=== PATIENT | female | born 1945 | race Caucasian/White ===

== ENCOUNTER 2019-11-09 14:26 | Outpatient (CLI) | payer MEDICARE, OTHER, SELFPAY ==
--- NOTE | 2019-11-09 15:00 | US_ITS ---
WS: [id number] ULTRASOUND THYROID TECHNIQUE: Ultrasound of the thyroid. CLINICAL INFORMATION: difficulty swallowing COMPARISON: None. FINDINGS: Thyroid: Right and left thyroid lobes are normal in size and echotexture. No thyroid nodules are pres ent. Right thyroid lobe: 3.6 cm x 1.4 cm x 1.6 cm Left thyroid lobe: 3.5 cm x 1.5 cm x 1.3 cm. Isthmus: 0.6 mm. Cervical lymphadenopathy: None. US/US thyroid [id number] IMPRESSION: Normal thyroid ultrasound examination.
== END 2019-11-09 14:27 | disposition home or self-care (01) ==
LOC: RAD 14:41
PROVIDERS: Family Provider Nurse Practitioner Family; PCP Registered Nurse; Visit Provider Registered Nurse
DX: R13.10 Dysphagia, unspecified (principal)
CPT/HCPCS: 76536

== ENCOUNTER → 2019-11-16 09:23 | Outpatient (BNVA) | payer MEDICARE, OTHER, SELFPAY | PROVIDERS: Family Provider Nurse Practitioner Family; PCP Registered Nurse; Referring Provider Registered Nurse; Visit Provider Otolaryngology | DX: R13.10 Dysphagia, unspecified (principal); K21.9 Gastro-esophageal reflux disease without esophagitis; H91.93 Unspecified hearing loss, bilateral; H71.92 Unspecified cholesteatoma, left ear; H72.92 Unspecified perforation of tympanic membrane, left ear; H69.82 Other specified disorders of Eustachian tube, left ear; J34.3 Hypertrophy of nasal turbinates; R22.1 Localized swelling, mass and lump, neck; F17.210 Nicotine dependence, cigarettes, uncomplicated | CPT/HCPCS: 99214 ==

== ENCOUNTER 2019-11-27 09:41 | Outpatient (CLI) | payer MEDICARE, OTHER, SELFPAY ==
--- NOTE | 2019-11-27 10:30 | CT_ITS ---
WS: [id number] CT TEMPORAL BONES WITHOUT CONTRAST HISTORY: ear complaints TECHNIQUE: Axial 1.25 mm imaging is performed through the temporal bones. High resolution 0.63 mm ref ormats were then submitted in axial, coronal and sagittal planes. DLP: 762.[address] scans at [facility] use at least one of these dose optimization techniques: automat ed exposure control; mA and/or kV adjustment per patient size (includes targeted exams where dose is matched to clinical indication); or iterative reconstruction. COMPARISON: 12/26/2017 RIGHT temporal bone: There is a very small amount of soft tissue in the external auditory canal consi stent with cerumen. There is no significant soft tissue in Prussak space, mesotympanum or epitympanum . Scutum is sharp. Tegmen tympani is intact and the mastoid air cells are clear with no destruction. Semicircular canals are negative. Malleus and incus are in good position. LEFT temporal bone: Abnormal appearance to the LEFT temporal bone. There is abnormal soft tissue exte nding in a thin linear dimension in the internal auditory canal. No identifiable incus are malleolus is identified. Tympanic membrane is not visible as a separate structure. Tegmen contain any does alex in intact. There is increased sclerosis of the adjacent mastoid air cells. Scutum is absent. A lot of the changes probably related to reflect postsurgical changes. There is widening of the internal and external auditory canal. CT/CT temporal bone wo con* [id number] IMPRESSION: 1. Abnormal LEFT temporal bone and inner ear. Probably postsurgical changes. W idening of the internal/external canals. No identifiable middle ears ossicles. Similar to the prior CT of 12/26/2017. 2. Thin linear area of increased soft tissue along the LEFT inner ear canal. C hanges are very similar to the prior temporal bone CT of 12/26/2017. 3. Normal RIGHT inner ear.
== END 2019-11-27 09:42 | disposition home or self-care (01) ==
LOC: CT 09:42
PROVIDERS: Family Provider Registered Nurse; PCP Registered Nurse; Visit Provider Otolaryngology
DX: H93.90 Unspecified disorder of ear, unspecified ear (principal)
CPT/HCPCS: 70480

== ENCOUNTER → 2019-12-05 13:15 | Outpatient (BNVA) | payer MEDICARE, OTHER, SELFPAY | PROVIDERS: Family Provider Registered Nurse; PCP Registered Nurse; Visit Provider Otolaryngology | DX: R05 Cough (principal); R13.10 Dysphagia, unspecified; K21.9 Gastro-esophageal reflux disease without esophagitis; H71.92 Unspecified cholesteatoma, left ear; H91.93 Unspecified hearing loss, bilateral; H72.92 Unspecified perforation of tympanic membrane, left ear; H69.82 Other specified disorders of Eustachian tube, left ear; J34.3 Hypertrophy of nasal turbinates; F17.210 Nicotine dependence, cigarettes, uncomplicated | CPT/HCPCS: 99214 ==

== ENCOUNTER 2020-04-22 10:31 | Outpatient (CLI) | payer MEDICARE, OTHER, SELFPAY ==
--- NOTE | 2020-04-22 10:45 | MR_ITS ---
WS: [id number] MRI LUMBAR SPINE NONCONTRAST TECHNIQUE: Sagittal T1, T2 and STIR imaging. Axial T1 and T2 imaging. CLINICAL INFORMATION: M48.062 Spinal stenosis, lumbar region with neurogenic cl... COMPARISON: MRI FINDINGS: Mild lumbar curve. No acute compression. Chronic compression fractures L3 and L4 similar to 2018. No new compression fractures. Mild disc bulging L3-L4 and L4-L5 slightly progressed. L1-L2: Normal. L2-L3: Mild annular bulging with narrowing of subarticular recess. Mild right foraminal narrowing. Sp inal canal is patent. Mild facet arthropathy. L3-L4: Mild disc bulging with moderate central canal stenosis. Mild facet arthropathy with ligament f lavum hypertrophy. Impingement subarticular recess bilaterally. Moderate bilateral foraminal narrowin g, right greater than left. Spinal canal stenosis progressed since 2018. L4-L5: Mild annular bulging with mild central canal stenosis and narrowing of the subarticular recess bilaterally. Moderate facet arthropathy. Moderate to severe right and moderate left foraminal narrow ing. L5-S1: Annular bulging with a tiny central protrusion. Impingement on the traversing left greater dex n right S1 nerve roots. Mild right and no significant left foraminal narrowing. Moderate facet arthro keyon. Visualized pelvic bony structures: Normal. Paravertebral soft tissues: Normal. Small bilateral renal cysts. MR/MR lumbar spine wo con* [id number] IMPRESSION: 1. Chronic compression of the L3 and L4 vertebral bodies unchanged since 2018. 2. Progressed central canal stenosis L3-4 with moderate central canal narrowin g and impingement traversing L4 nerve roots. 3. Mild central canal stenosis L4-5. 4. Moderate right L3-4 and moderate to severe right L4-5 foraminal narrowing. Impingement on the exiting right L4 nerve root. 5. Shallow central disc protrusion L5-S1 impinges the traversing left S1 nerve root. Recommend correlation left S1 nerve root symptoms. 6. Osteophytic ridging with mild right L5-S1 foraminal narrowing. 7. Moderate facet arthropathy L4-L5 and L5-S1.
--- NOTE | 2020-04-22 13:00 | XR_ITS ---
WS: [id number] Lumbar spine with flexion, extension, and neutral lateral, 04/22/2020 Clinical Data: Low back pain Comparison: Lateral lumbar spine, 05/08/2018. Findings: There is vertebroplasty cement in the L3 vertebral body. There is an old compression fracture of L4 v ertebral body with loss of 25% of the anterior and central vertebral body height. Diffuse osteoporosi s is present. There is disc space narrowing at L2-L3. No subluxation on flexion or extension is present. There is limitation of motion on flexion and exten claudia. There is calcification of the wall of the abdominal aorta but no aneurysm is seen. XR/XR lumbar spine f/e only [id number] Impression: 1. Compression fractures unchanged at L3 and L4. 2. Diffuse osteoporosis. 3. Degenerative disc narrowing at L2-L3. 4. Limitation of motion on flexion and extension.
== END 2020-04-22 10:32 | disposition home or self-care (01) ==
LOC: RADWPI 10:42
PROVIDERS: Family Provider Registered Nurse; PCP Registered Nurse; Visit Provider Licensed Practical Nurse
DX: M48.56XA Collapsed vertebra, not elsewhere classified, lumbar region, initial encounter for fracture (principal); M81.0 Age-related osteoporosis without current pathological fracture; M48.062 Spinal stenosis, lumbar region with neurogenic claudication; M48.061 Spinal stenosis, lumbar region without neurogenic claudication; M51.27 Other intervertebral disc displacement, lumbosacral region; M25.78 Osteophyte, vertebrae; M47.817 Spondylosis without myelopathy or radiculopathy, lumbosacral region
CPT/HCPCS: 72120; 72148

== ENCOUNTER → 2020-05-13 10:16 | Outpatient (BNVA) | payer MEDICARE, OTHER, SELFPAY | PROVIDERS: Family Provider Registered Nurse; PCP Registered Nurse; Referring Provider Specialist; Visit Provider Anesthesiology Pain Medicine | DX: M48.062 Spinal stenosis, lumbar region with neurogenic claudication (principal); F17.210 Nicotine dependence, cigarettes, uncomplicated | CPT/HCPCS: 99205 ==

== ENCOUNTER → 2020-05-19 13:26 | Outpatient (BNVA) | payer MEDICARE, OTHER, SELFPAY | PROVIDERS: Family Provider Registered Nurse; PCP Registered Nurse; Visit Provider Anesthesiology Pain Medicine | DX: M47.816 Spondylosis without myelopathy or radiculopathy, lumbar region (principal); M48.062 Spinal stenosis, lumbar region with neurogenic claudication; F17.210 Nicotine dependence, cigarettes, uncomplicated | CPT/HCPCS: 64493; 64494; 64495; J3490 ==

== ENCOUNTER 2020-05-20 10:19 | Outpatient (RCR) | payer MEDICARE, OTHER, SELFPAY | END 2020-06-09 23:59 | disposition home or self-care (01) | LOC: SPT 10:19 | PROVIDERS: PCP Registered Nurse; Referring Provider Specialist; Visit Provider Specialist | DX: S32.030S Wedge compression fracture of third lumbar vertebra, sequela (principal); X58.XXXS Exposure to other specified factors, sequela; M54.16 Radiculopathy, lumbar region | CPT/HCPCS: 97110; 97161 ==

== ENCOUNTER → 2020-06-03 10:46 | Outpatient (BNVA) | payer MEDICARE, OTHER, SELFPAY | PROVIDERS: Family Provider Registered Nurse; PCP Registered Nurse; Visit Provider Anesthesiology Pain Medicine | DX: M54.41 Lumbago with sciatica, right side (principal); M48.062 Spinal stenosis, lumbar region with neurogenic claudication; F17.210 Nicotine dependence, cigarettes, uncomplicated | CPT/HCPCS: 99213; 99215 ==

== ENCOUNTER 2020-06-10 06:00 | Outpatient (RCR) | payer MEDICARE, OTHER, SELFPAY | END 2020-07-09 23:59 | disposition home or self-care (01) | LOC: SPT 06:00 | PROVIDERS: PCP Registered Nurse; Referring Provider Specialist; Visit Provider Specialist | DX: S32.030S Wedge compression fracture of third lumbar vertebra, sequela (principal); M48.061 Spinal stenosis, lumbar region without neurogenic claudication; M54.16 Radiculopathy, lumbar region | CPT/HCPCS: 97110 ==

== ENCOUNTER 2020-06-19 16:10 | Outpatient (CLI) | payer MEDICARE, OTHER, SELFPAY ==
--- NOTE | 2020-06-19 16:43 | MR_ITS ---
WS: [id number] INDICATION: Conductive and sensorineural hearing loss TECHNIQUE: MR venography without gadolinium enhancement. FINDINGS: Normal sagittal sinus. Right dominant sigmoid and transverse sinuses. Hypoplastic left sigm oid and transverse sinuses likely normal variant. Straight sinus and internal cerebral veins are abraham nt. No evidence of acute dural sinus thrombosis. No evidence of jugular bulb dehiscence. MR/[place] [id number] IMPRESSION: 1. No evidence of jugular bulb dehiscence. 2. Right dominant sigmoid and transverse sinus. Hypoplastic left sigmoid and t ransverse sinuses. 3. Otherwise normal MR venogram.
--- NOTE | 2020-06-19 16:43 | MR_ITS ---
WS: [id number] MRA HEAD TECHNIQUE: Axial 3-D TOF images obtained with axial images and axial, sagittal, and coronal 2-D refor matted images. CLINICAL INFORMATION: MIXED CONDUCTIVE AND SENSORINEURAL HEARING LOSS COMPARISON: None. FINDINGS: Prior postoperative changes left partial mastoidectomy. Resection or erosion of the left ossicles. Distal vertebral arteries are patent. Basilar artery is patent. Normal vascularity to the [place] territo ry bilaterally. Both ICAs are patent at the skull base. Hypoplastic right A1. Normal vascularity to t he DAISY and into territories bilaterally. No evidence of high-grade proximal stenosis or aneurysm. MR/MR angio head wo con [id number] IMPRESSION: 1. Unremarkable intracranial MRA. 2. No evidence of high-grade proximal stenosis or aneurysm. 3. Normal internal carotid arteries at the skull base.
== END 2020-06-19 16:11 | disposition home or self-care (01) ==
LOC: RADSHAW 16:19
PROVIDERS: PCP Registered Nurse; Visit Provider Specialist
DX: H90.8 Mixed conductive and sensorineural hearing loss, unspecified (principal)
CPT/HCPCS: 70544

== ENCOUNTER → 2020-06-23 12:26 | Outpatient (BNVA) | payer MEDICARE, OTHER, SELFPAY | PROVIDERS: Family Provider Registered Nurse; PCP Registered Nurse; Visit Provider Anesthesiology Pain Medicine | DX: M47.816 Spondylosis without myelopathy or radiculopathy, lumbar region (principal); M48.062 Spinal stenosis, lumbar region with neurogenic claudication; M54.9 Dorsalgia, unspecified; F17.210 Nicotine dependence, cigarettes, uncomplicated | CPT/HCPCS: 64635; 64636; J1030 ==

== ENCOUNTER 2020-07-01 14:52 | Outpatient (CLI) | payer MEDICARE, OTHER, SELFPAY ==
--- NOTE | 2020-07-01 14:50 | MR_ITS ---
WS: [id number] MRI BRAIN WITH HIGH-RESOLUTION IMAGING THROUGH THE INTERNAL AUDITORY CANALS WITHOUT AND WITH CONTRAST HISTORY: MIXED CONDUCTIVE AND SENSORINEURAL HEARING LOSS, prior left ear surgery x4. COMPARISON: 06/19/2020 and 11/27/2019 TECHNIQUE: Multiplanar, multisequence imaging is performed through the brain. Additional 3 mm imaging performed in multiple planes through the internal auditory canal. Postcontrast imaging with 13 ml's of Prohance. No acute intracranial hemorrhage, midline shift, edema or mass effect. There is extensive confluent and patchy chronic white matter disease and also chronic ischemic change s in the arnel bilaterally. Ventricles and extra-axial spaces are normal. No inferior displacement of cerebellar tonsils. Clivus and pituitary gland are normal. Internal and external auditory canals: There is an abnormal configuration of the LEFT mastoid air janae ls and external auditory canal from prior surgery. No enhancement and no soft tissue mass identified. Cranial nerves VII and VIII complexes: The 7th and 8th cranial nerve complex is smaller caliber than the RIGHT. I suspect this is probably all postsurgical. Cerebellopontine angles: Normal. Paranasal sinuses: Normal. Mastoid air cells: Normal. Calvarium and scalp: Normal. Visualized [place] and dural venous sinuses demonstrate no abnormality. MR/MR iac's wo/w con* [id number] IMPRESSION: 1. No abnormal enhancement or mass at the cerebellopontine angles. 2. Atrophied LEFT 7th and 8th cranial nerve complexes compared to the RIGHT is probably postsurgical. Multiple prior surgeries involving the LEFT year. 3. Severe chronic white matter disease.
[2020-07-01 16:01] LABS: Blood Urea Nitrogen 11 mg/dL (8-23)
== END 2020-07-01 14:53 | disposition home or self-care (01) ==
LOC: RADWPI 14:57
PROVIDERS: Family Provider Registered Nurse; PCP Registered Nurse; Visit Provider Specialist
DX: H90.8 Mixed conductive and sensorineural hearing loss, unspecified (principal); R90.82 White matter disease, unspecified
CPT/HCPCS: 70553; 82565; 84520; A9579

== ENCOUNTER 2020-07-15 13:17 | Outpatient (CLI) | payer MEDICARE, OTHER, SELFPAY ==
--- NOTE | 2020-07-15 | USCV_ITS ---
Barbara Dona Age: 74 Gender: F : 1945 Exam Date: 07/15/2020 14:06 Ordering Phys: Perez Sparrow MD Technologist: Alen Velazquez Exam Location: [facility] [place] Indication: hearing loss Risk Factors: Previous Vascular Surgery: Right Brachial BP: / Left Brachial BP: / Right Left Velocity (cm/s) Spectral Plaque Velocity (cm/s) Spectral Plaque Syst/Diast Broadening Syst/Diast Broadening 93.20/ 17.10 Prox CCA 102.50/ 20.50 91.70/ 14.80 Mid CCA 85.40 / 18.80 58.30/ 15.50 Distal CCA 60.70 / 13.70 34.70/ 9.60 Prox ICA 62.90 / 17.90 58.90/ 16.40 Mid ICA 63.20 / 19.00 65.90/ 14.20 Distal ICA 52.50 / 16.00 66.30 ECA 100.00 0.64 ICA/CCA 0.74 Antegrade Vertebral Antegrade 77.70/ 17.10 cm/s 79.20/ 20.20 cm/s Bi Subclavian Bi 108.5 112.8 0 0 CONCLUSIONS Right ICA stenosis <50%. Moderate calcified atheromatous plaque right carotid bulb/ICA. Left ICA stenosis <50%. Moderate calcified atheromatous plaque left carotid bulb/ICA. Normal antegrade Doppler flow noted in the right vertebral artery. Normal antegrade Doppler flow noted in the left vertebral artery. Matt Serrano MD (Electronically Signed) Final Date: 15 July 2020 16:44 S
== END 2020-07-15 13:18 | disposition home or self-care (01) ==
LOC: US 13:19
PROVIDERS: PCP Registered Nurse; Visit Provider Specialist
DX: H91.90 Unspecified hearing loss, unspecified ear (principal); I65.23 Occlusion and stenosis of bilateral carotid arteries
CPT/HCPCS: 93880

== ENCOUNTER 2020-09-11 14:37 | Outpatient (CLI) | payer MEDICARE, OTHER, SELFPAY ==
--- NOTE | 2020-09-11 14:49 | MM_ITS ---
WS: [id number] BILATERAL DIGITAL SCREENING MAMMOGRAPHY WITH CAD CLINICAL INFORMATION: SCREENING HISTORY: Screening mammogram. No current complaints. COMPARISON: TECHNIQUE: Bilateral CC and MLO views. FINDINGS: The breasts are composed of heterogeneous fibroglandular density tissue, which can limit the detectio n of small underlying mass lesions. No suspicious mass, asymmetry, calcifications, or architectural d istortion. No evidence of malignancy. Stable punctate calcification right breast. MM/[place] [id number] IMPRESSION: BI-RADS: 2-Benign FOLLOW UP: 1 Year Follow-up Recommend return to annual screening mammography.
== END 2020-09-11 14:38 | disposition home or self-care (01) ==
LOC: RADSHAW 14:47
PROVIDERS: PCP Registered Nurse; Visit Provider Registered Nurse
DX: Z12.31 Encounter for screening mammogram for malignant neoplasm of breast (principal)
CPT/HCPCS: 77067

== ENCOUNTER 2021-04-09 11:58 | Outpatient (CLI) | payer MEDICARE, OTHER, SELFPAY ==
--- NOTE | 2021-04-09 12:45 | USCV_ITS ---
Dona Jimenez Age: 75 Gender: F : 1945 Exam Date: 04/09/2021 12:58 Ordering Phys: Tania Gonzalez MD ([email or web address]) Technologist: Coty Reyez [place]am [place] [facility] [place]ication: HISTORY: varicose veins with leg pain PROCEDURES: Bilateral duplex Venous Insufficiency study of the Deep and Superficial systems was carried out according to normal protocol with the patient in supine positon for deep system and dependent position for the superficial system. FINDINGS: No DVT or superficial thrombus seen in right or left No reflux noted in RLE Reflux noted in left SFJ. Left GSV and SSV appear to be without reflux. Vessel diameters and reflux time noted above. CONCLUSIONS 1. No evidence of DVT in the above-mentioned identifiable veins. 2. Significant venous reflux of greater than 500 ms was noted at the left saphenofemoral junction. 3. No significant venous reflux on the right side 4. The venous dimensions, depth from the surface are as mentioned above Dr Fanny Nahs MD [facility] (Electronically Signed) Final Date: 10 April 2021 08:38 S
--- NOTE | 2021-04-09 14:15 | USCV_ITS ---
Dona Jimenez Age: 75 Gender: F : 1945 Exam Date: 04/09/2021 12:25 Ordering Phys: Tania Gonzalez MD ([email or web address]) Technologist: Coty Reyez Exam Location: [facility] – [place] Indication: sob, BP: 132 / 78 HR: 84 Rhythm: Sinus Technical Quality: Good MEASUREMENTS (Male / Female) Normal Values 2D ECHO LV Diastolic Diameter PLAX 4.3 cm 4.2 - 5.9 / 3.9 - 5.3 cm LV Systolic Diameter PLAX 2.5 cm IVS Diastolic Thickness 1.4 cm 0.6 - 1.0 / 0.6 - 0.9 cm IVS Systolic Thickness 1.8 cm LVPW Diastolic Thickness 1.3 cm 0.6 - 1.0 / 0.6 - 0.9 cm LVPW Systolic Thickness 2.1 cm LVOT Diameter 2.0 cm LV Ejection Fraction 2D Teich 73.1 % LV Ejection Fraction MOD 2C 83.8 % LV Ejection Fraction 2C AL 84.1 % LA Diameter 3.1 cm LA Width 3.5 cm LA Height 4.1 cm RA Width 3.0 cm RA Height 4.5 cm Aorta at Sinotubular Diameter 3.1 cm M-MODE LV Diastolic Diameter MM 5.5 cm 4.2 - 5.9 / 3.9 - 5.3 cm LV Systolic Diameter MM 3.1 cm LV Ejection Fraction MM Teich 74.4 % IVS Diastolic Thickness MM 0.9 cm 0.6 - 1.0 / 0.6 - 0.9 cm IVS Systolic Thickness MM 1.3 cm LVPW Diastolic Thickness MM 0.9 cm 0.6 - 1.0 / 0.6 - 0.9 cm LVPW Systolic Thickness MM 1.7 cm Aortic Annulus Diameter 3.1 cm LA Ao Ratio MM 1.1 MV E Point Septal Separation 0.3 cm DOPPLER AV Peak Velocity 184.0 cm/s LVOT Peak Velocity 168.0 cm/s AV Area Cont Eq vti 2.6 cm squared AV Area Cont Eq pk 2.9 cm squared MV Peak Velocity 135.0 cm/s MV Area PHT 3.5 cm squared Mitral E to A Ratio 1.4 MV E' Velocity 67.5 cm/s Mitral E to MV E' Ratio 11.6 Mitral E to LV E' Lateral Ratio 11.9 Mitral E to LV E' Septal Ratio 11.3 TR Peak Velocity 185.4 cm/s TR Peak Gradient 13.7 mmHg TR Mean Velocity 113.2 cm/s TR Mean Gradient 5.6 mmHg TR Velocity Time Integral 28.8 cm Right Atrial Pressure 3.0 mmHg Pulmonary Artery Systolic Pressu 16.7 mmHg PV Peak Velocity 86.0 cm/s RV Acceleration Time 0.1 s RV Ejection Time 0.3 s RV AcT/ET 0.5 FINDINGS Left Ventricle Normal left ventricular cavity size. Normal left ventricular systolic function. No regional wall motion abnormalities. Left ventricular ejection fraction is estimated at 65 %. Grade II/IV diastolic dysfunction, moderately elevated filling pressures. Right Ventricle The right ventricle is normal in size and function. Right Atrium The right atrium is normal in size. Left Atrium The left atrium is normal in size. Mitral Valve Moderately thickened mitral valve. No mitral valve stenosis. Mild mitral annular calcification. Trace mitral valve regurgitation. Aortic Valve Moderate aortic valve calcification. No aortic valve stenosis. No aortic valve regurgitation. Tricuspid Valve Mild tricuspid valve regurgitation. Pulmonic Valve Structurally normal pulmonic valve without significant stenosis. There is no pulmonic regurgitation. Pericardium Normal pericardium without effusion. Aorta Normal ascending aorta dimension. CONCLUSIONS 1-Normal left ventricular cavity size. Normal left ventricular systolic function. No regional wall motion abnormalities. Left ventricular ejection fraction is estimated at 65 %. Grade II/IV diastolic dysfunction, moderately elevated filling pressures. 2-Moderately thickened mitral valve. No mitral valve stenosis. Mild mitral annular calcification. Trace mitral valve regurgitation. 3-Moderate aortic valve calcification. No aortic valve stenosis. No aortic valve regurgitation. 4-Mild tricuspid valve regurgitation. 5-There is no pericardial effusion. 6-Pulmonary artery systolic pressure is within normal limits. 7-Right atrial pressure is around 5 mm of mercury. 8-There are no prior echocardiogram studies to compare. Tania Gonzalez MD (Electronically Signed) Final Date: 09 April 2021 17:43 S
== END 2021-04-09 11:59 | disposition home or self-care (01) ==
PROVIDERS: PCP Registered Nurse; Visit Provider Internal Medicine Cardiovascular Disease
DX: R00.2 Palpitations (principal); R06.02 Shortness of breath; R53.83 Other fatigue; I83.892 Varicose veins of left lower extremity with other complications; I08.3 Combined rheumatic disorders of mitral, aortic and tricuspid valves
CPT/HCPCS: 93306; 93970

== ENCOUNTER → 2021-06-11 09:53 | Outpatient (BNVA) | payer MEDICARE, OTHER, SELFPAY | PROVIDERS: PCP Registered Nurse; Visit Provider Registered Nurse | DX: R53.83 Other fatigue (principal); I10 Essential (primary) hypertension; E78.5 Hyperlipidemia, unspecified; F17.200 Nicotine dependence, unspecified, uncomplicated | CPT/HCPCS: 80053; 80061; 82607; 84443; 85025 ==

== ENCOUNTER 2021-07-21 09:28 | Outpatient (CLI) | payer MEDICARE, OTHER, SELFPAY ==
--- NOTE | 2021-07-21 09:30 | USCV_ITS ---
Dona Jimenez Age: 75 Gender: F : 1945 Exam Date: 07/21/2021 09:47 Ordering Phys: Tania Gonzalez MD ([email or web address]) Technologist: Exam Location: [facility] – [place], [place] Indication: leg pain left Risk Factors: Previous Vascular Surgery: RIGHT LEFT BP: 125.0 / 70.00 BP: 125.0/ 70.00 0 0 Waveform Velocity (cm/s) Velocity (cm/s) Waveform Triphasic 128.2 Iliac Prox 112.6 Triphasic Triphasic 115.2 Iliac Mid 102.2 Triphasic Triphasic 119.1 Iliac Distal 113.5 Triphasic Triphasic 110.1 BRANCH ASSOCIATE TELLER 47.3 Triphasic Triphasic 79.4 SFA Prox 146.3 Triphasic Triphasic 92.8 SFA Mid 72.5 Triphasic Triphasic 88.3 SFA Dist 82.9 Triphasic Biphasic 57.0 POP 31.9 Biphasic Biphasic 49.2 CORPORATE TRUST OFFICER 44.2 Biphasic Biphasic 37.5 DPA 50.9 Biphasic 1.0 LILLIAN 1.0 FINDINGS RT CORPORATE TRUST OFFICER- 125, RT DPA- 125 LT CORPORATE TRUST OFFICER- 125, LT DPA -125 Mild to moderate scattered heterogeneous plaques in the iliac and femoral arteries bilaterally Normal resting ABIs bilaterally CONCLUSIONS 1. Normal resting ABIs bilaterally, suggesting no significant arterial obstruction. 2. Mild to moderate heterogeneous scattered plaques in the iliac and femoral arteries bilaterally Dr Fanny Nash MD [facility] (Electronically Signed) Final Date: 21 July 2021 23:43 S
== END 2021-07-21 09:29 | disposition home or self-care (01) ==
LOC: RAD 09:30
PROVIDERS: PCP Registered Nurse; Visit Provider Internal Medicine Cardiovascular Disease
DX: M79.605 Pain in left leg (principal); M79.604 Pain in right leg; I70.8 Atherosclerosis of other arteries
CPT/HCPCS: 93925

== ENCOUNTER → 2021-10-23 10:41 | Outpatient (BNVA) | payer MEDICARE, OTHER, SELFPAY | PROVIDERS: PCP Registered Nurse; Visit Provider Registered Nurse | DX: R39.9 Unspecified symptoms and signs involving the genitourinary system (principal); R31.9 Hematuria, unspecified; I10 Essential (primary) hypertension | CPT/HCPCS: 81000; 87086 ==

== ENCOUNTER → 2021-12-30 14:07 | Outpatient (BNVA) | payer MEDICARE, OTHER, SELFPAY | PROVIDERS: PCP Registered Nurse; Visit Provider Internal Medicine | DX: I48.91 Unspecified atrial fibrillation (principal); I10 Essential (primary) hypertension; F17.210 Nicotine dependence, cigarettes, uncomplicated | CPT/HCPCS: 99214 ==

== ENCOUNTER 2022-01-06 20:16 | Inpatient (IN) | payer MEDICARE, OTHER, SELFPAY ==
[2022-01-06 20:29] VITALS: BP 132/104; PULSE 149; RESP 22; TEMP 37.1; O2SAT 94; BMI 20.9
[2022-01-06 20:32] VITALS: BP 150/101; PULSE 143; RESP 16; O2SAT 94
--- NOTE | 2022-01-06 20:32 | XRR_ITS ---
PROCEDURE INFORMATION: Exam: XR Chest Exam date and time: 01/06/2022 8:39 PM Age: 76 years old Clinical indication: Condition or disease; Other: Afib TECHNIQUE: Imaging protocol: XR of the chest. Views: 1 view. COMPARISON: No relevant prior studies available. FINDINGS: Lungs: Visualized portions of the lungs are clear. Pleural spaces: Unremarkable. No pleural effusion. No pneumothorax. Heart/Mediastinum: Heart is within normal limits of size. Vasculature: There are atherosclerotic calcifications of the thoracic aorta. Bones/joints: Unremarkable. XR/XR chest 1V portable [id number] IMPRESSION: No acute infiltrate.
--- NOTE | 2022-01-06 20:32 | W.ED.ARRPALP ---
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 Jimenez is a 76-year-old lady with history of COPD, hypertension, hyperlipidemia, known atrial fibrillation for the past 8 months or so on oral anticoagulation who presents to the emergency department due to abnormal heart rate. She reports symptoms have been worse for approximately 4 days now. She endorses heaviness in her chest, episodes of lightheadedness, palpitations, shortness of breath, and generalized malaise. Additionally she has noticed bilateral lower extremity edema. She is currently wearing a Holter monitor and has had medication adjustments including increasing daily metoprolol when seen by cardiology on 12/30. Despite this symptoms have persisted. She has tried vagal maneuvers and also as needed metoprolol 25 mg which she took last at about 1710 today. Overall intensity symptoms is moderate. Course has been worsening. No other specific changes in health, exacerbating, or alleviating factors identified. Onset (ago): day(s) Duration: intermittent Severity: moderate Arrhythmia history: atrial fibrillation Associated symptoms: Reports cough and short of breath Treatments prior to arrival: vagal maneuvers and beta-josiah Review of Systems General: Reports: 10 or more systems reviewed and unremarkable except in HPI and below PFSH ED PFSH: Medical History Atrial fibrillation Cataract BOTH EYES CHF (congestive heart failure), NYHA class II Cholesteatoma Chronic eustachian tube dysfunction Cigarette nicotine dependence Depression Deviated septum Diverticulosis Dysphasia Enrolled in chronic care management Essential hypertension Fatigue GERD (gastroesophageal reflux disease) Hearing loss History of nonmelanoma skin cancer Lumbar compression fracture Lumbar pain Lumbar stenosis with neurogenic claudication Nasal turbinate hypertrophy Opioid contract exists Oral thrush Osteoporosis Perforated left tympanic membrane on examination Spinal stenosis of lumbar region with radiculopathy Tobacco use disorder Surgical History H/O bilateral salpingo-oophorectomy H/O kyphoplasty H/O rotator cuff surgery LEFT AND RIGHT Hx of mastoidectomy Family History Mother CAD (coronary artery disease) Father CAD (coronary artery disease) Brother Cancer Sister Cancer Denies family history of Family history of exposure to Agent [place] Social History Smoking and tobacco status: current every day smoker cigarettes Packs smoked per day: 0.5 Alcohol intake: never Lives independently: Yes Household members: none Marital status: / Current occupational status: retired History of recent travel: No Physical Exam Const: COMMON NORMALS: alert GENERAL APPEARANCE: cooperative and well developed HENMT: COMMON NORMALS: normocephalic and atraumatic HEAD & SCALP: normocephalic and atraumatic Eye: COMMON NORMALS: conjunctivae normal CONJUNCTIVA: Yes conjunctivae normal SCLERA: sclerae normal Neck/C-Spine: COMMON NORMALS: supple GENERAL: Yes trachea midline Resp: COMMON NORMALS: clear to auscultation bilaterally EFFORT & INSPECTION: Yes able to speak in complete sentences and Yes tachypneic AUSCULTATION: clear to auscultation bilaterally Cardio: RATE: tachycardic RHYTHM: abnormal rhythm irregularly irregular GI: COMMON NORMALS: Soft to palpation PALPATION: Yes Soft to palpation and No Tenderness to palpation present (GI) Extremity: GENERAL: Yes normal exam except as noted and Yes edema Neuro: COMMON NORMALS: moves all extremities SENSORIUM/ORIENTATION: Yes alert and No Orientation impaired Psych: COMMON NORMALS: mental status grossly normal and Normal thought process present THOUGHT PROCESS: Normal thought process present Course ED course: - Patient was seen and evaluated by me at bedside - Patient placed on cardiac monitors, IV access obtained - Initial evaluation notable for exam as above, A. fib with RVR. - Labs and xrays personally interpreted by me. EKGs obtained at 2025 and 2316 personally interpreted by me. A. fib with RVR. No STEMI. - Metoprolol ordered - Labs notable for no leukocytosis, normal hemoglobin. Metabolic and with mild hypokalemia and magnesium 1.7. Replacement ordered for arrhythmia prevention. - Imaging notable for no lobar consolidation or pneumothorax. -Attempted 2 more bolus doses of metoprolol with only mild improvement in rate. Discussed case with cardiology on-call who recommended attempting bolus of Cardizem and admission if failure to improve. This was ordered and had transient improvement in heart rate though it did become tachycardic again at which point drip was ordered. - Upon serial reexamination after treatment the patient was similar with some improvement in heart rate - Based on patient history, evaluation, and testing as interpreted the most likely cause of the patient's condition is A. fib with RVR - The results of ED evaluation were discussed with the patient including plan for admission due to requirement for level of care not available if discharged to prevent significant worsening/deterioration. - Admitting service was contacted and Dr Quezada with the hospitalist service agreed to admit the patient - Patient was admitted without further deterioration or significant events. Note: Click bubbles or prepopulated muller in note writing are used for assistance with data collection and billing and are inherently more limited than narrative and other text portions of this note. Please use narrative for additional clinical history and defer to narrative/free test for any case of contradictory information. If information appears in only free text or click bubble it should be considered present or absent as reported. Please contact note flex o writer operator for clarifications of clinical information or contradictory information. MDM is a brief summary, contradictory or erroneous seeming information should be clarified and full note should be reviewed. Vital Signs: Vital signs: Vital Signs Temperature 97.8 F 01/08/22 15:55 Pulse Rate 58 L 01/09/22 14:01 Respiratory Rate 18 01/09/22 14:01 Blood Pressure 166/97 01/09/22 14:01 Pulse Oximetry 95 01/09/22 14:01 MDM - Arrhythmia/Palpitations Medical Decision Making 76-year-old lady with history of A. fib presenting with A. fib with RVR that has failed typical home control measures. Mild hypokalemia and low magnesium for arrhythmia patient on laboratory studies. Attempted multiple bolus doses of metoprolol and subsequently Cardizem without sustained improvement, placed on Cardizem drip and admitted for definitive management. Medical Records I reviewed the patient's medical records. Lab Data I reviewed the patient's lab results. : 01/09/22 03:09 01/09/22 03:09 Radiology Impressions Chest X-Ray 01/06/22 20:32 IMPRESSION: No acute infiltrate. Laboratory Results WBC 8.3 10^3/uL (4.0-10.0) 01/06/22 20:50 RBC 4.75 10^6/uL (4.1-5.3) 01/06/22 20:50 Hgb 14.4 g/dL (11.5-15.3) 01/06/22 20:50 Hct 43.4 % (37.0-47.0) 01/06/22 20:50 MCV 91.4 fl (81-99) 01/06/22 20:50 MCH 30.3 pg (28.0-34.0) 01/06/22 20:50 MCHC 33.2 g/dL (30.0-36.0) 01/06/22 20:50 RDW 14.9 % (12.1-15.1) 01/06/22 20:50 Plt Count 342 10^3/cmm (130-400) 01/06/22 20:50 MPV 9.9 fL (7.4-10.4) 01/06/22 20:50 Neut % (Auto) 66.5 % 01/06/22 20:50 Lymph % (Auto) 25.6 % 01/06/22 20:50 [place] % (Auto) 6.3 % 01/06/22 20:50 Eos % (Auto) 0.8 % 01/06/22 20:50 Baso % (Auto) 0.6 % 01/06/22 20:50 Neut # (Auto) 5.52 10^3/uL (1.8-7.7) 01/06/22 20:50 Lymph # (Auto) 2.1 10^3/uL (0.8-4.8) 01/06/22 20:50 [place] # (Auto) 0.5 10^3/uL (0.2-0.9) 01/06/22 20:50 Eos # (Auto) 0.1 10^3/uL (0.0-0.8) 01/06/22 20:50 Baso # (Auto) 0.1 10^3/uL (0.0-0.1) 01/06/22 20:50 Nucleated RBC % (auto) 0 % 01/06/22 20:50 Nucleated RBCs # 0.0 /100WBC 01/06/22 20:50 Sodium 138 mmol/L (136-145) 01/06/22 21:13 Potassium 4.2 mmol/L (3.5-5.1) 01/07/22 03:27 Chloride 100 mmol/L (98-107) 01/06/22 21:13 Carbon Dioxide 25 mmol/L (22-29) 01/06/22 21:13 Anion Gap 16.4 (5-19) 01/06/22 21:13 BUN 10 mg/dL (8-23) 01/06/22 21:13 Creatinine 0.5 mg/dL (0.5-0.9) 01/06/22 21:13 GFR Calculation Not Reportable 01/06/22 21:13 Glucose 110 mg/dL (65-115) 01/06/22 21:13 Calculated Osmolality 286 mOsm/kg (285-295) 01/06/22 21:13 Calcium 9.7 mg/dL (8.5-10.5) 01/06/22 21:13 Magnesium 2.1 mg/dL (1.7-2.3) 01/07/22 03:27 Total Bilirubin 0.2 mg/dL (0.15-1.2) 01/06/22 21:13 AST 27 U/L (0-32) 01/06/22 21:13 ALT 39 U/L (0-33) H 01/06/22 21:13 Alkaline Phosphatase 35 IU/L (35-105) 01/06/22 21:13 Troponin T Baseline 10 ng/L (0-10) 01/06/22 21:13 Troponin T 120 Minute 9.50 ng/L (0-10) 01/06/22 23:18 Delta Troponin T -0.50 ABS# (0-10) L 01/06/22 23:18 Troponin T Hi Sens 6Hr 9.06 ng/L (0-10) 01/07/22 03:27 Troponin T Hi Sens 6Hr Delta -0.94 ng/L (0-12) L 01/07/22 03:27 NT-Pro-B Natriuret Pep 1263 pg/mL (0-450) H 01/06/22 21:13 Total Protein 6.4 g/dL (6.6-8.7) L 01/06/22 21:13 Albumin 4.2 g/dL (3.5-5.2) 01/06/22 21:13 Globulin 2.2 g/dL (1.3-4.6) 01/06/22 21:13 TSH 1.31 uIU/mL (0.27-4.20) 01/06/22 21:13 Critical Care Time Critical Care Time: Critical Care Time: Yes Total Critical Care Time: 35 Attestation: Due to a high probability of clinically significant, possibly life threatening deterioration, the patient required my highest level of attention and preparedness to intervene emergently and I personally spent this critical care time directly and personally managing the patient. This critical care time included obtaining a history; examining the patient; pulse oximetry; ordering and review of laboratory and imaging studies; arranging urgent treatment with development of a management plan; evaluation of patient's response to treatment; frequent reassessment; and, discussions with other providers as applicable. It was exclusive of separately billable procedures. Primary system involved is cardiac Discharge Plan Discharge Patient Disposition: Placed in Observation Admit Provider: Angel Quezada Clinical Impression: Atrial fibrillation with rapid ventricular response, CHF exacerbation Coding Level of Care Code ED Manager Student Services for Ismael Schulte
--- NOTE | 2022-01-06 20:33 | ECG_ITS ---
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 Measurements Intervals [place] Rate: 144 P: [place]: QRS: 50 QRSD: 89 T: 260 QT: 269 QTc: 417 Interpretive Statements ATRIAL FIBRILLATION WITH RAPID VENTRICULAR RESPONSE SEPTAL MYOCARDIAL INFARCTION , PROBABLY OLD [40+ ms Q WAVE IN V1/V2] MODERATE T-WAVE ABNORMALITY, CONSIDER INFERIOR ISCHEMIA [-0.1+ mV T-WAVE IN II/aVF] No previous ECG available for comparison Electronically Signed On 01-08-2022 10:46:41 CDT by Fanny Nash M.D. [id number]
[2022-01-06 20:57] LABS: Basophils # 0.1 10^3/uL (0.0-0.1); Basophils % 0.6 %; Eosinophils # 0.1 10^3/uL (0.0-0.8); Eosinophils % 0.8 %; Hematocrit 43.4 % (37.0-47.0); Hemoglobin 14.4 g/dL (11.5-15.3); Lymphocytes # 2.1 10^3/uL (0.8-4.8); Lymphocytes % 25.6 %; Mean Corpuscular HGB Conc 33.2 g/dL (30.0-36.0); Mean Corpuscular Hemoglobin 30.3 pg (28.0-34.0); Mean Corpuscular Volume 91.4 fl (81-99); Mean Platelet Volume 9.9 fL (7.4-10.4); Monocytes # 0.5 10^3/uL (0.2-0.9); Monocytes % 6.3 %; Neutrophils # 5.52 10^3/uL (1.8-7.7); Neutrophils % 66.5 %; Nucleated Red Blood Cells % 0 %; Platelet Count 342 10^3/cmm (130-400); Red Blood Count 4.75 10^6/uL (4.1-5.3); Red Cell Distribution Width 14.9 % (12.1-15.1); White Blood Count 8.3 10^3/uL (4.0-10.0)
[2022-01-06] MEDS: metoprolol tartrate 1 mg/1 mL SDV 5 mL 5 MG IVP ×3 (21:10→22:40)
[2022-01-06 21:43] VITALS: BP 142/87; PULSE 123; RESP 20; O2SAT 94
[2022-01-06 21:50] LABS: Troponin(5th) Baseline 10 ng/L (0-10)
[2022-01-06 21:58] LABS: Albumin Level 4.2 g/dL (3.5-5.2); Alkaline Phosphatase 35 IU/L (35-105); Anion Gap 16.4 (5-19); Aspartate Amino Transferase 27 U/L (0-32); Blood Urea Nitrogen 10 mg/dL (8-23); Calcium 9.7 mg/dL (8.5-10.5); Carbon Dioxide 25 mmol/L (22-29); Chloride 100 mmol/L (98-107); Globulin 2.2 g/dL (1.3-4.6); Glucose 110 mg/dL (65-115); Magnesium 1.7 mg/dL (1.7-2.3); Osmolality Calculated 286 mOsm/kg (285-295); Sodium 138 mmol/L (136-145); Thyroid Stimulating Hormone 1.31 uIU/mL (0.27-4.20); Total Bilirubin 0.2 mg/dL (0.15-1.2)
[2022-01-06 22:06] LABS: NT Pro B Type Natriuretic Pept 1263 pg/mL (0-450); Total Protein 6.4 g/dL (6.6-8.7)
[2022-01-06 22:07] LABS: Alanine Aminotransferase 39 U/L (0-33); Potassium 3.4 mmol/L (3.5-5.1)
--- NOTE | 2022-01-06 22:33 | ECG_ITS ---
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 Measurements Intervals [place] Rate: 126 P: [place]: QRS: 60 QRSD: 88 T: 60 QT: 311 QTc: 452 Interpretive Statements ATRIAL FIBRILLATION WITH RAPID VENTRICULAR RESPONSE SEPTAL MYOCARDIAL INFARCTION , OF INDETERMINATE AGE [40+ ms Q WAVE IN V1/V2] No previous ECG available for comparison Electronically Signed On 01-08-2022 13:45:51 CDT by Fanny Nash M.D. [id number]
[2022-01-06] MEDS: potassium chloride ER 20 mEq Tablet 60 MEQ PO (23:49)
[2022-01-06 23:56] LABS: Magnesium 1.8 mg/dL (1.7-2.3)
[2022-01-06] MEDS: magnesium sulfate premix 2 GM/50 ML PIGGYBACK IV (23:58)
[2022-01-07] VITALS (31 sets, daily range): BP systolic 115–141; BP diastolic 72–106; PULSE 92–142; RESP 15–30; TEMP 36.6–37.1; O2SAT 89–96
--- NOTE | 2022-01-07 01:46 | P.HP_ITS ---
Providers/Chief Complaint Admitting Physician: Angel Quezada Primary Care Provider: LEILA Arnold Chief Complaint: Experience Planning Strategist showing afib-dr sent over History of Present Illness Pleasant 76-year-old lady with history of A. fib, COPD, multiple other comorbidities, states has had A. fib for 8-9 months, follows with Dr. Gerber in office normally, for the first time states he is having such trouble with atrial fibrillation which brought her into the hospital. Came in A. fib with RVR, heart rates up to 149. With some heaviness in her chest. She does report also recently having cough, wheezing in her chest which coincided with trees blooming in the last several days. Also has been having some lower extremity edema. For the last week she has been wearing a teletypesetter monitor. States that she has another week left. Her metoprolol is reported increased during last visit 12/30 after 50 mg twice daily. She reportedly attempted vagal maneuvers and extra dose of metoprolol at home last night. In ER she did not respond to 3 doses of 5 mg metoprolol IV push. Subsequently also Cardizem IV push, and had to be started on a Cardizem drip. She normally uses nighttime oxygen. Review of Systems Const: Denies: fever(s), chills, body aches or malaise Eyes: Denies: change in vision, eye discomfort or eye redness ENMT: Denies: throat pain, oral sores or ear or mastoid pain Card: Reports: edema; Denies: chest pain, pre-syncope or dyspnea on exertion Resp: Reports: dyspnea, non-productive cough and wheezing; Denies: change in phlegm color or hemoptysis GI: Denies: abdominal pain, nausea, vomiting, diarrhea, constipation, hemat ochezia or melena : Denies: flank pain, urinary frequency or hematuria Musc: Denies: back pain, joint swelling or joint redness Skin/Breast: Denies: rash or new lesions Neuro: Denies: headache(s), numbness in extremities, weakness in extremities, dizziness, confusion or seizure-like activity Endo: Denies: polyuria or polydipsia Andres/Lymph: Denies: easy bleeding or tender lymph nodes All/Imm: Denies: urticaria or tongue swelling Medications/Allergies Home Medications Medication Instructions Recorded Confirmed Last Taken Type acetaminophen 500 mg tablet 500 mg PO .2 day PRN tab 05/13/20 12/30/21 Unknown History (Tylenol Extra Strength) pantoprazole 40 mg tablet,delayed See Rx Instructions .ROUTE 09/16/20 12/30/21 Unknown Rx release .COMPLEX #90 tab rosuvastatin 10 mg tablet See Rx Instructions .ROUTE 03/02/21 12/30/21 Unknown Rx .COMPLEX #90 tab rivaroxaban 20 mg tablet (Xarelto) 20 mg PO DAILY #90 tab 03/13/21 12/30/21 Unknown Rx verapamil 120 mg 24 hr 120 mg PO DAILY #90 cap 03/23/21 12/30/21 Unknown Rx capsule,extended release gabapentin 100 mg capsule 100 mg PO DAILY PRN cap 06/08/21 12/30/21 Unknown History fggehbty-lnbymnl-pdis-lutein tablet tab PO 09/23/21 12/30/21 Unknown History valsartan 320 mg tablet 160 mg PO BID #90 tab 10/23/21 12/30/21 Unknown Rx amlodipine 5 mg tablet 5 mg PO .HS #30 tab 10/30/21 12/30/21 Unknown Rx cholecalciferol (vitamin D3) 125 25,000 unit PO .weekly cap 12/30/21 12/30/21 Unknown History mcg (5,000 unit) capsule ferrous gluconate 240 mg (27 mg 240 mg PO DAILY 12/30/21 12/30/21 Unknown History iron) tablet metoprolol tartrate 50 mg tablet 50 mg PO BID #90 tab 01/06/22 Unknown Rx Allergies Allergy/AdvReac Type Severity Reaction Status Date / Time codeine Allergy Severe ALGY-Difficulty Verified 12/30/21 14:42 Breathing metronidazole [From Flagyl] Allergy Intermediate ALGY-Rash Verified 12/30/21 14:42 clonidine AdvReac Mild ADR-Confusi Verified 12/30/21 14:42 on lactose AdvReac Mild ADR-Gastrointestinal Verified 12/30/21 14:42 Upset lisinopril AdvReac Mild ADR-Cough Verified 12/30/21 14:42 PFSH Acute PFSH: Medical History Atrial fibrillation Cataract BOTH EYES Cholesteatoma Chronic eustachian tube dysfunction Cigarette nicotine dependence Depression Deviated septum Diverticulosis Dysphasia Enrolled in chronic care management Essential hypertension Fatigue GERD (gastroesophageal reflux disease) Hearing loss History of nonmelanoma skin cancer Lumbar compression fracture Lumbar pain Lumbar stenosis with neurogenic claudication Nasal turbinate hypertrophy Opioid contract exists Oral thrush Osteoporosis Perforated left tympanic membrane on examination Spinal stenosis of lumbar region with radiculopathy Tobacco use disorder Surgical History H/O bilateral salpingo-oophorectomy H/O kyphoplasty H/O rotator cuff surgery LEFT AND RIGHT Hx of mastoidectomy Family History Mother CAD (coronary artery disease) Father CAD (coronary artery disease) Brother Cancer Sister Cancer Denies family history of Family history of exposure to Agent [place] Social History Smoking and tobacco status: current every day smoker cigarettes Packs smoked per day: 0.5 Alcohol intake: never Lives independently: Yes Household members: none Marital status: / Current occupational status: retired History of recent travel: No Vitals/I&O/Wt Last Vital Signs Temp 98.7 F 01/06/22 20:29 Pulse 123 H 01/06/22 21:43 Resp 20 H 01/06/22 21:43 BP 142/87 01/06/22 21:43 Pulse Ox 94 01/06/22 21:43 01/06/22 01/06/22 01/07/22 14:59 22:59 06:59 Intake Total 52.917 / 52.917 Balance 52.917 / 52.917 Weight last 48 hrs Weight 58.967 kg Physical Exam Const: COMMON NORMALS: alert GENERAL APPEARANCE: cooperative ORIENTATION/CONSCIOUSNESS: Yes awake HENMT: COMMON NORMALS: normocephalic, EAC's normal, Normal external nose p resent and moist oral mucous membranes HEAD & SCALP: normocephalic NOSE: Normal external nose present EXTERNAL AUDITORY CANAL: EAC's normal Neck/C-Spine: COMMON NORMALS: no meningeal signs Chest: CHEST: Yes Symmetrical chest wall rise Resp: AUSCULTATION: wheezes and diminished lung sounds Cardio: COMMON NORMALS: No murmurs present (Cardio) RATE: tachycardic R HYTHM: abnormal rhythm irregularly irregular GI: COMMON NORMALS: Normal to inspection, nondistended, normoactive bowel sounds present, Soft to palpation and non-tender PALPATION: Yes Soft to palpation Extremity: GENERAL: Yes edema (Trace) Neuro: COMMON NORMALS: moves all extremities SENSORIUM/ORIENTATION: Yes alert MENINGEAL SIGNS: Yes no meningeal signs Psych: COMMON NORMALS: mental status grossly normal Skin: COMMON NORMALS: no wounds RASHES: no rashes Data : 01/06/22 20:50 01/06/22 21:13 A&P Assessment and plan (1) Atrial fibrillation with rapid ventricular response: Wean down Cardizem drip. Increase metoprolol to 75 mg twice daily. Continue verapamil. Received potassium magnesium replacement. Will recheck levels. Status: Acute (2) COPD exacerbation: She is not sure about formal diagnosis of COPD. Certainly there is hyperinflation noted on chest x-ray. She is a chronic smoker, has been cutting down, and states would not be surprised if she did have COPD. She may benefit from formal assessment by pulmonary function test. She has wheezing, cough, dyspnea, at this time will start on steroids, breathing treatments. Check procalcitonin. Status: Acute (3) CHF exacerbation: Mild exacerbation of diastolic CHF. Last TTE in April 2021, with noted normal ejection fraction, grade 2 diastolic dysfunction, no R WMA. Trace MVR. Mild TVR. Minor leg edema. Lasix 20 mg IV daily for now. Please monitor volume status, renal function, reassess need for continued diuresis. Status: Acute Plan Hypokalemia: Received replacement, recheck level Hypomagnesemia: Received replacement, recheck level HTN GERD At home uses nighttime oxygen 2 L Smoking addiction: Encourage cessation Other chronic medical problems Attestations Medical Necessity Statement*: Place in observation for additional optimization of control of A. fib with RVR, treatment of COPD exacerbation. Coding Level of Care Code Acute Russian History Professor for Ismael Fwd Exam Comprehensive Diagnoses Atrial fibrillation with rapid ventricular response I48.91 CHF exacerbation I50.9 COPD exacerbation J44.1
[2022-01-07] MEDS: FUROsemide 10 mg/mL SDV 2mL 20 MG IVP (02:32)
--- NOTE | 2022-01-07 02:33 | ECG_ITS ---
[facility] Test Date: 2022-01-07 Pat Name: Dona Jimenez Department: Room: 101 Gender: Female Tar Heel: : 1945 Requested By: Zachary Blanca Order Number: [id number] Dyana MD: Fanny Nash M.D. Measurements Intervals [place] Rate: 131 P: [place]: QRS: 36 QRSD: 83 T: 260 QT: 279 QTc: 412 Interpretive Statements ATRIAL FIBRILLATION WITH RAPID VENTRICULAR RESPONSE SEPTAL MYOCARDIAL INFARCTION , PROBABLY OLD [40+ ms Q WAVE IN V1/V2] Compared to ECG 01/06/2022 23:17:11 No significant changes Electronically Signed On 01-08-2022 13:48:56 CDT by Fanny Nash M.D. [id number]
[2022-01-07 04:34] LABS: Troponin 5 6HR 9.06 ng/L (0-10)
[2022-01-07 04:38] LABS: Magnesium 2.1 mg/dL (1.7-2.3); Potassium 4.2 mmol/L (3.5-5.1)
[2022-01-07 04:41] LABS: Troponin 5 6HR Delta -0.94 ng/L (0-12)
--- NOTE | 2022-01-07 08:21 | P.CONIM_ITS ---
Providers/Reason For Consult Consulting Physician/Specialty*: Dr. Edwards, cardiology Reason for Consult*: Atrial fibrillation with rapid ventricular response Attending Physician: Tania Downey MD Primary Care Provider: LEILA Arnold History of Present Illness History of Present Illness Dona Jimenez is a 76 year old female with past medical history of atrial fibrillation since February 2021, dyslipidemia, hypertension and gastroesophageal reflux disease. She has no prior history of stroke/TIA. No prior history of known CAD. She used to follow-up with Dr. Gonzalez. Recently she has been more atrial fibrillation with rapid ventricle response. Her dose of metoprolol was increased from clinic. She continued to be symptomatic with shortness of breath, tiredness, fatigue and some leg swelling and hence decided to come to the ER for further evaluation. She was found to be in atrial fibrillation with rapid ventricle response with heart rate in 140s. She received multiple dosage of metoprolol 5 mg IV and subsequently was started on Cardizem drip. At the time of evaluation patient complains of tiredness. She is on Cardizem drip 15 mg/h and heart rate is in the 1 teens. Review of Systems Const: Denies: fever(s), chills, body aches or malaise Eyes: Denies: change in vision, eye discomfort or eye redness ENMT: Denies: throat pain or ear or mastoid pain Card: Reports: edema; Denies: chest pain, pre-syncope or dyspnea on exertion Resp: Reports: dyspnea and non-productive cough; Denies: change in phlegm color or hemoptysis GI: Denies: abdominal pain, nausea, vomiting, diarrhea, constipation, hematochezia or melena : Denies: flank pain, urinary frequency or hematuria Musc: Reports: extremity swelling; Denies: back pain or joint swelling Skin/Breast: Denies: rash or new lesions Neuro: Reports: other (Tiredness); Denies: headache(s), numbness in extremities, weakness in extremities, dizziness, confusion or seizure-like activity Endo: Denies: polyuria or polydipsia Andres/Lymph: Denies: easy bleeding or tender lymph nodes All/Imm: Denies: urticaria or tongue swelling Medications/Allergies Home Medications Medication Instructions Recorded Confirmed Last Taken Type acetaminophen 500 mg tablet 500 mg PO .2 day PRN tab 05/13/20 01/07/22 12/24/21 History (Tylenol Extra Strength) 500 pantoprazole 40 mg tablet,delayed See Rx Instructions .ROUTE 09/16/20 01/07/22 01/06/22 09:00 Rx release .COMPLEX #90 tab rosuvastatin 10 mg tablet See Rx Instructions .ROUTE 03/02/21 01/07/22 01/05/22 Rx .COMPLEX #90 tab rivaroxaban 20 mg tablet (Xarelto) 20 mg PO DAILY #90 tab 03/13/21 01/07/22 01/05/22 Rx verapamil 120 mg 24 hr 120 mg PO DAILY #90 cap 03/23/21 01/07/22 Unknown Rx capsule,extended release gabapentin 100 mg capsule 100 mg PO DAILY PRN cap 06/08/21 01/07/22 01/06/22 09:00 History vfeiddfk-hooitgo-rckf-lutein tablet 1 tab PO BEDTIME 09/23/21 01/07/22 Unknown History valsartan 320 mg tablet 160 mg PO BID #90 tab 10/23/21 01/07/22 01/06/22 09:00 Rx amlodipine 5 mg tablet 5 mg PO .HS #30 tab 10/30/21 01/07/22 01/06/22 09:00 Rx cholecalciferol (vitamin D3) 125 25,000 unit PO .weekly cap 12/30/21 01/07/22 01/03/22 History mcg (5,000 unit) capsule ferrous gluconate 240 mg (27 mg 240 mg PO DAILY 12/30/21 01/07/22 01/05/22 History iron) tablet metoprolol tartrate 50 mg tablet 50 mg PO BID #90 tab 01/06/22 01/07/22 01/06/22 09:00 Rx Allergies Allergy/AdvReac Type Severity Reaction Status Date / Time codeine Allergy Severe ALGY-Difficulty Verified 12/30/21 14:42 Breathing metronidazole [From Flagyl] Allergy Intermediate ALGY-Rash Verified 12/30/21 14:42 clonidine AdvReac Mild ADR-Confusi Verified 12/30/21 14:42 on lactose AdvReac Mild ADR-Gastrointestinal Verified 12/30/21 14:42 Upset lisinopril AdvReac Mild ADR-Cough Verified 12/30/21 14:42 Current Medications Generic Name Dose Route Start Last Admin Trade Name Josh PRN Reason Stop Dose Admin Furosemide 20 mg 01/07/22 02:00 01/07/22 02:32 Furosemide 10 Mg/Ml Sdv 2ml IVP 20 mg DAILY FRANCIS Administration Diltiazem HCl 125 mg/ Sodium 125 mls @ 0 mls/hr 01/07/22 00:00 01/07/22 05:25 Chloride IV 15 mg/hr .Q0M FRANCIS 15 mls/hr Titration Protocol Per Protocol Methylprednisolone Sodium Succinate 60 mg 01/07/22 02:00 01/07/22 02:32 Methylprednisolone Sod Succ 125 Mg/2 Ml Inj IVP 60 mg Q6H FRANCIS Administration PFSH Acute PFSH: Medical History Atrial fibrillation Cataract BOTH EYES CHF (congestive heart failure), NYHA class II Cholesteatoma Chronic eustachian tube dysfunction Cigarette nicotine dependence Depression Deviated septum Diverticulosis Dysphasia Enrolled in chronic care management Essential hypertension Fatigue GERD (gastroesophageal reflux disease) Hearing loss History of nonmelanoma skin cancer Lumbar compression fracture Lumbar pain Lumbar stenosis with neurogenic claudication Nasal turbinate hypertrophy Opioid contract exists Oral thrush Osteoporosis Perforated left tympanic membrane on examination Spinal stenosis of lumbar region with radiculopathy Tobacco use disorder Surgical History H/O bilateral salpingo-oophorectomy H/O kyphoplasty H/O rotator cuff surgery LEFT AND RIGHT Hx of mastoidectomy Family History Mother CAD (coronary artery disease) Father CAD (coronary artery disease) Brother Cancer Sister Cancer Denies family history of Family history of exposure to Agent [place] Social History Smoking and tobacco status: current every day smoker cigarettes Packs smoked per day: 0.5 Alcohol intake: never Lives independently: Yes Household members: none Marital status: / Current occupational status: retired History of recent travel: No Vitals/I&O/Wt Last Vital Signs Temp 98.5 F 01/07/22 07:10 Pulse 129 H 01/07/22 07:10 Resp 25 H 01/07/22 07:10 BP 124/102 01/07/22 07:10 Pulse Ox 90 01/07/22 07:10 01/06/22 01/07/22 01/07/22 22:59 06:59 14:59 Intake Total 247.167 / 247.167 Output Total 800 / 800 500 / 500 Balance -552.833 / -552.833 -500 / -500 Weight last 48 hrs Weight 136 lb Weight 130 lb Physical Exam Narrative: GENERAL: Averagely built and averagely nourished in no acute distress HEENT: Pupils equal round reactive to light. No pallor or icterus. NECK: No JVD, No carotid bruit. CARDIOVASCULAR SYSTEM: S1-S2 irregular. tachycardia+ No murmur or gallops. RESPIRATORY SYSTEM: Chest clear to auscultation. No wheezes rhonchi or rubs heard. No use of accessory muscles. ABDOMEN: Soft, nontender and nondistended. Normal bowel sounds present. EXTREMITIES: No cyanosis or clubbing. Trace edema. No signs of chronic venous insufficiency. 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 No focal neurological deficits. SKIN: Normal turgor and temperature. No breakdown, rash or nail changes noted. PSYCH: Normal insight and judgment. Data : 01/06/22 20:50 01/07/22 03:27 Other data: 07/21/21 Procedure(s): CV arterial duplex [facility] [id number] ?FINDINGS ?RT COOLING ROOM ATTENDANT- 125, RT DPA- 125 ?LT COOLING ROOM ATTENDANT- 125, LT DPA -125 ?Mild to moderate scattered heterogeneous plaques in the iliac ?and femoral arteries bilaterally ?Normal resting ABIs bilaterally ?CONCLUSIONS ?1.? Normal resting ABIs bilaterally, suggesting no significant ?arterial obstruction. ?2.? Mild to moderate heterogeneous scattered plaques in the ?iliac and femoral arteries bilaterally ? Date of Service: 04/09/21 Procedure(s): CV echo complete* [id number] ?CONCLUSIONS ?1-Normal left ventricular cavity size. Normal left ventricular ?systolic function. No regional wall motion abnormalities. Left ?ventricular ejection fraction is estimated at 65 %. Grade II/IV ?diastolic dysfunction, moderately elevated filling pressures. ?2-Moderately thickened mitral valve. No mitral valve stenosis. ?Mild mitral annular calcification. Trace mitral valve regurgitation. ?3-Moderate aortic valve calcification. No aortic valve stenosis. ?No aortic valve regurgitation. ?4-Mild tricuspid valve regurgitation. ?5-There is no pericardial effusion. ?6-Pulmonary artery systolic pressure is within normal limits. ?7-Right atrial pressure is around 5 mm of mercury. ?8-There are no prior echocardiogram studies to compare. ?Tania Gonzalez MD ? (Electronically Signed) Date of Service: 04/09/21 Procedure(s): CV venous dup insufficie LE BI ?CONCLUSIONS ?1. No evidence of DVT in the above-mentioned identifiable veins. ?2. Significant venous reflux of greater than 500 ms was noted at the left saphenofemoral junction. ?3. No significant venous reflux on the right side ?4. The venous dimensions, depth? from? the surface are as mentioned above ?Dr Fanny Nash MD [facility] ? (Electronically Signed) Date of Service: 07/15/20 Procedure(s): CV carotid duplex BI* [id number] ?CONCLUSIONS ?Right ICA stenosis <50%. Moderate calcified atheromatous plaque right carotid bulb/ICA. ?Left ICA stenosis <50%. Moderate calcified atheromatous plaque left carotid bulb/ICA. ?Normal antegrade Doppler flow noted in the right vertebral artery. ?Normal antegrade Doppler flow noted in the left vertebral artery. ?Matt Serrano MD ? (Electronically Signed) A&P Assessment and plan (1) Atrial fibrillation with rapid ventricular response: Patient was seen and metoprolol dose was increased. She was also placed on event monitor for 2 weeks. Symptomatic atrial fib with RVR -Restart Xarelto -Start on sotalol 80 mg twice a day with close telemetry monitoring. -EKG 1 hour after each sotalol dose. -Plan for MARIANO cardioversion tomorrow. -Stop verapamil and start on Cardizem 180 mg daily. Wean off Cardizem drip based on her heart rate. -She will need 72-hour inpatient stay Status: Acute (2) Essential hypertension: Closely monitor blood pressure and make changes based on that Status: Acute (3) Tobacco use disorder: Status: Chronic (4) COPD (chronic obstructive pulmonary disease) with chronic bronchitis: Status: Chronic (5) GERD (gastroesophageal reflux disease): Status: Acute Qualifiers: Esophagitis presence: esophagitis presence not specified Qualified Code(s): K21.9 - Gastro-esophageal reflux disease without esophagitis Plan Hyperlipidemia Thank you for allowing me to participate in patient's care. Please feel free to call with questions or concerns. Coding Level of Care Code Acute Bookkeeping Teacher for Chg Fwd History Comprehensive Exam Comprehensive Medical Decision Making Moderate Complexity Diagnoses Atrial fibrillation with rapid ventricular response I48.91 Essential hypertension I10 GERD (gastroesophageal reflux disease) K21.9 Esophagitis presence: esophagitis presence not specified Tobacco use disorder F17.200 COPD (chronic obstructive pulmonary disease) with chronic bronchitis J44.9
--- NOTE | 2022-01-07 08:28 | ECG_ITS ---
[facility] Test Date: 2022-01-07 Pat Name: Dona Jimenez Department: Room: [facility] Gender: Female Glue Wheel Operator: : 1945 Requested By: Lexi Edwards Order Number: [id number] Dyana MD: Lexi Edwards M.D. Measurements Intervals [place] Rate: 121 P: [place]: QRS: 57 QRSD: 82 T: 68 QT: 337 QTc: 478 Interpretive Statements ATRIAL FIBRILLATION WITH RAPID VENTRICULAR RESPONSE ABNORMAL RHYTHM ECG Compared to ECG 01/07/2022 03:35:52 Myocardial infarct finding no longer present Electronically Signed On 01-08-2022 13:50:30 CDT by Lexi Edwards M.D. [id number]
[2022-01-07] MEDS: dilTIAZem ER (24HR) 180 mg Capsule PO (09:05)
[2022-01-07] MEDS: rivaroxaban 10 mg Tablet 20 MG PO (09:06)
[2022-01-07] MEDS: sotalol 80 mg Tablet PO ×2 (09:18→18:54)
--- NOTE | 2022-01-07 10:07 | P.PN_ITS ---
Subjective Subjective: This morning patient was endorsing feeling fine, she does not complain of shortness of breath or chest pain, A. fib RVR, Dr. Carrillo was evaluating her today as well Blood pressure is fluctuating Cardiology recommendations reviewed Vitals/I&O/Wt Last Vital Signs Temp 98.5 F 01/07/22 07:10 Pulse 142 H 01/07/22 08:48 Resp 18 01/07/22 08:48 BP 124/102 01/07/22 07:10 Pulse Ox 95 01/07/22 08:48 01/06/22 01/07/22 01/07/22 22:59 06:59 14:59 Intake Total 247.167 / 247.167 236 / 236 Output Total 800 / 800 750 / 750 Balance -552.833 / -552.833 -514 / -514 Weight last 48 hrs Weight 61.689 kg Weight 58.967 kg Physical Exam Narrative: Pleasant cooperative female A. fib RVR Bradycardia with S1-S2 Looks euvolemic Abdomen soft Saturating well on 2 L of oxygen No active stridor or wheezing Nonlabored breathing Nonfocal neuro exam EOMI, PERRLA Data : 01/06/22 20:50 01/07/22 03:27 A&P Assessment and plan (1) COPD (chronic obstructive pulmonary disease): Status: Acute (2) Atrial fibrillation with rapid ventricular response: Status: Acute (3) CHF exacerbation: Status: Acute (4) Fatigue: Status: Acute Qualifiers: Fatigue type: unspecified Qualified Code(s): R53.83 - Other fatigue (5) Lower extremity edema: Status: Acute (6) Osteoporosis: Status: Acute Qualifiers: Osteoporosis type: age-related Presence of current pathological fracture: with current pathological fracture Encounter type: subsequent enc ounter Fracture healing: with routine healing Qualified Code(s): M80.00XD - Age-related osteoporosis with current pathological fracture, unspecified site, subsequent encounter for fracture with routine healing (7) Lumbar compression fracture: Status: Acute Qualifiers: Encounter type: sequela Lumbar vertebra fracture level: L3 Qualified Code(s): S32.030S - Wedge compression fracture of third lumbar vertebra, sequela Plan A. fib RVR Toprol dose increased, sotalol added, Xarelto to be resumed, plan for MARIANO cardioversion by tomorrow We will keep her n.p.o. 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 after midnight Currently cardiac diet DVT prophylaxis [facility]cess[facility] Statement*: Cardioversion tomorrow Time Spent in Patient Care: 20min Coding Level of Care Code Acute It Infrastructure Consultant for [facility] Fwd Diagnoses COPD (chronic obstructive pulmonary disease) J44.9 Atrial fibrillation with rapid ventricular response I48.91 CHF exacerbation I50.9 Fatigue R53.83 Fatigue type: unspecified Lower extremity edema R60.0 Osteoporosis M80.00XD Osteoporosis type: age-related Presence of current pathological fracture: with current pathological fracture Encounter type: subsequent encounter Fracture healing: with routine healing Lumbar compression fracture S32.030S Encounter type: sequela Lumbar vertebra fracture level: L3
--- NOTE | 2022-01-07 10:28 | PC.CHAP ---
Pastoral Care Encounter/Spiritual Assessment Type of Contact [] Declined sex worker or escort visit [] Patient/Family/Request visit [] Outpatient visit [] Follow-up visit [] Physician referral [] Code/Alert [x] Routine visit [] Staff referral [] Actively dying [] Patient sleeping [] Family support [] [] Out of room [] Palliative care [] [x] Receiving care in room [] Pre-surgical visit [] Trauma [x] Long length of stay [] ICU visit [] Other: Relational/Emotional Strength [x] Patient feels connected with others/family/visitors/staff [] Distress [] Loneliness/isolation [] Abandonment Spirituality of Patient [x] Person of Talya [] Attends Faith of their Talya [x] Believes in Prayer [] Reads Bible or Christian materials [] There are Spiritual issues to be addressed Athletic Field Custodian Interventions [x] Prayer [x] Active listening [x] Non-anxious presence [x] Spiritual/emotional support [] Crisis/trauma care [x] Spiritual counseling [] Bereavement support [] Provided bereavement packet [] Provided Bible/devotional materials [] Provided toy/stuffed animal, coloring book to patient or family member [] Provided Communion [] Anointing/[place] [] Salvation [x] Completed spiritual assessment [] Other: Impact on Illness or Injury [] Angry [] Fearful [x] Anxious [] Often cries [] Exhaustion [x] Unable to work [] Unable to attend hindu [] Unable to walk/stand [] Unable to read [] Unable to drive [] Unable to eat/drink [] Unable to sleep [] Unable to be with family [] Patient intubated [] Other: Summary cardiac doesn't know about her health has a goodattitude will be able to go home Time spent with patient 10 mins
[2022-01-07] MEDS: dilTIAZem 30 mg Tablet PO ×2 (13:19→17:54)
[2022-01-07] MEDS: levalbuterol 0.63 mg/3 mL Neb INHALATION ×2 (14:20→20:56)
[2022-01-07] MEDS: ipratropium 0.5 mg/2.5 mL Neb INHALATION ×2 (14:20→20:56)
--- NOTE | 2022-01-07 17:54 | PC.NURSE ---
per Dr. Edwards, administer PO cardizem at 1800.
[2022-01-07] MEDS: acetaminophen 325 mg Tablet 650 MG PO (18:57)
--- NOTE | 2022-01-07 20:59 | ECG_ITS ---
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 Measurements Intervals [place] Rate: 104 P: ID: QRS: 33 QRSD: 86 T: -60 QT: 300 QTc: 395 Interpretive Statements ATRIAL FIBRILLATION WITH RAPID VENTRICULAR RESPONSE NONSPECIFIC T-WAVE ABNORMALITY Compared to ECG 01/07/2022 10:05:07 T-wave abnormality now present Electronically Signed On 01-08-2022 11:16:44 CDT by Lexi Edwards M.D. [id number]
[2022-01-08] VITALS (39 sets, daily range): BP systolic 96–151; BP diastolic 53–91; PULSE 41–123; RESP 5–22; TEMP 36.2–37.1; O2SAT 90–99
[2022-01-08] MEDS: dilTIAZem 30 mg Tablet PO ×2 (00:09→06:09)
[2022-01-08] MEDS: levalbuterol 0.63 mg/3 mL Neb INHALATION ×4 (03:12→21:06)
[2022-01-08] MEDS: ipratropium 0.5 mg/2.5 mL Neb INHALATION ×4 (03:12→21:06)
[2022-01-08 05:16] LABS: Basophils % 0.1 %; Hematocrit 35.9 % (37.0-47.0); Hemoglobin 11.9 g/dL (11.5-15.3); Mean Corpuscular HGB Conc 33.1 g/dL (30.0-36.0); Mean Corpuscular Hemoglobin 30.3 pg (28.0-34.0); Mean Corpuscular Volume 91.3 fl (81-99); Mean Platelet Volume 10.2 fL (7.4-10.4); Monocytes # 0.4 10^3/uL (0.2-0.9); Monocytes % 4.1 %; Neutrophils # 9.14 10^3/uL (1.8-7.7); Neutrophils % 86.2 %; Nucleated Red Blood Cells % 0 %; Platelet Count 287 10^3/cmm (130-400); Red Blood Count 3.93 10^6/uL (4.1-5.3); Red Cell Distribution Width 14.8 % (12.1-15.1); White Blood Count 10.6 10^3/uL (4.0-10.0)
[2022-01-08 05:39] LABS: Alanine Aminotransferase 33 U/L (0-33); Albumin Level 3.7 g/dL (3.5-5.2); Alkaline Phosphatase 28 IU/L (35-105); Anion Gap 13.6 (5-19); Aspartate Amino Transferase 21 U/L (0-32); Blood Urea Nitrogen 11 mg/dL (8-23); Calcium 9.2 mg/dL (8.5-10.5); Carbon Dioxide 25 mmol/L (22-29); Chloride 101 mmol/L (98-107); Globulin 2.1 g/dL (1.3-4.6); Glucose 134 mg/dL (65-115); Osmolality Calculated 283 mOsm/kg (285-295); Potassium 3.6 mmol/L (3.5-5.1); Sodium 136 mmol/L (136-145); Total Bilirubin 0.3 mg/dL (0.15-1.2); Total Protein 5.8 g/dL (6.6-8.7)
[2022-01-08] MEDS: sotalol 80 mg Tablet PO (06:09)
[2022-01-08] MEDS: sodium chloride 0.9% 1,000 ML 30 ML IV (07:19)
--- NOTE | 2022-01-08 07:30 | ECG_ITS ---
[facility] Test Date: 2022-01-08 Pat Name: Dona Jimenez Department: Room: 101 Gender: Female Assembly Associate: : 1945 Requested By: Lexi Edwards Order Number: [id number] Dyana MD: Fanny Nash M.D. Measurements Intervals [place] Rate: 111 P: [place]: QRS: 30 QRSD: 97 T: 0 QT: 302 QTc: 410 Interpretive Statements ATRIAL FIBRILLATION WITH RAPID VENTRICULAR RESPONSE NONSPECIFIC T-WAVE ABNORMALITY ABNORMAL RHYTHM ECG Compared to ECG 01/07/2022 21:43:15 No significant changes Electronically Signed On 01-08-2022 13:57:39 CDT by Fanny Nash M.D. [id number]
--- NOTE | 2022-01-08 07:35 | P.ANESASSM_ITS ---
Pre-Anesthetic Assessment Height/Weight: Height 1.68 m Weight 63.321 kg Temp Pulse Resp BP Pulse Ox 97.1 F L 97 16 114/85 92 01/08/22 07:16 01/08/22 07:16 01/08/22 07:16 01/08/22 07:16 01/08/22 07:16 Preop Diagnosis: afib with RVR Operation Date: 01/08/22 08:00 Proposed Procedures p MARIANO(Not Applicable) - Lexi Edwards MD s Cardioversion(Not Applicable) - Lexi Edwards MD Familial anesthetic complications: none Was Beta Juaquin taken within 24 hours: Yes Was Clonidine taken within 24 hours: N/A Last intake: Intake Last Liquid Date 01/07/22 Last Liquid Time 21:00 Last Solid Date 01/07/22 Last Solid Time 17:00 Last Intake: 21:00 Social Tobacco 1 pack(s) per day 50+ pack years Exam alert, oriented x 3, clear to auscultation bilaterally (wheezes, cough, course bilateral) and regular rate & rhythm (irreg) Airway Submandibular: within normal limits Cervical ROM: within normal limits Mallampati: Class II Dentition: false (upper) Pulmonary Chronic Obstructive Pulmonary Disease, Cough and Shortness of Breath CV/HEM Atrial Fibrillation, Stable Angina (tightness with HR 140's on admission), Congestive Heart Failure and Hypertension Hepatic None reported GI Gastroesophageal Reflux Disease Metabolic None reported Musc/skel Lower Back Pain and Osteoarthritis/DJD Neuropsych Depression Anesthetic Plan ASA status: 3 Anesthesia: MAC Medications/Allergies Home Medications Medication Instructions Recorded Confirmed Last Taken Type acetaminophen 500 mg tablet 500 mg PO .2 day PRN tab 05/13/20 01/07/22 12/24/21 History (Tylenol Extra Strength) 500 pantoprazole 40 mg tablet,delayed See Rx Instructions .ROUTE 09/16/20 01/07/22 01/06/22 09:00 Rx release .COMPLEX #90 tab rosuvastatin 10 mg tablet See Rx Instructions .ROUTE 03/02/21 01/07/22 01/05/22 Rx .COMPLEX #90 tab rivaroxaban 20 mg tablet (Xarelto) 20 mg PO DAILY #90 tab 03/13/21 01/07/22 01/05/22 Rx verapamil 120 mg 24 hr 120 mg PO DAILY #90 cap 03/23/21 01/07/22 Unknown Rx capsule,extended release gabapentin 100 mg capsule 100 mg PO DAILY PRN cap 06/08/21 01/07/22 01/06/22 09:00 History lwwzzgnx-ohqchrn-vier-lutein tablet 1 tab PO BEDTIME 09/23/21 01/07/22 Unknown History valsartan 320 mg tablet 160 mg PO BID #90 tab 10/23/21 01/07/22 01/06/22 09:00 Rx amlodipine 5 mg tablet 5 mg PO .HS #30 tab 10/30/21 01/07/22 01/06/22 09:00 Rx cholecalciferol (vitamin D3) 125 25,000 unit PO .weekly cap 12/30/21 01/07/22 01/03/22 History mcg (5,000 unit) capsule ferrous gluconate 240 mg (27 mg 240 mg PO DAILY 12/30/21 01/07/22 01/05/22 History iron) tablet metoprolol tartrate 50 mg tablet 50 mg PO BID #90 tab 01/06/22 01/07/22 01/06/22 09:00 Rx Allergies Allergy/AdvReac Type Severity Reaction Status Date / Time codeine Allergy Severe ALGY-Difficulty Verified 12/30/21 14:42 Breathing metronidazole [From Flagyl] Allergy Intermediate ALGY-Rash Verified 12/30/21 14:42 clonidine AdvReac Mild ADR-Confusi Verified 12/30/21 14:42 on lactose AdvReac Mild ADR-Gastrointestinal Verified 12/30/21 14:42 Upset lisinopril AdvReac Mild ADR-Cough Verified 12/30/21 14:42 Current Medications Generic Name Dose Route Start Last Admin Trade Name Julianq PRN Reason Stop Dose Admin Acetaminophen 650 mg 01/07/22 02:02 01/07/22 18:57 Acetaminophen 325 Mg Tablet PO 650 mg Q6H PRN Administration Mild/Mod Pain Or Temp >/= 101 Diltiazem HCl 180 mg 01/07/22 09:00 01/07/22 09:05 Diltiazem Er (24hr) 180 Mg Capsule PO 180 mg DAILY FRANCIS Administration Diltiazem HCl 30 mg 01/07/22 13:15 01/08/22 06:09 Diltiazem 30 Mg Tablet PO 30 mg Q6H FRANCIS Administration Furosemide 20 mg 01/07/22 02:00 01/07/22 02:32 Furosemide 10 Mg/Ml Sdv 2ml IVP 20 mg DAILY FRANCIS Administration Diltiazem HCl 125 mg/ Sodium 125 mls @ 0 mls/hr 01/07/22 00:00 01/08/22 05:23 Chloride IV 0 mg/hr .Q0M FRANCIS 0 mls/hr Titration Protocol Per Protocol Sodium Chloride 1,000 mls @ 30 mls/hr 01/08/22 07:15 01/08/22 07:19 Sodium Chloride 0.9% IV 01/09/22 07:14 30 mls/hr .Q24H FRANCIS Administration Ipratropium [place] 0.5 mg 01/07/22 09:00 01/08/22 03:12 Ipratropium 0.5 Mg/2.5 Ml Neb INHALATION 0.5 mg Q6H.RESPIRATORY FRANCIS Administration Levalbuterol HCl 0.63 mg 01/07/22 09:00 01/08/22 03:12 Levalbuterol 0.63 Mg/3 Ml Neb INHALATION 0.63 mg Q6H.RESPIRATORY FRANCIS Administration Rivaroxaban 20 mg 01/07/22 09:00 01/07/22 09:06 Rivaroxaban 10 Mg Tablet PO 20 mg DAILY FRANCIS Administration Sotalol HCl 80 mg 01/07/22 09:00 01/08/22 06:09 Sotalol 80 Mg Tablet PO 80 mg 0700,1900 FRANCIS Administration PFSH Anesthesia Medical History Atrial fibrillation Cataract BOTH EYES CHF (congestive heart failure), NYHA class II Cholesteatoma Chronic eustachian tube dysfunction Cigarette nicotine dependence Depression Deviated septum Diverticulosis Dysphasia Enrolled in chronic care management Essential hypertension Fatigue GERD (gastroesophageal reflux disease) Hearing loss History of nonmelanoma skin cancer Lumbar compression fracture Lumbar pain Lumbar stenosis with neurogenic claudication Nasal turbinate hypertrophy Opioid contract exists Oral thrush Osteoporosis Perforated left tympanic membrane on examination Spinal stenosis of lumbar region with radiculopathy Tobacco use disorder Surgical History H/O bilateral salpingo-oophorectomy H/O kyphoplasty H/O rotator cuff surgery LEFT AND RIGHT Hx of mastoidectomy Family History Mother CAD (coronary artery disease) Father CAD (coronary artery disease) Brother Cancer Sister Cancer Denies family history of Family history of exposure to Agent [place] Social History Smoking and tobacco status: current every day smoker cigarettes Packs smoked per day: 0.5 Alcohol intake: never Lives independently: Yes Household members: none Marital status: / Current occupational status: retired History of recent travel: No Data Anesthesia : 01/08/22 04:18 01/08/22 04:18 Short CBC 01/06/22 01/08/22 Range/Units 20:50 04:18 WBC 8.3 10.6 H (4.0-10.0) 10^3/uL Hgb 14.4 11.9 (11.5-15.3) g/dL Hct 43.4 35.9 L (37.0-47.0) % MCV 91.4 91.3 (81-99) fl Plt Count 342 287 (130-400) 10^3/cmm Neut % (Auto) 66.5 86.2 % Neut # (Auto) 5.52 9.14 H (1.8-7.7) 10^3/uL BMP 01/06/22 01/06/22 01/07/22 20:50 21:13 03:27 Sodium Cancelled 138 Potassium Cancelled 3.4 L 4.2 Chloride Cancelled 100 Carbon Dioxide Cancelled 25 BUN Cancelled 10 Creatinine Cancelled 0.5 Glucose Cancelled 110 Calcium Cancelled 9.7 01/08/22 04:18 Sodium 136 Potassium 3.6 Chloride 101 Carbon Dioxide 25 BUN 11 Creatinine 0.5 Glucose 134 H Calcium 9.2 Cardiac Enzymes 01/06/22 01/06/22 01/06/22 Range/Units 20:50 20:50 21:13 Troponin T Baseline Cancelled Troponin T 120 Minute (0-10) ng/L Delta Troponin T (0-10) ABS# Troponin T Hi Sens 6Hr (0-10) ng/L Troponin T Hi Sens 6Hr Delta (0-12) ng/L NT-Pro-B Natriuret Pep Cancelled 1263 H 01/06/22 01/06/22 01/07/22 Range/Units 21:13 23:18 03:27 Troponin T Baseline 10 Troponin T 120 Minute 9.50 (0-10) ng/L Delta Troponin T -0.50 L (0-10) ABS# Troponin T Hi Sens 6Hr 9.06 (0-10) ng/L Troponin T Hi Sens 6Hr Delta -0.94 L (0-12) ng/L NT-Pro-B Natriuret Pep Liver Function 01/06/22 01/06/22 01/08/22 Range/Units 20:50 21:13 04:18 Total Bilirubin Cancelled 0.2 0.3 AST Cancelled 27 21 ALT Cancelled 39 H 33 Alkaline Phosphatase Cancelled 35 28 L Albumin Cancelled 4.2 3.7 Cardiac Studies: Echocardiogram Ultrasound 04/09/21
--- NOTE | 2022-01-08 07:55 | P.PN_ITS ---
Subjective Subjective: Patient was seen before and after her MARIANO Medications: Reviewed: Yes Vitals/I&O/Wt Last Vital Signs Temp 97.1 F L 01/08/22 07:16 Pulse 97 01/08/22 07:16 Resp 16 01/08/22 07:16 BP 114/85 01/08/22 07:16 Pulse Ox 92 01/08/22 07:16 01/07/22 01/08/22 01/08/22 22:59 06:59 14:59 Intake Total 902.625 / 1360.125 51.917 / 1412.042 Output Total 550 / 1300 950 / 2250 Balance 352.625 / 60.125 -898.083 / -837.958 Weight last 48 hrs Weight 139 lb 9.6 oz Weight 136 lb Weight 130 lb Physical Exam Narrative: GENERAL: Averagely built and averagely nourished in no acute distress HEENT: Pupils equal round reactive to light. No pallor or icterus. NECK: No JVD, No carotid bruit. CARDIOVASCULAR SYSTEM: S1-S2 irregular. tachycardia+ No murmur or gallops. RESPIRATORY SYSTEM: Chest clear to auscultation. No wheezes rhonchi or rubs heard. No use of accessory muscles. ABDOMEN: Soft, nontender and nondistended. Normal bowel sounds present. EXTREMITIES: No cyanosis or clubbing. Trace edema. No signs of chronic venous insufficiency. 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 No focal neurological deficits. SKIN: Normal turgor and temperature. No breakdown, rash or nail changes noted. PSYCH: Normal insight and judgment. Data : 01/08/22 04:18 01/08/22 04:18 A&P Assessment and plan (1) Atrial fibrillation with rapid ventricular response: Patient was seen and metoprolol dose was increased. She was also placed on event monitor for 2 weeks. Symptomatic atrial fib with RVR -continue Xarelto and sotalol 80 mg twice a day with close telemetry monitoring. -EKG 1 hour after each sotalol dose. -s/p MARIANO and cardioversion -D/c cardizem. -Possibly discharge tomorrow afternoon. Status: Acute (2) Essential hypertension: Closely monitor blood pressure and make changes based on that Status: Acute (3) Tobacco use disorder: Status: Chronic (4) COPD (chronic obstructive pulmonary disease) with chronic bronchitis: Status: Chronic (5) GERD (gastroesophageal reflux disease): Status: Acute Qualifiers: Esophagitis presence: esophagitis presence not specified Qualified Code(s): K21.9 - Gastro-esophageal reflux disease without esophagitis Plan Hyperlipidemia Thank you for allowing me to participate in patient's care. Please feel free to call with questions or concerns. Attestations Medical Necessity Statement*: needs hospital stay after MARIANO cardioversion. She needs sotalol monitoring. Procedures Time out/Consent Time Out Performed: Yes Consent for Procedure: Consent obtained from patient, Risks & Benefits reviewed and Agrees to proceed with procedure Procedure Narrative MARIANO Procedure note Indication: Symptomatic atrial fibrillation with rapid ventricular response Sedation: Propofol by anesthesia The patient was brought down to the GI Lab. Procedure was explained to the pat ient in detail and informed consent was obtained. Timeout was called. After achieving adequate sedation, the probe was inserted on first attempt. No blood on the probe post procedure. Prelim report: Moderately decreased left ventricle size and systolic function. No left atrial or left atrial appendage mass or thrombus visualized. No ASD or PFO identified. Full report to follow. Cardioversion procedure note. Indication: Symptomatic atrial fibrillation Anticoagulation: Xarelto Sedation: Propofol by anesthesia After ensuring no blood clots in left atrium/left atrial appendage Pads were placed anteroposteriorly. She received 150 J of synchronized biphasic shock ?1 with conversion to strides sinus bradycardia with heart rate in low 40s. patient tolerated the procedure well. Recovery: In unit Coding Level of Care Code Acute Tree Thinner for [facility] Fwd Diagnoses Atrial fibrillation with rapid ventricular response I48.91 Essential hypertension I10 Tobacco use disorder F17.200 COPD (chronic obstructive pulmonary disease) with chronic bronchitis J44.9 GERD (gastroesophageal reflux disease) K21.9 Esophagitis presence: esophagitis presence not specified
--- NOTE | 2022-01-08 08:00 | USCV_ITS ---
Dona Jimenez Age: 76 Gender: F : 1945 Exam Date: 01/08/2022 08:08 Ordering Phys: Lexi Edwards MD ([email or web address]) Technologist: JUDAH Exam Location: [facility] Indication: Symptomatic atrial fibrillation, precardioversion BP: 114 / 85 HR: 114 Rhythm: Sinus Technical Quality: Adequate MEASUREMENTS (Male / Female) Normal Values 2D ECHO LVOT Diameter 2.0 cm DOPPLER LVOT Peak Velocity 80.0 cm/s Medications Patient given IV sedation by anesthesia service, for details please refer to the anesthesia report. Complications Patient tolerated procedure well. Proc. Components The patient was brought to the MARIANO examination room in a fasting state after obtaining an informed consent. FINDINGS Left Ventricle Normal left ventricular cavity size. Increased left ventricle wall thickness. Moderately decreased left ventricular systolic function. Left ventricular ejection fraction is estimated at 35 %. Moderate global hypokinesis. Right Ventricle Normal right ventricular size and systolic function. Right Atrium Normal right atrial size. Left Atrium Moderately increased left atrial size. LA Appendage Normal left atrial appendage. Spontaneous echo contrast seen in the left atrial appendage. Decreased flow velocities in the left atrial appendage. IA Septum Normal interatrial septum. No patent foramen ovale. No evidence for an atrial septal defect. Mitral Valve Mild mitral annular calcification. Mildly thickened mitral valve. No mitral valve stenosis. Mild mitral valve regurgitation. Aortic Valve Structurally normal trileaflet aortic valve. No aortic valve stenosis. No aortic valve regurgitation. Tricuspid Valve Structurally normal tricuspid valve. No tricuspid valve stenosis. Trace tricuspid valve regurgitation. Pulmonic Valve Structurally normal pulmonic valve. No pulmonary valve stenosis. Trace pulmonary valve regurgitation. Pericardium No pericardial effusion. Aorta Normal size aortic root and proximal ascending aorta. Plaque noted in aortic root and ascending aorta. No aortic dilation aneurysm or dissection. Grade 4 atheroma noted in proximal descending aorta and aortic arch. CONCLUSIONS 1. Normal left ventricular cavity size. Increased left ventricle wall thickness. Moderately decreased left ventricular systolic function. Left ventricular ejection fraction is estimated at 35 %. Moderate global hypokinesis. 2. Normal right ventricular size and systolic function. 3. Mild mitral valve regurgitation. 4. Spontaneous echo contrast seen in the left atrial appendage. No left atrial appendage thrombus. 5. Grade 4 atheroma noted in proximal descending aorta and aortic arch. Lexi Edwards MD (Electronically Signed) Final Date: 08 January 2022 15:13 S
--- NOTE | 2022-01-08 09:10 | ECG_ITS ---
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 Measurements Intervals [place] Rate: 45 P: 52 LA: 128 QRS: 22 QRSD: 76 T: 27 QT: 488 QTc: 423 Interpretive Statements SINUS BRADYCARDIA WITH OCCASIONAL SUPRAVENTRICULAR PREMATURE COMPLEXES Poor R wave progression compared to ECG 01/08/2022 07:24:18 Atrial fibrillation no longer present T-wave abnormality no longer present Electronically Signed On 01-08-2022 13:39:51 CDT by Fanny Nash M.D. [email or web address].[employer]/store/[id number]
[2022-01-08] MEDS: FUROsemide 10 mg/mL SDV 2mL 20 MG IVP (09:39)
[2022-01-08] MEDS: rivaroxaban 10 mg Tablet 20 MG PO (09:39)
--- NOTE | 2022-01-08 09:40 | PM.PN ---
Subjective Subjective: Patient is status post cardioversion, successful cardioversion to sinus rhythm, current heart rate in low 40s, bradycardic Blood pressure 100/53mmhg During my evaluation her heart rate was improving it was fluctuating between 40-60, She is awake and alert Pleasant and cooperative Nonfocal neuro exam No active chest pain or shortness of breath She was able to tell me that her doctor Dr. Edwards updated her son and recommended continuing sotalol Vitals/I&O/Wt Last Vital Signs Temp 97.2 F L 01/08/22 08:50 Pulse 43 L 01/08/22 08:57 Resp 16 01/08/22 08:57 BP 100/53 01/08/22 08:57 Pulse Ox 99 01/08/22 08:57 01/07/22 01/08/22 01/08/22 22:59 06:59 14:59 Intake Total 902.625 / 1360.125 51.917 / 1412.042 800 / 800 Output Total 550 / 1300 950 / 2250 Balance 352.625 / 60.125 -898.083 / -837.958 800 / 800 Weight last 48 hrs Weight 63.321 kg Weight 61.689 kg Weight 58.967 kg Physical Exam Narrative: S1, S2 sinus rhythm Bradycardia Nonfocal neuro exam On room air No active COPD exacerbation Pleasant and cooperative Abdomen soft Awake and alert Nonfocal neuro exam Data : 01/08/22 04:18 01/08/22 04:18 A&P Assessment and plan (1) COPD (chronic obstructive pulmonary disease): Status: Acute (2) Atrial fibrillation with rapid ventricular response: Status: Acute (3) CHF exacerbation: Status: Acute (4) Fatigue: Status: Acute Qualifiers: Fatigue type: unspecified Qualified Code(s): R53.83 - Other fatigue (5) Encounter for cardioversion procedure: Status: Acute Plan A. fib RVR status post cardioversion currently patient is in sinus rhythm heart rate in low 40s Blood pressure is soft We will follow up with cardiology for further recommendations Continue Xarelto We will touch base with cardiology if sotalol dose needs to be decreased Diastolic CHF mild exacerbation related to tachyarrhythmia: Hold Lasix because of low blood pressure COPD without acute exacerbation, she will need outpatient PFTs Cardiac diet Full code DVT prophylaxis sufficed with AC Attestations Medical Necessity Statement*: Possible discharge tomorrow Time Spent in Patient Care: 30mins Coding Level of Care Code Acute Marketing Strategy Lead for g Fwd Diagnoses COPD (chronic obstructive pulmonary disease) J44.9 Atrial fibrillation with rapid ventricular response I48.91 CHF exacerbation I50.9 Fatigue R53.83 Fatigue type: unspecified Encounter for cardioversion procedure Z01.89
--- NOTE | 2022-01-08 09:51 | ANE.PACU2 ---
Inpatient post-anesthesia follow up: Airway intact: Yes Vital signs: Temperature 97.2 F Pulse Rate 43 Respiratory Rate 16 Blood Pressure 100/53 Pulse Oximetry 99 Oxygen Delivery Me thod Room Air Oxygen Flow Rate 6 Fraction of Inspir ed Oxygen 28 Hydration adequate: Yes Nausea and vomiting: No Pain level: 1 Mental status: Baseline
[2022-01-08] MEDS: phenol oral Spray 177 mL 3 SPRAY MUCOUS MEM (15:59)
[2022-01-08] MEDS: sotalol 80 mg Tablet 40 MG PO (18:54)
--- NOTE | 2022-01-08 20:00 | ECG_ITS ---
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 Measurements Intervals [place] Rate: 61 P: 65 CO: 153 QRS: 49 QRSD: 81 T: 52 QT: 444 QTc: 447 Interpretive Statements SINUS RHYTHM WITH OCCASIONAL SUPRAVENTRICULAR PREMATURE COMPLEXES Compared to ECG 01/08/2022 09:10:08 Sinus bradycardia no longer present Electronically Signed On 01-09-2022 11:36:36 CDT by Dez Rivero M.D. [id number]
--- NOTE | 2022-01-08 21:17 | PC.NURSE ---
Received report from NOMI Demarco. Patient is s/p cardioversion. Patient reports feeling well at this time. HR 60s-70s in NSR. Discussed changes to sotalol dosing. Patient verbalized complete understanding. Patient denies pain or needs. No distress observed. Will continue to monitor.
[2022-01-09] VITALS (10 sets, daily range): BP systolic 141–166; BP diastolic 77–97; PULSE 54–78; RESP 14–18; O2SAT 90–97
[2022-01-09] MEDS: ipratropium 0.5 mg/2.5 mL Neb INHALATION ×2 (03:18→08:59)
[2022-01-09] MEDS: levalbuterol 0.63 mg/3 mL Neb INHALATION ×2 (03:18→08:59)
[2022-01-09 04:24] LABS: Basophils % 0.2 %; Eosinophils % 0.4 %; Hematocrit 34.9 % (37.0-47.0); Hemoglobin 11.2 g/dL (11.5-15.3); Lymphocytes # 2.2 10^3/uL (0.8-4.8); Lymphocytes % 20.1 %; Mean Corpuscular HGB Conc 32.1 g/dL (30.0-36.0); Mean Corpuscular Hemoglobin 29.6 pg (28.0-34.0); Mean Corpuscular Volume 92.3 fl (81-99); Mean Platelet Volume 10.2 fL (7.4-10.4); Monocytes # 0.6 10^3/uL (0.2-0.9); Monocytes % 5.8 %; Neutrophils # 8.02 10^3/uL (1.8-7.7); Neutrophils % 73.2 %; Nucleated Red Blood Cells % 0 %; Platelet Count 243 10^3/cmm (130-400); Red Blood Count 3.78 10^6/uL (4.1-5.3); Red Cell Distribution Width 15.3 % (12.1-15.1)
[2022-01-09 04:56] LABS: Alanine Aminotransferase 41 U/L (0-33); Albumin Level 3.4 g/dL (3.5-5.2); Alkaline Phosphatase 25 IU/L (35-105); Anion Gap 12.4 (5-19); Aspartate Amino Transferase 28 U/L (0-32); Blood Urea Nitrogen 15 mg/dL (8-23); Calcium 8.8 mg/dL (8.5-10.5); Carbon Dioxide 26 mmol/L (22-29); Chloride 102 mmol/L (98-107); Globulin 2.1 g/dL (1.3-4.6); Glucose 88 mg/dL (65-115); Osmolality Calculated 284 mOsm/kg (285-295); Potassium 3.4 mmol/L (3.5-5.1); Sodium 137 mmol/L (136-145); Total Bilirubin 0.3 mg/dL (0.15-1.2); Total Protein 5.5 g/dL (6.6-8.7)
[2022-01-09] MEDS: sotalol 80 mg Tablet PO (05:52)
[2022-01-09] MEDS: rivaroxaban 10 mg Tablet 20 MG PO (08:35)
--- NOTE | 2022-01-09 09:00 | ECG_ITS ---
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 Measurements Intervals [place] Rate: 58 P: 65 AL: 153 QRS: 43 QRSD: 82 T: 59 QT: 462 QTc: 458 Interpretive Statements SINUS BRADYCARDIA Compared to ECG 01/08/2022 22:21:36 Sinus rhythm no longer present Electronically Signed On 01-09-2022 11:38:02 CDT by Dez Rivero M.D. [email or web address] [email or web address] davis community [email or web address] medical specialty hospital - [email or web address]/store/[id number]
[2022-01-09 10:04] LABS: Magnesium 1.9 mg/dL (1.7-2.3); NT Pro B Type Natriuretic Pept 1298 pg/mL (0-450)
[2022-01-09] MEDS: potassium chloride ER 20 mEq Tablet 40 MEQ PO (10:42)
[2022-01-09] MEDS: potassium chloride ER 20 mEq Tablet PO (10:43)
--- NOTE | 2022-01-09 12:28 | PM.PN ---
Subjective Subjective: Patient is in sinus rhythm, heart rate has been better as compared to yesterday at the time of evaluation it was frustrated between 60-67 blood pressure is 166/97mmhg Patient is not complaining of any chest pain shortness of breath confusion No active shortness of breath She was on room air at the time of my evaluation No active chest pain Potassium repleted No QTC prolongation Vitals/I&O/Wt Last Vital Signs Temp 97.8 F 01/08/22 15:55 Pulse 67 01/09/22 09:09 Resp 16 01/09/22 09:09 BP 166/97 01/09/22 10:41 Pulse Ox 95 01/09/22 09:09 01/08/22 01/09/22 01/09/22 22:59 06:59 14:59 Intake Total 240 / 1400 Output Total 600 / 1600 300 / 1900 Balance -360 / -200 -300 / -500 Weight last 48 hrs Weight 63.276 kg Weight 63.321 kg Physical Exam Narrative: Patient is very pleasant cooperative Nonfocal neuro exam S1, S2 sinus rhythm Abdomen is soft Nonfocal neuro exam Currently on room air She was not on oxygen at the time of evaluation Clinically she does not look fluid overloaded Data : 01/09/22 03:09 01/09/22 03:09 A&P Assessment and plan (1) Encounter for cardioversion procedure: Status: Acute (2) COPD (chronic obstructive pulmonary disease): Status: Acute (3) Atrial fibrillation with rapid ventricular response: Status: Acute (4) CHF exacerbation: Status: Acute (5) Fatigue: Status: Acute Qualifiers: Fatigue type: unspecified Qualified Code(s): R53.83 - Other fatigue (6) Lower extremity edema: Status: Acute (7) History of nonmelanoma skin cancer: Status: Acute (8) Osteoporosis: Status: Acute Qualifiers: Osteoporosis type: age-related Presence of current pathological fracture: with current pathological fracture Encounter type: subsequent encounter Fracture healing: with routine healing Qualified Code(s): M80.00XD - Age-related osteoporosis with current pathological fracture, unspecified site, subsequent encounter for fracture with routine healing (9) Lumbar compression fracture: Status: Acute Qualifiers: Encounter type: sequela Lumbar vertebra fracture level: L3 Qualified Code(s): S32.030S - Wedge compression fracture of third lumbar vertebra, sequela Plan A. fib RVR: Status post cardioversion, converted to sinus rhythm, she was initially bradycardic, heart rate has improved, no significant AV block, currently on sotalol, no QTC prolongation We will touch base with cardiology for further recommendations No active chest pain Anticoagulation to be resumed Hypokalemia: Repleted Hemoglobin stable Check magnesium level EKG showing sinus bradycardia, QTC 4 47-4 50s Diastolic CHF clinically no severe signs of fluid overload, Dr. 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 [employer] Fwd Diagnoses Encounter for cardioversion procedure Z01.89 COPD (chronic obstructive pulmonary disease) J44.9 Atrial fibrillation with rapid ventricular response I48.91 CHF exacerbation I50.9 Fatigue R53.83 Fatigue type: unspecified Lower extremity edema R60.0 History of nonmelanoma skin cancer Z85.828 Osteoporosis M80.00XD Osteoporosis type: age-related Presence of current pathological fracture: with current pathological fracture Encounter type: subsequent encounter Fracture healing: with routine healing Lumbar compression fracture S32.030S Encounter type: sequela Lumbar vertebra fracture level: L3
--- NOTE | 2022-01-09 13:02 | PM.DCS ---
Discharge Providers Date of Admission: 01/07/22 14:42 Date of Discharge: January 09, 2022 Attending Provider at Admission: Angel Quezada Attending Provider at Discharge: Tania Downey MD Primary Care Provider: LEILA Arnold Diagnoses at Discharge Discharge Diagnosis (1) Encounter for cardioversion procedure: Status: Acute (2) COPD (chronic obstructive pulmonary disease): Status: Acute (3) Atrial fibrillation with rapid ventricular response: Status: Acute (4) CHF exacerbation: Status: Acute (5) Fatigue: Status: Acute Qualifiers: Fatigue type: unspecified Qualified Code(s): R53.83 - Other fatigue (6) Lower extremity edema: Status: Acute (7) History of nonmelanoma skin cancer: Status: Acute (8) Osteoporosis: Status: Acute Qualifiers: Osteoporosis type: age-related Presence of current pathological fracture: with current pathological fracture Encounter type: subsequent encounter Fracture healing: with routine healing Qualified Code(s): M80.00XD - Age-related osteoporosis with current pathological fracture, unspecified site, subsequent encounter for fracture with routine healing (9) Lumbar compression fracture: Status: Acute Qualifiers: Encounter type: sequela Lumbar vertebra fracture level: L3 Qualified Code(s): S32.030S - Wedge compression fracture of third lumbar vertebra, sequela Reason for Visit 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 Quezada pleasant 76-year-old lady with history of A. fib, COPD, multiple other comorbidities, states has had A. fib for 8-9 months, follows with Dr. Gerber in office normally, for the first time states he is having such trouble with atrial fibrillation which brought her into the hospital.? Came in A. fib with RVR, heart rates up to 149.? With some heaviness in her chest.? She does report also recently having cough, wheezing in her chest which coincided with trees blooming in the last several days.? Also has been having some lower extremity edema. For the last week she has been wearing a color television console monitor.? States that she has another week left. Her metoprolol is reported increased during last visit 12/30 after 50 mg twice daily.? She reportedly attempted vagal maneuvers and extra dose of metoprolol at home last night.? In ER she did not respond to 3 doses of 5 mg metoprolol IV push.? Subsequently also Cardizem IV push, and had to be started on a Cardizem drip. Cardiology consultation Dr. Edwards evaluated her and decided to do cardioversion Hospital course Patient was admitted for management and evaluation of A. 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 MARIANO did not show left atrial thrombus, status post successful cardioversion 01/08, She was successfully converted to sinus rhythm, initially remained bradycardic in low 40s without any signs of confusion, shortness of breath or hypotension, EKG was showing sinus bradycardia, no QTC prolongation, normal TSH, heart rate improved gradually overnight, next day when I saw her her heart rate was fluctuating between 60 to 70s, sotalol was continued 80 mg in the morning and 40mg at night Cardiology recommended continuation of Lasix, potassium supplementation, valsartan, & sotalol 1 week follow-up with Paula Hill For her undiagnosed COPD she will need pulmonary function test, I have added pulmonary medicine follow-up, she is saturating well on room air, no active wheezing Physical Exam Narrative: Patient is very pleasant cooperative Nonfocal neuro exam S1, S2 sinus rhythm Abdomen is soft Nonfocal neuro exam Currently on room air She was not on oxygen at the time of evaluation Clinically she does not look fluid overloaded Discharge Data Studies Completed and Pending Completed Studies During Hospitalization Category Date Time Status XR chest 1V portable [id number] Urgent Exams 01/06/22 20:32 Completed CV. echo transesophageal [id number] Routine Ultrasound 01/08/22 08:00 Completed Pending at discharge Category Date Time Status Complete Blood Count w/Auto AM LABS Lab 01/10/22 04:00 Ordered Comprehensive Metabolic Panel AM LABS Lab 01/10/22 04:00 Ordered Magnesium AM LABS Lab 01/10/22 04:00 Ordered Radiology Impressions Chest X-Ray 01/06/22 20:32 IMPRESSION: No acute infiltrate. Laboratory Results WBC 11.0 10^3/uL (4.0-10.0) H 01/09/22 03:09 RBC 3.78 10^6/uL (4.1-5.3) L 01/09/22 03:09 Hgb 11.2 g/dL (11.5-15.3) L 01/09/22 03:09 Hct 34.9 % (37.0-47.0) L 01/09/22 03:09 MCV 92.3 fl (81-99) 01/09/22 03:09 MCH 29.6 pg (28.0-34.0) 01/09/22 03:09 MCHC 32.1 g/dL (30.0-36.0) 01/09/22 03:09 RDW 15.3 % (12.1-15.1) H 01/09/22 03:09 Plt Count 243 10^3/cmm (130-400) 01/09/22 03:09 MPV 10.2 fL (7.4-10.4) 01/09/22 03:09 Neut % (Auto) 73.2 % 01/09/22 03:09 Lymph % (Auto) 20.1 % 01/09/22 03:09 [place] % (Auto) 5.8 % 01/09/22 03:09 Eos % (Auto) 0.4 % 01/09/22 03:09 Baso % (Auto) 0.2 % 01/09/22 03:09 Neut # (Auto) 8.02 10^3/uL (1.8-7.7) H 01/09/22 03:09 Lymph # (Auto) 2.2 10^3/uL (0.8-4.8) 01/09/22 03:09 [place] # (Auto) 0.6 10^3/uL (0.2-0.9) 01/09/22 03:09 Eos # (Auto) 0.0 10^3/uL (0.0-0.8) 01/09/22 03:09 Baso # (Auto) 0.0 10^3/uL (0.0-0.1) 01/09/22 03:09 Nucleated RBC % (auto) 0 % 01/09/22 03:09 Nucleated RBCs # 0.0 /100WBC 01/09/22 03:09 Sodium 137 mmol/L (136-145) 01/09/22 03:09 Potassium 3.4 mmol/L (3.5-5.1) L 01/09/22 03:09 Chloride 102 mmol/L (98-107) 01/09/22 03:09 Carbon Dioxide 26 mmol/L (22-29) 01/09/22 03:09 Anion Gap 12.4 (5-19) 01/09/22 03:09 BUN 15 mg/dL (8-23) 01/09/22 03:09 Creatinine 0.6 mg/dL (0.5-0.9) 01/09/22 03:09 GFR Calculation Not Reportable 01/09/22 03:09 Glucose 88 mg/dL (65-115) 01/09/22 03:09 Calculated Osmolality 284 mOsm/kg (285-295) L 01/09/22 03:09 Calcium 8.8 mg/dL (8.5-10.5) 01/09/22 03:09 Magnesium 1.9 mg/dL (1.7-2.3) 01/09/22 03:09 Total Bilirubin 0.3 mg/dL (0.15-1.2) 01/09/22 03:09 AST 28 U/L (0-32) 01/09/22 03:09 ALT 41 U/L (0-33) H 01/09/22 03:09 Alkaline Phosphatase 25 IU/L (35-105) L 01/09/22 03:09 Troponin T Baseline 10 ng/L (0-10) 01/06/22 21:13 Troponin T 120 Minute 9.50 ng/L (0-10) 01/06/22 23:18 Delta Troponin T -0.50 ABS# (0-10) L 01/06/22 23:18 Troponin T Hi Sens 6Hr 9.06 ng/L (0-10) 01/07/22 03:27 Troponin T Hi Sens 6Hr Delta -0.94 ng/L (0-12) L 01/07/22 03:27 NT-Pro-B Natriuret Pep 1298 pg/mL (0-450) H 01/09/22 03:09 Total Protein 5.5 g/dL (6.6-8.7) L 01/09/22 03:09 Albumin 3.4 g/dL (3.5-5.2) L 01/09/22 03:09 Globulin 2.1 g/dL (1.3-4.6) 01/09/22 03:09 TSH 1.31 uIU/mL (0.27-4.20) 01/06/22 21:13 Vitals Last Vital Signs Temp 97.8 F 01/08/22 15:55 Pulse 67 01/09/22 09:09 Resp 16 01/09/22 09:09 BP 166/97 01/09/22 10:41 Pulse Ox 95 01/09/22 09:09 Discharge Plan Discharge Patient Disposition: Home Condition: Stable Prescriptions: New sotalol 80 mg Tablet 40 mg PO 1900 Qty: 60 3RF furosemide [Lasix] 20 mg tablet 20 mg PO DAILY Qty: 30 3RF sotalol 80 mg Tablet 80 mg PO 0700 Qty: 60 4RF potassium chloride 10 mEq capsule, extended release 10 meq PO DAILY Qty: 30 3RF Continued srrvqtcu-hijrouw-fkio-lutein Tablet 1 tab PO BEDTIME 0RF acetaminophen [Tylenol Extra Strength] 500 mg tablet 500 mg PO .2 day PRN (Reason: Pain) 0RF cholecalciferol (vitamin D3) 125 mcg (5,000 unit) capsule 25,000 unit PO .weekly 0RF gabapentin 100 mg capsule 100 mg PO DAILY PRN (Reason: Neuropathic pain) 0RF ferrous gluconate 240 mg (27 mg iron) tablet 240 mg PO DAILY 0RF pantoprazole 40 mg tablet,delayed release (DR/EC) See Rx Instructions .ROUTE .COMPLEX Qty: 90 3RF Dose Instruction: TAKE 1 TABLET DAILY Rx Instructions: TAKE 1 TABLET DAILY rosuvastatin 10 mg tablet See Rx Instructions .ROUTE .COMPLEX Qty: 90 3RF Dose Instruction: TAKE 1 TABLET DAILY Rx Instructions: TAKE 1 TABLET DAILY Xarelto 20 mg tablet 20 mg PO DAILY Qty: 90 3RF Rx Instructions: must administer with evening meal valsartan 320 mg tablet 160 mg PO BID Qty: 90 3RF amlodipine 5 mg tablet 5 mg PO .HS Qty: 30 6RF Discontinued verapamil 120 mg capsule,ext rel. pellets 24 hr 120 mg PO DAILY Qty: 90 3RF metoprolol tartrate 50 mg tablet 50 mg PO BID Qty: 90 3RF Discharge Orders: Discharge Order (Routine); Ordered 01/09/22 Ordered By: Tania Downey Referrals: Roxi Valdez FNP [Primary Care Provider] - Paula Hill FNP [Nurse Practitioner] - 4-7 days Karly Chicas MD [Physician] - 6 Weeks (undiagnosed copd) Patient Instructions: Opioid Safety Discharge Attestations Time Spent in Discharge Care*: less than 30 min Quality Metrics Clinical Quality Measures [ No reported AMI, CVA or VTE this stay] Coding Level of Care Code Acute Chg FW DC note Diagnoses Encounter for cardioversion procedure Z01.89 COPD (chronic obstructive pulmonary disease) J44.9 Atrial fibrillation with rapid ventricular response I48.91 CHF exacerbation I50.9 Fatigue R53.83 Fatigue type: unspecified Lower extremity edema R60.0 History of nonmelanoma skin cancer Z85.828 Osteoporosis M80.00XD Osteoporosis type: age-related Presence of current pathological fracture: with current pathological fracture Encounter type: subsequent encounter Fracture healing: with routine healing Lumbar compression fracture S32.030S Encounter type: sequela Lumbar vertebra fracture level: L3
--- NOTE | 2022-01-09 15:23 | PC.NURSE ---
Discharge Note Patient discharged to home via wheelchair accompanied by family. Discharge instructions reviewed with patient and/or patient account representative. Mobile pharmacy medications and/or prescriptions provided. Belongings/home medications returned.
== END 2022-01-09 15:23 | disposition home or self-care (01) | DRG 308 ==
LOC: ER 01-07 00:36 → ICU 01-07 00:37 → CSU 01-07 01:48
PROVIDERS: Internal Medicine Cardiovascular Disease; Admitting Provider Internal Medicine; Emergency Provider Emergency Medicine; PCP Registered Nurse; Visit Provider Internal Medicine
PROC: B24BZZ4 Ultrasonography of Heart with Aorta, Transesophageal (ICD-10-PCS; CPT 93312; principal; 2022-01-08 08:00)
PROC: 5A2204Z Restoration of Cardiac Rhythm, Single (ICD-10-PCS; 2022-01-08 08:00)
DX: I48.91 Unspecified atrial fibrillation (principal); I50.31 Acute diastolic (congestive) heart failure; J44.9 Chronic obstructive pulmonary disease, unspecified; I11.0 Hypertensive heart disease with heart failure; E78.5 Hyperlipidemia, unspecified; F17.210 Nicotine dependence, cigarettes, uncomplicated; K21.9 Gastro-esophageal reflux disease without esophagitis; M80.88XS Other osteoporosis with current pathological fracture, vertebra(e), sequela; I42.9 Cardiomyopathy, unspecified; Z79.01 Long term (current) use of anticoagulants
CPT/HCPCS: 36415; 71045; 80053; 83735; 83880; 84132; 84443; 84484; 85025; 92960; 93005; 93312; 93320; 93325; 94640; 94664; 96365; 96366; 96367; 96375; 96376; 99285; G0378; J1940; J2704; J2930; J3475; J3490; J7030; J7614; J7644

== ENCOUNTER → 2022-01-18 09:54 | Outpatient (BNVA) | payer OTHER, SELFPAY | PROVIDERS: PCP Registered Nurse; Visit Provider Nurse Practitioner Family | DX: I10 Essential (primary) hypertension (principal); R00.1 Bradycardia, unspecified; F17.210 Nicotine dependence, cigarettes, uncomplicated | CPT/HCPCS: 93005; 99214 ==

== ENCOUNTER 2022-01-21 17:56 | Inpatient (IN) | payer OTHER, MEDICARE, SELFPAY ==
[2022-01-21] VITALS (15 sets, daily range): BP systolic 128–174; BP diastolic 83–121; PULSE 77–148; RESP 14–25; TEMP 36.5; O2SAT 94–98; BMI 21.3
--- NOTE | 2022-01-21 18:14 | ED_ITS ---
HPI - Arrhythmia/Palpitations General: Chief Complaint: Arrhythmia/Palpitations Stated Complaint: A Fib Time Seen by Provider: 01/21/22 18:13 History of Present Illness: Ms. Jimenez is a 76-year-old lady with history of atrial fibrillation on Xarelto and recent hospitalization for atrial fibrillation with rapid ventricular response requiring cardioversion who presents to the emergency department due to concern over A. fib. She reports onset of symptoms sudden at rest at about 3:15 PM without specific known provoking factor. She since that time has had very variable heart rate and blood pressure. She notices mild heaviness in her chest and breathlessness. Mildly worse with exertion however does not go with rest. Overall course has persisted. Intensity symptoms is mild to moderate. Reports compliance with medication regimen however on 01/18 she saw cardiology and switched from sotalol 80 mg in the morning and 40 mg in the evening to 40 mg twice daily. No other specific changes in health, exacerbating, or alleviating factors identified. Onset (ago): hour(s) Time: 15:15 Duration: constant Severity: moderate Context: occurred during rest Arrhythmia history: atrial fibrillation Associated symptoms: Reports short of breath and other Review of Systems General: Reports: 10 or more systems reviewed and unremarkable except in HPI and below PFSH ED PFSH: Medical History Atrial fibrillation Atrial fibrillation with rapid ventricular response Cataract BOTH EYES CHF (congestive heart failure), NYHA class II CHF exacerbation Cholesteatoma Chronic eustachian tube dysfunction Cigarette nicotine dependence COPD (chronic obstructive pulmonary disease) COPD (chronic obstructive pulmonary disease) with chronic bronchitis COPD exacerbation Depression Deviated septum Diverticulosis Dysphasia Enrolled in chronic care management Essential hypertension Fatigue GERD (gastroesophageal reflux disease) Hearing loss History of nonmelanoma skin cancer Lower extremity edema Lumbar compression fracture Lumbar pain Lumbar stenosis with neurogenic claudication Nasal turbinate hypertrophy Opioid contract exists Oral thrush Osteoporosis Perforated left tympanic membrane on examination Spinal stenosis of lumbar region with radiculopathy Tobacco use disorder Surgical History H/O bilateral salpingo-oophorectomy H/O kyphoplasty H/O rotator cuff surgery LEFT AND RIGHT Hx of mastoidectomy Family History Mother CAD (coronary artery disease) Father CAD (coronary artery disease) Brother Cancer Sister Cancer Denies family history of Family history of exposure to Agent [place] Social History Smoking and tobacco status: current every day smoker cigarettes Packs smoked per day: 0.5 Alcohol intake: never Lives independently: Yes Household members: none Marital status: / Current occupational status: retired History of recent travel: No Physical Exam Const: COMMON NORMALS: alert GENERAL APPEARANCE: cooperative and well developed HENMT: COMMON NORMALS: normocephalic and atraumatic HEAD & SCALP: no rmocephalic and atraumatic Eye: COMMON NORMALS: conjunctivae normal CONJUNCTIVA: Yes conjunctivae normal SCLERA: sclerae normal Neck/C-Spine: COMMON NORMALS: supple GENERAL: Yes trachea midline Resp: COMMON NORMALS: clear to auscultation bilaterally EFFORT & INSPECTION: Yes able to speak in complete sentences AUSCULTATION: clear to auscultation bilaterally Cardio: RATE: tachycardic RHYTHM: abnormal rhythm irregularly irregular GI: COMMON NORMALS: Soft to palpation PALPATION: Yes Soft to palpation and No Tenderness to palpation present (GI) PERCUSSION: normal to percussion Extremity: GENERAL: Yes normal exam except as noted and No edema Neuro: COMMON NORMALS: moves all extremities SENSORIUM/ORIENTATION: Yes alert and No Orientation impaired Psych: COMMON NORMALS: mental status grossly normal and Normal thought process present THOUGHT PROCESS: Normal thought process present Procedures Procedural Sedation ASA Class: II Preparation: engine monitor applied, pulse oximeter, supplemental O2 applied, suction/airway equipment at bedside and IV secured IV Propofol dose (mg): 50 Patient Tolerated Procedure: well and no complications Course ED course: - Patient was seen and evaluated by me at bedside - Patient placed on cardiac monitors, IV access obtained - Initial evaluation notable for exam as above, A. fib with RVR. - Labs and xrays personally interpreted by me. EKGs reviewed and show atrial fibrillation with rapid ventricular response, no STEMI. - Labs notable for no leukocytosis, normal hemoglobin. Metabolic panel without acute electrolyte derangement likely prompting symptoms, given improvement in arrhythmia control with potassium of 4 or greater potassium replenishment was ordered. Transaminitis again noted of unclear etiology. BNP roughly baseline. Delta troponin is negative. Urinalysis without evidence of urinary tract infection - Imaging notable for no lobar consolidation or pneumothorax, no significant pulmonary edema - Discussed with cardiology recommended sotalol 80 mg p.o. with observation for effect. After approximately 1 hour no improved rate control or evidence of conversion. - Rediscussed with cardiology, and consented patient for cardioversion. Propofol for procedural sedation. We attempted cardioversion times 3 at 120, 150, 200 joules without success. - Patient neuro intact post cardioversion and recovered well from procedure sedation - Cardizem drip ordered. - Upon serial reexamination after treatment the patient was similar - Based on patient history, evaluation, and testing as interpreted the most li jimmy cause of the patient's condition is atrial fibrillation with rapid ventricular response that was refractory to medication load and cardioversion attempts in the emergency department. - The results of ED evaluation were discussed with the patient including plan for admission due to requirement for level of care not available if discharged to prevent significant worsening/deterioration. - Admitting service was contacted and Dr Mahajan with the hospitalist service agreed to admit the patient - Patient was admitted without further deterioration or significant events. Note: Click bubbles or prepopulated muller in note writing are used for assistance with data collection and billing and are inherently more limited than narrative and other text portions of this note. Please use narrative for additional clinical history and defer to narrative/free test for any case of contradictory information. If information appears in only free text or click bubble it should be considered present or absent as reported. Please contact note mortgage loan underwriter for clarifications of clinical information or contradictory information. MDM is a brief summary, contradictory or erroneous seeming information should be clarified and full note should be reviewed. Vital Signs: Vital signs: Vital Signs Temperature 97.9 F 01/22/22 01:07 Pulse Rate 96 01/22/22 04:45 Respiratory Rate 34 H 01/22/22 04:45 Blood Pressure 91/61 01/22/22 04:45 Pulse Oximetry 98 01/22/22 04:45 MDM - Arrhythmia/Palpitations Medical Decision Making 76-year-old lady with history of atrial fibrillation including hospitalization recently for atrial fibrillation with rapid ventricular response requiring cardioversion presenting in A. fib with RVR. Patient recently decreased sotalol to 40 mg twice daily and had onset at precise time. Patient has been noncompliant with Xarelto. Discussed with cardiology and attempted p.o. sotalol without conversion or improved rate control. Attempted electrical cardioversion x3 without success. Admitted for further management of treatment refractory atrial fibrillation with rapid ventricular response. Medical Records I reviewed the patient's medical records. Lab Data I reviewed the patient's lab results. : 01/21/22 18:13 01/21/22 18:13 Radiology Impressions Chest X-Ray 01/21/22 18:27 IMPRESSION: Sequela of COPD. No acute findings. Laboratory Results WBC 9.7 10^3/uL (4.0-10.0) 01/21/22 18:13 RBC 4.42 10^6/uL (4.1-5.3) 01/21/22 18:13 Hgb 13.2 g/dL (11.5-15.3) 01/21/22 18:13 Hct 40.2 % (37.0-47.0) 01/21/22 18:13 MCV 91.0 fl (81-99) 01/21/22 18:13 MCH 29.9 pg (28.0-34.0) 01/21/22 18:13 MCHC 32.8 g/dL (30.0-36.0) 01/21/22 18:13 RDW 14.6 % (12.1-15.1) 01/21/22 18:13 Plt Count 303 10^3/cmm (130-400) 01/21/22 18:13 MPV 10.4 fL (7.4-10.4) 01/21/22 18:13 Neut % (Auto) 72.6 % 01/21/22 18:13 Lymph % (Auto) 18.7 % 01/21/22 18:13 [place] % (Auto) 6.4 % 01/21/22 18:13 Eos % (Auto) 1.2 % 01/21/22 18:13 Baso % (Auto) 1.0 % 01/21/22 18:13 Neut # (Auto) 7.04 10^3/uL (1.8-7.7) 01/21/22 18:13 Lymph # (Auto) 1.8 10^3/uL (0.8-4.8) 01/21/22 18:13 [place] # (Auto) 0.6 10^3/uL (0.2-0.9) 01/21/22 18:13 Eos # (Auto) 0.1 10^3/uL (0.0-0.8) 01/21/22 18:13 Baso # (Auto) 0.1 10^3/uL (0.0-0.1) 01/21/22 18:13 Nucleated RBC % (auto) 0 % 01/21/22 18:13 Nucleated RBCs # 0.0 /100WBC 01/21/22 18:13 Sodium 138 mmol/L (136-145) 01/21/22 18:13 Potassium 3.6 mmol/L (3.5-5.1) 01/21/22 18:13 Chloride 99 mmol/L (98-107) 01/21/22 18:13 Carbon Dioxide 28 mmol/L (22-29) 01/21/22 18:13 Anion Gap 14.6 (5-19) 01/21/22 18:13 BUN 12 mg/dL (8-23) 01/21/22 18:13 Creatinine 0.4 mg/dL (0.5-0.9) L 01/21/22 18:13 GFR Calculation Not Reportable 01/21/22 18:13 Glucose 88 mg/dL (65-115) 01/21/22 18:13 Calculated Osmolality 285 mOsm/kg (285-295) 01/21/22 18:13 Calcium 9.5 mg/dL (8.5-10.5) 01/21/22 18:13 Magnesium 2.0 mg/dL (1.7-2.3) 01/21/22 18:13 Total Bilirubin 0.2 mg/dL (0.15-1.2) 01/21/22 18:13 AST 22 U/L (0-32) 01/21/22 18:13 ALT 36 U/L (0-33) H 01/21/22 18:13 Alkaline Phosphatase 31 IU/L (35-105) L 01/21/22 18:13 Troponin T Baseline 8 ng/L (0-10) 01/21/22 18:13 Troponin T 120 Minute 8.59 ng/L (0-10) 01/21/22 20:15 Delta Troponin T 0.59 ABS# (0-10) 01/21/22 20:15 NT-Pro-B Natriuret Pep 1591 pg/mL (0-450) H 01/21/22 18:13 Total Protein 7.0 g/dL (6.6-8.7) 01/21/22 18:13 Albumin 4.4 g/dL (3.5-5.2) 01/21/22 18:13 Globulin 2.6 g/dL (1.3-4.6) 01/21/22 18: TSH 2.76 uIU/mL (0.27-4.20) 01/21/22 18:13 Urine Color Yellow (Yellow) 01/21/22 18:20 Urine Appearance Clear (CLEAR) 01/21/22 18:20 Urine pH 8 (5-7) H 01/21/22 18:20 Ur Specific Clubb 1.005 (1.005-1.030) 01/21/22 18:20 Urine Protein Neg (Negative) 01/21/22 18:20 Urine Glucose (UA) Norm (Normal) 01/21/22 18:20 Urine Ketones Negative (Negative) 01/21/22 18:20 Urine Blood Trace (Negative) H 01/21/22 18:20 Urine Nitrate Negative (Negative) 01/21/22 18:20 Urine Bilirubin Neg (Negative) 01/21/22 18:20 Prot Sulfosalicylic Acd Negative (Negative) 01/21/22 18:20 Urine Urobilinogen Norm mg/dL (Negative) 01/21/22 18:20 Ur Leukocyte Esterase Negative (Negative) 01/21/22 18:20 Urine RBC 0-4 /hpf (0-2) H 01/21/22 18:20 Urine WBC 0-4 /hpf (0-5) H 01/21/22 18:20 Ur Squamous Epith Cells 0-4 /hpf (0-5) H 01/21/22 18:20 Ur Transition Epith Cell None /hpf 01/21/22 18:20 Ur Renal Epithelial Cell N /hpf 01/21/22 18:20 Amorphous Sediment Not Reportable 01/21/22 18:20 Urine Bacteria Tntc /hpf (NONE) 01/21/22 18:20 Urine Mucus N /hpf 01/21/22 18:20 Critical Care Time Critical Care Time: Critical Care Time: Yes Total Critical Care Time: 45 Attestation: Due to a high probability of clinically significant, possibly life threatening deterioration, the patient required my highest level of attention and preparedness to intervene emergently and I personally spent this critical care time directly and personally managing the patient. This critical care time included obtaining a history; examining the patient; pulse oximetry; ordering and review of laboratory and imaging studies; arranging urgent treatment with development of a management plan; evaluation of patient's response to treatment; frequent reassessment; and, discussions with other providers as applicable. It was exclusive of separately billable procedures. Primary system involved is cardiac Discharge Plan Discharge Patient Disposition: Admitted As Inpatient Admit Provider: Nathalia Mahajan Clinical Impression: Atrial fibrillation with rapid ventricular response Condition: Stable Coding Level of Care Code ED Athletic Instructor for Chg Fwd Exam Comprehensive
--- NOTE | 2022-01-21 18:27 | XRR_ITS ---
PROCEDURE INFORMATION: Exam: XR Chest Exam date and time: 01/21/2022 7:06 PM Age: 76 years old Clinical indication: Chest wall pain; Additional info: Afib TECHNIQUE: Imaging protocol: XR of the chest. Views: 1 view. COMPARISON: CR (CHEST, ) 01/06/2022 8:39 PM FINDINGS: Lungs: Hyperinflated lungs. Mild coarsening of the lung parenchyma, most conspicuous at the lung bases. No consolidation. Pleural spaces: No pleural effusion. No pneumothorax. Heart/Mediastinum: No cardiomegaly. Bones/joints: Visualized osseous structures are intact. XR/XR chest 1V portable [id number] IMPRESSION: Sequela of COPD. No acute findings.
--- NOTE | 2022-01-21 18:28 | ECG_ITS ---
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 Measurements Intervals [place] Rate: 131 P: ME: QRS: 76 QRSD: 81 T: 76 QT: 256 QTc: 378 Interpretive Statements ATRIAL FLUTTER/TACHYCARDIA WITH RAPID VENTRICULAR RESPONSE NONSPECIFIC ST & T-WAVE ABNORMALITY ABNORMAL RHYTHM ECG Compared to ECG 01/09/2022 08:49:43 T-wave abnormality now present Sinus bradycardia no longer present Electronically Signed On 01-22-2022 18:15:13 CDT by Fanny Nash M.D. [id number]
[2022-01-21 18:39] LABS: Basophils # 0.1 10^3/uL (0.0-0.1); Eosinophils # 0.1 10^3/uL (0.0-0.8); Eosinophils % 1.2 %; Hematocrit 40.2 % (37.0-47.0); Hemoglobin 13.2 g/dL (11.5-15.3); Lymphocytes # 1.8 10^3/uL (0.8-4.8); Lymphocytes % 18.7 %; Mean Corpuscular HGB Conc 32.8 g/dL (30.0-36.0); Mean Corpuscular Hemoglobin 29.9 pg (28.0-34.0); Mean Platelet Volume 10.4 fL (7.4-10.4); Monocytes # 0.6 10^3/uL (0.2-0.9); Monocytes % 6.4 %; Neutrophils # 7.04 10^3/uL (1.8-7.7); Neutrophils % 72.6 %; Nucleated Red Blood Cells % 0 %; Platelet Count 303 10^3/cmm (130-400); Red Blood Count 4.42 10^6/uL (4.1-5.3); Red Cell Distribution Width 14.6 % (12.1-15.1); White Blood Count 9.7 10^3/uL (4.0-10.0)
[2022-01-21 19:07] LABS: Glucose Urine UA Norm (Normal); Ketones Urine Negative (Negative); Protein Urine Neg (Negative); Specific Gravity, Urine 1.005 (1.005-1.030); Urine Appearance Clear (CLEAR); Urine Color Yellow (Yellow); pH Urine 8 (5-7)
[2022-01-21 19:08] LABS: Add Urine Microscopic? YES; Bilirubin Urine Neg (Negative); Blood Urine Trace (Negative); Leukocyte Esterase Urine Negative (Negative); Nitrate Urine Negative (Negative); Sulfosalicylic Acid Urine Negative (Negative); Urobilinogen Urine Norm (Negative)
[2022-01-21 19:14] LABS: Bacteria Urine TNTC /hpf; Mucus Urine N /hpf; RBC Urine 0-4 /hpf (0-2); Renal Epithelial Cells Urine N /hpf; Squamous Epithelial Cell Urine 0-4 /hpf (0-5); WBC Urine 0-4 /hpf (0-5)
[2022-01-21 19:17] LABS: Add Urine Culture? Yes
[2022-01-21 19:21] LABS: Troponin(5th) Baseline 8 ng/L (0-10)
[2022-01-21 19:27] LABS: Alanine Aminotransferase 36 U/L (0-33); Albumin Level 4.4 g/dL (3.5-5.2); Alkaline Phosphatase 31 IU/L (35-105); Anion Gap 14.6 (5-19); Aspartate Amino Transferase 22 U/L (0-32); Blood Urea Nitrogen 12 mg/dL (8-23); Calcium 9.5 mg/dL (8.5-10.5); Carbon Dioxide 28 mmol/L (22-29); Chloride 99 mmol/L (98-107); Globulin 2.6 g/dL (1.3-4.6); Glucose 88 mg/dL (65-115); NT Pro B Type Natriuretic Pept 1591 pg/mL (0-450); Osmolality Calculated 285 mOsm/kg (285-295); Potassium 3.6 mmol/L (3.5-5.1); Sodium 138 mmol/L (136-145); Thyroid Stimulating Hormone 2.76 uIU/mL (0.27-4.20); Total Bilirubin 0.2 mg/dL (0.15-1.2)
[2022-01-21] MEDS: sotalol 80 mg Tablet PO (19:46)
[2022-01-21] MEDS: potassium chloride ER 20 mEq Tablet 40 MEQ PO (19:46)
--- NOTE | 2022-01-21 20:28 | ECG_ITS ---
[facility] Test Date: 2022-01-21 Pat Name: Dona Jimenez Department: Room: Gender: Female Second Facing Baster: : 1945 Requested By: Zachary Blanca Order Number: [id number] Dyana MD: Fanny Nash M.D. Measurements Intervals [place] Rate: 137 P: [place]: QRS: 156 QRSD: 85 T: 88 QT: 319 QTc: 483 Interpretive Statements ATRIAL FIBRILLATION WITH RAPID VENTRICULAR RESPONSE POSSIBLE RIGHT VENTRICULAR HYPERTROPHY [SOME/ALL OF: PROMINENT R IN V1, LATE TRANSITION, RAD, QUYEN, SSS] LATERAL MYOCARDIAL INFARCTION , OF INDETERMINATE AGE [40+ ms Q WAVE AND/OR ST/T ABNORMALITY IN I/aVL/V5/V6] Compared to ECG 01/21/2022 18:04:33 Myocardial infarct finding now present Atrial flutter no longer present T-wave abnormality no longer present Electronically Signed On 01-22-2022 18:21:46 CDT by Fanny Nash M.D. [id number]
[2022-01-21 20:44] LABS: Troponin 5 2HR 8.59 ng/L (0-10)
[2022-01-21 20:48] LABS: Troponin 5 2HR Delta 0.59 ABS# (0-10)
[2022-01-21] MEDS: propofol 10 mg/mL SDV 20 mL IVP (21:52)
[2022-01-21] MEDS: sodium chloride 0.9% 1,000 ML 30 ML IV (21:59)
[2022-01-21] MEDS: ondansetron 2 mg/ML SDV 2 mL 4 MG IVP (22:02)
--- NOTE | 2022-01-21 22:02 | PC.NURSE ---
Patient was given a 120J shock by Dr. Blanca @ 8353. Patient still in A Fib with RVR. Patient was given a 150J shock by Dr. Blanca @ 1605. Still in A. Fib with RVR. Patient was given a 200J shock by Dr. Blanca @ 904. Still in A. Fib with RVR.
--- NOTE | 2022-01-21 23:37 | ECG_ITS ---
[facility] Test Date: 2022-01-21 Pat Name: Dona Jimenez Department: Room: 106 Gender: Female Machine Clipper: : 1945 Requested By: Nathalia Mahajan Order Number: [id number] Dyana MD: Fanny Nash M.D. Measurements Intervals [place] Rate: 126 P: NE: QRS: 78 QRSD: 81 T: 60 QT: 296 QTc: 429 Interpretive Statements ATRIAL FIBRILLATION WITH RAPID VENTRICULAR RESPONSE WITH ABERRANT CONDUCTION OR VENTRICULAR PREMATURE COMPLEXES NONSPECIFIC ST & T-WAVE ABNORMALITY ABNORMAL RHYTHM ECG Compared to ECG 01/21/2022 20:25:22 Aberrant conduction of supraventricular beat(s) now present Ventricular premature complex(es) now present T-wave abnormality now present Myocardial infarct finding no longer present Electronically Signed On 01-22-2022 18:15:45 CDT by Fanny Nash M.D. [id number]
--- NOTE | 2022-01-21 23:38 | PM.HP ---
Providers/Chief Complaint Admitting Physician: Nathalia Mahajan DO Primary Care Provider: LEILA Carrera Chief Complaint: A Fib History of Present Illness The patient is a 76-year-old female with known history of atrial fibrillation as well as CHF ejection fraction 35% with grade 2 diastolic dysfunction who presents with chief complaint of atrial fibrillation . She states that she developed symptoms approximately 3:15 PM on January 21, 2022. At that time she developed palpitations, sense of rapid heart beat, sensory and irregular heartbeat. She states that she used her pulse oximeter at home and she found that her heart rate was 113. She states that she is compliant with her medication intake. She denies chest pain, dyspnea, lightheadedness, dizziness. She presents for further evaluation Review of Systems General: Reports: 10 or more systems reviewed and unremarkable except in HPI and below Medications/Allergies Home Medications Medication Instructions Recorded Confirmed Last Taken Type valsartan 320 mg tablet 160 mg PO BID #90 tab 10/23/21 01/21/22 01/21/22 Rx potassium chloride 10 mEq 10 meq PO DAILY #7 cap 01/09/22 01/21/22 01/21/22 Rx capsule,extended release furosemide 20 mg tablet (Lasix) 20 mg PO DAILY #90 tab 01/20/22 01/21/22 01/21/22 Rx sotalol 80 mg tablet 40 mg PO BID #60 tab 01/20/22 01/21/22 01/21/22 Rx ergocalciferol (vitamin D2) 1,250 1,250 mcg PO Q7D 01/21/22 01/21/22 01/21/22 History mcg (50,000 unit) capsule magnesium 200 mg tablet 200 mg PO BEDTIME 01/21/22 01/21/22 01/20/22 History rivaroxaban 20 mg tablet (Xarelto) 20 mg PO BEDTIME 01/21/22 01/21/22 01/20/22 History rosuvastatin 10 mg tablet 10 mg PO DAILY 01/21/22 01/21/22 01/20/22 History Allergies Allergy/AdvReac Type Severity Reaction Status Date / Time codeine Allergy Severe ALGY-Difficulty Verified 01/18/22 10:14 Breathing metronidazole [From Flagyl] Allergy Intermediate ALGY-Rash Verified 01/18/22 10:14 clonidine AdvReac Mild ADR-Confusi Verified 01/18/22 10:14 on lactose AdvReac Mild ADR-Gastrointestinal Verified 01/18/22 10:14 Upset lisinopril AdvReac Mild ADR-Cough Verified 01/18/22 10:14 PFSH Acute PFSH: Medical History Atrial fibrillation Atrial fibrillation with rapid ventricular response Cataract BOTH EYES CHF (congestive heart failure), NYHA class II CHF exacerbation Cholesteatoma Chronic eustachian tube dysfunction Cigarette nicotine dependence COPD (chronic obstructive pulmonary disease) COPD (chronic obstructive pulmonary disease) with chronic bronchitis COPD exacerbation Depression Deviated septum Diverticulosis Dysphasia Enrolled in chronic care management Essential hypertension Fatigue GERD (gastroesophageal reflux disease) Hearing loss History of nonmelanoma skin cancer Lower extremity edema Lumbar compression fracture Lumbar pain Lumbar stenosis with neurogenic claudication Nasal turbinate hypertrophy Opioid contract exists Oral thrush Osteoporosis Perforated left tympanic membrane on examination Spinal stenosis of lumbar region with radiculopathy Tobacco use disorder Surgical History H/O bilateral salpingo-oophorectomy H/O kyphoplasty H/O rotator cuff surgery LEFT AND RIGHT Hx of mastoidectomy Family History Mother CAD (coronary artery disease) Father CAD (coronary artery disease) Brother Cancer Sister Cancer Denies family history of Family history of exposure to Agent [place] Social History Smoking and tobacco status: current every day smoker cigarettes Packs smoked per day: 0.5 Alcohol intake: never Lives independently: Yes Household members: none Marital status: / Current occupational status: retired History of recent travel: No Vitals/I&O/Wt Last Vital Signs Temp 97.7 F 01/21/22 18:06 Pulse 117 H 01/21/22 22:00 Resp 18 01/21/22 22:00 BP 130/110 01/21/22 22:00 Pulse Ox 97 01/21/22 21:45 Weight last 48 hrs Weight 59.874 kg Data : 01/21/22 18:13 01/21/22 18:13 A&P Assessment and plan (1) Atrial fibrillation with rapid ventricular response: Status: Acute Plan Acute on chronic atrial fibrillation. This is a previously established diagnosis. TSH and magnesium level within normal notes. Free T4 pending. Echocardiogram pending. Will monitor patient on telemetry and check serial cardiac enzymes. Xarelto 20 mg p.o. daily plus IV Cardizem drip per protocol plus Cardizem CD 2040 mg p.o. daily as we attempt to wean the patient off of IV Cardizem Arthritis Spinal stenosis Chronic pain with opiate dependence Diverticulosis Depression COPD, patient O2 dependent at 2 L/min via nasal cannula only nocturnally CHF, ejection fraction 35% with grade 2 diastolic dysfunction. Strict I's/O. Daily weight. Echocardiogram pending GERD Hyperlipidemia Hypertension. IV Cardizem drip per protocol plus Cardizem CD 240 mg p.o. daily Smoker. The patient becomes regard smoking cessation Osteoporosis Neuropathy History of cervical and uterine cancer, status post total abdominal hysterectomy and bilateral salpingo-oophorectomy. The patient did not require chemotherapy or radiation therapy. She indicates that she is in remission and does not require to be monitored for this medical condition by . DVT prophylaxis. Xarelto 20 mg p.o. daily Attestations Medical Necessity Statement*: The patient's anticipated length of stay is greater than 2 midnights to control her atrial fibrillation with possible intervention by the supervisor water softener service service being required Coding Level of Care Code Acute Bushing Press Operator for Ismael Schulte Diagnoses Atrial fibrillation with rapid ventricular response I48.91
[2022-01-22] VITALS (49 sets, daily range): BP systolic 89–161; BP diastolic 58–117; PULSE 73–128; RESP 13–34; TEMP 36.5–37.2; O2SAT 86–98; BMI 21.2
--- NOTE | 2022-01-22 01:07 | USCV_ITS ---
Barbara Dona Age: 76 Gender: F : 1945 Exam Date: 01/22/2022 10:52 Ordering Phys: Nathalia Mahajan DO Technologist: Janette Andrews Exam Location: [facility] – [place] Indication: Atrial fibrillation BP: 121 / 85 HR: 83 Rhythm: Atrial fibrillation Technical Quality: Adequate MEASUREMENTS (Male / Female) Normal Values 2D ECHO LV Diastolic Diameter PLAX 4.0 cm 4.2 - 5.9 / 3.9 - 5.3 cm LV Systolic Diameter PLAX 2.7 cm LV Chamber Size 2.1 cm IVS Diastolic Thickness 1.2 cm 0.6 - 1.0 / 0.6 - 0.9 cm IVS Systolic Thickness 1.6 cm LVPW Diastolic Thickness 1.5 cm 0.6 - 1.0 / 0.6 - 0.9 cm LVPW Systolic Thickness 1.7 cm RV Chamber Size 3.2 cm LVOT Diameter 2.1 cm LV Ejection Fraction 2D Teich 54.1 % LV Ejection Fraction MOD 2C 44.6 % LV Ejection Fraction 2C AL 45.8 % LA Diameter 3.2 cm LA Width 4.1 cm LA Height 3.6 cm RA Width 3.4 cm Aorta at Sinotubular Diameter 2.4 cm M-MODE Aortic Annulus Diameter 2.6 cm LA Ao Ratio MM 1.5 MV E Point Septal Separation 0.6 cm DOPPLER AV Peak Velocity 120.0 cm/s LVOT Peak Velocity 76.3 cm/s AV Area Cont Eq vti 2.3 cm squared AV Area Cont Eq pk 2.2 cm squared MV Area PHT 6.3 cm squared MV E' Velocity 57.5 cm/s Mitral E to MV E' Ratio 7.1 Mitral E to LV E' Lateral Ratio 7.0 Mitral E to LV E' Septal Ratio 7.3 TR Peak Velocity 211.7 cm/s TR Peak Gradient 17.9 mmHg TR Mean Velocity 160.3 cm/s TR Mean Gradient 11.1 mmHg TR Velocity Time Integral 49.6 cm TV Peak E Velocity 73.0 cm/s Right Atrial Pressure 3.0 mmHg Pulmonary Artery Systolic Pressu 20.9 mmHg PV Peak Velocity 59.0 cm/s RV Acceleration Time 0.1 s RV Ejection Time 0.3 s RV AcT/ET 0.3 FINDINGS Left Ventricle Normal left ventricular cavity size. Moderately increased left ventricular wall thickness. Moderate concentric left ventricle hypertrophy. Normal left ventricle systolic function. Left ventricular ejection fraction is estimated at 55-60%. No regional wall motion abnormalities. Rhythm precludes evaluation of diastolic function. Right Ventricle Normal right ventricular size and systolic function. Right ventricular systolic pressure 21 mmHg. Right Atrium Normal right atrial size. Left Atrium Mildly increased left atrial size. Mitral Valve Mild mitral annular calcification. Thickened mitral valve. No mitral valve stenosis. Trace mitral valve regurgitation. Aortic Valve Structurally normal trileaflet aortic valve. No aortic valve stenosis. No aortic valve regurgitation. Tricuspid Valve Structurally normal tricuspid valve. Trace tricuspid valve regurgitation. Pulmonic Valve Structurally normal pulmonic valve. Trace pulmonary valve regurgitation. Pericardium No pericardial effusion. Aorta Normal size aortic root and proximal ascending aorta. Normal- sized inferior vena cava. CONCLUSIONS 1. Normal left ventricular cavity size and systolic function. Moderate concentric left ventricle hypertrophy. Left ventricular ejection fraction is estimated at 55-60%. No regional wall motion abnormalities. 2. Normal right ventricular size and systolic function. 3. Normal pulmonary artery pressure. 4. When compared to transesophageal echocardiogram dated 01/08/2022, left ventricular systolic function seems to have improved Lexi Edwards MD (Electronically Signed) Final Date: 22 January 2022 17:10 S
--- NOTE | 2022-01-22 02:31 | PC.NURSE ---
Spoke with Dr Mahajan at this time regarding order for diltiazem ER 240mg scheduled for 0107 and again at 0900 this AM; states to give dose scheduled on admission and hold 0900 dose on 01/25/2022. continue diltiazem drip at this time, titrating off as pt heart rate allows per protocol.
[2022-01-22] MEDS: dilTIAZem ER (24HR) 240 mg Capsule PO (02:51)
[2022-01-22 03:50] LABS: Free T4 Free Thyroxine 1.29 ng/dL (0.82-1.77)
[2022-01-22] MEDS: rivaroxaban 10 mg Tablet 20 MG PO (08:36)
[2022-01-22] MEDS: atorvastatin 40 mg Tablet PO (08:36)
[2022-01-22] MEDS: potassium chloride ER 10 mEq Tablet PO (08:37)
[2022-01-22] MEDS: potassium chloride ER 20 mEq Tablet PO (08:37)
[2022-01-22] MEDS: sotalol 80 mg Tablet PO ×2 (08:37→20:22)
--- NOTE | 2022-01-22 10:45 | PC.CHAP ---
Pastoral Care Encounter/Spiritual Assessment Type of Contact [] Declined hand bunch maker visit [] Patient/Family/Request visit [] Outpatient visit [] Follow-up visit [] Physician referral [] Code/Alert [x] Routine visit [] Staff referral [] Actively dying [] Patient sleeping [] Family support [] [] Out of room [] Palliative care [] [] Receiving care in room [] Pre-surgical visit [] Trauma [] Long length of stay [] ICU visit [] Other: Relational/Emotional Strength [] Patient feels connected with others/family/visitors/staff [] Distress [] Loneliness/isolation [] Abandonment Spirituality of Patient [] Person of Talya [] Attends Holiness of their Talya [] Believes in Prayer [] Reads Bible or Anabaptism materials [] There are Spiritual issues to be addressed Labor Contractor Interventions [x] Prayer [x] Active listening [x] Non-anxious presence [x] Spiritual/emotional support [] Crisis/trauma care [] Spiritual counseling [] Bereavement support [] Provided bereavement packet [] Provided Bible/devotional materials [] Provided toy/stuffed animal, coloring book to patient or family member [] Provided Communion [] Anointing/[place] [] Salvation [x] Completed spiritual assessment [] Other: Impact on Illness or Injury [] Angry [] Fearful [] Anxious [] Often cries [] Exhaustion [] Unable to work [] Unable to attend confucianism [] Unable to walk/stand [] Unable to read [] Unable to drive [] Unable to eat/drink [] Unable to sleep [] Unable to be with family [] Patient intubated [] Other: Summary resting well Time spent with patient 5 min
--- NOTE | 2022-01-22 13:19 | PM.PN ---
Subjective Subjective: Her heart rate is doing better, however, she remains in atrial fibrillation. No chest pain or pressure, but feels that her heart rhythm is irregular. She has not had any symptoms of recent infection or other health problems, however, has made some changes recently including quitting smoking, and cutting out coffee entirely from her diet in the last several weeks. She currently continues on Cardizem drip. Since she has been on sotalol, this was resumed this morning. Discussed, however, risk of potentially dangerous interaction between the two medications, although she tells me she has tolerated Cardizem well in the past. She is also visited by her 2 sons who are distraught that she reverted into atrial fibrillation. Discussed with them her heart rate is currently better, discussed that rate and rhythm control have been generally equivalent in long-term outcomes, however, it appears from what she tells me that she had had symptoms from the atrial fibrillation which is why rhythm control strategy was undertaken. Discussed that return to atrial fibrillation may not be unexpected, but certainly may be frustrating. It is difficult to say whether her cutting out coffee, stopping smoking, increased activity and in combination with decreased in dose of sotalol may have led to again reverting to A. fib with RVR. I certainly was happy to hear she quit smoking. She does not appear to have suggestion of cardiac ischemia, thyroid function is normal, no suggestion of infection, no large electrolyte derangements. Discussed with her we are giving her some additional potassium supplementation, and she has been resumed on her home supplements. It does appear that her heart rates were going down into the 40s on the 80 mg in a.m. and 40 mg p.m. dose of sotalol. Patient and sons are asking about a pacemaker. Discussed arrangements for evaluation by cardiology and her current treatments. Vitals/I&O/Wt Last Vital Signs Temp 98.9 F 01/22/22 12:00 Pulse 102 H 01/22/22 12:00 Resp 17 01/22/22 12:00 BP 132/58 01/22/22 12:00 Pulse Ox 87 L 01/22/22 12:00 01/21/22 01/22/22 01/22/22 22:59 06:59 14:59 Intake Total 360 / 360 600 / 600 Output Total 400 / 400 Balance 360 / 360 200 / 200 Weight last 48 hrs Weight 59.647 kg Weight 59.647 kg Weight 59.874 kg Physical Exam Const: COMMON NORMALS: alert GENERAL APPEARANCE: cooperative ORIENTATION/CONSCIOUSNESS: Yes awake HENMT: COMMON NORMALS: normocephalic, EAC's normal, Normal external nose present and moist oral mucous membranes HEAD & SCALP: normocephalic NOSE: Normal external nose present EXTERNAL AUDITORY CANAL: EAC's normal Neck/C-Spine: COMMON NORMALS: no meningeal signs Chest: CHEST: Yes Symmetrical chest wall rise Resp: COMMON NORMALS: clear to auscultation bilaterally AUSCULTATION: clear to auscultation bilaterally Cardio: COMMON NORMALS: No murmurs present (Cardio) RHYTHM: abnormal rhythm irregularly irregular GI: COMMON NORMALS: Normal to inspection, nondistended, normoactive bowel sounds present, Soft to palpation and non-tender PALPATION: Yes Soft to palpation Extremity: COMMON NORMALS: no pedal edema Neuro: COMMON NORMALS: moves all extremities SENSORIUM/ORIENTATION: Yes alert MENINGEAL SIGNS: Yes no meningeal signs Psych: COMMON NORMALS: mental status grossly normal Skin: COMMON NORMALS: no wounds RASHES: no rashes Data : 01/21/22 18:13 01/21/22 18:13 A&P Assessment and plan (1) Atrial fibrillation with rapid ventricular response: Rate is better controlled, mostly in the 90s, but continues on low rate Cardizem infusion, 2.5 mg/h. Resumed on sotalol 80 mg twice daily. Echocardiogram was obtained, pending. Appreciate cardiology evaluation and recommendations. Continue potassium and magnesium supplements. Follow-up morning electrolyte levels. Continue Xarelto. Status: Acute Plan Recently stopped smoking. Declines nicotine supplementation states she is doing well. She uses a cigarette sized dowel to help her kick the habit. She is also recently entirely cut out coffee from her diet. Acute on chronic atrial fibrillation. Arthritis Spinal stenosis Chronic pain with opiate dependence Diverticulosis Depression COPD, patient O2 dependent at 2 L/min via nasal cannula only nocturnally CHF, ejection fraction 35% with grade 2 diastolic dysfunction. Strict I's/O. Daily weight. Echocardiogram pending GERD Hyperlipidemia Hypertension. She has been seeing a valsartan for her blood pressure control. For now on hold given she is on Cardizem. Osteoporosis Neuropathy History of cervical and uterine cancer, status post total abdominal hysterectomy and bilateral salpingo-oophorectomy. The patient did not require chemotherapy or radiation therapy. She indicates that she is in remission and does not require to be monitored for this medical condition by DVT prophylaxis. Xarelto 20 mg p.o. daily Attestations Medical Necessity Statement*: Continue admission for assessment and management of difficult to control A. fib with RVR. Coding Level of Care Code Acute Reinforcer for [facility] Fwd Diagnoses Atrial fibrillation with rapid ventricular response I48.91
--- NOTE | 2022-01-22 15:50 | PM.CONSULT ---
Providers/Reason For Consult Consulting Physician/Specialty*: Dr. Edwards, cardiology Reason for Consult*: Atrial fibrillation with rapid response Attending Physician: Angel Quezada Primary Care Provider: LEILA Carrera History of Present Illness History of Present Illness Dona Jimenez is a 76 year old female Dona with past medical history of atrial fibrillation since February 2021,dyslipidemia, hypertension and gastroesophageal reflux disease.? She has no prior history of stroke/TIA or CAD. She was admitted on 07 January 2022 with A. fib with RVR and was started on sotalol. She underwent transesophageal echocardiogram and was cardioverted. She was discharged home on sotalol 80 mg in the morning and 40 mg in the evening. 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 She quit smoking on 06 January 2022. She has also cut back on caffeine. She was evaluated at our office on 01/18/22 and given bradycardia with heart rate in low 50s with isolated PVC dose of sotalol was decreased further to 40 mg twice a day. She did well until afternoon around 3:15 PM she noticed heart racing and palpitations. She checked her heart rate with a pulse ox that showed heart rate in 113. She was doing well until this happened that day. Sotalol 80 mg was given in ER followed by attempts at cardioversion that were not successful. She was admitted and Cardizem drip was started. EKG shows atrial flutter with variable conduction with heart rate at [address]-T wave abnormality. Chest x-ray with no acute findings. Patient feels better but still continues to feel irregular heartbeat. No chest pressure/pain. Review of Systems General: Reports: 10 or more systems reviewed and unremarkable except in HPI and below Const: Denies: fever(s) or chills ENMT: Denies: throat pain, nasal congestion or epistaxis Card: Reports: chest pain, palpitations and irregular heart rhythm; Denies: edema, swelling of feet/ankles, lightheadedness or dyspnea on exertion Resp: Denies: dyspnea or wheezing GI: Denies: hematemesis, hematochezia or melena : Denies: urinary frequency, urinary urgency or hematuria Musc: Denies: extremity swelling Neuro: Denies: headache(s) or weakness in extremities Psych: Denies: anxiety, depression, change in appetite or irritability Andres/Lymph: Denies: petechiae or purpura Medications/Allergies Home Medications Medication Instructions Recorded Confirmed Last Taken Type valsartan 320 mg tablet 160 mg PO BID #90 tab 10/23/21 01/21/22 01/21/22 Rx potassium chloride 10 mEq 10 meq PO DAILY #7 cap 01/09/22 01/21/22 01/21/22 Rx capsule,extended release furosemide 20 mg tablet (Lasix) 20 mg PO DAILY #90 tab 01/20/22 01/21/22 01/21/22 Rx sotalol 80 mg tablet 40 mg PO BID #60 tab 01/20/22 01/21/22 01/21/22 Rx ergocalciferol (vitamin D2) 1,250 1,250 mcg PO Q7D 01/21/22 01/21/22 01/21/22 History mcg (50,000 unit) capsule magnesium 200 mg tablet 200 mg PO BEDTIME 01/21/22 01/21/22 01/20/22 History rivaroxaban 20 mg tablet (Xarelto) 20 mg PO BEDTIME 01/21/22 01/21/22 01/20/22 History rosuvastatin 10 mg tablet 10 mg PO DAILY 01/21/22 01/21/22 01/20/22 History Allergies Allergy/AdvReac Type Severity Reaction Status Date / Time codeine Allergy Severe ALGY-Difficulty Verified 01/18/22 10:14 Breathing metronidazole [From Flagyl] Allergy Intermediate ALGY-Rash Verified 01/18/22 10:14 clonidine AdvReac Mild ADR-Confusi Verified 01/18/22 10:14 on lactose AdvReac Mild ADR-Gastrointestinal Verified 01/18/22 10:14 Upset lisinopril AdvReac Mild ADR-Cough Verified 01/18/22 10:14 Current Medications Generic Name Dose Route Start Last Admin Trade Name Freq PRN Reason Stop Dose Admin Atorvastatin Calcium 40 mg 01/22/22 09:00 01/22/22 08:36 Atorvastatin 40 Mg Tablet PO 40 mg DAILY FRANCIS Administration Potassium Chloride 10 meq 01/22/22 09:00 01/22/22 08:37 Potassium Chloride Er 10 Meq Tablet PO 10 meq DAILY FRANCIS Administration Rivaroxaban 20 mg 01/22/22 09:00 01/22/22 08:36 Rivaroxaban 10 Mg Tablet PO 20 mg DAILY FRANCIS Administration Sotalol HCl 80 mg 01/22/22 09:00 01/22/22 08:37 Sotalol 80 Mg Tablet PO 80 mg BID@0900,2100 FRANCIS Administration PFSH Acute PFSH: Medical History (Updated 01/22/22 @ 16:09 by Lexi Edwards MD) Atrial fibrillation Atrial fibrillation with rapid ventricular response Cataract BOTH EYES CHF (congestive heart failure), NYHA class III CHF exacerbation Cholesteatoma Chronic eustachian tube dysfunction Cigarette nicotine dependence COPD (chronic obstructive pulmonary disease) COPD (chronic obstructive pulmonary disease) with chronic bronchitis Depression Deviated septum Diverticulosis Dysphasia Enrolled in chronic care management Essential hypertension Fatigue GERD (gastroesophageal reflux disease) Hearing loss History of nonmelanoma skin cancer Lower extremity edema Lumbar compression fracture Lumbar pain Lumbar stenosis with neurogenic claudication Nasal turbinate hypertrophy Opioid contract exists Oral thrush Osteoporosis Perforated left tympanic membrane on examination Spinal stenosis of lumbar region with radiculopathy Tobacco use disorder Surgical History H/O bilateral salpingo-oophorectomy H/O kyphoplasty H/O rotator cuff surgery LEFT AND RIGHT Hx of mastoidectomy Family History Mother CAD (coronary artery disease) Father CAD (coronary artery disease) Brother Cancer Sister Cancer Denies family history of Family history of exposure to [employer] [place] Social History Smoking and tobacco status: current every day smoker cigarettes Packs smoked per day: 0.5 Alcohol intake: never Lives independently: Yes Household members: none Marital status: / Current occupational status: retired History of recent travel: No Vitals/I&O/Wt Last Vital Signs Temp 98.9 F 01/22/22 12:00 Pulse 89 01/22/22 14:00 Resp 19 H 01/22/22 14:00 BP 121/77 01/22/22 14:00 Pulse Ox 95 01/22/22 14:00 01/22/22 01/22/22 01/22/22 06:59 14:59 22:59 Intake Total 360 / 360 600 / 600 Output Total 400 / 400 400 / 800 Balance 360 / 360 200 / 200 -400 / -200 Weight last 48 hrs Weight 131 lb 8 oz Weight 131 lb 8 oz Weight 132 lb Physical Exam Narrative: GENERAL: Averagely built and averagely nourished in no acute distress HEENT:? Pupils equal round reactive to light.? No pallor or icterus. NECK: No JVD,? No carotid bruit. CARDIOVASCULAR SYSTEM: S1-S2 irregular.? tachycardia+ No murmur or gallops. RESPIRATORY SYSTEM: Chest clear to auscultation.? No wheezes rhonchi or rubs heard.? No use of accessory muscles. ABDOMEN: Soft, nontender and nondistended.? Normal bowel sounds present. EXTREMITIES: No cyanosis. Trace edema.? No signs of chronic venous insufficiency. DIRECTOR OF QUALITY CONTROL: Patient is alert oriented ?3.? No focal neurological deficits.? SKIN: Normal turgor and temperature.? No breakdown, rash or nail changes noted. PSYCH: Normal insight and judgment.? Data : 01/23/22 03:49 01/23/22 03:49 Other data: MARIANO (01/08/22) CONCLUSIONS ?1. Normal left ventricular cavity size.? Increased left ?ventricle wall thickness.? Moderately decreased left ventricular ?systolic function. Left ventricular ejection fraction is ?estimated at 35 %.? Moderate global hypokinesis. ?2. Normal right ventricular size and systolic function. ?3. Mild mitral valve regurgitation. ?4. Spontaneous echo contrast seen in the left atrial appendage.? ?No left atrial appendage thrombus. ?5. Grade 4 atheroma noted in proximal descending aorta and ?aortic arch. 07/21/21 Procedure(s): CV arterial duplex [facility] [id number] ?FINDINGS ?RT PULMONOLOGY TECHNICIAN- 125, RT DPA- 125 ?LT PULMONOLOGY TECHNICIAN- 125, LT DPA -125 ?Mild to moderate scattered heterogeneous plaques in the iliac ?and femoral arteries bilaterally ?Normal resting ABIs bilaterally ?CONCLUSIONS ?1.? Normal resting ABIs bilaterally, suggesting no significant ?arterial obstruction. ?2.? Mild to moderate heterogeneous scattered plaques in the ?iliac and femoral arteries bilaterally ? Date of Service: 04/09/21 Procedure(s): CV echo complete* [id number] ?CONCLUSIONS ?1-Normal left ventricular cavity size. Normal left ventricular ?systolic function. No regional wall motion abnormalities. Left ?ventricular ejection fraction is estimated at 65 %. Grade II/IV ?diastolic dysfunction, moderately elevated filling pressures. ?2-Moderately thickened mitral valve. No mitral valve stenosis. ?Mild mitral annular calcification. Trace mitral valve regurgitation. ?3-Moderate aortic valve calcification. No aortic valve stenosis. ?No aortic valve regurgitation. ?4-Mild tricuspid valve regurgitation. ?5-There is no pericardial effusion. ?6-Pulmonary artery systolic pressure is within normal limits. ?7-Right atrial pressure is around 5 mm of mercury. ?8-There are no prior echocardiogram studies to compare. ?Tania Gonzalez MD ? (Electronically Signed) Date of Service: 04/09/21 Procedure(s): CV venous dup insufficie LE BI ?CONCLUSIONS ?1. No evidence of DVT in the above-mentioned identifiable veins. ?2. Significant venous reflux of greater than 500 ms was noted at the left saphenofemoral junction. ?3. No significant venous reflux on the right side ?4. The venous dimensions, depth? from? the surface are as mentioned above ?Dr Fanny Nash MD [facility] ? (Electronically Signed) Date of Service: 07/15/20 Procedure(s): CV carotid duplex BI* [id number] ?CONCLUSIONS ?Right ICA stenosis <50%. Moderate calcified atheromatous plaque right carotid bulb/ICA. ?Left ICA stenosis <50%. Moderate calcified atheromatous plaque left carotid bulb/ICA. ?Normal antegrade Doppler flow noted in the right vertebral artery. ?Normal antegrade Doppler flow noted in the left vertebral artery. ?Matt Serrano MD ? (Electronically Signed) A&P Assessment and plan (1) Atrial fibrillation with rapid ventricular response: -continue Xarelto and sotalol 80 mg twice a day with close telemetry monitoring -s/p MARIANO and cardioversion on 01/08/22 and failed cardioversion times 3 at 120, 150, 200 joules. -D/c cardizem gtt -start on cardizem 30 mg PO TID PRN -will consider uptitrating sotalol -Concern for tachy/yunior syndrome. -I had a long discussion with the patient, her 2 sons and her [id number]. Rate control versus rhythm control discussed with the patient. I will see how she does over the weekend Status: Acute (2) CHF (congestive heart failure), NYHA class III: HFrEF (LVEF=35%) -No recent stress testing. -Tachycardia induced cardiomyopathy is a possibility however in absence of ischemic work-up, I think she will benefit from cardiac catheterization/stress test -On valsartan 160 mg twice a day and Lasix 20 mg at home Status: Acute (3) Essential hypertension: Status: Acute (4) COPD (chronic obstructive pulmonary disease): Status: Acute (5) GERD (gastroesophageal reflux disease): Status: Acute Qualifiers: Esophagitis presence: esophagitis presence not specified Qualified Code(s): K21.9 - Gastro-esophageal reflux disease without esophagitis Plan Hyperlipidemia Tobacco abuse quit smoking 2 weeks back. Coding Level of Care Code Acute Technical Solution Architect for Chg Fwd Diagnoses Atrial fibrillation with rapid ventricular response I48.91 Essential hypertension I10 COPD (chronic obstructive pulmonary disease) J44.9 GERD (gastroesophageal reflux disease) K21.9 Esophagitis presence: esophagitis presence not specified CHF (congestive heart failure), NYHA class III I50.9
[2022-01-22] MEDS: magnesium oxide 400 mg tablet 200 MG PO (20:22)
[2022-01-23] VITALS (9 sets, daily range): BP systolic 115–137; BP diastolic 73–94; PULSE 90–127; RESP 14–23; TEMP 36.4–36.7; O2SAT 93–98
[2022-01-23 04:45] LABS: Basophils # 0.1 10^3/uL (0.0-0.1); Basophils % 0.7 %; Eosinophils # 0.1 10^3/uL (0.0-0.8); Hematocrit 36.2 % (37.0-47.0); Hemoglobin 11.7 g/dL (11.5-15.3); Lymphocytes # 2.2 10^3/uL (0.8-4.8); Lymphocytes % 31.5 %; Mean Corpuscular HGB Conc 32.3 g/dL (30.0-36.0); Mean Corpuscular Hemoglobin 29.7 pg (28.0-34.0); Mean Corpuscular Volume 91.9 fl (81-99); Mean Platelet Volume 10.5 fL (7.4-10.4); Monocytes # 0.5 10^3/uL (0.2-0.9); Neutrophils # 4.21 10^3/uL (1.8-7.7); Neutrophils % 59.7 %; Nucleated Red Blood Cells % 0 %; Platelet Count 231 10^3/cmm (130-400); Red Blood Count 3.94 10^6/uL (4.1-5.3); White Blood Count 7.1 10^3/uL (4.0-10.0)
[2022-01-23 05:03] LABS: Alanine Aminotransferase 18 U/L (0-33); Albumin Level 3.2 g/dL (3.5-5.2); Alkaline Phosphatase 24 IU/L (35-105); Anion Gap 11.1 (5-19); Aspartate Amino Transferase 15 U/L (0-32); Blood Urea Nitrogen 8 mg/dL (8-23); Calcium 8.1 mg/dL (8.5-10.5); Carbon Dioxide 26 mmol/L (22-29); Chloride 102 mmol/L (98-107); Globulin 1.7 g/dL (1.3-4.6); Glucose 97 mg/dL (65-115); Osmolality Calculated 278 mOsm/kg (285-295); Potassium 4.1 mmol/L (3.5-5.1); Sodium 135 mmol/L (136-145); Total Bilirubin 0.3 mg/dL (0.15-1.2); Total Protein 4.9 g/dL (6.6-8.7)
--- NOTE | 2022-01-23 07:57 | PM.PN ---
Subjective Subjective: Patient remains in A. fib with rapid ventricle response. While in bed patient denies having any chest pain or shortness of breath. Medications: Reviewed: Yes Vitals/I&O/Wt Last Vital Signs Temp 97.7 F 01/23/22 07:29 Pulse 118 H 01/23/22 07:29 Resp 16 01/23/22 07:29 BP 132/82 01/23/22 07:29 Pulse Ox 98 01/23/22 07:29 01/22/22 01/23/22 01/23/22 22:59 06:59 14:59 Intake Total 480 / 1080 360 / 1440 Output Total 700 / 1100 Balance -220 / -20 360 / 340 Weight last 48 hrs Weight 131 lb 14.4 oz Weight 131 lb 8 oz Weight 131 lb 8 oz Weight 132 lb Physical Exam Narrative: GENERAL: Averagely built and averagely nourished in no acute distress HEENT:? Pupils equal round reactive to light.? No pallor or icterus. NECK: No JVD,? No carotid bruit. CARDIOVASCULAR SYSTEM: S1-S2 irregular.? tachycardia+ No murmur or gallops. RESPIRATORY SYSTEM: Chest clear to auscultation.? No wheezes rhonchi or rubs heard.? No use of accessory muscles. ABDOMEN: Soft, nontender and nondistended.? Normal bowel sounds present. EXTREMITIES: No cyanosis. Trace edema.? No signs of chronic venous insufficiency. FOURDRINIER MACHINE TENDER: Patient is alert oriented ?3.? No focal neurological deficits.? SKIN: Normal turgor and temperature.? No breakdown, rash or nail changes noted. PSYCH: Normal insight and judgment.? Data : 01/23/22 03:49 01/23/22 03:49 Other data: Transthoracic echocardiogram (01/22/22) CONCLUSIONS ?1. Normal left ventricular cavity size and systolic function. ?Moderate concentric left ventricle hypertrophy.? Left ?ventricular ejection fraction is estimated at 55-60%. No ?regional wall motion abnormalities. ?2. Normal right ventricular size and systolic function. ?3. Normal pulmonary artery pressure. ?4. When compared to transesophageal echocardiogram dated ?01/08/2022, left ventricular systolic function seems to have ?improved A&P Assessment and plan (1) Atrial fibrillation with rapid ventricular response: A fib/flutter with RVR -continue sotalol 80 mg twice a day with close telemetry monitoring -s/p MARIANO and cardioversion on 01/08/22 and failed cardioversion times 3 at 120, 150, 200 joules. -D/c cardizem gtt -start on cardizem 30 mg PO TID PRN -will increase sotalol to 120 mg in morning and 80 mg in evening (CrCl=72), -EKG 1 hour after each sotalol dose. -start on lovenox. 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 -I had a long discussion with the patient, her 2 sons and her [id number]. Rhythm control strategy discussed with the patient as she felt great when in sinus. Failed attempt at rate control as an outpatient. -I will see how she does over the weekend. -She will possibly need permanent pacemaker placement with/after cardioversion. -She became bradycardic even with sotalol dose of 80 mg a.m. and 40 mg p.m. -I will consider A. fib/flutter ablation as outpatient. Status: Acute (2) CHF (congestive heart failure), NYHA class III: HFrEF (LVEF=35%, last MARIANO) -No recent stress testing. 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 -However, in absence of ischemic work-up, I think she will benefit from stress test Tuesday/Tuesday -On valsartan 160 mg twice a day and Lasix 20 mg at home. Meds on hold while in hospital Status: Acute (3) Essential hypertension: Blood pressure fairly well controlled Status: Acute (4) COPD (chronic obstructive pulmonary disease): Status: Acute (5) GERD (gastroesophageal reflux disease): Status: Acute Qualifiers: Esophagitis presence: esophagitis presence not specified Qualified Code(s): K21.9 - Gastro-esophageal reflux disease without esophagitis Plan Hyperlipidemia Tobacco abuse quit smoking 2 weeks back. Attestations Medical Necessity Statement*: Needs hospital stay for management of symptomatic A fib/flutter Coding Level of Care Code Acute Ancillary Services Manager for g Fwd Diagnoses Atrial fibrillation with rapid ventricular response I48.91 CHF (congestive heart failure), NYHA class III I50.9 Essential hypertension I10 COPD (chronic obstructive pulmonary disease) J44.9 GERD (gastroesophageal reflux disease) K21.9 Esophagitis presence: esophagitis presence not specified
--- NOTE | 2022-01-23 08:41 | PC.NURSE ---
patient requested for decaf coffee, okay by nurse. Decaf coffee given.
[2022-01-23] MEDS: sotalol 80 mg Tablet PO ×2 (09:16→21:49)
[2022-01-23] MEDS: dilTIAZem 30 mg Tablet PO ×2 (09:16→16:07)
[2022-01-23] MEDS: atorvastatin 40 mg Tablet PO (09:16)
[2022-01-23] MEDS: potassium chloride ER 10 mEq Tablet PO (09:16)
[2022-01-23] MEDS: enoxaparin 60 mg/0.6 mL Syringe SUBCUT ×2 (09:17→21:49)
[2022-01-23] MEDS: sotalol 80 mg Tablet 40 MG PO (11:06)
--- NOTE | 2022-01-23 12:15 | ECG_ITS ---
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 Measurements Intervals [place] Rate: 122 P: MD: QRS: 11 QRSD: 75 T: 0 QT: 292 QTc: 417 Interpretive Statements ATRIAL FIBRILLATION WITH RAPID VENTRICULAR RESPONSE LOW QRS VOLTAGE IN PRECORDIAL LEADS [QRS DEFLECTION < 1.0 mV IN CHEST LEADS] NONSPECIFIC T-WAVE ABNORMALITY ABNORMAL RHYTHM ECG Compared to ECG 01/21/2022 21:58:40 Low QRS voltage now present Aberrant conduction of supraventricular beat(s) no longer present Ventricular premature complex(es) no longer present T-wave abnormality still present Electronically Signed On 01-23-2022 15:03:06 CDT by Lexi Edwards M.D. [id number]
--- NOTE | 2022-01-23 20:36 | PM.PN ---
Subjective Subjective: She states she is doing well. Denies asunaprevir/breath at rest. Heart rate has been fluctuating, heart rate increased when she got up to go to the restroom. Vitals/I&O/Wt Last Vital Signs Temp 97.6 F 01/23/22 15:15 Pulse 98 01/23/22 15:15 Resp 14 01/23/22 15:15 BP 124/86 01/23/22 15:15 Pulse Ox 93 01/23/22 15:15 01/23/22 01/23/22 01/23/22 06:59 14:59 22:59 Intake Total 360 / 1440 120 / 120 Balance 360 / 340 120 / 120 Weight last 48 hrs Weight 59.829 kg Weight 59.647 kg Weight 59.647 kg Physical Exam Narrative: Family at bedside. Const: COMMON NORMALS: alert GENERAL APPEARANCE: cooperative ORIENTATION/CONSCIOUSNESS: Yes awake HENMT: COMMON NORMALS: normocephalic, EAC's normal, Normal external nose present and moist oral mucous membranes HEAD & SCALP: normocephalic NOSE: Normal external nose present EXTERNAL AUDITORY CANAL: EAC's normal Neck/C-Spine: COMMON NORMALS: no meningeal signs Chest: CHEST: Yes Symmetrical chest wall rise Resp: COMMON NORMALS: clear to auscultation bilaterally AUSCULTATION: clear to auscultation bilaterally Cardio: COMMON NORMALS: No murmurs present (Cardio) RHYTHM: abnormal rhythm irregularly irregular GI: COMMON NORMALS: Normal to inspection, nondistended, normoactive bowel sounds present, Soft to palpation and non-tender PALPATION: Yes Soft to palpation Extremity: COMMON NORMALS: no pedal edema Neuro: COMMON NORMALS: moves all extremities SENSORIUM/ORIENTATION: Yes alert MENINGEAL SIGNS: Yes no meningeal signs Psych: COMMON NORMALS: mental status grossly normal Skin: COMMON NORMALS: no wounds RASHES: no rashes Data : 01/23/22 03:49 01/23/22 03:49 Micro: Microbiology 01/21/22 18:20 Urine Culture - Preliminary Urine,Clean Catch A&P Assessment and plan (1) Atrial fibrillation with rapid ventricular response: Appreciate cardiology evaluation and recommendations. Sotalol dose increased to 120 in the morning, 80 in the evening. Further steps are considered depending on her condition over the weekend. Potassium and magnesium levels were replaced. Currently in good range. Recheck. Continue anticoagulation, is transitioned to Lovenox. Echocardiogram with now normal ejection fraction, no R WMA. Moderate concentric LVH. Additional consideration for work-up for ischemia considered with stress testing. Status: Acute Plan Recently stopped smoking. Declined nicotine supplementation states she is doing well. She uses a cigarette sized dowel to help her kick the habit. She is also recently entirely cut out coffee from her diet. Acute on chronic atrial fibrillation. Arthritis Spinal stenosis Chronic pain with opiate dependence Diverticulosis Depression COPD, patient O2 dependent at 2 L/min via nasal cannula only nocturnally CHF, ejection fraction 35% with grade 2 diastolic dysfunction. Started on Entresto. Strict I's/O. Daily weight. Echocardiogram with now normal ejection fraction, no R WMA. Moderate concentric LVH. GERD Hyperlipidemia Hypertension. She has been seeing a valsartan for her blood pressure control. For now on hold given she is on Cardizem. Osteoporosis Neuropathy History of cervical and uterine cancer, status post total abdominal hysterectomy and bilateral salpingo-oophorectomy. The patient did not require chemotherapy or radiation therapy. She indicates that she is in remission and does not require to be monitored for this medical condition by Dr. Miranda Medical Necessity Statement*: Continue admission for assessment management of difficult to control A. fib with RVR Coding Level of Care Code Acute Fire Protection Specialist for Ismael Schulte Diagnoses Atrial fibrillation with rapid ventricular response I48.91
[2022-01-23] MEDS: magnesium oxide 400 mg tablet 200 MG PO (21:49)
[2022-01-24] VITALS (28 sets, daily range): BP systolic 119–147; BP diastolic 80–113; PULSE 86–146; RESP 13–27; TEMP 36.2–36.7; O2SAT 94–96; BMI 21.8
[2022-01-24] MEDS: dilTIAZem 30 mg Tablet PO ×4 (00:19→22:38)
[2022-01-24 04:00] LABS: Basophils # 0.1 10^3/uL (0.0-0.1); Basophils % 0.9 %; Eosinophils # 0.1 10^3/uL (0.0-0.8); Eosinophils % 1.7 %; Hematocrit 37.6 % (37.0-47.0); Hemoglobin 11.9 g/dL (11.5-15.3); Lymphocytes % 37.4 %; Mean Corpuscular HGB Conc 31.6 g/dL (30.0-36.0); Mean Corpuscular Hemoglobin 29.8 pg (28.0-34.0); Mean Corpuscular Volume 94.2 fl (81-99); Mean Platelet Volume 10.4 fL (7.4-10.4); Monocytes # 0.4 10^3/uL (0.2-0.9); Monocytes % 8.1 %; Neutrophils # 2.74 10^3/uL (1.8-7.7); Neutrophils % 51.7 %; Nucleated Red Blood Cells % 0 %; Platelet Count 219 10^3/cmm (130-400); Red Blood Count 3.99 10^6/uL (4.1-5.3); Red Cell Distribution Width 15.3 % (12.1-15.1); White Blood Count 5.3 10^3/uL (4.0-10.0)
[2022-01-24 04:23] LABS: Alanine Aminotransferase 18 U/L (0-33); Albumin Level 3.3 g/dL (3.5-5.2); Alkaline Phosphatase 23 IU/L (35-105); Aspartate Amino Transferase 16 U/L (0-32); Blood Urea Nitrogen 10 mg/dL (8-23); Carbon Dioxide 27 mmol/L (22-29); Chloride 104 mmol/L (98-107); Globulin 1.7 g/dL (1.3-4.6); Glucose 93 mg/dL (65-115); Osmolality Calculated 285 mOsm/kg (285-295); Sodium 138 mmol/L (136-145); Total Bilirubin 0.2 mg/dL (0.15-1.2)
[2022-01-24] MEDS: sotalol 80 mg Tablet 120 MG PO (08:35)
[2022-01-24] MEDS: potassium chloride ER 10 mEq Tablet PO (08:36)
[2022-01-24] MEDS: atorvastatin 40 mg Tablet PO (08:36)
[2022-01-24] MEDS: enoxaparin 60 mg/0.6 mL Syringe SUBCUT ×2 (08:37→21:27)
--- NOTE | 2022-01-24 12:03 | PC.NURSE ---
patient asked for orange juice, okay by nurse and orange juice was given. Patient also asked for decaf coffee, okay by nurse, given to patient.
--- NOTE | 2022-01-24 13:00 | ECG_ITS ---
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 Measurements Intervals [place] Rate: 116 P: [place]: QRS: 25 QRSD: 71 T: 0 QT: 297 QTc: 413 Interpretive Statements ATRIAL FIBRILLATION WITH RAPID VENTRICULAR RESPONSE NONSPECIFIC T-WAVE ABNORMALITY ABNORMAL RHYTHM ECG Compared to ECG 01/23/2022 12:22:57 No significant changes Electronically Signed On 01-24-2022 16:13:28 CDT by Lexi Edwards M.D. [email or web address]/[id number]
--- NOTE | 2022-01-24 15:08 | P.PN_ITS ---
Subjective Subjective: Patient remains in A. fib with rapid ventricle response. While in bed patient denies having any chest pain or shortness of breath. She complains of tiredness and fatigue Medications: Reviewed: Yes Medication Review Details: Current Medications Acetaminophen (Acetaminophen 325 Mg Tablet) 650 mg PO Q6H PRN PRN Reason: MILD PAIN Atorvastatin Calcium (Atorvastatin 40 Mg Tablet) 40 mg PO DAILY [facility] Last Admin: 01/24/22 08:36 Dose: 40 mg Documented by: Diltiazem HCl (Diltiazem 30 Mg Tablet) 30 mg PO QID [facility] Enoxaparin Sodium (Enoxaparin 60 Mg/0.6 Ml Syringe) 60 mg SUBCUT Q12H [facility] Last Admin: 01/24/22 08:37 Dose: 60 mg Documented by: Magnesium Oxide (Magnesium Oxide 400 Mg Tablet) 200 mg PO BEDTIME [facility] Last Admin: 01/23/22 21:49 Dose: 200 mg Documented by: Ondansetron HCl (Ondansetron 2 Mg/Ml Sdv 2 Ml) 4 mg IVP Q6H PRN PRN Reason: NAUSEA AND VOMITING Potassium Chloride (Potassium Chloride Er 10 Meq Tablet) 10 meq PO DAILY [facility] Last Admin: 01/24/22 08:36 Dose: 10 meq Documented by: Sotalol HCl (Sotalol 80 Mg Tablet) 80 mg PO 2100 [facility] Last Admin: 01/23/22 21:49 Dose: 80 mg Documented by: Sotalol HCl (Sotalol 80 Mg Tablet) 120 mg PO 0900 [facility] Last Admin: 01/24/22 08:35 Dose: 120 mg Documented by: Vitals/I&O/Wt Last Vital Signs Temp 97.8 F 01/24/22 11:40 Pulse 115 H 01/24/22 11:40 Resp 23 H 01/24/22 11:40 BP 141/100 01/24/22 11:40 Pulse Ox 94 01/24/22 11:40 01/24/22 01/24/22 01/24/22 06:59 14:59 22:59 Intake Total 240 / 720 720 / 720 Balance 240 / 719 720 / 720 Weight last 48 hrs Weight 135 lb 1.6 oz Weight 131 lb 14.4 oz Physical Exam Narrative: GENERAL: Averagely built and averagely nourished in no acute distress HEENT:? Pupils equal round reactive to light.? No pallor or icterus. NECK: No JVD,? No carotid bruit. CARDIOVASCULAR SYSTEM: S1-S2 irregular.? tachycardia+ No murmur or gallops. RESPIRATORY SYSTEM: Chest clear to auscultation.? No wheezes rhonchi or rubs heard.? No use of accessory muscles. ABDOMEN: Soft, nontender and nondistended.? Normal bowel sounds present. EXTREMITIES: No cyanosis. Trace edema.? No signs of chronic venous insufficiency. MUSIC SPECIALIST: Patient is alert oriented ?3.? No focal neurological deficits.? SKIN: Normal turgor and temperature.? No breakdown, rash or nail changes noted. PSYCH: Normal insight and judgment.? Data : 01/24/22 03:30 01/24/22 03:30 Micro: Microbiology 01/21/22 18:20 Urine Culture - Final Urine,Clean Catch A&P Assessment and plan (1) Atrial fibrillation with rapid ventricular response: A fib/flutter with RVR: Difficult to rate control -continue sotalol 120 mg am and 80 mg pm with close telemetry monitoring -s/p MARIANO and cardioversion on 01/08/22 and failed cardioversion times 3 at 120, 150, 200 joules. -D/c cardizem gtt -start on cardizem 30 mg PO QID (hold for HR <100 bpm) -will increase sotalol to 120 mg in morning and 80 mg in evening (CrCl=72), -EKG 1 hour after each sotalol dose. -started on lovenox. 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 -I had a long discussion with the patient, her 2 sons and her [id number]. Rhythm control strategy discussed with the patient as she felt great when in sinus. Failed attempt at rate control as an outpatient. -She will probably need permanent pacemaker placement with/after cardioversion. -She became bradycardic with heart rate mid 40s to low 50s even with sotalol dose of 80 mg a.m. and 40 mg p.m. -I will consider A. fib/flutter ablation as outpatient. Status: Acute (2) CHF (congestive heart failure), NYHA class III: HFrEF (LVEF=35%, last MARIANO) -No recent stress testing. 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 -However, in absence of ischemic work-up, I think she will benefit from stress test Tuesday -On valsartan 160 mg twice a day and Lasix 20 mg at home. Meds on hold while in hospital Status: Acute (3) Essential hypertension: Blood pressure fairly well controlled Status: Acute (4) COPD (chronic obstructive pulmonary disease): Status: Acute (5) GERD (gastroesophageal reflux disease): Status: Acute Qualifiers: Esophagitis presence: esophagitis presence not specified Qualified Code(s): K21.9 - Gastro-esophageal reflux disease without esophagitis Plan Hyperlipidemia Tobacco abuse quit smoking 2 weeks back. Attestations Medical Necessity Statement*: Needs hospital stay for management of symptomatic atrial flutter Coding Level of Care Code Acute Field Service Manager for Chg Fwd Diagnoses Atrial fibrillation with rapid ventricular response I48.91 CHF (congestive heart failure), NYHA class III I50.9 Essential hypertension I10 COPD (chronic obstructive pulmonary disease) J44.9 GERD (gastroesophageal reflux disease) K21.9 Esophagitis presence: esophagitis presence not specified
--- NOTE | 2022-01-24 15:12 | ECG_ITS ---
[facility] Test Date: 2022-01-25 Pat Name: Dona Jimenez Department: Room: 106 Gender: Female Program Manufacturing Leader: Nicole Cook : 1945 Requested By: Lexi Edwards Order Number: [id number] Dyana MD: Lexi Edwards M.D. Interpretive Statements NAME OF STUDY: LEXISCAN SESTAMIBI STRESS TEST INDICATION: Atrial fibrillation, congestive heart failure PROCEDURE: At the baseline, the blood pressure was 149/99 mmHg, oxygen saturation 95% with a heart rate of 124 bpm. The electrocardiogram showed atrial fibrillation with rapid regular response at 102 bpm. Poor anterior R wave progression. Nonspecific ST-T changes. The Lexiscan was infused over a period of 20 seconds. A total of 0.4 milligrams of Lexiscan was infused. The stress phase was continued for a total of 5 minutes. Heart rate at the end of the stress phase was 132 bpm with a blood pressure of 133/96 mmHg. The EKG at the peak infusion revealed atrial fibrillation with rapid ventricle response with nonspecific ST-T wave changes. Sestamibi was injected 20 seconds after the Lexiscan infusion. Blood pressure at the end of the recovery phase was 149/100 mmHg with a heart rate of 129 beats per minute. CONCLUSION: 1. Equivocal EKG changes with the LexiScan infusion due to baseline changes. 2. No LexiScan induced chest pain or cardiac arrhythmia. 3. Normal blood pressure and heart rate response. 4. Sestamibi/sestamibi perfusion scan pending; see separate report. Electronically Signed On 01-25-2022 14:57:57 CDT by Lexi Edwards M.D. [id number]
--- NOTE | 2022-01-24 15:15 | P.PN_ITS ---
Subjective Subjective: Denies any complaints while at rest. Denies cough or shortness of breath. Denies chest pain or pressure. Blood pressure, heart rates increasing when she gets up to move around. She has had extensive discussions with regards to options of further steps with cardiology including possible cardioversion tomorrow, with possibility of also requiring pacemaker. Vitals/I&O/Wt Last Vital Signs Temp 97.8 F 01/24/22 11:40 Pulse 115 H 01/24/22 11:40 Resp 23 H 01/24/22 11:40 BP 141/100 01/24/22 11:40 Pulse Ox 94 01/24/22 11:40 01/24/22 01/24/22 01/24/22 06:59 14:59 22:59 Intake Total 240 / 720 720 / 720 Balance 240 / 719 720 / 720 Weight last 48 hrs Weight 61.28 kg Weight 59.829 kg Physical Exam Const: COMMON NORMALS: alert GENERAL APPEARANCE: cooperative ORIENTATION/CONSCIOUSNESS: Yes awake HENMT: COMMON NORMALS: normocephalic, EAC's normal, Normal external nose pr esent and moist oral mucous membranes HEAD & SCALP: normocephalic NOSE: Normal external nose present EXTERNAL AUDITORY CANAL: EAC's normal Neck/C-Spine: COMMON NORMALS: no meningeal signs Chest: CHEST: Yes Symmetrical chest wall rise Resp: COMMON NORMALS: clear to auscultation bilaterally AUSCULTATION: clear to auscultation bilaterally and diminished lung sounds on the right in the lower lung muller (Compared to left) Cardio: COMMON NORMALS: No murmurs present (Cardio) RHYTHM: abnormal rhythm irregularly irregular GI: COMMON NORMALS: Normal to inspection, nondistended, normoactive bowel s ounds present, Soft to palpation and non-tender PALPATION: Yes Soft to pa lpation Extremity: COMMON NORMALS: no pedal edema Neuro: COMMON NORMALS: moves all extremities SENSORIUM/ORIENTATION: Yes alert MENINGEAL SIGNS: Yes no meningeal signs Psych: COMMON NORMALS: mental status grossly normal Skin: COMMON NORMALS: no wounds RASHES: no rashes Data : 01/24/22 03:30 01/24/22 03:30 Micro: Microbiology 01/21/22 18:20 Urine Culture - Final Urine,Clean Catch A&P Assessment and plan (1) Atrial fibrillation with rapid ventricular response: Appreciate cardiology evaluation and recommendations. Started on standing Cardizem. Sotalol dose increased yesterday to 120 in the morning, 80 in the evening with standing EKG 1 hour after each dose. Further steps are considered with likelihood she would need pacemaker with/after cardioversion. With further consideration of ablation as outpatient. Potassium and magnesium levels were replaced and maintaining. Continue anticoagulation, is transitioned to Lovenox. Echocardiogram with now normal ejection fraction, no R WMA. Moderate concentric LVH. Additional work-up for ischemia with stress testing tomorrow. Status: Acute Plan RLL diminished lung sounds: Compared to the left. Declines x-ray stating she has no trouble breathing, having no cough or other respiratory symptoms, oxygen saturations have been good on room air. Recently stopped smoking. Declined nicotine supplementation states she is doing well. She uses a cigarette sized dowel to help her kick the habit. She is also recently entirely cut out coffee from her diet. Acute on chronic atrial fibrillation. Arthritis Spinal stenosis Chronic pain with opiate dependence Diverticulosis Depression COPD, patient O2 dependent at 2 L/min via nasal cannula only nocturnally CHF, ejection fraction 35% with grade 2 diastolic dysfunction. Started on Entresto. Strict I's/O. Daily weight. Echocardiogram with now normal ejection fraction, no R WMA. Moderate concentric LVH. GERD Hyperlipidemia Hypertension. She has been seeing a valsartan for her blood pressure control. For now on hold given she is on Cardizem. Osteoporosis Neuropathy History of cervical and uterine cancer, status post total abdominal hysterectomy and bilateral salpingo-oophorectomy. The patient did not require chemotherapy or radiation therapy. She indicates that she is in remission and does not require to be monitored for this medical condition by Dr. Miranda Medical Necessity Statement*: Continue admission for management of difficult to control symptomatic A. fib with RVR, further assessment for cardiac ischemia, cardioversion and possible pacemaker. Coding Level of Care Code Acute Clerical Dentist Assistant for Ismael Schulte Diagnoses Atrial fibrillation with rapid ventricular response I48.91
--- NOTE | 2022-01-24 15:35 | PC.NURSE ---
rechecked blood pressure per patient request
--- NOTE | 2022-01-24 17:48 | PC.NURSE ---
blood pressure checked on left arm.
[2022-01-24] MEDS: sotalol 80 mg Tablet PO (21:23)
[2022-01-24] MEDS: magnesium oxide 400 mg tablet 200 MG PO (21:23)
--- NOTE | 2022-01-24 22:30 | ECG_ITS ---
[facility] Test Date: 2022-01-24 Pat Name: Dona Jimenez Department: Room: 106 Gender: Female Career Development Facilitator: : 1945 Requested By: Lexi Edwards Order Number: [id number] Dyana MD: Lexi Edwards M.D. Measurements Intervals [place] Rate: 113 P: [place]: QRS: 7 QRSD: 81 T: 25 QT: 335 QTc: 461 Interpretive Statements ATRIAL FIBRILLATION WITH RAPID VENTRICULAR RESPONSE WITH ABERRANT CONDUCTION OR VENTRICULAR PREMATURE COMPLEXES NONSPECIFIC T-WAVE ABNORMALITY ABNORMAL RHYTHM ECG Compared to ECG 01/24/2022 13:07:14 Ventricular premature complex(es) now present Aberrant conduction of supraventricular beat(s) now present T-wave abnormality still present Electronically Signed On 01-26-2022 7:48:14 CDT by Lexi Edwards M.D. [id number]
[2022-01-25] VITALS (42 sets, daily range): BP systolic 118–151; BP diastolic 72–112; PULSE 48–137; RESP 16–23; TEMP 36.1–36.8; O2SAT 94–98
[2022-01-25 03:31] LABS: Basophils # 0.1 10^3/uL (0.0-0.1); Basophils % 0.9 %; Eosinophils # 0.1 10^3/uL (0.0-0.8); Eosinophils % 1.8 %; Hematocrit 35.4 % (37.0-47.0); Hemoglobin 11.8 g/dL (11.5-15.3); Lymphocytes % 37.2 %; Mean Corpuscular HGB Conc 33.3 g/dL (30.0-36.0); Mean Corpuscular Hemoglobin 30.3 pg (28.0-34.0); Mean Corpuscular Volume 90.8 fl (81-99); Mean Platelet Volume 10.2 fL (7.4-10.4); Monocytes # 0.5 10^3/uL (0.2-0.9); Monocytes % 8.3 %; Neutrophils # 2.82 10^3/uL (1.8-7.7); Neutrophils % 51.8 %; Nucleated Red Blood Cells % 0 %; Platelet Count 236 10^3/cmm (130-400); White Blood Count 5.5 10^3/uL (4.0-10.0)
[2022-01-25 03:52] LABS: Alanine Aminotransferase 21 U/L (0-33); Albumin Level 3.1 g/dL (3.5-5.2); Alkaline Phosphatase 23 IU/L (35-105); Anion Gap 12.1 (5-19); Aspartate Amino Transferase 19 U/L (0-32); Blood Urea Nitrogen 10 mg/dL (8-23); Calcium 8.8 mg/dL (8.5-10.5); Carbon Dioxide 26 mmol/L (22-29); Chloride 106 mmol/L (98-107); Globulin 2.4 g/dL (1.3-4.6); Glucose 102 mg/dL (65-115); Magnesium 2.1 mg/dL (1.7-2.3); Osmolality Calculated 289 mOsm/kg (285-295); Potassium 4.1 mmol/L (3.5-5.1); Sodium 140 mmol/L (136-145); Total Bilirubin 0.3 mg/dL (0.15-1.2); Total Protein 5.5 g/dL (6.6-8.7)
[2022-01-25] MEDS: regadenoson 0.4 Mg/5 ml Syringe IVP (07:24)
--- NOTE | 2022-01-25 07:59 | PC.SOCIAL ---
Pg 2 IMM Explained to pt Pg 2 IMM. No questions voiced. Provided pt a copy. Initialed, dated, & timed a copy & placed in chart.
[2022-01-25] MEDS: sotalol 80 mg Tablet 120 MG PO (08:55)
[2022-01-25] MEDS: atorvastatin 40 mg Tablet PO (08:55)
[2022-01-25] MEDS: enoxaparin 60 mg/0.6 mL Syringe SUBCUT ×2 (08:56→20:03)
[2022-01-25] MEDS: potassium chloride ER 10 mEq Tablet PO (08:56)
[2022-01-25] MEDS: dilTIAZem 30 mg Tablet PO (08:56)
--- NOTE | 2022-01-25 09:06 | PC.NURSE ---
patient had a couple bowel movements while at stress test.
--- NOTE | 2022-01-25 09:35 | P.PN_ITS ---
Subjective Subjective: Patient remains in A. fib with rapid ventricle response. While in bed patient denies having any chest pain or shortness of breath. She complains of tiredness and fatigue on ambulation. She underwent stress test today Medications: Reviewed: Yes Medication Review Details: Current Medications Acetaminophen (Acetaminophen 325 Mg Tablet) 650 mg PO Q6H PRN PRN Reason: MILD PAIN Atorvastatin Calcium (Atorvastatin 40 Mg Tablet) 40 mg PO DAILY [facility] Last Admin: 01/24/22 08:36 Dose: 40 mg Documented by: Diltiazem HCl (Diltiazem 30 Mg Tablet) 30 mg PO QID [facility] Enoxaparin Sodium (Enoxaparin 60 Mg/0.6 Ml Syringe) 60 mg SUBCUT Q12H [facility] Last Admin: 01/24/22 08:37 Dose: 60 mg Documented by: Magnesium Oxide (Magnesium Oxide 400 Mg Tablet) 200 mg PO BEDTIME [facility] Last Admin: 01/23/22 21:49 Dose: 200 mg Documented by: Ondansetron HCl (Ondansetron 2 Mg/Ml Sdv 2 Ml) 4 mg IVP Q6H PRN PRN Reason: NAUSEA AND VOMITING Potassium Chloride (Potassium Chloride Er 10 Meq Tablet) 10 meq PO DAILY [facility] Last Admin: 01/24/22 08:36 Dose: 10 meq Documented by: Sotalol HCl (Sotalol 80 Mg Tablet) 80 mg PO 2100 [facility] Last Admin: 01/23/22 21:49 Dose: 80 mg Documented by: Sotalol HCl (Sotalol 80 Mg Tablet) 120 mg PO 0900 [facility] Last Admin: 01/24/22 08:35 Dose: 120 mg Documented by: Vitals/I&O/Wt Last Vital Signs Temp 97.9 F 01/25/22 08:43 Pulse 130 H 01/25/22 08:43 Resp 20 H 01/25/22 08:43 BP 142/90 01/25/22 08:44 Pulse Ox 97 01/25/22 08:43 01/24/22 01/25/22 01/25/22 22:59 06:59 14:59 Intake Total 0 / 720 0 / 720 Balance 0 / 720 0 / 720 Weight last 48 hrs Weight 135 lb 9.6 oz Weight 135 lb 1.6 oz Physical Exam Narrative: GENERAL: Averagely built and averagely nourished in no acute distress HEENT:? Pupils equal round reactive to light.? No pallor or icterus. NECK: No JVD,? No carotid bruit. CARDIOVASCULAR SYSTEM: S1-S2 irregular.? tachycardia+ No murmur or gallops. RESPIRATORY SYSTEM: Chest clear to auscultation.? No wheezes rhonchi or rubs heard.? No use of accessory muscles. ABDOMEN: Soft, nontender and nondistended.? Normal bowel sounds present. EXTREMITIES: No cyanosis. Trace edema.? No signs of chronic venous insufficiency. AERIAL ADVERTISER: Patient is alert oriented ?3.? No focal neurological deficits.? SKIN: Normal turgor and temperature.? No breakdown, rash or nail changes noted. PSYCH: Normal insight and judgment.? Data : 01/25/22 03:05 01/25/22 03:05 Micro: Microbiology 01/21/22 18:20 Urine Culture - Final Urine,Clean Catch A&P Assessment and plan (1) Atrial fibrillation with rapid ventricular response: A fib/flutter with RVR: Difficult to rate control -continue sotalol 120 mg am and 80 mg pm with close telemetry monitoring -s/p MARIANO and cardioversion on 01/08/22 and failed cardioversion times 3 at 120, 150, 200 joules. -s/p successful cardioversion with sabianist of SR/SB -hold on cardizem 30 mg PO QID (hold for HR <100 bpm) -continue sotalol to 120 mg in morning and 80 mg in evening (CrCl=72), -EKG 1 hour after each sotalol dose. -continue on lovenox. 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 -I had a long discussion with the patient, her 2 sons and her [id number]. Rhythm control strategy discussed with the patient as she felt great when in sinus. Failed attempt at rate control as an outpatient. -She will probably need permanent pacemaker placement with/after cardioversion. Case discussed with Dr. Nash -She became bradycardic with heart rate mid 40s to low 50s even with sotalol dose of 80 mg a.m. and 40 mg p.m. -I will consider A. fib/flutter ablation as outpatient. Status: Acute (2) CHF (congestive heart failure), NYHA class III: HFrEF (LVEF=35%, last MARIANO) -No recent stress testing. 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 -she had stress test today -On valsartan 160 mg twice a day and Lasix 20 mg at home. Meds on hold while in hospital Status: Acute (3) Essential hypertension: Blood pressure fairly well controlled Status: Acute (4) COPD (chronic obstructive pulmonary disease): Status: Acute (5) GERD (gastroesophageal reflux disease): Status: Acute Qualifiers: Esophagitis presence: esophagitis presence not specified Qualified Code(s): K21.9 - Gastro-esophageal reflux disease without esophagitis Plan Hyperlipidemia Tobacco abuse quit smoking 2 weeks back. Attestations Medical Necessity Statement*: needs hospital stay for symptomatic A. fib/flutter, sotalol therapy monitoring Procedures Procedure Narrative Cardioversion procedure note. Indication: Symptomatic [atrial fibrillation] Anticoagulation: [ Therapeutic Lovenox] Sedation: [Propofol by anesthesia] Procedure was explained to the patient in detail. Risks and benefits of the procedures were discussed. Informed consent was obtained. After time out was called patient received sedation. Pads were placed [anteroposteriorly]. [He/She received [150] J of synchronized biphasic shock ?1 with sabianist of normal sinus rhythm. Patient tolerated the procedure well. Recovery: [in unit] Disposition: Patient to be Transferred back to the unit. I spoke to patient's son and he was updated after the cardioversion. Coding Level of Care Code Acute Client Strategist for Ismael Schulte Diagnoses Atrial fibrillation with rapid ventricular response I48.91 CHF (congestive heart failure), NYHA class III I50.9 Essential hypertension I10 COPD (chronic obstructive pulmonary disease) J44.9 GERD (gastroesophageal reflux disease) K21.9 Esophagitis presence: esophagitis presence not specified Time Spent (min) 45
--- NOTE | 2022-01-25 10:00 | ECG_ITS ---
[facility] Test Date: 2022-01-25 Pat Name: Dona Jimenez Department: Room: 106 Gender: Female Broadcast Director Operations: : 1945 Requested By: Lexi Edwards Order Number: [id number] Dyana MD: Lexi Edwards M.D. Measurements Intervals [place] Rate: 113 P: [place]: QRS: 3 QRSD: 72 T: -27 QT: 345 QTc: 475 Interpretive Statements ATRIAL FIBRILLATION WITH RAPID VENTRICULAR RESPONSE NONSPECIFIC T-WAVE ABNORMALITY Compared to ECG 01/24/2022 22:29:05 Ventricular premature complex(es) no longer present Aberrant conduction of supraventricular beat(s) no longer present T-wave abnormality still present Electronically Signed On 01-26-2022 7:34:18 CDT by Lexi Edwards M.D. [id number]
--- NOTE | 2022-01-25 10:18 | PC.NURSE ---
provided wash clothes, baby soap, and towels.
--- NOTE | 2022-01-25 10:19 | PC.NURSE ---
patient is doing a self bed bath.
--- NOTE | 2022-01-25 12:07 | P.PN_ITS ---
Subjective Subjective: Patient was seen this morning, he just had a cardiac stress test, no acute events overnight, she still complains of elevated heart rate, no lightheadedness, no dizziness Vitals/I&O/Wt Last Vital Signs Temp 98.0 F 01/25/22 11:59 Pulse 124 H 01/25/22 11:59 Resp 18 01/25/22 11:59 BP 130/90 01/25/22 11:59 Pulse Ox 94 01/25/22 11:59 01/24/22 01/25/22 01/25/22 22:59 06:59 14:59 Intake Total 0 / 720 0 / 720 Balance 0 / 720 0 / 720 Weight last 48 hrs Weight 61.507 kg Weight 61.28 kg Physical Exam Const: COMMON NORMALS: no acute distress and patient oriented x3 Resp: COMMON NORMALS: normal respiratory effort, No retractions, No use of accessory muscles and clear to auscultation bilaterally AUSCULTATION: clear to auscultation bilaterally Cardio: COMMON NORMALS: S1 normal heart sound present and S2 normal heart sound present RATE: tachycardic RHYTHM: abnormal rhythm irregularly irregular HEART SOUNDS: S1 normal heart sound present and S2 normal heart sound present GI: COMMON NORMALS: Normal to inspection, nondistended, normoactive bowel sounds present, Soft to palpation and non-tender PALPATION: Yes Soft to palpation Extremity: COMMON NORMALS: no pedal edema Neuro: COMMON NORMALS: patient oriented x3 Psych: COMMON NORMALS: mental status grossly normal Data : 01/25/22 03:05 01/25/22 03:05 Micro: Microbiology 01/21/22 18:20 Urine Culture - Final Urine,Clean Catch A&P Assessment and plan (1) Atrial fibrillation with rapid ventricular response: Appreciate cardiology evaluation and recommendations. Started on standing Cardizem. Sotalol dose increased yesterday to 120 in the morning, 80 in the evening with standing EKG 1 hour after each dose. Further steps are considered with likelihood she would need pacemaker with/after cardioversion. With further consideration of ablation as outpatient. Potassium and magnesium levels were replaced and maintaining. Continue anticoagulation, is transitioned to Lovenox. Echocardiogram with now normal ejection fraction, no R WMA. Moderate concentric LVH. Additional work-up for ischemia with stress testing today Status: Acute Plan RLL diminished lung sounds: Resolved, no shortness of breath complaints, afebrile, no significant leukocytosis Recently stopped smoking. Declined nicotine supplementation states she is doing well. She uses a cigarette sized dowel to help her kick the habit. She is also recently entirely cut out coffee from her diet. Acute on chronic atrial fibrillation., Will undergo pacemaker placement, on therapeutic Lovenox Arthritis Spinal stenosis Chronic pain with opiate dependence Diverticulosis Depression COPD, patient O2 dependent at 2 L/min via nasal cannula only nocturnally CHF, ejection fraction 35% with grade 2 diastolic dysfunction. Started on Entresto. Strict I's/O. Daily weight. Echocardiogram with now normal ejection fraction, no R WMA. Moderate concentric LVH. GERD Hyperlipidemia Hypertension. She has been seeing a valsartan for her blood pressure control. For now on hold given she is on Cardizem. Osteoporosis Neuropathy History of cervical and uterine cancer, status post total abdominal hysterectomy and bilateral salpingo-oophorectomy. The patient did not require chemotherapy or radiation therapy. She indicates that she is in remission and does not require to be monitored for this medical condition by her primary care Attestations Medical Necessity Statement*: Patient requires hospitalization for A. fib with RVR, undergoing cardiac stress testing, will Coding Level of Care Code Acute Behavioral Modification Assistant for Ismael Schulte Diagnoses Atrial fibrillation with rapid ventricular response I48.91
--- NOTE | 2022-01-25 13:07 | P.ANESASSM_ITS ---
Pre-Anesthetic Assessment Height/Weight: Height 1.68 m Weight 61.507 kg Temp Pulse Resp BP Pulse Ox 98.0 F 124 H 18 130/90 94 01/25/22 11:59 01/25/22 11:59 01/25/22 11:59 01/25/22 11:59 01/25/22 11:59 Preop Diagnosis: afib with RVR Operation Date: 01/25/22 13:00 Proposed Procedures p Cardioversion(Not Applicable) - Lexi Edwards MD Familial anesthetic complications: None Was Beta Juaquin taken within 24 hours: Yes Was Clonidine taken within 24 hours: N/A Last intake: NPO for food 01/24/22 NPO water 1100 Social No alcohol and No tobacco (Stopped smoking in December 2021) 60 pack year hx Exam alert, oriented x 3, clear to auscultation bilaterally and regular rate & rhythm Airway Submandibular: within normal limits Cervical ROM: within normal limits Mallampati: Class II Dentition: partials Pulmonary Chronic Obstructive Pulmonary Disease Right nasal passage obstruction after skin cancer surgery wears 2LPM NC at night CV/HEM Atrial Fibrillation and Congestive Heart Failure GI Gastroesophageal Reflux Disease Musc/skel Lower Back Pain and Osteoarthritis/DJD Hx of compression fx Lumbar stenosis Neuropsych Depression Anesthetic Plan ASA status: 3 (76 year old female in Afib w/ RVR w/ 60 pack year hx on nocturnal oxygen ) Anesthesia: Anesthesia Evaluation and General Other: We discussed risk and benefits of general anesthesia including PONV, sore throat (sometimes severe), corneal abrasion, positioning and peripheral nerve injuries, life threatening allergic reaction, post operative ICU admission requiring prolonged intubation, stroke, heart attack, , and rare incidences of recall. Patient consents to proceed with general anesthesia. Risk of > 500 ml blood loss (7ml/kg in children): No Medications/Allergies Home Medications Medication Instructions Recorded Confirmed Last Taken Type valsartan 320 mg tablet 160 mg PO BID #90 tab 10/23/21 01/21/22 01/21/22 Rx potassium chloride 10 mEq 10 meq PO DAILY #7 cap 01/09/22 01/21/22 01/21/22 Rx capsule,extended release furosemide 20 mg tablet (Lasix) 20 mg PO DAILY #90 tab 01/20/22 01/21/22 01/21/22 Rx sotalol 80 mg tablet 40 mg PO BID #60 tab 01/20/22 01/21/22 01/21/22 Rx ergocalciferol (vitamin D2) 1,250 1,250 mcg PO Q7D 01/21/22 01/21/22 01/21/22 History mcg (50,000 unit) capsule magnesium 200 mg tablet 200 mg PO BEDTIME 01/21/22 01/21/22 01/20/22 History rivaroxaban 20 mg tablet (Xarelto) 20 mg PO BEDTIME 01/21/22 01/21/22 01/20/22 History rosuvastatin 10 mg tablet 10 mg PO DAILY 01/21/22 01/21/22 01/20/22 History Allergies Allergy/AdvReac Type Severity Reaction Status Date / Time codeine Allergy Severe ALGY-Difficulty Verified 01/18/22 10:14 Breathing metronidazole [From Flagyl] Allergy Intermediate ALGY-Rash Verified 01/18/22 10:14 clonidine AdvReac Mild ADR-Confusi Verified 01/18/22 10:14 on lactose AdvReac Mild ADR-Gastrointestinal Verified 01/18/22 10:14 Upset lisinopril AdvReac Mild ADR-Cough Verified 01/18/22 10:14 Current Medications Generic Name Dose Route Start Last Admin Trade Name Freq PRN Reason Stop Dose Admin Atorvastatin Calcium 40 mg 01/22/22 09:00 01/25/22 08:55 Atorvastatin 40 Mg Tablet PO 40 mg DAILY FRANCIS Administration Diltiazem HCl 30 mg 01/24/22 17:00 01/25/22 08:56 Diltiazem 30 Mg Tablet PO 30 mg QID FRANCIS Administration Enoxaparin Sodium 60 mg 01/23/22 09:00 01/25/22 08:56 Enoxaparin 60 Mg/0.6 Ml Syringe SUBCUT 60 mg Q12H FRANCIS Administration Magnesium Oxide 200 mg 01/22/22 21:00 01/24/22 21:23 Magnesium Oxide 400 Mg Tablet PO 200 mg BEDTIME FRANCIS Administration Potassium Chloride 10 meq 01/22/22 09:00 01/25/22 08:56 Potassium Chloride Er 10 Meq Tablet PO 10 meq DAILY FRANCIS Administration Sotalol HCl 80 mg 01/23/22 21:00 01/24/22 21:23 Sotalol 80 Mg Tablet PO 80 mg 2100 FRANCIS Administration Sotalol HCl 120 mg 01/24/22 09:00 01/25/22 08:55 Sotalol 80 Mg Tablet PO 120 mg 0900 [facility] Administration Additional Medication Information Current Medications Acetaminophen (Acetaminophen 325 Mg Tablet) 650 mg PO Q6H PRN PRN Reason: MILD PAIN Atorvastatin Calcium (Atorvastatin 40 Mg Tablet) 40 mg PO DAILY [facility] Last Admin: 01/24/22 08:36 Dose: 40 mg Documented by: Diltiazem HCl (Diltiazem 30 Mg Tablet) 30 mg PO QID [facility] Enoxaparin Sodium (Enoxaparin 60 Mg/0.6 Ml Syringe) 60 mg SUBCUT Q12H [facility] Last Admin: 01/24/22 08:37 Dose: 60 mg Documented by: Magnesium Oxide (Magnesium Oxide 400 Mg Tablet) 200 mg PO BEDTIME [facility] Last Admin: 01/23/22 21:49 Dose: 200 mg Documented by: Ondansetron HCl (Ondansetron 2 Mg/Ml Sdv 2 Ml) 4 mg IVP Q6H PRN PRN Reason: NAUSEA AND VOMITING Potassium Chloride (Potassium Chloride Er 10 Meq Tablet) 10 meq PO DAILY [facility] Last Admin: 01/24/22 08:36 Dose: 10 meq Documented by: Sotalol HCl (Sotalol 80 Mg Tablet) 80 mg PO 2100 [facility] Last Admin: 01/23/22 21:49 Dose: 80 mg Documented by: Sotalol HCl (Sotalol 80 Mg Tablet) 120 mg PO 0900 [facility] Last Admin: 01/24/22 08:35 Dose: 120 mg Documented by: [facility] Anesthesia Medical History Atrial fibrillation Atrial fibrillation with rapid ventricular response Cataract BOTH EYES CHF (congestive heart failure), NYHA class III CHF exacerbation Cholesteatoma Chronic eustachian tube dysfunction Cigarette nicotine dependence COPD (chronic obstructive pulmonary disease) COPD (chronic obstructive pulmonary disease) with chronic bronchitis Depression Deviated septum Diverticulosis Dysphasia Enrolled in chronic care management Essential hypertension Fatigue GERD (gastroesophageal reflux disease) Hearing loss History of nonmelanoma skin cancer Lower extremity edema Lumbar compression fracture Lumbar pain Lumbar stenosis with neurogenic claudication Nasal turbinate hypertrophy Opioid contract exists Oral thrush Osteoporosis Perforated left tympanic membrane on examination Spinal stenosis of lumbar region with radiculopathy Tobacco use disorder Surgical History H/O bilateral salpingo-oophorectomy H/O kyphoplasty H/O rotator cuff surgery LEFT AND RIGHT Hx of mastoidectomy Family History Mother CAD (coronary artery disease) Father CAD (coronary artery disease) Brother Cancer Sister Cancer Denies family history of Family history of exposure to [place] Social History Smoking and tobacco status: current every day smoker cigarettes Packs smoked per day: 0.5 Alcohol intake: never Lives independently: Yes Household members: none Marital status: / Current occupational status: retired History of recent travel: No Data Anesthesia : 01/25/22 03:05 01/25/22 03:05 Short CBC 01/24/22 01/25/22 Range/Units 03:30 03:05 WBC 5.3 5.5 (4.0-10.0) 10^3/uL Hgb 11.9 11.8 (11.5-15.3) g/dL Hct 37.6 35.4 L (37.0-47.0) % MCV 94.2 90.8 (81-99) fl Plt Count 219 236 (130-400) 10^3/cmm Neut % (Auto) 51.7 51.8 % Neut # (Auto) 2.74 2.82 (1.8-7.7) 10^3/uL BMP 01/24/22 01/25/22 03:30 03:05 Sodium 138 140 Potassium 4.0 4.1 Chloride 104 106 Carbon Dioxide 27 26 BUN 10 10 Creatinine 0.6 0.5 Glucose 93 102 Calcium 8.0 L 8.8 Liver Function 01/24/22 01/25/22 Range/Units 03:30 03:05 Total Bilirubin 0.2 0.3 (0.15-1.2) mg/dL AST 16 19 (0-32) U/L ALT 18 21 (0-33) U/L Alkaline Phosphatase 23 L 23 L (35-105) IU/L Albumin 3.3 L 3.1 L (3.5-5.2) g/dL Cardiac Studies: Echocardiogram 01/22/22 Echocardiogram Ultrasound 04/09/21 Transesophageal Echocardiogram 01/08/22 Sestamibi Stress Test (Cardiology) 01/24/22 Cardiac Event Monitor 12/30/21
--- NOTE | 2022-01-25 13:34 | PC.NURSE ---
Took patient down to the GI lab at 1330 via wheelchair per request of the nurse.
[2022-01-25] MEDS: sodium chloride 0.9% 1,000 ML 30 ML IV (13:54)
--- NOTE | 2022-01-25 14:14 | ECG_ITS ---
[facility] Test Date: 2022-01-25 Pat Name: Dona Jimenez Department: Room: 106 Gender: Female Digital Editor: : 1945 Requested By: Lexi Edwards Order Number: [id number] Dyana MD: Lexi Edwards M.D. Measurements Intervals Deaver Rate: 53 P: 51 HI: 152 QRS: 13 QRSD: 74 T: 33 QT: 438 QTc: 414 Interpretive Statements SINUS BRADYCARDIA Compared to ECG 01/25/2022 12:13:49 Atrial fibrillation no longer present T-wave abnormality no longer present Electronically Signed On 01-26-2022 7:33:07 CDT by Lexi Edwards M.D. [id number]
--- NOTE | 2022-01-25 15:12 | NMCV_ITS ---
NM ashley perf SPECT r/s* [id number] Dona Jimenez Age: 76 Gender: F : 1945 Exam Date: 01/25/2022 15:12 Ordering Phys: Lexi Edwards MD ([email or web address]) Technologist: JENIFFER Alves Exam Location: [facility] Indications: Atrial fibrillation, CHF STRESS TEST Please see separate stress test report in [facility] for full findings IMAGE PROTOCOL Rest/Stress 1 Lexiscan Day Radiopharmaceutical Dose (mCi) Administration Site Administered by Rest: Tc-99m 10.8 IV JENIFFER Lee Sestamibi Stress:Tc-99m 32.6 IV JENIFFER Lee Sestamibi Rest: 25-Jan-2022 60 Discovery 630 Stress: 25-Jan-2022 30 Discovery 630 0.4mg Lexiscan. Images obtained in supine and prone position. SPECT RESULTS Technical Quality: Excellent Raw Data Analysis: Normal Image Corrections: No attenuation or motion correction applied Summed Stress Score: 0 Summed Rest Score: 0 Summed Difference Score: 0 PERFUSION FINDINGS SPECT images demonstrate homogeneous tracer distribution throughout the myocardium. FUNCTIONAL RESULTS (calculated via Gated SPECT) Stress Image LV EF (%): 52 Stress EDV (mL):56 TID: 0.92 Stress ESV (mL):27 FUNCTIONAL FINDINGS: The left ventricle is normal in size. Transient Ischemia Dilatation of 0.92. The left ventricular ejection fraction is mildly reduced with a value of 52%. There is normal left ventricular wall thickening. Normal end-diastolic and end-systolic volumes. IMPRESSIONS 1. Myocardial perfusion imaging is normal. 2. Overall left ventricular systolic function is mildly reduced without regional wall motion abnormalities, LVEF=52%. 3. EKG portion of the study will be reported separately. 4. Scan indicates low risk for cardiac events. Lexi Edwards MD (Electronically Signed) Final Date: 25 January 2022 14:52 S
--- NOTE | 2022-01-25 15:21 | ANE.PACU2 ---
Inpatient post-anesthesia follow up: Airway intact: Yes Vital signs: Temperature 98.2 F Pulse Rate 55 Respiratory Rate 18 Blood Pressure 119/76 Pulse Oximetry 98 Oxygen Delivery Me thod Room Air Oxygen Flow Rate 5 Fraction of Inspir ed Oxygen Hydration adequate: Yes Nausea and vomiting: No Pain level: 1 Mental status: Baseline
[2022-01-25] MEDS: magnesium oxide 400 mg tablet 200 MG PO (20:03)
[2022-01-25] MEDS: sotalol 80 mg Tablet PO (20:03)
--- NOTE | 2022-01-25 23:33 | ECG_ITS ---
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 Measurements Intervals [place]ell Rate: 56 P: 78 CT: 154 QRS: 70 QRSD: 79 T: 74 QT: 473 QTc: 460 Interpretive Statements SINUS BRADYCARDIA WITH OCCASIONAL VENTRICULAR PREMATURE COMPLEXES Compared to ECG 01/25/2022 14:29:41 Ventricular premature complex(es) now present Electronically Signed On 01-26-2022 19:00:28 CDT by Fanny Nash M.D. [id number]
[2022-01-26] VITALS (22 sets, daily range): BP systolic 141–175; BP diastolic 76–95; PULSE 44–56; RESP 14–19; TEMP 36.3–36.6; O2SAT 95–99
[2022-01-26 04:14] LABS: Alanine Aminotransferase 21 U/L (0-33); Albumin Level 3.2 g/dL (3.5-5.2); Alkaline Phosphatase 22 IU/L (35-105); Anion Gap 11.8 (5-19); Aspartate Amino Transferase 17 U/L (0-32); Blood Urea Nitrogen 9 mg/dL (8-23); Calcium 8.8 mg/dL (8.5-10.5); Carbon Dioxide 25 mmol/L (22-29); Chloride 104 mmol/L (98-107); Globulin 1.7 g/dL (1.3-4.6); Glucose 84 mg/dL (65-115); Osmolality Calculated 282 mOsm/kg (285-295); Phosphorus 4.6 mg/dL (2.5-4.5); Potassium 3.8 mmol/L (3.5-5.1); Sodium 137 mmol/L (136-145); Total Bilirubin 0.3 mg/dL (0.15-1.2); Total Protein 4.9 g/dL (6.6-8.7)
[2022-01-26 04:19] LABS: Basophils % 0.9 %; Eosinophils # 0.1 10^3/uL (0.0-0.8); Eosinophils % 2.3 %; Hematocrit 33.4 % (37.0-47.0); Hemoglobin 10.9 g/dL (11.5-15.3); Lymphocytes # 1.7 10^3/uL (0.8-4.8); Lymphocytes % 38.6 %; Mean Corpuscular HGB Conc 32.6 g/dL (30.0-36.0); Mean Corpuscular Hemoglobin 29.9 pg (28.0-34.0); Mean Corpuscular Volume 91.5 fl (81-99); Mean Platelet Volume 10.5 fL (7.4-10.4); Monocytes # 0.3 10^3/uL (0.2-0.9); Monocytes % 7.9 %; Neutrophils # 2.18 10^3/uL (1.8-7.7); Neutrophils % 50.3 %; Nucleated Red Blood Cells % 0 %; Platelet Count 210 10^3/cmm (130-400); Red Blood Count 3.65 10^6/uL (4.1-5.3); Red Cell Distribution Width 15.3 % (12.1-15.1); White Blood Count 4.3 10^3/uL (4.0-10.0)
[2022-01-26] MEDS: sotalol 80 mg Tablet 120 MG PO (09:55)
[2022-01-26] MEDS: enoxaparin 60 mg/0.6 mL Syringe SUBCUT (09:55)
[2022-01-26] MEDS: potassium chloride ER 10 mEq Tablet PO (09:56)
[2022-01-26] MEDS: atorvastatin 40 mg Tablet PO (09:56)
--- NOTE | 2022-01-26 11:30 | ECG_ITS ---
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 Measurements Intervals [place] Rate: 48 P: 54 NH: 142 QRS: 15 QRSD: 85 T: 43 QT: 459 QTc: 414 Interpretive Statements SINUS BRADYCARDIA WITH OCCASIONAL SUPRAVENTRICULAR PREMATURE COMPLEXES Compared to ECG 01/26/2022 00:04:00 Ventricular premature complex(es) no longer present Electronically Signed On 01-26-2022 19:01:11 CDT by Fanny Nash M.D. [id number]
--- NOTE | 2022-01-26 12:18 | P.PN_ITS ---
Subjective Subjective: Patient was seen this morning, she complains of low heart rate, not feeling unwell when her heart rate drops into the low 40s, she feels off, no nausea, no vomiting, no chest pain, had a cardioversion yesterday, is in normal sinus rhythm Vitals/I&O/Wt Last Vital Signs Temp 97.3 F L 01/26/22 03:30 Pulse 52 L 01/26/22 10:01 Resp 14 01/26/22 09:58 BP 167/86 01/26/22 10:01 Pulse Ox 95 01/26/22 07:27 01/25/22 01/26/22 01/26/22 22:59 06:59 14:59 Intake Total 240 / 540 1080 / 1080 Output Total 400 / 400 Balance 240 / 540 -400 / 140 1080 / 1080 Weight last 48 hrs Weight 60.781 kg Weight 61.507 kg Physical Exam Const: COMMON NORMALS: no acute distress and patient oriented x3 Resp: COMMON NORMALS: normal respiratory effort, No retractions, No use of accessory muscles and clear to auscultation bilaterally AUSCULTATION: clear to auscultation bilaterally Cardio: COMMON NORMALS: regular rhythm, S1 normal heart sound present and S2 normal heart sound present RATE: bradycardic RHYTHM: regular rhythm HEART SOUNDS: S1 normal heart sound present and S2 normal heart sound present GI: COMMON NORMALS: Normal to inspection, nondistended, normoactive bowel sounds present and Soft to palpation PALPATION: Yes Soft to palpation Extremity: COMMON NORMALS: no pedal edema Neuro: COMMON NORMALS: patient oriented x3 Data : 01/26/22 03:26 01/26/22 03:26 A&P Assessment and plan (1) Atrial fibrillation with rapid ventricular response: Currently sinus bradycardia, normal sinus rhythm Appreciate cardiology evaluation and recommendations Sotalol 120 morning, 80 in the evening Further steps are considered with likelihood she would need pacemaker with/after cardioversion. With further consideration of ablation as outpatient. Potassium and magnesium levels were replaced and maintaining. Continue anticoagulation, is transitioned to Lovenox. Cardiac stress test shows ?1. Myocardial perfusion imaging is normal. ?2. Overall left ventricular systolic function is mildly reduced without ?regional wall motion abnormalities, LVEF=52%. ?3.? EKG portion of the study will be reported separately. ?4. Scan indicates low risk for cardiac events. Echocardiogram with now normal ejection fraction, no R WMA. Moderate concentric LVH. Status: Acute Plan RLL diminished lung sounds: Resolved, no shortness of breath complaints, afebrile, no significant leukocytosis Recently stopped smoking. Declined nicotine supplementation states she is doing well. She uses a cigarette sized dowel to help her kick the habit. She is also recently entirely cut out coffee from her diet. Acute on chronic atrial fibrillation. Now sinus bradycardia, on sotalol, on therapeutic Lovenox Arthritis Spinal stenosis Chronic pain with opiate dependence Diverticulosis Depression COPD, patient O2 dependent at 2 L/min via nasal cannula only nocturnally CHF, ejection fraction 35% with grade 2 diastolic dysfunction. Started on Entresto. Strict I's/O. Daily weight. Echocardiogram with now normal ejection fraction, no R WMA. Moderate concentric LVH. GERD Hyperlipidemia Hypertension. Osteoporosis Neuropathy History of cervical and uterine cancer, status post total abdominal hysterectomy and bilateral salpingo-oophorectomy. The patient did not require chemotherapy or radiation therapy. 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
--- NOTE | 2022-01-26 12:58 | P.PN_ITS ---
Subjective Subjective: Patient remains in SR/SB. HR dropping in high 30's last night While in bed patient denies having any chest pain or shortness of breath. She complains of tiredness and fatigue on ambulation. She underwent stress test and CV yesterday. c/o tiredness. Medications: Reviewed: Yes Medication Review Details: Current Medications Acetaminophen (Acetaminophen 325 Mg Tablet) 650 mg PO Q6H PRN PRN Reason: MILD PAIN Atorvastatin Calcium (Atorvastatin 40 Mg Tablet) 40 mg PO DAILY [facility] Last Admin: 01/24/22 08:36 Dose: 40 mg Documented by: Diltiazem HCl (Diltiazem 30 Mg Tablet) 30 mg PO QID [facility] Enoxaparin Sodium (Enoxaparin 60 Mg/0.6 Ml Syringe) 60 mg SUBCUT Q12H [facility] Last Admin: 01/24/22 08:37 Dose: 60 mg Documented by: Magnesium Oxide (Magnesium Oxide 400 Mg Tablet) 200 mg PO BEDTIME [facility] Last Admin: 01/23/22 21:49 Dose: 200 mg Documented by: Ondansetron HCl (Ondansetron 2 Mg/Ml Sdv 2 Ml) 4 mg IVP Q6H PRN PRN Reason: NAUSEA AND VOMITING Potassium Chloride (Potassium Chloride Er 10 Meq Tablet) 10 meq PO DAILY [facility] Last Admin: 01/24/22 08:36 Dose: 10 meq Documented by: Sotalol HCl (Sotalol 80 Mg Tablet) 80 mg PO 2100 [facility] Last Admin: 01/23/22 21:49 Dose: 80 mg Documented by: Sotalol HCl (Sotalol 80 Mg Tablet) 120 mg PO 0900 [facility] Last Admin: 01/24/22 08:35 Dose: 120 mg Documented by: Vitals/I&O/Wt Last Vital Signs Temp 97.3 F L 01/26/22 03:30 Pulse 52 L 01/26/22 10:01 Resp 14 01/26/22 09:58 BP 167/86 01/26/22 10:01 Pulse Ox 95 01/26/22 07:27 01/25/22 01/26/22 01/26/22 22:59 06:59 14:59 Intake Total 240 / 540 1080 / 1080 Output Total 400 / 400 Balance 240 / 540 -400 / 140 1080 / 1080 Weight last 48 hrs Weight 134 lb Weight 135 lb 9.6 oz Physical Exam Narrative: GENERAL: Averagely built and averagely nourished in no acute distress HEENT:? Pupils equal round reactive to light.? No pallor or icterus. NECK: No JVD,? No carotid bruit. CARDIOVASCULAR SYSTEM: S1-S2 irregular.? No murmur or gallops. RESPIRATORY SYSTEM: Chest clear to auscultation.? No wheezes rhonchi or rubs heard.? No use of accessory muscles. ABDOMEN: Soft, nontender and nondistended.? Normal bowel sounds present. EXTREMITIES: No cyanosis. Trace edema.? No signs of chronic venous insufficiency. INTERPRETER AND TRANSLATOR: Patient is alert oriented ?3.? No focal neurological deficits.? SKIN: Normal turgor and temperature.? No breakdown, rash or nail changes noted. PSYCH: Normal insight and judgment.? Data : 01/26/22 03:26 01/26/22 03:26 A&P Assessment and plan (1) Atrial fibrillation with rapid ventricular response: A fib/flutter with RVR: Difficult to rate control -s/p MARIANO and cardioversion on 01/08/22 and failed cardioversion times 3 at 120, 150, 200 joules. -s/p successful cardioversion with uatsdin of SR/SB on 01/26/22 -continue sotalol to 120 mg in morning and 80 mg in evening (CrCl=72), -EKG 1 hour after each sotalol dose. -continue on lovenox. 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 -I had a long discussion with the patient, her 2 sons and her [id number]. Rhythm control strategy discussed with the patient as she felt great when in sinus. Failed attempt at rate control as an outpatient. -She will probably need permanent pacemaker placement. Case discussed with Dr. Nash -I will consider A. fib/flutter ablation as outpatient. Status: Acute (2) CHF (congestive heart failure), NYHA class III: HFrEF (LVEF=35%, last MARIANO) -No recent stress testing. -Tachycardia induced cardiomyopathy: recent echo showed improved LV function. -normal stress test Status: Acute (3) Essential hypertension: Blood pressure fairly well controlled Status: Acute (4) COPD (chronic obstructive pulmonary disease): Status: Acute (5) GERD (gastroesophageal reflux disease): Status: Acute Qualifiers: Esophagitis presence: esophagitis presence not specified Qualified Code(s): K21.9 - Gastro-esophageal reflux disease without esophagitis Plan Hyperlipidemia Tobacco abuse quit smoking 2 weeks back. Attestations Medical Necessity Statement*: needs hospital stay for bradycardia post cardioversion. Coding Level of Care Code Acute Speech Language Pathologist Assistant for Chg Fwd Diagnoses Atrial fibrillation with rapid ventricular response I48.91 CHF (congestive heart failure), NYHA class III I50.9 Essential hypertension I10 COPD (chronic obstructive pulmonary disease) J44.9 GERD (gastroesophageal reflux disease) K21.9 Esophagitis presence: esophagitis presence not specified
--- NOTE | 2022-01-26 18:12 | P.CONIM_ITS ---
Providers/Reason For Consult Consulting Physician/Specialty*: MICHELLE Nash MD/audiology Reason for Consult*: Permanent pacer implantation Requesting Physician: DR Edwards Attending Physician: Palomo Andrade MD Primary Care Provider: LEILA Carrera History of Present Illness History of Present Illness Dona Jimenez is a 76 year old female, is admitted to hospital with atrial fibrillation with rapid ventricular rate. She was cardioverted to sinus rhythm. She was placed on sotalol. She is currently in sinus bradycardia. Last night her heart rate went down to 30s. She seems to be symptomatic with the bradycardia. She was somewhat confused and disoriented for a while. According to the patient, when the heart rate goes down to the 50s, she gets tired and weak. She also feels sleepy. Similar things happened last time also after the cardioversion. For that reason the dose of the Betapace was decreased. She went back into atrial fibrillation at that point. Because of symptomatic bradycardia and atrial fibrillation a permanent pacer implantation was requested, for further management. Review of Systems Narrative: CONSTITUTIONAL: No fever or chills. EYES: No blurring of vision or other visual disturbances lately. ENT: No hoarseness of voice, auditory disturbances or sore throat. CARDIOVASCULAR: As mentioned above. RESPIRATORY: No significant cough. GASTROINTESTINAL: No hematemesis or melena. GENITOURINARY: No dysuria or hematuria. INTEGUMENTARY: No skin rashes or history of skin cancer. NEURO: No transient ischemic attacks or amaurosis. PSYCHIATRIC: No history of psychosis or major depression. HEMATOLOGIC: No bleeding disorders or significant anemia. ENDOCRINE: No history of polyuria or polydipsia. MUSCULOSKELETAL: No recent joint pain or swelling. ALLERGY/IMMUNOLOGY: As mentioned above. Medications/Allergies Home Medications Medication Instructions Recorded Confirmed Last Taken Type valsartan 320 mg tablet 160 mg PO BID #90 tab 10/23/21 01/21/22 01/21/22 Rx potassium chloride 10 mEq 10 meq PO DAILY #7 cap 01/09/22 01/21/22 01/21/22 Rx capsule,extended release furosemide 20 mg tablet (Lasix) 20 mg PO DAILY #90 tab 01/20/22 01/21/22 01/21/22 Rx sotalol 80 mg tablet 40 mg PO BID #60 tab 01/20/22 01/21/2201/21/22 Rx ergocalciferol (vitamin D2) 1,250 1,250 mcg PO Q7D 01/21/22 01/21/22 01/21/22 History mcg (50,000 unit) capsule magnesium 200 mg tablet 200 mg PO BEDTIME 01/21/22 01/21/22 01/20/22 History rivaroxaban 20 mg tablet (Xarelto) 20 mg PO BEDTIME 01/21/22 01/21/22 01/20/22 History rosuvastatin 10 mg tablet 10 mg PO DAILY 01/21/22 01/21/22 01/20/22 History Allergies Allergy/AdvReac Type Severity Reaction Status Date / Time codeine Allergy Severe ALGY-Difficulty Verified 01/18/22 10:14 Breathing metronidazole [From Flagyl] Allergy Intermediate ALGY-Rash Verified 01/18/22 10:14 clonidine AdvReac Mild ADR-Confusi Verified 01/18/22 10:14 on lactose AdvReac Mild ADR-Gastrointestinal Verified 01/18/22 10:14 Upset lisinopril AdvReac Mild ADR-Cough Verified 01/18/22 10:14 Current Medications Generic Name Dose Route Start Last Admin Trade Name Freq PRN Reason Stop Dose Admin Atorvastatin Calcium 40 mg 01/22/22 09:00 01/26/22 09:56 Atorvastatin 40 Mg Tablet PO 40 mg DAILY FRANCIS Administration Enoxaparin Sodium 60 mg 01/23/22 09:00 01/26/22 09:55 Enoxaparin 60 Mg/0.6 Ml Syringe SUBCUT 60 mg Q12H FRANCIS Administration Magnesium Oxide 200 mg 01/22/22 21:00 01/25/22 20:03 Magnesium Oxide 400 Mg Tablet PO 200 mg BEDTIME FRANCIS Administration Potassium Chloride 10 meq 01/22/22 09:00 01/26/22 09:56 Potassium Chloride Er 10 Meq Tablet PO 10 meq DAILY FRANCIS Administration Sotalol HCl 80 mg 01/23/22 21:00 01/25/22 20:03 Sotalol 80 Mg Tablet PO 80 mg 2100 FRANCIS Administration Sotalol HCl 120 mg 01/24/22 09:00 01/26/22 09:55 Sotalol 80 Mg Tablet PO 120 mg 0900 FRANCIS Administration PFSH Acute PFSH: Medical History Atrial fibrillation Atrial fibrillation with rapid ventricular response Cataract BOTH EYES CHF (congestive heart failure), NYHA class III CHF exacerbation Cholesteatoma Chronic eustachian tube dysfunction Cigarette nicotine dependence COPD (chronic obstructive pulmonary disease) COPD (chronic obstructive pulmonary disease) with chronic bronchitis Depression Deviated septum Diverticulosis Dysphasia Enrolled in chronic care management Essential hypertension Fatigue GERD (gastroesophageal reflux disease) Hearing loss History of nonmelanoma skin cancer Lower extremity edema Lumbar compression fracture Lumbar pain Lumbar stenosis with neurogenic claudication Nasal turbinate hypertrophy Opioid contract exists Oral thrush Osteoporosis Perforated left tympanic membrane on examination Spinal stenosis of lumbar region with radiculopathy Tobacco use disorder Surgical History H/O bilateral salpingo-oophorectomy H/O kyphoplasty H/O rotator cuff surgery LEFT AND RIGHT Hx of mastoidectomy Family History Mother CAD (coronary artery disease) Father CAD (coronary artery disease) Brother Cancer Sister Cancer Denies family history of Family history of exposure to Agent [place] Social History Smoking and tobacco status: current every day smoker cigarettes Packs smoked per day: 0.5 Alcohol intake: never Lives independently: Yes Household members: none Marital status: / Current occupational status: retired History of recent travel: No Vitals/I&O/Wt Last Vital Signs Temp 97.3 F L 01/26/22 03:30 Pulse 56 L 01/26/22 14:00 Resp 160 H 01/26/22 12:00 BP 160/90 01/26/22 12:00 Pulse Ox 95 01/26/22 07:27 01/26/22 01/26/22 01/26/22 06:59 14:59 22:59 Intake Total 1440 / 1440 Output Total 400 / 400 Balance -400 / 140 1440 / 1440 Weight last 48 hrs Weight 134 lb Weight 135 lb 9.6 oz Physical Exam Narrative: GENERAL: The patient is alert and oriented times three. Not in any acute distress. HEENT: No significant pallor, icterus or lymphadenopathy.Oral cavity: There are no mucous membrane lesions. NECK: Trachea appears to be central. No masses noted. No JVD or thyromegaly appreciated. RESPIRATORY: Chest is symmetrical. No intercostals muscle retraction or any accessory muscle activation. There is no chest wall tenderness. Breath sounds are heard bilaterally. No rales or rhonchi heard. No evidence of any consolidation. BREASTS: Deferred. HEART: The heart sounds are normal. No S3 or S4. Short systolic murmur in the left sternal border. No diastolic murmurs. No pericardial rub ABDOMEN: No vessel pulsations or distention. No tenderness. No organomegaly appreciated. Bowel sounds are normally heard. : Deferred. RECTAL: Deferred. LYMPHATIC: No lymphadenopathy noted in the neck. EXTREMITIES: No edema or cyanosis. No clubbing. MUSCULOSKELETAL: No acute joint deformities or swelling SKIN: There are no significant rashes or ecchymosis NEUROPSYCHIATRIC: The patient is alert and oriented x3. Appears to be in a good mood. No tremors or rigidity noted. Data : 01/26/22 03:26 01/26/22 03:26 Echo: My impression: ?Cardiogram done on 01/22/2022 Normal left ventricular cavity size and systolic function. ?Moderate concentric left ventricle hypertrophy.? Left ?ventricular ejection fraction is estimated at 55-60%. No ?regional wall motion abnormalities. ?2. Normal right ventricular size and systolic function. ?3. Normal pulmonary artery pressure. ?4. When compared to transesophageal echocardiogram dated ?01/08/2022, left ventricular systolic function seems to have ?improved EKG 1: My Interpretation: EKG from today showed a sinus bradycardia with a rate of 48 bpm. Normal LA and QRS duration. No acute ST-T changes. EKG computer-generated impression: Chest X-Ray 01/21/22 18:27 IMPRESSION: Sequela of COPD. No acute findings. A&P Assessment and plan (1) Symptomatic bradycardia: In view of the patient history of atrial fibrillation and symptomatic bradycardia for further management of her condition, a permanent pacemaker plantation to be appropriate. This was discussed with the patient in detail. The risk of bleeding, hematoma, vascular injury, pneumothorax, infection, renal failure and other concomitant complications were explained in detail. The patient understood this well and consented to proceed. We will go ahead and schedule this tests for tomorrow Status: Acute (2) Intermittent atrial fibrillation: Patient was on Xarelto. Currently it is on hold. She was on Lovenox after the cardioversion. The last dose of Lovenox was at 10 AM today. Status: Acute (3) Essential hypertension: Currently the blood pressure is a stage II. Status: Acute Plan And dual-chamber permanent pacemaker implantation would be appropriate for symptom relief and AV synchrony. Patient may be kept n.p.o. after midnight. Consult Attestations Medical Necessity Statement: Patient requires continued hospital stay for close monitoring and further management Coding Level of Care Code Acute Director Field Services for [facility] Fwd History Detailed Exam Detailed Medical Decision Making Moderate Complexity Diagnoses Symptomatic bradycardia R00.1 Intermittent atrial fibrillation I48.0 Essential hypertension I10
[2022-01-26] MEDS: acetaminophen 325 mg Tablet 650 MG PO (19:32)
[2022-01-26] MEDS: amlodipine 5 mg Tablet PO (20:33)
[2022-01-26] MEDS: sotalol 80 mg Tablet PO (20:33)
[2022-01-26] MEDS: magnesium oxide 400 mg tablet 200 MG PO (20:34)
[2022-01-27] VITALS (10 sets, daily range): BP systolic 107–167; BP diastolic 65–78; PULSE 43–71; RESP 15–18; TEMP 36.3–36.7; O2SAT 90–98
[2022-01-27 04:04] LABS: Basophils % 0.9 %; Eosinophils # 0.1 10^3/uL (0.0-0.8); Eosinophils % 2.6 %; Hematocrit 35.8 % (37.0-47.0); Hemoglobin 11.3 g/dL (11.5-15.3); Lymphocytes # 1.7 10^3/uL (0.8-4.8); Lymphocytes % 36.4 %; Mean Corpuscular HGB Conc 31.6 g/dL (30.0-36.0); Mean Corpuscular Hemoglobin 30.1 pg (28.0-34.0); Mean Corpuscular Volume 95.2 fl (81-99); Mean Platelet Volume 10.4 fL (7.4-10.4); Monocytes # 0.4 10^3/uL (0.2-0.9); Monocytes % 8.7 %; Neutrophils # 2.41 10^3/uL (1.8-7.7); Neutrophils % 51.2 %; Nucleated Red Blood Cells % 0 %; Platelet Count 211 10^3/cmm (130-400); Red Blood Count 3.76 10^6/uL (4.1-5.3); Red Cell Distribution Width 15.3 % (12.1-15.1); White Blood Count 4.7 10^3/uL (4.0-10.0)
[2022-01-27 04:28] LABS: Alanine Aminotransferase 28 U/L (0-33); Albumin Level 3.5 g/dL (3.5-5.2); Alkaline Phosphatase 23 IU/L (35-105); Aspartate Amino Transferase 20 U/L (0-32); Blood Urea Nitrogen 8 mg/dL (8-23); Carbon Dioxide 27 mmol/L (22-29); Chloride 104 mmol/L (98-107); Globulin 2.1 g/dL (1.3-4.6); Glucose 101 mg/dL (65-115); Osmolality Calculated 288 mOsm/kg (285-295); Phosphorus 4.4 mg/dL (2.5-4.5); Sodium 140 mmol/L (136-145); Total Bilirubin 0.3 mg/dL (0.15-1.2); Total Protein 5.6 g/dL (6.6-8.7)
[2022-01-27] MEDS: acetaminophen 325 mg Tablet 650 MG PO ×2 (07:48→20:21)
[2022-01-27] MEDS: sotalol 80 mg Tablet 120 MG PO (08:21)
[2022-01-27] MEDS: atorvastatin 40 mg Tablet PO (08:21)
[2022-01-27] MEDS: potassium chloride ER 10 mEq Tablet PO (08:22)
--- NOTE | 2022-01-27 08:24 | ECG_ITS ---
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 Measurements Intervals [place] Rate: 44 P: 54 VT: 140 QRS: 23 QRSD: 85 T: 48 QT: 480 QTc: 412 Interpretive Statements SINUS BRADYCARDIA WITH MARKED SINUS ARRHYTHMIA Compared to ECG 01/26/2022 11:41:01 No significant changes Electronically Signed On 01-27-2022 22:28:35 CDT by Ralph Alford M.D. [email or web address].[email or web address]store/[id number]
--- NOTE | 2022-01-27 08:50 | PC.SOCIAL ---
IMM Update pg 2 of IMM updated and reviewed w/ patient. Copy provided and Copy in chart updated.
[2022-01-27] MEDS: sodium chloride 0.9% 1,000 ML 75 ML IV ×2 (09:47→22:27)
--- NOTE | 2022-01-27 09:47 | W.PM.OPSUD ---
Surgery/Procedure H&P Update DATE OF PROCEDURE: January 27, 2022 DATE H&P PERFORMED: 01/26/22 H&P UPDATE INFORMATION: I have reviewed H&P completed within last 30 days, I have examined patient prior to procedure and No changes to prior documentation PREOP DIAGNOSIS: Symptomatic bradycardia/atrial fibrillation PRIMARY INDICATION FOR PROCEDURE: Symptomatic bradycardia PLANNED PROCEDURE: Operation Date: 01/25/22 13:00 Proposed Procedures p Cardioversion(Not Applicable) - Lexi Edwards MD Operation Date: 01/27/22 12:00 Proposed Procedures p Pacemaker Insertion(Right) - Fanny Nash MD Permanent dual-chamber pacemaker implantation PATIENT REASSESSED PRIOR TO SEDATION, WITH NO CHANGE NOTED: Yes PHYSICAL EXAM: alert, oriented x 3, clear to auscultation bilaterally and regular rate & rhythm AIRWAY EVAL/ANESTHESIA PLAN: normal airway, see other exam findings, ASA III, Local Anesthesia, Risks, benefits & alternatives of sedation and/or procedure discussed and Patient agrees to continue as planned
--- NOTE | 2022-01-27 10:12 | PC.NURSE ---
Nurse at bedside.
--- NOTE | 2022-01-27 13:59 | PC.NURSE ---
received report from Randa. Reviewed poc and assumed care of patient. 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
--- NOTE | 2022-01-27 14:06 | PM.PN ---
Subjective Medications: Medication Review Details: Patient was seen this morning, she is awaiting her pacemaker placement, no acute events overnight Vitals/I&O/Wt Last Vital Signs Temp 98.0 F 01/27/22 07:18 Pulse 56 L 01/27/22 10:38 Resp 16 01/27/22 07:18 BP 149/71 01/27/22 07:18 Pulse Ox 92 01/27/22 10:38 01/26/22 01/27/22 01/27/22 22:59 06:59 14:59 Intake Total 600 / 0 Balance 600 / 0 Weight last 48 hrs Weight 59.693 kg Weight 60.781 kg Physical Exam Const: COMMON NORMALS: no acute distress and patient oriented x3 Resp: COMMON NORMALS: normal respiratory effort, No retractions, No use of accessory muscles and clear to auscultation bilaterally AUSCULTATION: clear to auscultation bilaterally Cardio: COMMON NORMALS: regular rate, regular rhythm, S1 normal heart sound present and S2 normal heart sound present RATE: regular rate RHYTHM: regular rhythm HEART SOUNDS: S1 normal heart sound present and S2 normal heart sound present GI: COMMON NORMALS: Normal to inspection, nondistended, normoactive bowel sounds present, Soft to palpation and non-tender PALPATION: Yes Soft to palpation Extremity: COMMON NORMALS: no pedal edema Neuro: COMMON NORMALS: patient oriented x3 Psych: COMMON NORMALS: mental status grossly normal Data : 01/27/22 03:38 01/27/22 03:38 A&P Assessment and plan (1) Symptomatic bradycardia: Status: Acute (2) Intermittent atrial fibrillation: Status: Acute (3) Essential hypertension: Status: Acute Plan Atrial fibrillation with rapid ventricular response: Currently sinus bradycardia, normal sinus rhythm Appreciate cardiology evaluation and recommendations Sotalol 120 morning, 80 in the evening undergoing pacemaker placement for tachybradycardia syndrome Potassium and magnesium levels were replaced and maintaining. Continue anticoagulation, is transitioned to Lovenox on hold for procedureCardiac stress test shows ?1. Myocardial perfusion imaging is normal. ?2. Overall left ventricular systolic function is mildly reduced without ?regional wall motion abnormalities, LVEF=52%. ?3.? EKG portion of the study will be reported separately. ?4. Scan indicates low risk for cardiac events. Echocardiogram with now normal ejection fraction, no R WMA.? Moderate concentric LVH. RLL diminished lung sounds: Resolved, no shortness of breath complaints, afebrile, no significant leukocytosis Recently stopped smoking.? Declined nicotine supplementation states she is doing well.? She uses a cigarette sized dowel to help her kick the habit. She is also recently entirely cut out coffee from her diet. Acute on chronic atrial fibrillation.? Now sinus bradycardia, on sotalol, on therapeutic Lovenox on hold Arthritis Spinal stenosis Chronic pain with opiate dependence Diverticulosis Depression COPD, patient O2 dependent at 2 L/min via nasal cannula only nocturnally CHF, ejection fraction 35% with grade 2 diastolic dysfunction.? Started on Entresto.? Strict I's/O.? Daily weight.? Echocardiogram with now normal ejection fraction, no R WMA.? Moderate concentric LVH.? GERD Hyperlipidemia Hypertension.? Osteoporosis Neuropathy History of cervical and uterine cancer, status post total abdominal hysterectomy and bilateral salpingo-oophorectomy.? The patient did not require chemotherapy or radiation therapy.? She indicates that she is in remission and does not require to be monitored for this medical condition by her primary care Attestations Medical Necessity Statement*: Patient requires hospitalization for bradycardia, proceeding with pacemaker placement Coding Level of Care Code Acute Cable Swager for [facility] Fwzi Diagnoses Symptomatic bradycardia R00.1 Intermittent atrial fibrillation I48.0 Essential hypertension I10
--- NOTE | 2022-01-27 20:01 | PM.OP ---
Operative Report Date of procedure: January 27, 2022 Pre-op diagnosis: Preop Diagnosis Symptomatic bradycardia/atrial fibrillation Brief History: 76-year-old white female with history of intermittent atrial fibrillation was found to have symptomatic bradycardia with antiarrhythmic medications. The heart rate goes down to the 30s at times. In view of the symptomatic bradycardia, for further management of her condition, a permanent pacemaker implantation was requested. Procedure: LOCATION: Cardiac catheterization lab PREOPERATIVE DIAGNOSES: Defibrillation/symptomatic bradycardia. POSTOPERATIVE DIAGNOSES: Same. COMPLICATIONS: None. ESTIMATED BLOOD LOSS: Around less than 5 milliliters. BRIEF HISTORY: 76-year-old white female with history of intermittently fibrillation, found to have have symptomatic bradycardia with the antiarrhythmic drugs. For further management of her condition, a permanent pacer implantation was requested. A dual chamber permanent pacemaker implantation was recommended for AV synchrony and symptom relief The procedure was explained to the patient in detail with the risks and benefits. The risks of bleeding, hematoma, vascular injury, infection, pneumothorax, myocardial perforation and other concomitant complications were explained in detail, which the patient understood well and consented to proceed. PROCEDURE DESCRIPTION: The patient was brought to the Cardiac Catheterization Lab. The left and the right side of the neck and the subclavian area were cleaned and draped in a sterile fashion. 1% Xylocaine was used as the local anesthetic agent. Left subclavian venogram was performed by injecting 20 milliliters of Omnipaque through the left antecubital vein. A left subclavian venous access was obtained using a micropuncture needle system, under venographic guidance. . A two-inch long incision was made 2.0 centimeters below the midclavicular region. By sharp and blunt dissection, a pacemaker pocket was made. A second venous access was obtained using another micropuncture needle system. Over the first guidewire, a 7-Gambian venous sheath with dilator was advanced. The venous dilator and the guidewire were taken out. A screw-in ventricular lead was advanced through the venous sheath and was positioned towards the right ventricle. Under fluoroscopic guidance, the ventricular lead was positioned toward the right ventricular apex. Good pacing and sensing thresholds were obtained. The lead was secured to the endocardium by advancing the helix. The stability of the lead was tested by gentle twisting movements and also by asking the patient to take some deep breaths and cough. The venous sheath was peeled off, at this time. The lead was secured to the pectoralis fascia, by suturing with 1-0 Surgilon. Over the second guidewire, another 7-Gambian venous sheath with dilator was advanced. The dilator and the guidewire were taken out. Under fluoroscopic guidance, an atrial lead (Medtronic), was advanced and positioned toward the right atrium. The lead was positioned in the right atrial appendage. Good pacing and sensing thresholds were obtained. The lead was secured to the endocardium by advancing the helix. Stability of the lead was tested by gentle twisting movements and also by asking the patient to take some deep breaths and cough. The venous sheath was peeled off, at this time. The lead was secured to the pectoralis fascia by suturing with 0-Surgilon. The pacemaker pocket was copiously irrigated with vancomycin solution. Complete hemostasis was achieved. Sponge counts were confirmed. The leads were attached to a Medtronic generator. The leads were positioned behind the generator and the generator was attached to the pectoralis fascia by suturing with 0-Surgilon. The pocket was closed in layers. Skin was approximated using 4-0 Vicryl. IMPLANTED DEVICES: ATRIAL LEAD: Model number: 5076/45 Serial number: [id number] Make: Medtronic VENTRICULAR LEAD: Model number: 5076/52 Serial number: [id number] Make: Medtronic GENERATOR Brand: Barbara XT DR CHOUDHURY EvinDarby Model number: [id number] Serial number: [id number] Make: Medtronic IMPLANTATION DATA: With the pacing system analyzer, the R wave sensing was 4.8 millivolts with a lead impedance of 922 Ohms and a pacing threshold was 0.5 volts at 0.5 milliseconds. In the atrium, the sensing was 2.8 millivolts with a lead impedance of 410 ohms and a pacing threshold was 0.5 volts at 0.5 milliseconds. Through the device, the R-wave sensing was 6.0 millivolts with a lead impedance of 722 and a pacing threshold was 0.75 volts at 0.4 milliseconds. The atrial sensing was 2.8 millivolts with a lead impedance of 380 ohms and a pacing threshold of 0.75 volts at milliseconds. The pacemaker was set for AAIR/DDDR mode with upper rate of 130 and a lower rate of 60. A pressure dressing was applied over the pacemaker site. The patient was transferred to the Medical Floor in stable condition. A chest x-ray was ordered to confirm the lead position and also to rule out any pneumothorax.
[2022-01-27] MEDS: magnesium oxide 400 mg tablet 200 MG PO (20:21)
[2022-01-27] MEDS: sotalol 80 mg Tablet PO (20:23)
--- NOTE | 2022-01-27 21:20 | ECG_ITS ---
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 Measurements Intervals [place] Rate: 73 P: 187 [place]: 153 QRS: 8 QRSD: 82 T: 48 QT: 418 QTc: 461 Interpretive Statements ELECTRONIC ATRIAL PACEMAKER MODERATE T-WAVE ABNORMALITY, CONSIDER ANTERIOR ISCHEMIA [-0.1+ mV T-WAVE IN V3/V4] Compared to ECG 01/27/2022 08:42:56 T-wave abnormality now present Possible ischemia now present Sinus bradycardia no longer present Sinus arrhythmia no longer present Electronically Signed On 01-27-2022 22:19:07 CDT by Ralph Alford M.D. [id number]
[2022-01-28] VITALS (9 sets, daily range): BP systolic 148–186; BP diastolic 82–92; PULSE 56–72; RESP 13–19; TEMP 36.6–37.3; O2SAT 95–100
--- NOTE | 2022-01-28 01:24 | PC.NURSE ---
Dr. Downey ordered to transfer patient to [facility].
[2022-01-28] MEDS: acetaminophen 325 mg Tablet 650 MG PO (02:09)
[2022-01-28 05:33] LABS: Basophils % 0.5 %; Eosinophils # 0.1 10^3/uL (0.0-0.8); Eosinophils % 1.3 %; Hematocrit 35.8 % (37.0-47.0); Hemoglobin 11.7 g/dL (11.5-15.3); Lymphocytes # 1.5 10^3/uL (0.8-4.8); Lymphocytes % 25.1 %; Mean Corpuscular HGB Conc 32.7 g/dL (30.0-36.0); Mean Corpuscular Hemoglobin 30.2 pg (28.0-34.0); Mean Corpuscular Volume 92.5 fl (81-99); Mean Platelet Volume 10.2 fL (7.4-10.4); Monocytes # 0.5 10^3/uL (0.2-0.9); Monocytes % 8.7 %; Neutrophils # 3.86 10^3/uL (1.8-7.7); Neutrophils % 64.2 %; Nucleated Red Blood Cells % 0 %; Platelet Count 206 10^3/cmm (130-400); Red Blood Count 3.87 10^6/uL (4.1-5.3); Red Cell Distribution Width 15.5 % (12.1-15.1)
--- NOTE | 2022-01-28 05:46 | PC.NURSE ---
Report called to Kourtney on [facility]. pt to be transferred via wheelchair to [facility]. Care relinquished.
[2022-01-28 05:48] LABS: Alanine Aminotransferase 22 U/L (0-33); Albumin Level 3.5 g/dL (3.5-5.2); Alkaline Phosphatase 26 IU/L (35-105); Anion Gap 12.9 (5-19); Aspartate Amino Transferase 19 U/L (0-32); Blood Urea Nitrogen 8 mg/dL (8-23); Calcium 8.2 mg/dL (8.5-10.5); Carbon Dioxide 24 mmol/L (22-29); Chloride 104 mmol/L (98-107); Globulin 2.2 g/dL (1.3-4.6); Glucose 96 mg/dL (65-115); Osmolality Calculated 282 mOsm/kg (285-295); Phosphorus 4.1 mg/dL (2.5-4.5); Potassium 3.9 mmol/L (3.5-5.1); Sodium 137 mmol/L (136-145); Total Bilirubin 0.3 mg/dL (0.15-1.2); Total Protein 5.7 g/dL (6.6-8.7)
--- NOTE | 2022-01-28 06:00 | ECG_ITS ---
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 Measurements Intervals [place] Rate: 66 P: 261 CO: 147 QRS: 12 QRSD: 89 T: 43 QT: 419 QTc: 441 Interpretive Statements ELECTRONIC ATRIAL PACEMAKER NONSPECIFIC T-WAVE ABNORMALITY ABNORMAL RHYTHM ECG Compared to ECG 01/27/2022 22:02:31 Possible ischemia no longer present T-wave abnormality still present Electronically Signed On 01-29-2022 6:20:08 CDT by Lexi Edwards M.D. [id number]
--- NOTE | 2022-01-28 06:00 | XR_ITS ---
WS: [id number] Exam: XR chest 1V [id number] Date/Time of Exam: 01/28/2022 3:57 AM Reason For Exam: Post permanent pacemaker placement; visualize lead tip Comparison 01/21/2022. The lungs are fully expanded. Chronic interstitial changes. Pulmonary hyperinflation. Heart size top limits normal. Mediastinal silhouette appears normal. A left-sided cardiac pacer has been placed and the leads appear to be in appropriate location. Additional monitoring leads superimpose the chest. El ny structures are intact. XR/XR chest 1V [id number] IMPRESSION: 1. No acute cardiopulmonary finding. 2. Pulmonary hyperinflation and chronic interstitial changes. 3. Recent cardiac pacer placement as noted above.
[2022-01-28] MEDS: sotalol 80 mg Tablet 120 MG PO (07:58)
[2022-01-28] MEDS: potassium chloride ER 10 mEq Tablet PO (07:58)
[2022-01-28] MEDS: sotalol 80 mg Tablet PO (07:58)
[2022-01-28] MEDS: atorvastatin 40 mg Tablet PO (07:58)
--- NOTE | 2022-01-28 09:00 | ECG_ITS ---
[facility] Test Date: 2022-01-28 Pat Name: Dona Jimenez Department: Room: 253 Gender: Female Hi Teacher: : 1945 Requested By: Fanny Nash Order Number: [id number] Dyana MD: Lexi Edwards M.D. Measurements Intervals [place] Rate: P: SC: QRS: QRSD: T: QT: QTc: Interpretive Statements A paced rhythm Non specific T wave abnormality Compared to ECG 01/28/2022 05:34:39 Atrial-paced complex(es) or rhythm no longer present T-wave abnormality no longer present Electronically Signed On 01-29-2022 6:14:12 CDT by Lexi Edwards M.D. [email or web address].[id number]
[2022-01-28] MEDS: losartan 50 mg Tablet PO (09:20)
[2022-01-28] MEDS: rivaroxaban 10 mg Tablet 20 MG PO (09:21)
--- NOTE | 2022-01-28 10:14 | PM.PN ---
Subjective Subjective: s/p pacemaker implant yesterday. Medications: Reviewed: Yes Vitals/I&O/Wt Last Vital Signs Temp 99.2 F 01/28/22 06:20 Pulse 59 L 01/28/22 08:00 Resp 13 01/28/22 07:12 BP 186/92 01/28/22 07:12 Pulse Ox 98 01/28/22 08:00 01/27/22 01/28/22 01/28/22 22:59 06:59 14:59 Intake Total 1500 / 1500 50 / 1550 250 / 250 Balance 1500 / 1500 50 / 1550 250 / 250 Weight last 48 hrs Weight 130 lb 12.8 oz Weight 131 lb 9.6 oz Physical Exam Narrative: GENERAL: Averagely built and averagely nourished in no acute distress HEENT:? Pupils equal round reactive to light.? No pallor or icterus. NECK: No JVD,? No carotid bruit. CARDIOVASCULAR SYSTEM: S1-S2 regular.? No murmur or gallops. RESPIRATORY SYSTEM: Chest clear to auscultation.? No wheezes rhonchi or rubs heard.? No use of accessory muscles. ABDOMEN: Soft, nontender and nondistended.? Normal bowel sounds present. EXTREMITIES: No cyanosis or edema.? No signs of chronic venous insufficiency. SOFTWARE DEVELOPMENT TEST ENGINEER: Patient is alert oriented ?3.? No focal neurological deficits.? SKIN: Normal turgor and temperature.? No breakdown, rash or nail changes noted. PSYCH: Normal insight and judgment.? Data : 01/28/22 05:04 01/28/22 05:04 A&P Assessment and plan (1) Atrial fibrillation with rapid ventricular response: A fib/flutter with RVR: Difficult to rate control -s/p MARIANO and cardioversion on 01/08/22 and failed cardioversion times 3 at 120, 150, 200 joules. 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 -I had a long discussion with the patient, her 2 sons and her [id number]. Rhythm control strategy discussed with the patient as she felt great when in sinus. Failed attempt at rate control as an outpatient. -She is s/p permanent pacemaker placement by Dr. Nash; CXR and PPM interrogation reviewed. -I will consider A. fib/flutter ablation as outpatient. Status: Acute (2) CHF (congestive heart failure), NYHA class III: HFrEF (LVEF=35%, last MARIANO) -No recent stress testing. -Tachycardia induced cardiomyopathy: recent echo showed improved LV function. -normal stress test Status: Acute (3) Essential hypertension: Blood pressure fairly well controlled Status: Acute (4) COPD (chronic obstructive pulmonary disease): Status: Acute (5) GERD (gastroesophageal reflux disease): Status: Acute Qualifiers: Esophagitis presence: esophagitis presence not specified Qualified Code(s): K21.9 - Gastro-esophageal reflux disease without esophagitis Plan Hyperlipidemia Tobacco abuse quit smoking 2 weeks back. 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
--- NOTE | 2022-01-28 10:40 | PM.DCS ---
Discharge Providers Date of Admission: 01/22/22 01:07 Date of Discharge: January 28, 2022 Attending Provider at Admission: Nathalia Mahajan DO Attending Provider at Discharge: Palomo Andrade MD Primary Care Provider: LEILA Carrera Diagnoses at Discharge Discharge Diagnosis (1) Atrial fibrillation with rapid ventricular response: Status: Acute (2) CHF (congestive heart failure), NYHA class III: Status: Acute (3) Essential hypertension: Status: Acute (4) COPD (chronic obstructive pulmonary disease): Status: Acute (5) GERD (gastroesophageal reflux disease): Status: Acute Qualifiers: Esophagitis presence: esophagitis presence not specified Qualified Code(s): K21.9 - Gastro-esophageal reflux disease without esophagitis Reason for Visit Reason for Visit: A Fib Hospital Course Hospital Course This is a 76-year-old female with a past medical history of atrial fibrillation, CHF systolic and diastolic, who presents to [facility] due to concerns for worsening atrial fibrillation Patient presents [facility] for A. fib with RVR, requiring medication adjustment, sotalol increased to 120 mg morning, 80 mg in the evening, however remained in A. fib with RVR, underwent cardioversion, continue to have episodes of tachybradycardia syndrome, underwent pacemaker placement successfully. Discharged with close follow-up with cardiology, hold Xarelto until tomorrow, continue sotalol 120 mg a morning, 80 mg evening. Patient also underwent cardiac stress testing due to elevated troponins, which did not show any significant evidence of obstructive CAD Physical Exam Narrative: Currently in a arm immobilizer, pacemaker site pressure bandage applied on top Const: COMMON NORMALS: no acute distress and patient oriented x3 Resp: COMMON NORMALS: normal respiratory effort, No retractions, No use of accessory muscles and clear to auscultation bilaterally AUSCULTATION: clear to auscultation bilaterally Cardio: COMMON NORMALS: regular rate, regular rhythm, S1 normal heart sound present and S2 normal heart sound present RATE: regular rate RHYTHM: regular rhythm HEART SOUNDS: S1 normal heart sound present and S2 normal heart sound present GI: COMMON NORMALS: Normal to inspection, nondistended, normoactive bowel sounds present, Soft to palpation and non-tender PALPATION: Yes Soft to palpation Extremity: COMMON NORMALS: no pedal edema Neuro: COMMON NORMALS: patient oriented x3 Psych: COMMON NORMALS: mental status grossly normal Discharge Data Studies Completed and Pending Completed Studies During Hospitalization Category Date Time Status FRONTEND ENGINEER request for service Routine Exams 01/27/22 11:30 Completed Cardiac Stress Test MIBI [Sestamibi Stress Test Request Exams 01/24/22 15:12 Completed ] Routine XR chest 1V [id number] Routine Exams 01/28/22 06:00 Completed XR chest 1V portable [id number] Urgent Exams 01/21/22 18:27 Completed NM ashley perf SPECT r/s* [id number] Routine Nuc Med 01/25/22 15:12 Completed CV. echo complete* [id number] Routine Ultrasound 01/22/22 01:07 Completed Radiology Impressions Chest X-Ray 01/28/22 06:00 IMPRESSION: 1. No acute cardiopulmonary finding. 2. Pulmonary hyperinflation and chronic interstitial changes. 3. Recent cardiac pacer placement as noted above. Laboratory Results WBC 6.0 10^3/uL (4.0-10.0) 01/28/22 05:04 RBC 3.87 10^6/uL (4.1-5.3) L 01/28/22 05:04 Hgb 11.7 g/dL (11.5-15.3) 01/28/22 05:04 Hct 35.8 % (37.0-47.0) L 01/28/22 05:04 MCV 92.5 fl (81-99) 01/28/22 05:04 MCH 30.2 pg (28.0-34.0) 01/28/22 05:04 MCHC 32.7 g/dL (30.0-36.0) 01/28/22 05:04 RDW 15.5 % (12.1-15.1) H 01/28/22 05:04 Plt Count 206 10^3/cmm (130-400) 01/28/22 05:04 MPV 10.2 fL (7.4-10.4) 01/28/22 05:04 Neut % (Auto) 64.2 % 01/28/22 05:04 Lymph % (Auto) 25.1 % 01/28/22 05:04 [place] % (Auto) 8.7 % 01/28/22 05:04 Eos % (Auto) 1.3 % 01/28/22 05:04 Baso % (Auto) 0.5 % 01/28/22 05:04 Neut # (Auto) 3.86 10^3/uL (1.8-7.7) 01/28/22 05:04 Lymph # (Auto) 1.5 10^3/uL (0.8-4.8) 01/28/22 05:04 [place] # (Auto) 0.5 10^3/uL (0.2-0.9) 01/28/22 05:04 Eos # (Auto) 0.1 10^3/uL (0.0-0.8) 01/28/22 05:04 Baso # (Auto) 0.0 10^3/uL (0.0-0.1) 01/28/22 05:04 Nucleated RBC % (auto) 0 % 01/28/22 05:04 Nucleated RBCs # 0.0 /100WBC 01/28/22 05:04 Sodium 137 mmol/L (136-145) 01/28/22 05:04 Potassium 3.9 mmol/L (3.5-5.1) 01/28/22 05:04 Chloride 104 mmol/L (98-107) 01/28/22 05:04 Carbon Dioxide 24 mmol/L (22-29) 01/28/22 05:04 Anion Gap 12.9 (5-19) 01/28/22 05:04 BUN 8 mg/dL (8-23) 01/28/22 05:04 Creatinine 0.5 mg/dL (0.5-0.9) 01/28/22 05:04 GFR Calculation Not Reportable 01/28/22 05:04 Glucose 96 mg/dL (65-115) 01/28/22 05:04 Calculated Osmolality 282 mOsm/kg (285-295) L 01/28/22 05:04 Calcium 8.2 mg/dL (8.5-10.5) L 01/28/22 05:04 Phosphorus 4.1 mg/dL (2.5-4.5) 01/28/22 05:04 Magnesium 2.0 mg/dL (1.7-2.3) 01/28/22 05:04 Total Bilirubin 0.3 mg/dL (0.15-1.2) 01/28/22 05:04 AST 19 U/L (0-32) 01/28/22 05:04 ALT 22 U/L (0-33) 01/28/22 05:04 Alkaline Phosphatase 26 IU/L (35-105) L 01/28/22 05:04 Troponin T Baseline 8 ng/L (0-10) 01/21/22 18:13 Troponin T 120 Minute 8.59 ng/L (0-10) 01/21/22 20:15 Delta Troponin T 0.59 ABS# (0-10) 01/21/22 20:15 Troponin T Hi Sens 6Hr 11.60 ng/L (0-10) H 01/22/22 01:11 Troponin T Hi Sens 6Hr Delta 3.60 ng/L (0-12) 01/22/22 01:11 NT-Pro-B Natriuret Pep 1591 pg/mL (0-450) H 01/21/22 18:13 Total Protein 5.7 g/dL (6.6-8.7) L 01/28/22 05:04 Albumin 3.5 g/dL (3.5-5.2) 01/28/22 05:04 Globulin 2.2 g/dL (1.3-4.6) 01/28/22 05:04 TSH 2.76 uIU/mL (0.27-4.20) 01/21/22 18:13 Free T4 1.29 ng/dL (0.82-1.77) 01/22/22 01:11 Urine Color Yellow (Yellow) 01/21/22 18:20 Urine Appearance Clear (CLEAR) 01/21/22 18:20 Urine pH 8 (5-7) H 01/21/22 18:20 Ur Specific [place] 1.005 (1.005-1.030) 01/21/22 18:20 Urine Protein Neg (Negative) 01/21/22 18:20 Urine Glucose (UA) Norm (Normal) 01/21/22 18:20 Urine Ketones Negative (Negative) 01/21/22 18:20 Urine Blood Trace (Negative) H 01/21/22 18:20 Urine Nitrate Negative (Negative) 01/21/22 18:20 Urine Bilirubin Neg (Negative) 01/21/22 18:20 Prot Sulfosalicylic Acd Negative (Negative) 01/21/22 18:20 Urine Urobilinogen Norm mg/dL (Negative) 01/21/22 18:20 Ur Leukocyte Esterase Negative (Negative) 01/21/22 18:20 Urine RBC 0-4 /hpf (0-2) H 01/21/22 18:20 Urine WBC 0-4 /hpf (0-5) H 01/21/22 18:20 Ur Squamous Epith Cells 0-4 /hpf (0-5) H 01/21/22 18:20 Ur Transition Epith Cell None /hpf 01/21/22 18:20 Ur Renal Epithelial Cell N /hpf 01/21/22 18:20 Amorphous Sediment Not Reportable 01/21/22 18:20 Urine Bacteria Tntc /hpf (NONE) 01/21/22 18:20 Urine Mucus N /hpf 01/21/22 18:20 Blood Type A Positive 01/26/22 19:25 Rho(D) Type Positive 01/26/22 19:25 Antibody Screen Negative 01/26/22 19:25 Vitals Last Vital Signs Temp 99.2 F 01/28/22 06:20 Pulse 59 L 01/28/22 08:00 Resp 13 01/28/22 07:12 BP 186/92 01/28/22 07:12 Pulse Ox 98 01/28/22 08:00 Discharge Plan Discharge Patient Disposition: Home Condition: Stable Prescriptions: New sotalol 80 mg Tablet 120 mg PO 0900 Qty: 135 0RF sotalol 80 mg Tablet 80 mg PO 2100 Qty: 90 0RF acetaminophen 325 mg Tablet 650 mg PO Q6H PRN (Reason: Mild Pain) Qty: 30 0RF Continued ergocalciferol (vitamin D2) 1,250 mcg (50,000 unit) Capsule 1,250 mcg PO Q7D 0RF Rx Instructions: On rosuvastatin 10 mg tablet 10 mg PO DAILY 0RF Xarelto 20 mg tablet 20 mg PO BEDTIME 0RF Rx Instructions: must administer with evening meal valsartan 320 mg tablet 160 mg PO BID Qty: 90 3RF Rx Instructions: Take evening dose if BP > 140/90 mm Hg Held magnesium 200 mg tablet 200 mg PO BEDTIME 0RF Hold Instructions: Resume on 02/03/22. Discontinued furosemide [Lasix] 20 mg tablet 20 mg PO DAILY Qty: 90 3RF sotalol 80 mg tablet 40 mg PO BID Qty: 60 3RF potassium chloride 10 mEq capsule, extended release 10 meq PO DAILY Qty: 7 0RF Discharge Orders: Discharge Order (Routine); Ordered 01/28/22 Ordered By: Palomo Andrade [place] [facility] [place] [facility] [place]Outside] Paula Hill FNP [Nurse Practitioner] - 7-10 days Cecille Crump FNP [Primary Care Provider] - Lexi Edwards MD [Physician] - 1 month Patient Instructions: Pacemaker (DC), Opioid Safety, Post Pacemaker - Saad Activity Restrictions/Additional Instructions: Keflex 500 mg p.o. every 6 hours for 5 days Multivitamin 1 tablet p.o. daily for 2 weeks May restart the Xarelto tomorrow-01/29/2022 Appointment the [facility] to be seen by the nurse practitioner next week for a wound check and pacemaker check Appointment with me in the office in 1 month Discharge Attestations Time Spent in Discharge Care*: less than 30 min Quality Metrics Clinical Quality Measures [ No reported AMI, CVA or VTE this stay] Coding Level of Care Code Acute Chg FW DC note Diagnoses Atrial fibrillation with rapid ventricular response I48.91 CHF (congestive heart failure), NYHA class III I50.9 Essential hypertension I10 COPD (chronic obstructive pulmonary disease) J44.9 GERD (gastroesophageal reflux disease) K21.9 Esophagitis presence: esophagitis presence not specified
== END 2022-01-28 13:16 | disposition home health service (06) | DRG 243 ==
LOC: ER 22:11 → CSU 01-22 00:19 → MEDSURG 01-28 06:12
PROVIDERS: Internal Medicine; Internal Medicine Cardiovascular Disease; Admitting Provider Internal Medicine; Emergency Provider Emergency Medicine; PCP Nurse Practitioner; Visit Provider Family Medicine
PROC: 5A2204Z Restoration of Cardiac Rhythm, Single (ICD-10-PCS; principal; 2022-01-25 13:00)
PROC: 0JH606Z Insertion of Pacemaker, Dual Chamber into Chest Subcutaneous Tissue and Fascia, Open Approach (ICD-10-PCS; principal; 2022-01-27 12:00)
DX: I48.91 Unspecified atrial fibrillation (principal); I50.42 Chronic combined systolic (congestive) and diastolic (congestive) heart failure; F11.20 Opioid dependence, uncomplicated; I48.92 Unspecified atrial flutter; I49.5 Sick sinus syndrome; I11.0 Hypertensive heart disease with heart failure; J44.9 Chronic obstructive pulmonary disease, unspecified; K21.9 Gastro-esophageal reflux disease without esophagitis; M48.062 Spinal stenosis, lumbar region with neurogenic claudication; G89.29 Other chronic pain; M81.0 Age-related osteoporosis without current pathological fracture; E78.5 Hyperlipidemia, unspecified; G62.9 Polyneuropathy, unspecified; F17.211 Nicotine dependence, cigarettes, in remission; Z85.41 Personal history of malignant neoplasm of cervix uteri; Z85.42 Personal history of malignant neoplasm of other parts of uterus; Z90.710 Acquired absence of both cervix and uterus; Z99.81 Dependence on supplemental oxygen; Z91.14 Patient's other noncompliance with medication regimen; Z90.722 Acquired absence of ovaries, bilateral; Z90.79 Acquired absence of other genital organ(s); Z79.01 Long term (current) use of anticoagulants; Z82.49 Family history of ischemic heart disease and other diseases of the circulatory system
CPT/HCPCS: 33208; 36415; 71045; 78452; 80053; 81001; 83735; 83880; 84100; 84439; 84443; 84484; 85025; 86850; 86900; 87086; 92960; 93005; 93017; 93306; 96365; 96366; 96367; 96372; 96375; 97161; 97165; 99152; 99153; 99285; A9500; C1769; C1779; C1786; C1894; J0360; J0690; J1650; J2250; J2405; J2704; J2785; J3010; J3490; J7030; J7050; Q9967

== ENCOUNTER → 2022-02-01 09:56 | Outpatient (BNVA) | payer OTHER, SELFPAY | PROVIDERS: PCP Nurse Practitioner; Visit Provider Nurse Practitioner Family | DX: Z09 Encounter for follow-up examination after completed treatment for conditions other than malignant neoplasm (principal); Z95.0 Presence of cardiac pacemaker | CPT/HCPCS: 99213; 99214 ==

== ENCOUNTER → 2022-02-12 08:32 | Outpatient (BNVA) | payer OTHER, SELFPAY | PROVIDERS: PCP Nurse Practitioner; Visit Provider Internal Medicine Cardiovascular Disease | DX: Z45.010 Encounter for checking and testing of cardiac pacemaker pulse generator [battery] (principal) | CPT/HCPCS: 93280 ==

== ENCOUNTER 2022-02-18 16:38 | Emergency (ER) | payer OTHER, MEDICARE, SELFPAY ==
[2022-02-18 17:18] VITALS: BP 152/96; PULSE 89; RESP 20; TEMP 36.7; O2SAT 98; BMI 21.1
--- NOTE | 2022-02-18 18:23 | W.ED.GENADLT ---
HPI - General Adult General: Chief complaint: General Medical Stated complaint: needs pace maker checked out says its hot Time Seen by Provider: 02/18/22 18:23 History of Present Illness: 76-year-old female comes in today for evaluation of her pacemaker site. Patient felt that there was some swelling to the underside of the pacemaker. Patient also reported some tenderness. Patient had home health nurse evaluated today and she had contacted the veterinary laboratory diagnostician, Dr. Kumar, and she recommended that she be evaluated in the ER. Patient appears nontoxic. Patient appears in no pain. Associated symptoms: Deny chest pain, dyspnea, nausea or vomiting Review of Systems General: Reports: 10 or more systems reviewed and unremarkable except in HPI and below Card: Denies: chest pain Resp: Denies: dyspnea GI: Denies: nausea or vomiting Musc: Denies: neck pain Skin/Breast: Reports: skin tenderness; Denies: erythema PFSH ED PFSH: Medical History (Updated 02/18/22 @ 18:43 by LEILA Trevizo) Atrial fibrillation Atrial fibrillation with rapid ventricular response Cataract BOTH EYES CHF (congestive heart failure), NYHA class III CHF exacerbation Cholesteatoma Chronic eustachian tube dysfunction Cigarette nicotine dependence COPD (chronic obstructive pulmonary disease) COPD (chronic obstructive pulmonary disease) with chronic bronchitis Depression Deviated septum Diverticulosis Dysphasia Enrolled in chronic care management Essential hypertension Fatigue GERD (gastroesophageal reflux disease) Hearing loss History of nonmelanoma skin cancer Lower extremity edema Lumbar compression fracture Lumbar pain Lumbar stenosis with neurogenic claudication Nasal turbinate hypertrophy Opioid contract exists Oral thrush Osteoporosis Pacemaker Perforated left tympanic membrane on examination Spinal stenosis of lumbar region with radiculopathy Tobacco use disorder Surgical History H/O bilateral salpingo-oophorectomy H/O kyphoplasty H/O rotator cuff surgery LEFT AND RIGHT Hx of mastoidectomy Family History Mother CAD (coronary artery disease) Father CAD (coronary artery disease) Brother Cancer Sister Cancer Denies family history of Family history of exposure to Agent Ider Social History Smoking and tobacco status: current every day smoker cigarettes Packs smoked per day: 0.5 Alcohol intake: never Lives independently: Yes Household members: none Marital status: / Current occupational status: retired History of recent travel: No Physical Exam Const: COMMON NORMALS: alert HENMT: COMMON NORMALS: normocephalic HEAD & SCALP: normocephalic Neck/C-Spine: COMMON NORMALS: full ROM Chest: CHEST: Yes tenderness (6 o'clock position of the pacemaker is mildly swollen without redness) other (Pacemaker wound is dry and healing well) Resp: COMMON NORMALS: normal respiratory effort Cardio: COMMON NORMALS: regular rate RATE: regular rate Extremity: COMMON NORMALS: normal to inspection Neuro: SENSORIUM/ORIENTATION: Yes alert Skin: NARRATIVE SKIN EXAM: Well approximated pacemaker wound site, minimal to no swelling, clearing ecchymosis, no redness or warmth. Course Vital Signs: Vital signs: Vital Signs Temperature 98.1 F 02/18/22 17:18 Pulse Rate 89 02/18/22 17:18 Respiratory Rate 20 H 02/18/22 17:18 Blood Pressure 152/96 02/18/22 17:18 Pulse Oximetry 98 02/18/22 17:18 [facility] - General Adult Medical Decision Making Patient came in for evaluation of pacemaker wound site. Patient reported some warmth to the area. On exam there was some mild swelling on the underside of the pacemaker, no significant redness or ecchymosis is noted. Wound is well approximated and healing. Differential diagnosis includes pacemaker malfunction, wound infection, hematoma. Pacemaker was queried and operate normally. Wound appears well. Suspect patient may have had a small hematoma there that is clearing but no signs of infection was noted. Reviewed with patient with recommendations for follow-up or return to the ER. Patient reported understanding. Discharge Plan Discharge Patient Disposition: Home Clinical Impression: Pain associated with wound, Pacemaker Condition: Stable Prescriptions: No Action hydrochlorothiazide 25 mg tablet 25 mg PO DAILY Qty: 90 1RF ergocalciferol (vitamin D2) 1,250 mcg (50,000 unit) Capsule 1,250 mcg PO Q7D 0RF Rx Instructions: On magnesium 200 mg tablet 200 mg PO BEDTIME 0RF Hold Instructions: Resume on 02/03/22. rosuvastatin 10 mg tablet 10 mg PO DAILY 0RF Xarelto 20 mg tablet 20 mg PO BEDTIME 0RF Rx Instructions: must administer with evening meal sotalol 80 mg Tablet 120 mg PO 0900 Qty: 135 0RF sotalol 80 mg Tablet 80 mg PO 2100 Qty: 90 0RF acetaminophen 325 mg Tablet 650 mg PO Q6H PRN (Reason: Mild Pain) Qty: 30 0RF valsartan 320 mg tablet 160 mg PO BID Qty: 90 3RF Rx Instructions: Take evening dose if BP > 140/90 mm Hg tramadol 50 mg tablet 50 mg PO BID PRN (Reason: pain) Qty: 12 0RF Discharge Orders: Discharge ED (Routine); Ordered 02/18/22 Ordered By: Jason Moyer Referrals: Cecille Crump FNP [Primary Care Provider] - Discharge Diet: Usual diet Discharge Activity: Increase activity as tolerated Patient Instructions: Wound Care (General) Activity Restrictions/Additional Instructions: Activity as tolerated. Monitor site for signs of redness. Monitor for fever. Follow-up with primary care as needed. Return to ER for new concerns. Coding Level of Care Code ED Software Validation Technician for sImael Schulte
== END 2022-02-18 18:52 | disposition home or self-care (01) ==
PROVIDERS: Emergency Provider Nurse Practitioner Family; PCP Nurse Practitioner
DX: T82.847A Pain due to cardiac prosthetic devices, implants and grafts, initial encounter (principal); Y83.8 Other surgical procedures as the cause of abnormal reaction of the patient, or of later complication, without mention of misadventure at the time of the procedure; R22.2 Localized swelling, mass and lump, trunk; Z95.0 Presence of cardiac pacemaker
CPT/HCPCS: 99281

== ENCOUNTER → 2022-03-05 11:35 | Outpatient (BNVA) | payer OTHER, SELFPAY | PROVIDERS: PCP Nurse Practitioner; Visit Provider Internal Medicine Cardiovascular Disease | DX: I48.20 Chronic atrial fibrillation, unspecified (principal); Z95.0 Presence of cardiac pacemaker; I11.0 Hypertensive heart disease with heart failure; I50.9 Heart failure, unspecified; K21.9 Gastro-esophageal reflux disease without esophagitis; F17.210 Nicotine dependence, cigarettes, uncomplicated | CPT/HCPCS: 99214 ==

== ENCOUNTER → 2022-08-27 08:26 | Outpatient (BNVA) | payer OTHER, SELFPAY | PROVIDERS: PCP Nurse Practitioner; Visit Provider Internal Medicine Cardiovascular Disease | DX: Z45.010 Encounter for checking and testing of cardiac pacemaker pulse generator [battery] (principal) | CPT/HCPCS: 93280 ==

== ENCOUNTER → 2022-09-06 13:56 | Outpatient (BNVA) | payer OTHER, SELFPAY | PROVIDERS: PCP Nurse Practitioner; Visit Provider Internal Medicine Cardiovascular Disease | DX: I48.91 Unspecified atrial fibrillation (principal); Z95.0 Presence of cardiac pacemaker; I11.0 Hypertensive heart disease with heart failure; I50.20 Unspecified systolic (congestive) heart failure; Z87.891 Personal history of nicotine dependence | CPT/HCPCS: 99214 ==

== ENCOUNTER → 2022-09-07 10:40 | Outpatient (BNVA) | payer OTHER, SELFPAY | PROVIDERS: PCP Nurse Practitioner; Referring Provider Nurse Practitioner; Visit Provider Orthopaedic Surgery | DX: M67.911 Unspecified disorder of synovium and tendon, right shoulder (principal) | CPT/HCPCS: 20610; 99203; J3301; J3490 ==

== ENCOUNTER 2022-09-16 12:35 | Inpatient (IN) | payer OTHER, MEDICARE, SELFPAY ==
[2022-09-16] VITALS (42 sets, daily range): BP systolic 89–204; BP diastolic 49–147; PULSE 79–123; RESP 14–31; TEMP 36.4–37.3; O2SAT 89–99; BMI 22.8
--- NOTE | 2022-09-16 14:13 | XR_ITS ---
WS: [id number] EXAMINATION: XR chest 1V portable [id number] REASON FOR EXAM: weakness chest pain COMPARISON: 01/28/2022 ORDER DATE: 09/16/2022 2:13 PM TECHNIQUE: A single, portable frontal chest x-ray was obtained. FINDINGS: There are scattered perihilar granulomatous calcifications. There are chronically increased perihilar /basilar bronchovascular and interstitial thickening with hyperinflation. The cardiac and mediastin al outlines are unremarkable. There are no pleural effusions. There are no discrete noncalcified pulm onary nodules. Chronic degenerative spine changes are present. Left-sided pacemaker place XR/XR chest 1V portable [id number] IMPRESSION: DIFFUSE PULMONARY CHANGES OF COPD. NO ACUTE PULMONARY CHANGE.
[2022-09-16 14:26] LABS: Basophils % 0.4 %; Eosinophils % 0.6 %; Hematocrit 43.3 % (37.0-47.0); Hemoglobin 14.8 g/dL (11.5-15.3); Lymphocytes # 1.6 10^3/uL (0.8-4.8); Lymphocytes % 22.4 %; Mean Corpuscular HGB Conc 34.2 g/dL (30.0-36.0); Mean Corpuscular Hemoglobin 31.6 pg (28.0-34.0); Mean Corpuscular Volume 92.5 fl (81-99); Mean Platelet Volume 9.5 fL (7.4-10.4); Monocytes # 0.5 10^3/uL (0.2-0.9); Monocytes % 6.6 %; Neutrophils # 4.96 10^3/uL (1.8-7.7); Neutrophils % 69.7 %; Nucleated Red Blood Cells % 0 %; Platelet Count 319 10^3/cmm (130-400); Red Blood Count 4.68 10^6/uL (4.1-5.3); Red Cell Distribution Width 13.8 % (12.1-15.1); White Blood Count 7.1 10^3/uL (4.0-10.0)
[2022-09-16 14:36] LABS: Alanine Aminotransferase 32 U/L (0-33); Albumin Level 4.7 g/dL (3.5-5.2); Alkaline Phosphatase 31 U/L (35-105); Aspartate Amino Transferase 28 U/L (0-32); Blood Urea Nitrogen 14 mg/dL (8-23); Calcium 9.9 mg/dL (8.5-10.5); Carbon Dioxide 27 mmol/L (22-29); Chloride 84 mmol/L (98-107); Globulin 3.2 g/dL (1.3-4.6); Glucose 110 mg/dL (65-115); Osmolality Calculated 261 mOsm/kg (285-295); Sodium 125 mmol/L (136-145); Total Bilirubin 0.5 mg/dL (0.15-1.2); Total Protein 7.9 g/dL (6.6-8.7)
--- NOTE | 2022-09-16 17:12 | W.ED.WEAKNES ---
Documented by User: Anselmo Jon DO 09/25/22 16:57 HPI - Weakness General: Chief complaint: Weakness Stated complaint: weakness Time Seen by Provider: 09/16/22 17:12 Source: patient Mode of arrival: EMS History of Present Illness: 77-year-old female brought [place] the [facility] from [facility]. When she initially arrived her complaint was a low-grade fever and what she describes as dehydration. Her initial heart rate was 105. Over the last weekend about 4 to 5 days ago she had a temp of 100.3 at 1 point just generally has not felt well felt weak. No vomiting she did have some diarrhea early on but that is resolved no cough or shortness of breath. Denies chest pain or abdominal pain no dysuria urgency or frequency. Patient has a history of atrial fibrillation is on Xarelto and sotalol. She did take her medications today. MD Complaint: generalized weakness Onset (ago): day(s) Duration: constant Location: generalized Relieving factors: none Exacerbating factors: none Associated symptoms: Reports decreased appetite, myalgias and nausea; Denies chest pain, chills, confusion, melena, diaphoresis, dysuria, easy bruising, fever(s), headache(s), rash, short of breath, syncope or vomiting Review of Systems Const: Denies: fever(s), chills, fatigue, malaise or diaphoresis ENMT: Denies: throat pain, ear or mastoid pain, nasal discharge or nasal congestion Card: Denies: chest pain or syncope Resp: Denies: dyspnea, productive cough or non-productive cough GI: Reports: nausea; Denies: abdominal pain, vomiting or melena : Denies: dysuria, urinary frequency or urinary urgency Skin/Breast: Denies: rash or pruritus Neuro: Denies: headache(s) or confusion Andres/Lymph: Denies: easy bruising PFS ED PFSH: Medical History Atrial fibrillation Cataract BOTH EYES CHF (congestive heart failure), NYHA class III CHF exacerbation Cholesteatoma Chronic eustachian tube dysfunction Cigarette nicotine dependence COPD (chronic obstructive pulmonary disease) COPD (chronic obstructive pulmonary disease) with chronic bronchitis Depression Deviated septum Diverticulosis Dysphasia Enrolled in chronic care management Essential hypertension Fatigue GERD (gastroesophageal reflux disease) Hearing loss History of nonmelanoma skin cancer Lower extremity edema Lumbar compression fracture Lumbar pain Lumbar stenosis with neurogenic claudication Nasal turbinate hypertrophy Opioid contract exists Oral thrush Osteoporosis Pacemaker Perforated left tympanic membrane on examination Spinal stenosis of lumbar region with radiculopathy Tobacco use disorder Surgical History H/O bilateral salpingo-oophorectomy H/O kyphoplasty H/O rotator cuff surgery LEFT AND RIGHT Hx of mastoidectomy Family History Mother CAD (coronary artery disease) Father CAD (coronary artery disease) Brother Cancer Sister Cancer Denies family history of Family history of exposure to Agent [place] Social History Smoking and tobacco status: former smoker Alcohol intake: never Lives independently: Yes Household members: none Marital status: / Current occupational status: retired History of recent travel: No Physical Exam Const: GENERAL APPEARANCE: cooperative and comfortable ORIENTATION/CONSCIOUSNESS: Yes awake, Yes oriented to person, Yes oriented to place and Yes oriented to time HENMT: COMMON NORMALS: normocephalic, atraumatic, hearing grossly normal bilaterally, external ears normal, EAC's normal, TM's normal bilaterally, Normal nasal mucous membranes and turbinates present, moist oral mucous membranes and oropharynx normal HEAD & SCALP: normocephalic and atraumatic NOSE: Normal nasal mucous membranes and turbinates present EXTERNAL EAR: Yes external ears normal EXTERNAL AUDITORY CANAL: EAC's normal TYMPANIC MEMBRANE: TM's normal bilaterally Eye: COMMON NORMALS: Equal, round and reactive pupils present, EOMs intact bilaterally, conjunctivae normal and no scleral icterus CONJUNCTIVA: Yes conjunctivae normal PUPIL: Yes Equal, round and reactive pupils present Resp: COMMON NORMALS: normal respiratory effort, No retractions, No use of accessory muscles and clear to auscultation bilaterally AUSCULTATION: clear to auscultation bilaterally Cardio: RATE: tachycardic RHYTHM: abnormal rhythm irregularly irregular GI: COMMON NORMALS: Soft to palpation and No hepatosplenomegaly present AUSCULTATION: Yes normoactive bowel sounds PALPATION: Yes Soft to palpation, No Tenderness to palpation present (GI), No Guarding due to palpation present (GI) and Yes No hepatosplenomegaly present Extremity: COMMON NORMALS: normal to inspection, capillary refill normal, no clubbing, cyanosis or edema, no calf tenderness and no pedal edema Neuro: SENSORIUM/ORIENTATION: Yes oriented to person, Yes oriented to place and Yes oriented to time Skin: COMMON NORMALS: no rashes or lesions noted GENERAL SKIN EXAM: no rashes or lesions noted Course Vital Signs: Vital signs: Vital Signs Temperature 97.5 F L 09/23/22 07:22 Pulse Rate 60 09/23/22 13:19 Respiratory Rate 12 09/23/22 13:19 Blood Pressure 178/112 09/23/22 13:19 Pulse Oximetry 95 09/23/22 13:19 Oxygen Delivery Me thod 09/23/22 00:30 MDM - Weakness Medical Decision Making Care signed out to Dr. Sexton at change of shift. See final notes for diagnosis and disposition. Patient initially had a heart rate in triage of 105. Main symptoms of fever several days ago otherwise weakness. She was triaged to the waiting room when initially seen her heart rate was in the 70s and 80s when I came back to complete exam and EKG was done we found her to be in the 140s that lasted for about 5 minutes and she spontaneously decreased her rate back to 670s and 80s. We had ordered Cardizem but canceled it because she had reduced her rate on her own. She is given her sotalol early as well as meds for HTN. Patient's heart rate had improved but she is now trending up again over the last 30 minutes she has been running in the 120s did start her on a Cardizem drip spoke to the hospitalist will admit with her A. fib with RVR along with hyponatremia. Medical Records I reviewed the patient's medical records. Lab Data I reviewed the patient's lab results. 09/16/22 12:55 09/16/22 12:55 Radiology Impressions Chest X-Ray 09/16/22 14:13 IMPRESSION: DIFFUSE PULMONARY CHANGES OF COPD. NO ACUTE PULMONARY CHANGE. Abdomen X-Ray 09/22/22 16:04 IMPRESSION: 1. Moderate constipation without bowel dilation to indicate obstruction. 2. Scattered vascular calcifications. 3. Vertebroplasty changes. Laboratory Results WBC 7.1 10^3/uL (4.0-10.0) 09/16/22 12:55 RBC 4.68 10^6/uL (4.1-5.3) 09/16/22 12:55 Hgb 14.8 g/dL (11.5-15.3) 09/16/22 12:55 Hct 43.3 % (37.0-47.0) 09/16/22 12:55 MCV 92.5 fl (81-99) 09/16/22 12:55 MCH 31.6 pg (28.0-34.0) 09/16/22 12:55 MCHC 34.2 g/dL (30.0-36.0) 09/16/22 12:55 RDW 13.8 % (12.1-15.1) 09/16/22 12:55 Plt Count 319 10^3/cmm (130-400) 09/16/22 12:55 MPV 9.5 fL (7.4-10.4) 09/16/22 12:55 Neut % (Auto) 69.7 % 09/16/22 12:55 Lymph % (Auto) 22.4 % 09/16/22 12:55 [place] % (Auto) 6.6 % 09/16/22 12:55 Eos % (Auto) 0.6 % 09/16/22 12:55 Baso % (Auto) 0.4 % 09/16/22 12:55 Neut # (Auto) 4.96 10^3/uL (1.8-7.7) 09/16/22 12:55 Lymph # (Auto) 1.6 10^3/uL (0.8-4.8) 09/16/22 12:55 [place] # (Auto) 0.5 10^3/uL (0.2-0.9) 09/16/22 12:55 Eos # (Auto) 0.0 10^3/uL (0.0-0.8) 09/16/22 12:55 Baso # (Auto) 0.0 10^3/uL (0.0-0.1) 09/16/22 12:55 Nucleated RBC % (auto) 0 % 09/16/22 12:55 Nucleated RBCs # 0.0 /100WBC 09/16/22 12:55 Sodium 125 mmol/L (136-145) L 09/16/22 12:55 Potassium 4.0 mmol/L (3.5-5.1) 09/16/22 12:55 Chloride 84 mmol/L (98-107) L 09/16/22 12:55 Carbon Dioxide 27 mmol/L (22-29) 09/16/22 12:55 Anion Gap 18.0 (5-19) 09/16/22 12:55 BUN 14 mg/dL (8-23) 09/16/22 12:55 Creatinine 0.6 mg/dL (0.5-0.9) 09/16/22 12:55 GFR Calculation Not Reportable 09/16/22 12:55 Glucose 110 mg/dL (65-115) 09/16/22 12:55 Calculated Osmolality 261 mOsm/kg (285-295) L 09/16/22 12:55 Calcium 9.9 mg/dL (8.5-10.5) 09/16/22 12:55 Total Bilirubin 0.5 mg/dL (0.15-1.2) 09/16/22 12:55 AST 28 U/L (0-32) 09/16/22 12:55 ALT 32 U/L (0-33) 09/16/22 12:55 Alkaline Phosphatase 31 U/L (35-105) L 09/16/22 12:55 Total Protein 7.9 g/dL (6.6-8.7) 09/16/22 12:55 Albumin 4.7 g/dL (3.5-5.2) 09/16/22 12:55 Globulin 3.2 g/dL (1.3-4.6) 09/16/22 12:55 Urine Color Yellow (Yellow) 09/16/22 17:40 Urine Appearance Hazy (CLEAR) A 09/16/22 17:40 Urine pH 7 (5-7) 09/16/22 17:40 Ur Specific [place] 1.010 (1.005-1.030) 09/16/22 17:40 Urine Protein 1+ (Negative) H 09/16/22 17:40 Urine Glucose (UA) Norm (Normal) 09/16/22 17:40 Urine Ketones 1+ (Negative) H 09/16/22 17:40 Urine Blood 2+ (Negative) H 09/16/22 17:40 Urine Nitrate Negative (Negative) 09/16/22 17:40 Urine Bilirubin Neg (Negative) 09/16/22 17:40 Urine Urobilinogen Norm mg/dL (Negative) 09/16/22 17:40 Ur Leukocyte Esterase Trace (Negative) H 09/16/22 17:40 Urine RBC 0-4 /hpf (0-2) H 09/16/22 17:40 Urine WBC 0-4 /hpf (0-5) H 09/16/22 17:40 Ur Squamous Epith Cells 25-40 /hpf (0-5) H 09/16/22 17:40 Amorphous Sediment Not Reportable 09/16/22 17:40 Urine Bacteria 1+ /hpf (NONE) H 09/16/22 17:40 Nasal Influ A H1 2009 PCR Not detected (NOT DETECT) 09/16/22 17:50 Coronavirus 229E (PCR) Not detected (NOT DETECT) 09/16/22 17:50 Influenza A (H1) PCR Not detected (NOT DETECT) 09/16/22 17:50 Influenza A (H3) PCR Not detected (NOT DETECT) 09/16/22 17:50 Influenza Type A (PCR) Not detected (NOT DETECT) 09/16/22 17:50 Influenza Type B (PCR) Not detected (NOT DETECT) 09/16/22 17:50 SARS-CoV-2 (PCR) Detected (NOT DETECT) A 09/16/22 17:50 Discharge Plan Discharge Patient Disposition: Admitted As Inpatient Admit Provider: Tania Downey Clinical Impression: Atrial fibrillation with RVR, Hyponatremia Condition: Stable Discharge Diet: Cardiac Discharge Activity: Resume usual activity and Increase activity as tolerated Coding Level of Care Code ED Content Development Specialist for Chg Fwd Exam Comprehensive Documented by User: Taylor Sexton MD 09/16/22 19:33 HPI - Weakness General: Chief complaint: Weakness Stated complaint: weakness Time Seen by Provider: 09/16/22 17:12 PFSH ED PFSH: Medical History Atrial fibrillation Cataract BOTH EYES CHF (congestive heart failure), NYHA class III CHF exacerbation Cholesteatoma Chronic eustachian tube dysfunction Cigarette nicotine dependence COPD (chronic obstructive pulmonary disease) COPD (chronic obstructive pulmonary disease) with chronic bronchitis Depression Deviated septum Diverticulosis Dysphasia Enrolled in chronic care management Essential hypertension Fatigue GERD (gastroesophageal reflux disease) Hearing loss History of nonmelanoma skin cancer Lower extremity edema Lumbar compression fracture Lumbar pain Lumbar stenosis with neurogenic claudication Nasal turbinate hypertrophy Opioid contract exists Oral thrush Osteoporosis Pacemaker Perforated left tympanic membrane on examination Spinal stenosis of lumbar region with radiculopathy Tobacco use disorder Surgical History H/O bilateral salpingo-oophorectomy H/O kyphoplasty H/O rotator cuff surgery LEFT AND RIGHT Hx of mastoidectomy Family History Mother CAD (coronary artery disease) Father CAD (coronary artery disease) Brother Cancer Sister Cancer Denies family history of Family history of exposure to [place] Social History Smoking and tobacco status: former smoker Alcohol intake: never Lives independently: Yes Household members: none Marital status: / Current occupational status: retired History of recent travel: No Course Vital Signs: Vital signs: Vital Signs Temperature 97.5 F L 09/23/22 07:22 Pulse Rate 60 09/23/22 13:19 Respiratory Rate 12 09/23/22 13:19 Blood Pressure 178/112 09/23/22 13:19 Pulse Oximetry 95 09/23/22 13:19 Oxygen Delivery Me thod 09/23/22 00:30 MDM - Weakness Medical Decision Making Patient initially had a heart rate in triage of 105. Main symptoms of fever several days ago otherwise weakness. She was triaged to the waiting room when initially seen her heart rate was in the 70s and 80s when I came back to complete exam and EKG was done we found her to be in the 140s that lasted for about 5 minutes and she spontaneously decreased her rate back to 670s and 80s. We had ordered Cardizem but canceled it because she had reduced her rate on her own. She is given her sotalol early as well as meds for HTN. Patient's heart rate had improved but she is now trending up again over the last 30 minutes she has been running in the 120s did start her on a Cardizem drip spoke to the hospitalist will admit with her A. fib with RVR along with hyponatremia. Lab Data 09/16/22 12:55 09/16/22 12:55 Radiology Impressions Chest X-Ray 09/16/22 14:13 IMPRESSION: DIFFUSE PULMONARY CHANGES OF COPD. NO ACUTE PULMONARY CHANGE. Abdomen X-Ray 09/22/22 16:04 IMPRESSION: 1. Moderate constipation without bowel dilation to indicate obstruction. 2. Scattered vascular calcifications. 3. Vertebroplasty changes. Laboratory Results WBC 7.1 10^3/uL (4.0-10.0) 09/16/22 12:55 RBC 4.68 10^6/uL (4.1-5.3) 09/16/22 12:55 Hgb 14.8 g/dL (11.5-15.3) 09/16/22 12:55 Hct 43.3 % (37.0-47.0) 09/16/22 12:55 MCV 92.5 fl (81-99) 09/16/22 12:55 MCH 31.6 pg (28.0-34.0) 09/16/22 12:55 MCHC 34.2 g/dL (30.0-36.0) 09/16/22 12:55 RDW 13.8 % (12.1-15.1) 09/16/22 12:55 Plt Count 319 10^3/cmm (130-400) 09/16/22 12:55 MPV 9.5 fL (7.4-10.4) 09/16/22 12:55 Neut % (Auto) 69.7 % 09/16/22 12:55 Lymph % (Auto) 22.4 % 09/16/22 12:55 [place] % (Auto) 6.6 % 09/16/22 12:55 Eos % (Auto) 0.6 % 09/16/22 12:55 Baso % (Auto) 0.4 % 09/16/22 12:55 Neut # (Auto) 4.96 10^3/uL (1.8-7.7) 09/16/22 12:55 Lymph # (Auto) 1.6 10^3/uL (0.8-4.8) 09/16/22 12:55 [place] # (Auto) 0.5 10^3/uL (0.2-0.9) 09/16/22 12:55 Eos # (Auto) 0.0 10^3/uL (0.0-0.8) 09/16/22 12:55 Baso # (Auto) 0.0 10^3/uL (0.0-0.1) 09/16/22 12:55 Nucleated RBC % (auto) 0 % 09/16/22 12:55 Nucleated RBCs # 0.0 /100WBC 09/16/22 12:55 Sodium 125 mmol/L (136-145) L 09/16/22 12:55 Potassium 4.0 mmol/L (3.5-5.1) 09/16/22 12:55 Chloride 84 mmol/L (98-107) L 09/16/22 12:55 Carbon Dioxide 27 mmol/L (22-29) 09/16/22 12:55 Anion Gap 18.0 (5-19) 09/16/22 12:55 BUN 14 mg/dL (8-23) 09/16/22 12:55 Creatinine 0.6 mg/dL (0.5-0.9) 09/16/22 12:55 GFR Calculation Not Reportable 09/16/22 12:55 Glucose 110 mg/dL (65-115) 09/16/22 12:55 Calculated Osmolality 261 mOsm/kg (285-295) L 09/16/22 12:55 Calcium 9.9 mg/dL (8.5-10.5) 09/16/22 12:55 Total Bilirubin 0.5 mg/dL (0.15-1.2) 09/16/22 12:55 AST 28 U/L (0-32) 09/16/22 12:55 ALT 32 U/L (0-33) 09/16/22 12:55 Alkaline Phosphatase 31 U/L (35-105) L 09/16/22 12:55 Total Protein 7.9 g/dL (6.6-8.7) 09/16/22 12:55 Albumin 4.7 g/dL (3.5-5.2) 09/16/22 12:55 Globulin 3.2 g/dL (1.3-4.6) 09/16/22 12:55 Urine Color Yellow (Yellow) 09/16/22 17:40 Urine Appearance Hazy (CLEAR) A 09/16/22 17:40 Urine pH 7 (5-7) 12 17:40 Ur Specific [place] 1.010 (1.005-1.030) 09/16/22 17:40 Urine Protein 1+ (Negative) H 09/16/22 17:40 Urine Glucose (UA) Norm (Normal) 09/16/22 17:40 Urine Ketones 1+ (Negative) H 09/16/22 17:40 Urine Blood 2+ (Negative) H 09/16/22 17:40 Urine Nitrate Negative (Negative) 09/16/22 17:40 Urine Bilirubin Neg (Negative) 09/16/22 17:40 Urine Urobilinogen Norm mg/dL (Negative) 09/16/22 17:40 Ur Leukocyte Esterase Trace (Negative) H 09/16/22 17:40 Urine RBC 0-4 /hpf (0-2) H 09/16/22 17:40 Urine WBC 0-4 /hpf (0-5) H 09/16/22 17:40 Ur Squamous Epith Cells 25-40 /hpf (0-5) H 09/16/22 17:40 Amorphous Sediment Not Reportable 09/16/22 17:40 Urine Bacteria 1+ /hpf (NONE) H 09/16/22 17:40 Nasal Influ A H1 2008 PCR Not detected (NOT DETECT) 09/16/22 17:50 Coronavirus 229E (PCR) Not detected (NOT DETECT) 09/16/22 17:50 Influenza A (H1) PCR Not detected (NOT DETECT) 09/16/22 17:50 Influenza A (H3) PCR Not detected (NOT DETECT) 09/16/22 17:50 Influenza Type A (PCR) Not detected (NOT DETECT) 09/16/22 17:50 Influenza Type B (PCR) Not detected (NOT DETECT) 09/16/22 17:50 SARS-CoV-2 (PCR) Detected (NOT DETECT) A 09/16/22 17:50 Critical Care Time Critical Care Time: Critical Care Time: Yes Total Critical Care Time: 40 Attestation: The high probability of a clinically significant, sudden or life threatening deterioration of the patient's cv system(s) required my full and direct attention, intervention and personal management. The critical care time is as shown. This time is in addition to time spent performing any reported procedures but includes the following: [x] Data and vital sign review and interpretation [x] Patient assessment, examination and intervention [x] Documentation [x] Medication orders and management Discharge Plan Discharge Patient Disposition: Admitted As Inpatient Admit Provider: Tania Downey Clinical Impression: Atrial fibrillation with RVR, Hyponatremia Condition: Stable Discharge Diet: Cardiac Discharge Activity: Resume usual activity and Increase activity as tolerated Coding Level of Care Code ED Content Development Specialist for Chg Fwd Exam Comprehensive
--- NOTE | 2022-09-16 17:31 | ECG_ITS ---
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 Measurements Intervals [place] Rate: 123 P: 0 LA: 0 QRS: 9 QRSD: 85 T: 68 QT: 293 QTc: 420 Interpretive Statements ATRIAL FIBRILLATION WITH RAPID VENTRICULAR RESPONSE WITH ABERRANT CONDUCTION OR VENTRICULAR PREMATURE COMPLEXES NONSPECIFIC ST & T-WAVE ABNORMALITY ABNORMAL RHYTHM ECG Compared to ECG 01/28/2022 08:26:34 Ventricular premature complex(es) now present Aberrant conduction of supraventricular beat(s) now present Ventricular-paced complex(es) or rhythm no longer present T-wave abnormality still present Electronically Signed On 09-17-2022 13:12:18 HIDE MILL WORKER by Lexi Edwards M.D. [id number]
[2022-09-16] MEDS: hyDRALAzine 20 mg/mL INJ 1 mL 10 MG IVP (17:52)
[2022-09-16] MEDS: dilTIAZem 5 mg/mL SDV 5 mL 20 MG IVP (17:52)
[2022-09-16] MEDS: sotalol 80 mg Tablet PO (17:55)
--- NOTE | 2022-09-16 17:57 | PC.NURSE ---
Assumed care 175, 09/16/22.
[2022-09-16 18:13] LABS: Glucose Urine UA Norm (Normal); Protein Urine 1+ (Negative); Urine Appearance Hazy (CLEAR); Urine Color Yellow (Yellow); pH Urine 7 (5-7)
[2022-09-16 18:14] LABS: Add Urine Culture? No; Add Urine Microscopic? YES; Bacteria Urine 1+ /hpf; Bilirubin Urine Neg (Negative); Blood Urine 2+ (Negative); Ketones Urine 1+ (Negative); Leukocyte Esterase Urine Trace (Negative); Nitrate Urine Negative (Negative); RBC Urine 0-4 /hpf (0-2); Squamous Epithelial Cell Urine 25-40 /hpf (0-5); Urobilinogen Urine Norm (Negative); WBC Urine 0-4 /hpf (0-5)
[2022-09-16] MEDS: sodium chloride 0.9% 500 ML 999 ML IV (18:54)
--- NOTE | 2022-09-16 19:33 | P.HP_ITS ---
Providers/Chief Complaint Primary Care Provider: LEILA Carrera Chief Complaint: weakness History of Present Illness Dona Jimenez is a 77 year old female with past medical history of atrial fibrillation, class III CHF, COPD, depression, hypertension, GERD, lumbar stenosis, osteoporosis, pacemaker, nicotine dependence presented to the hospital from the [place] [facility]. Patient stated that she had a fever and is dehydrated. She says last week on Fridays pretty much when her symptoms started. She had a temp recorded at 100.3 on Tuesday which resolved later on. She also had diarrhea which has also resolved at this time. She says she has been drinking a lot of fluids to keep herself hydrated. She also complains of some nasal congestion and mild headache. Denies any shortness of breath at this time. Also states that she has been labeled having a history of COPD however she does not carry that diagnosis. She has never been formally tested for it. She stopped smoking in December. Does not have a chronic cough. Does not use inhalers. 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 At this time she says her main issue is palpitations and otherwise is asymptomatic at this time. She denies being nauseous. Denies chest pain, abdominal pain, dysuria, cough, shortness of breath, urinary urgency. She takes Xarelto and sotalol for her atrial fibrillat ion. She took her medications today. She prefers that we do not change any of her medications without consulting cardiology. She would like to see Dr. Edwards during hospital stay if possible. ER course: On arrival heart rate 105, blood pressure 137/77, respiratory 17, temp 97.6, saturating 98%. Heart rate 70-80 initially while in triage however when EKG was done heart rate was higher in the 140s that lasted for about 5 minutes and then decreased back down to 70s and 80s. Initially Cardizem was ordered but canceled since her rate came down on its own. She was given her sotalol dose early (80 mg ) as well as hydralazine 10 IV push. Eventually patient was given diltiazem 20x1 and placed on a diltiazem drip. Flu swab, COVID swab ordered. Results are pending at this time. ER requested hospital admission. Medications/Allergies Home Medications Medication Instructions Recorded Confirmed Last Taken Type rivaroxaban 20 mg tablet (Xarelto) 20 mg PO BEDTIME 01/21/22 09/16/22 09/15/22 History 20 rosuvastatin 10 mg tablet 10 mg PO BEDTIME 01/21/22 09/16/22 09/15/22 History 10 hydrochlorothiazide 25 mg tablet 50 mg PO DAILY #180 tabs 08/05/22 09/07/22 Unknown Rx alprazolam 0.25 mg tablet 0.25 mg PO BID PRN Anxiety 09/06/22 09/16/22 Unknown History cholecalciferol (vitamin D3) 25 25 mcg PO DAILY 09/06/22 09/16/22 09/15/22 History mcg (1,000 unit) capsule 25 levothyroxine 25 mcg capsule 25 mcg PO DAILY 09/06/22 09/16/22 09/16/22 History 25 magnesium oxide 250 mg PO DAILY 09/06/22 09/16/22 09/15/22 History 250 pantoprazole 20 mg tablet,delayed 20 mg PO DAILY PRN 09/06/22 09/07/22 Unknown History release potassium gluconate 600 mg (99 mg) 600 mg PO DAILY 09/06/22 09/16/22 09/15/22 History tablet 99 mg sotalol 80 mg tablet 80 mg PO 2100 #90 tabs 09/06/22 09/16/22 09/16/22 Rx 80 sotalol 80 mg tablet 120 mg PO 0900 #135 tabs 09/06/22 09/16/22 09/16/22 Rx 120 valsartan 160 mg tablet 160 mg PO BID #180 tabs 09/06/22 09/07/22 Unknown Rx hydrochlorothiazide 25 mg tablet 50 mg PO DAILY 09/16/22 09/16/22 09/16/22 History 50 sotalol 80 mg tablet mg 09/16/22 Unknown History valsartan 160 mg tablet 160 mg PO BID 09/16/22 09/16/22 09/16/22 History 160 Allergies Allergy/AdvReac Type Severity Reaction Status Date / Time codeine Allergy Severe ALGY-Difficulty Verified 09/07/22 11:02 Breathing metronidazole [From Flagyl] Allergy Intermediate ALGY-Rash Verified 09/07/22 11:02 clonidine AdvReac Mild ADR-Confusi Verified 09/07/22 11:02 on lactose AdvReac Mild ADR-Gastrointestinal Verified 09/07/22 11:02 Upset lisinopril AdvReac Mild ADR-Cough Verified 09/07/22 11:02 PFSH Acute PFSH: Medical History Atrial fibrillation Cataract BOTH EYES CHF (congestive heart failure), NYHA class III CHF exacerbation Cholesteatoma Chronic eustachian tube dysfunction Cigarette nicotine dependence COPD (chronic obstructive pulmonary disease) COPD (chronic obstructive pulmonary disease) with chronic bronchitis Depression Deviated septum Diverticulosis Dysphasia Enrolled in chronic care management Essential hypertension Fatigue GERD (gastroesophageal reflux disease) Hearing loss History of nonmelanoma skin cancer Lower extremity edema Lumbar compression fracture Lumbar pain Lumbar stenosis with neurogenic claudication Nasal turbinate hypertrophy Opioid contract exists Oral thrush Osteoporosis Pacemaker Perforated left tympanic membrane on examination Spinal stenosis of lumbar region with radiculopathy Tobacco use disorder Surgical History H/O bilateral salpingo-oophorectomy H/O kyphoplasty H/O rotator cuff surgery LEFT AND RIGHT Hx of mastoidectomy Family History Mother CAD (coronary artery disease) Father CAD (coronary artery disease) Brother Cancer Sister Cancer Denies family history of Family history of exposure to [employer] [place] Social History Smoking and tobacco status: former smoker Alcohol intake: never Lives independently: Yes Household members: none Marital status: / Current occupational status: retired History of recent travel: No Vitals/I&O/Wt Last Vital Signs Temp 97.6 F 09/16/22 12:47 Pulse 107 H 09/16/22 18:40 Resp 17 09/16/22 18:40 BP 137/77 09/16/22 18:40 Pulse Ox 98 09/16/22 18:40 O2 Del Method 09/16/22 12:47 Weight last 48 hrs Weight 64.41 kg Physical Exam Narrative: General: Alert oriented x3, patient seen laying in bed appearing comfortable at this time. No acute distress. Appears well. Is not appearing lethargic or fatigued. HEENT: Normocephalic, atraumatic, EOMI, breathing normally on room air Cardio: Irregularly irregular, tachycardic, normal S1-S2, no gross murmurs Respiratory: Clear to auscultation bilaterally, no wheezes no rhonchi appreciated GI: Abdomen soft, nontender, nondistended, bowel sounds + Behavior: Appropriate and cooperative Extremities:no edema, no cyanosis Data 09/16/22 12:55 09/16/22 12:55 A&P Assessment and plan (1) Atrial fibrillation with RVR: (2) Hyponatremia: (3) Atrial fibrillation: (4) Pacemaker: (5) GERD (gastroesophageal reflux disease): Qualifiers: Esophagitis presence: esophagitis presence not specified Qualified Code(s): K21.9 - Gastro-esophageal reflux disease without esophagitis (6) COPD (chronic obstructive pulmonary disease): (7) Essential hypertension: (8) Smokers' cough: (9) Depression: Plan #Generalized weakness #Atrial fibrillation with RVR #Chronic anticoagulation with Xarelto #Chronic systolic congestive heart failure #COPD?? #Dyslipidemia #Hypertension #Hyponatremia - Last stress test January 2022. EF 52%. Normal MPI ? Last echo January 2022: EF 55 to 60% no wall motion abnormalities. Moderate concentric left ventricular hypertrophy ? Patient was admitted in December 2021 with A. fib RVR and started on sotalol. She had a MARIANO and was cardioverted. She was discharged home on sotalol 80 in the morning and 40 in the evening. 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 She quit smoking in December 2021 and cut back on caffeine as well. She was seen at the cardiology office with bradycardia and heart rate in low 50s and isolated PVC dose of sotalol was decreased further to 40 twice a day. Then patient went back into A. fib RVR with heart rate 113. She went to the ER and was given 80 mg of sotalol and cardioversion was attempted but was not successful. Her dose of sotalol was increased and due to symptomatic bradycardia dual-chamber pacemaker was implanted. -Patient is already received sotalol 80 mg in ER today. ? We will continue patient on Cardizem drip and titrate ? Chest x-ray reviewed. No acute pulmonary change. Chronic interstitial thickening and hyperinflation seen. ? Continue patient's home medications. Xanax 0.25 twice daily as needed, levothyroxine 25 daily, mag oxide to 50 daily, pantoprazole 20 daily as needed, Xarelto 20 daily, rosuvastatin 10 daily ? Sotalol 120 AM, 80 p.m. ? Hold valsartan 160 twice daily as patient is on Cardizem at this time. Hold hydrochlorothiazide for now. ? Since patient has taken all her medications today. All medications to start in a.m. ? Consider cardiology consult ? Await flu swab, COVID swab. Check procalcitonin ? Sodium 125 on admission, chloride 84. Patient most likely dehydrated. We will check urine sodium, serum and urine osmolalities. ? Start on normal saline 75 cc/h. Check sodium every 4 hours. Correction no more than 6-8 in 24 hours daily. -COVID returned to be positive. Patient symptom onset was last week on Tuesday. Her only symptom at this time is headache and some nasal congestion. Denies any shortness of breath. Says she does not have a formal diagnosis of COPD and does not know why this is on her chart. I will hold off on starting steroids or remdesivir at this time. She is saturating 95% on room air. Afebrile. Will check procalcitonin. Denies any sputum production at this time. ? Check BNP. Previous admission patient developed rate related heart failure. May consider low-dose Lasix pending clinical course. ? Continue low rate IV fluids for now. Full code DVT prophylaxis: Xarelto should suffice Attestations Medical Necessity Statement*: Patient across correct patient to cross greater than 2 midnight stay for management of A. fib RVR. Coding Level of Care Code Acute Custody Assistant for Chg Fwd Diagnoses Atrial fibrillation with RVR I48.91 Hyponatremia E87.1 Atrial fibrillation I48.91 Pacemaker Z95.0 GERD (gastroesophageal reflux disease) K21.9 Esophagitis presence: esophagitis presence not specified COPD (chronic obstructive pulmonary disease) J44.9 Essential hypertension I10 Smokers' cough J41.0 Depression F32.9
[2022-09-16] MEDS: dilTIAZem 100 MG in sodium chloride 0.9% (add-van) 100 ML 10 MG IV (19:37)
[2022-09-16 19:41] LABS: Adenovirus Not Detected (NOT DETECT); Chlamydia Pneumoniae Not Detected (NOT DETECT); Coronavirus 229E,HKU1,NL63,OC4 Not Detected (NOT DETECT); Human Metapneumovirus Not Detected (NOT DETECT); Human Rhinovirus/Enterovirus Not Detected (NOT DETECT); Influenza A Not Detected (NOT DETECT); Influenza A H1 Not Detected (NOT DETECT); Influenza A H1-2009 Not Detected (NOT DETECT); Influenza A H3 Not Detected (NOT DETECT); Influenza B Not Detected (NOT DETECT); Mycoplasma Pneumoniae Not Detected (NOT DETECT); Parainfluenza Virus Type 1 Not Detected (NOT DETECT); Parainfluenza Virus Type 2 Not Detected (NOT DETECT); Parainfluenza Virus Type 3 Not Detected (NOT DETECT); Parainfluenza Virus Type 4 Not Detected (NOT DETECT); Respiratory Syncytial Virus A Not Detected (NOT DETECT); Respiratory Syncytial Virus B Not Detected (NOT DETECT); SARS-COV-2 Detected (NOT DETECT)
[2022-09-16 19:53] LABS: Results from GENMARK
--- NOTE | 2022-09-16 20:06 | PC.NURSE ---
Attempted Pt report, no nurse available.
--- NOTE | 2022-09-16 20:15 | PC.NURSE ---
Report called @ 2016 to Ray MOSHER
[2022-09-16 20:52] LABS: Lactic Sepsis W/Reflex 1.4 mmol/L (0.5-2.2)
[2022-09-16 21:03] LABS: NT Pro B Type Natriuretic Pept 3647 pg/mL (0-450); Procalcitonin 0.07 ng/mL (0-0.5); Thyroid Stimulating Hormone 1.03 uIU/mL (0.27-4.20)
[2022-09-16] MEDS: sodium chloride 0.9% 1,000 ML 75 ML IV (21:09)
[2022-09-16 21:14] LABS: Magnesium 1.7 mg/dL (1.7-2.3)
[2022-09-16 21:29] LABS: Anion Gap 14.8 (5-19); Blood Urea Nitrogen 12 mg/dL (8-23); Calcium 8.8 mg/dL (8.5-10.5); Carbon Dioxide 25 mmol/L (22-29); Chloride 89 mmol/L (98-107); Glucose 98 mg/dL (65-115); Osmolality Calculated 260 mOsm/kg (285-295); Potassium 3.8 mmol/L (3.5-5.1); Sodium 125 mmol/L (136-145)
[2022-09-17] VITALS (36 sets, daily range): BP systolic 101–166; BP diastolic 53–125; PULSE 74–121; RESP 13–24; TEMP 36.5–37.1; O2SAT 92–98
[2022-09-17] MEDS: acetaminophen 325 mg Tablet 650 MG PO ×3 (00:03→23:12)
[2022-09-17 01:27] LABS: Anion Gap 14.2 (5-19); Blood Urea Nitrogen 13 mg/dL (8-23); Calcium 8.7 mg/dL (8.5-10.5); Carbon Dioxide 25 mmol/L (22-29); Chloride 89 mmol/L (98-107); Glucose 107 mg/dL (65-115); Osmolality Calculated 261 mOsm/kg (285-295); Potassium 3.2 mmol/L (3.5-5.1); Sodium 125 mmol/L (136-145)
[2022-09-17 01:43] LABS: Vitamin B12 509 pg/mL (232-1245)
[2022-09-17] MEDS: potassium chloride ER 20 mEq Tablet 40 MEQ PO ×2 (03:27→18:18)
[2022-09-17 05:17] LABS: Urine Random Sodium 62 mmol/L
[2022-09-17] MEDS: dilTIAZem 100 MG in sodium chloride 0.9% (add-van) 100 ML 10 MG IV ×2 (05:55→15:16)
[2022-09-17 05:56] LABS: Anion Gap 14.6 (5-19); Blood Urea Nitrogen 10 mg/dL (8-23); Calcium 8.9 mg/dL (8.5-10.5); Carbon Dioxide 26 mmol/L (22-29); Chloride 88 mmol/L (98-107); Glucose 100 mg/dL (65-115); Magnesium 1.7 mg/dL (1.7-2.3); Osmolality Calculated 259 mOsm/kg (285-295); Potassium 3.6 mmol/L (3.5-5.1); Sodium 125 mmol/L (136-145)
[2022-09-17] MEDS: sotalol 80 mg Tablet 120 MG PO ×2 (08:16→20:59)
[2022-09-17] MEDS: magnesium lactate 84 mg Tablet PO ×2 (08:16→18:18)
[2022-09-17] MEDS: cholecalciferol (vitamin D3) 1,000 unit Tablet 1000 UNIT PO (08:16)
[2022-09-17] MEDS: atorvastatin 40 mg Tablet PO (08:16)
[2022-09-17] MEDS: levothyroxine 25 mcg Tablet PO (08:16)
--- NOTE | 2022-09-17 08:19 | PC.PHAR ---
va faxing med list
[2022-09-17] MEDS: sodium chloride 0.9% 1,000 ML 75 ML IV (10:37)
--- NOTE | 2022-09-17 11:07 | PC.CHAP ---
Pastoral Care Encounter/Spiritual Assessment Type of Contact [] Declined keyseating machine set up operator visit [] Patient/Family/Request visit [] Outpatient visit [] Follow-up visit [] Physician referral [] Code/Alert [x] Routine visit [] Staff referral [] Actively dying [] Patient sleeping [] Family support [] [] Out of room [] Palliative care [] [] Receiving care in room [] Pre-surgical visit [] Trauma [] Long length of stay [] ICU visit [] Other: Relational/Emotional Strength [x] Patient feels connected with others/family/visitors/staff [] Distress [] Loneliness/isolation [] Abandonment Spirituality of Patient [x] Person of Talya [] Attends Faith of their [place]a [x] Believes in Prayer [x] Reads Bible or Taoism materials [] There are Spiritual issues to be addressed Child Support Agent Interventions [x] Prayer [] Active listening [] Non-anxious presence [] Spiritual/emotional support [] Crisis/trauma care [] Spiritual counseling [] Bereavement support [] Provided bereavement packet [] Provided Bible/devotional materials [] Provided toy/stuffed animal, coloring book to patient or family member [] Provided Communion [] Anointing/[place] [] Salvation [x] Completed spiritual assessment [] Other: Impact on Illness or Injury [] Angry [] Fearful [] Anxious [] Often cries [] Exhaustion [] Unable to work [] Unable to attend congregation [] Unable to walk/stand [] Unable to read [] Unable to drive [] Unable to eat/drink [] Unable to sleep [] Unable to be with family [] Patient intubated [] Other: Summary Time spent with patient 15 min
[2022-09-17] MEDS: ALPRAZolam 0.5 mg Tablet 0.25 MG PO ×2 (14:07→23:12)
[2022-09-17] MEDS: ondansetron 2 mg/ML SDV 2 mL 4 MG IVP (14:07)
[2022-09-17 17:40] LABS: Sodium 126 mmol/L (136-145)
--- NOTE | 2022-09-17 20:02 | PM.PN ---
Subjective Subjective: She states she is doing quite all right. States that she is not having trouble breathing. Her heart rate has been vary staying in the 90s at times getting up into 100 and teens on Cardizem drip 10 mg/h. She is having some nausea/feeling queasy. She denies any vomiting or diarrhea. Vitals/I&O/Wt Last Vital Signs Temp 98.5 F 09/17/22 19:52 Pulse 98 09/17/22 19:52 Resp 18 09/17/22 19:52 BP 155/102 09/17/22 19:52 Pulse Ox 96 09/17/22 19:52 O2 Del Method 09/17/22 19:52 09/17/22 09/17/22 09/17/22 06:59 14:59 22:59 Intake Total 436.458 / 7871.753 4817 / 1240 625.5 / 1865.5 Output Total 700 / 1050 400 / 400 400 / 800 Balance -263.542 / 161.458 840 / 840 225.5 / 1065.5 Weight last 48 hrs Weight 64.41 kg Physical Exam Const: COMMON NORMALS: patient oriented x3 and alert GENERAL APPEARANCE: cooperative ORIENTATION/CONSCIOUSNESS: Yes awake HENMT: COMMON NORMALS: oropharynx normal Neck/C-Spine: COMMON NORMALS: no JVD Resp: COMMON NORMALS: normal respiratory effort and clear to auscultation bilaterally AUSCULTATION: clear to auscultation bilaterally Cardio: COMMON NORMALS: no JVD, S1 normal heart sound present, S2 normal heart sound present and No murmurs present (Cardio) RATE: tachycardic RHYTHM: abnormal rhythm irregularly irregular HEART SOUNDS: S1 normal heart sound present and S2 normal heart sound present GI: COMMON NORMALS: Normal to inspection, nondistended, normoactive bowel sounds present, Soft to palpation and non-tender PALPATION: Yes Soft to palpation Extremity: COMMON NORMALS: no joint enlargement and no pedal edema Neuro: COMMON NORMALS: patient oriented x3 and moves all extremities SENSORIUM/ORIENTATION: Yes alert Skin: COMMON NORMALS: no rashes or lesions noted GENERAL SKIN EXAM: no rashes or lesions noted Data 09/16/22 12:55 09/17/22 17:08 A&P Assessment and plan (1) Atrial fibrillation with RVR: Heart rates overall better, but still not optimally controlled. In the 90s, but ranging in the 100 teens while on Cardizem 10 mg/h. Has been continued on sotalol. Discussed with her cell support operator, will increase sotalol to 120 mg twice daily. Continue Cardizem drip. Wean drip. If converts to sinus. Continue cardiac monitoring. We will additionally replace potassium and magnesium, give 40 mg p.o. potassium, 1 g IV magnesium. (2) Hyponatremia: Unchanged with IV fluids. Will discontinue. Urine sodium 62. Osmolality pending. With suspect SIADH with acute viral infection. Acute improvement as she is improving from COVID. We will add sodium chloride tablets. (3) COVID-19: Moderate symptoms with fatigue, nausea. Possible SIADH. Does not have severe illness currently, discussed with her at risk of acute illness secondary to underlying comorbidities. She requires remdesivir and she denies that she has COPD, states it was treated on his treated by her previous primary care provider. Similarly with CHF. Continue supportive care. Antiemetics as needed. Monitor oxygenation and for progression to severe illness. (4) Atrial fibrillation: (5) Pacemaker: (6) GERD (gastroesophageal reflux disease): Qualifiers: Esophagitis presence: esophagitis presence not specified Qualified Code(s): K21.9 - Gastro-esophageal reflux disease without esophagitis (7) COPD (chronic obstructive pulmonary disease): (8) Essential hypertension: (9) Smokers' cough: (10) Depression: Plan #Generalized weakness #Chronic anticoagulation with Xarelto #Chronic systolic congestive heart failure Full code DVT prophylaxis: Xarelto should suffice Attestations Medical Necessity Statement*: Continue admission for optimization of control of A. fib, management of hyponatremia, COVID-19 infection. Coding Level of Care Code Acute Inspector Final Assembly Electrical for [facility] Fwd Diagnoses Atrial fibrillation with RVR I48.91 Hyponatremia E87.1 COVID-19 U07.1 Atrial fibrillation I48.91 Pacemaker Z95.0 GERD (gastroesophageal reflux disease) K21.9 Esophagitis presence: esophagitis presence not specified COPD (chronic obstructive pulmonary disease) J44.9 Essential hypertension I10 Smokers' cough J41.0 Depression F32.9
[2022-09-17] MEDS: rivaroxaban 10 mg Tablet 20 MG PO (20:58)
--- NOTE | 2022-09-17 22:40 | ECG_ITS ---
[facility] Test Date: 2022-09-17 Pat Name: Dona Jimenez Department: Room: 104 Gender: Female Administrator Pesticide: : 1945 Requested By: Angel Quezada Order Number: [id number] Reading MD: Dez Rivero M.D. Measurements Intervals [place] Rate: 101 P: 0 AK: 0 QRS: 12 QRSD: 96 T: -70 QT: 364 QTc: 472 Interpretive Statements ATRIAL FIBRILLATION WITH RAPID VENTRICULAR RESPONSE With occasional paced ventricular beats NONSPECIFIC ST & T-WAVE ABNORMALITY Compared to ECG 09/16/2022 17:31:58 Aberrant conduction of supraventricular beat(s) no longer present Ventricular premature complex(es) no longer present T-wave abnormality still present Electronically Signed On 09-18-2022 16:45:11 ROTOFORMER BACKTENDER by Dez Rivero M.D. [email or web address]
[2022-09-18] VITALS (19 sets, daily range): BP systolic 97–153; BP diastolic 63–99; PULSE 72–120; RESP 12–19; TEMP 36.9–37.7; O2SAT 92–96
[2022-09-18] MEDS: dilTIAZem 100 MG in sodium chloride 0.9% (add-van) 100 ML IV (04:11)
[2022-09-18 06:02] LABS: Anion Gap 12.7 (5-19); Blood Urea Nitrogen 7 mg/dL (8-23); Carbon Dioxide 25 mmol/L (22-29); Chloride 90 mmol/L (98-107); Glucose 105 mg/dL (65-115); Magnesium 1.9 mg/dL (1.7-2.3); Osmolality Calculated 256 mOsm/kg (285-295); Phosphorus 2.8 mg/dL (2.5-4.5); Potassium 3.7 mmol/L (3.5-5.1); Sodium 124 mmol/L (136-145)
[2022-09-18] MEDS: sotalol 80 mg Tablet 120 MG PO ×2 (07:57→20:04)
[2022-09-18] MEDS: levothyroxine 25 mcg Tablet PO (07:58)
[2022-09-18] MEDS: atorvastatin 40 mg Tablet PO (07:58)
[2022-09-18] MEDS: cholecalciferol (vitamin D3) 1,000 unit Tablet 1000 UNIT PO (07:58)
[2022-09-18] MEDS: magnesium lactate 84 mg Tablet PO ×2 (07:58→17:22)
[2022-09-18] MEDS: potassium chloride ER 20 mEq Tablet 40 MEQ PO (09:55)
[2022-09-18 10:16] LABS: Sodium 129 mmol/L (136-145)
[2022-09-18] MEDS: sodium chloride 1 gm Tablet PO ×2 (10:43→17:22)
--- NOTE | 2022-09-18 13:13 | P.CONIM_ITS ---
Providers/Reason For Consult Consulting Physician/Specialty*: Cardiovascular medicine Reason for Consult*: Recurrent atrial fibrillation Requesting Physician: Hospitalist Attending Physician: Angel Quezada Primary Care Provider: LEILA Carrera History of Present Illness History of Present Illness Dona Jimenez is a 77 year old female who has a longstanding history of atrial fibrillation. She was first seen in February of last year for atrial fibrillation. She was on a beta-josiah at that time. Eliquis and verapamil were added to the regimen. At that time she was also on amlodipine for blood pressure which was stopped. After that she saw the nurse practitioner in the office several times where nothing was changed. Fast forward to December of this year when she saw Dr. Alford in the office. He recommended MARIANO followed by cardioversion. Before that could take place she was admitted to the hospital 8 days later on 06 January for atrial fibrillation and a rapid ventricular response. She was started on sotalol. On 08 January she had a transesophageal echo. This revealed an ejection fraction of 35%. 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 This was followed by direct-current cardioversion to sinus bradycardia. She went home on 09 January Less than 2 weeks later on the she came back to the emergency room with recurrent atrial fibrillation. She was readmitted to the hospital. She underwent sestamibi examination at that time which was negative for ischemia. She had another cardioversion to sinus rhythm. Because of the difficulty in maintaining sinus rhythm and using medications on January 27 she underwent dual- chamber pacemaker placement. She was then back in the emergency room in early February because she thought the pacemaker was malfunctioning and it felt hot . No problems were discovered. She had been doing fairly well and was seen in the office just the other day on the of last month. At that time she was on sotalol 120 mg in the morning and 80 mg in the evening. 2 days ago she came back to the emergency room feeling poor with fever, weakness and a very mild cough. She is positive for COVID. She is back in atrial f [facility]. The hospitalist apparently talked to Dr. Edwards yesterday and it was recommended she increase the sotalol to 120 mg twice a day. Patient is also on a Cardizem drip. I have now been asked to see her again today for management of the atrial fibrillation. An echo has been repeated and her ejection fraction is back to about 50%. She developed some mild heart failure when her ejection fraction was low. She has been a smoker, has COPD, depression, labile hypertension and chronic pain. She is quite talkative. One of her sons is in the room and took part in the discussion. Review of Systems Narrative: Her review of systems is negative Medications/Allergies Home Medications Medication Instructions Recorded Confirmed Last Taken Type rivaroxaban 20 mg tablet (Xarelto) 20 mg PO BEDTIME 01/21/22 09/16/22 09/15/22 History 20 rosuvastatin 10 mg tablet 10 mg PO BEDTIME 01/21/22 09/17/22 01/20/22 History alprazolam 0.25 mg tablet 0.25 mg PO BID PRN Anxiety 09/06/22 09/17/22 Unknown History cholecalciferol (vitamin D3) 25 25 mcg PO BEDTIME 09/06/22 09/17/22 Unknown History mcg (1,000 unit) capsule magnesium oxide 250 mg PO BEDTIME 09/06/22 09/17/22 Unknown History hydrochlorothiazide 25 mg tablet 50 mg PO QAM 09/16/22 09/17/22 Unknown History valsartan 160 mg tablet 160 mg PO BID 09/16/22 09/17/22 Unknown History acetaminophen 500 mg tablet 1,000 mg PO Q6H PRN Back Pain 09/17/22 09/17/22 Unknown History levothyroxine 25 mcg tablet 25 mcg PO DAILY@06 09/17/22 09/17/22 Unknown History pantoprazole 40 mg tablet,delayed 40 mg PO DAILY PRN unknown 09/17/22 09/17/22 Unknown History release (Protonix) potassium gluconate 595 mg (99 mg) 595 mg PO BEDTIME 09/17/22 09/17/22 Unknown History tablet sotalol 80 mg tablet See Rx Instructions .Route .COMPLEX 09/17/22 09/17/22 Unknown History Allergies Allergy/AdvReac Type Severity Reaction Status Date / Time codeine Allergy Severe ALGY-Difficulty Verified 09/17/22 10:17 Breathing metronidazole [From Flagyl] Allergy Intermediate ALGY-Rash Verified 09/17/22 10:17 clonidine AdvReac Mild ADR-Confusi Verified 09/17/22 10:17 on lactose AdvReac Mild ADR-Gastrointestinal Verified 09/17/22 10:17 Upset lisinopril AdvReac Mild ADR-Cough Verified 09/17/22 10:17 Current Medications Generic Name Dose Route Start Last Admin Trade Name Josh PRN Reason Stop Dose Admin Acetaminophen 650 mg 09/16/22 19:58 09/17/22 23:12 Acetaminophen 325 Mg Tablet PO 650 mg Q6H PRN Administration Mild/Mod Pain Or Temp >/= 101 Alprazolam 0.25 mg 09/16/22 21:06 09/17/22 23:12 Alprazolam 0.5 Mg Tablet PO 0.25 mg BID PRN Administration ANXIETY Atorvastatin Calcium 40 mg 09/17/22 09:00 09/18/22 07:58 Atorvastatin 40 Mg Tablet PO 40 mg DAILY FRANCIS Administration Diltiazem HCl 100 mg/ Sodium 100 mls @ 10 mls/hr 09/16/22 19:30 09/18/22 08:45 Chloride IV 10 mg/hr .Q10H FRANCIS 10 mls/hr Infusion 10 MG/HR Levothyroxine Sodium 25 mcg 09/17/22 09:00 09/18/22 07:58 Levothyroxine 25 Mcg Tablet PO 25 mcg DAILY FRANCIS Administration Magnesium Lactate 84 mg 09/17/22 09:00 09/18/22 07:58 Magnesium Lactate 84 Mg Tablet PO 84 mg BID FRANCIS Administration Non-Formulary Medication 250 mg 09/17/22 09:00 09/18/22 07:58 Magnesium Oxide PO Not Given DAILY FRANCIS Ondansetron HCl 4 mg 09/16/22 19:58 09/17/22 14:07 Ondansetron 2 Mg/Ml Sdv 2 Ml IVP 4 mg Q8H PRN Administration vomiting, or N/V if npo Rivaroxaban 20 mg 09/17/22 21:00 09/17/22 20:58 Rivaroxaban 10 Mg Tablet PO 20 mg BEDTIME FRANCIS Administration Sodium Chloride 1 gm 09/18/22 09:59 09/18/22 10:43 Sodium Chloride 1 Gm Tablet PO 1 gm BID FRANCIS Administration Sotalol HCl 120 mg 09/17/22 09:00 09/18/22 07:57 Sotalol 80 Mg Tablet PO 120 mg 0900 FRANCIS Administration Sotalol HCl 120 mg 09/17/22 21:00 09/17/22 20:59 Sotalol 80 Mg Tablet PO 120 mg 2100 FRANCIS Administration Vitamin D 1,000 unit 09/17/22 09:00 09/18/22 07:58 Cholecalciferol (Vitamin D3) 1,000 Unit Tablet PO 1,000 unit DAILY FRANCIS Administration PFSH Acute PFSH: Medical History Atrial fibrillation Cataract BOTH EYES CHF (congestive heart failure), NYHA class III CHF exacerbation Cholesteatoma Chronic eustachian tube dysfunction Cigarette nicotine dependence COPD (chronic obstructive pulmonary disease) COPD (chronic obstructive pulmonary disease) with chronic bronchitis Depression Deviated septum Diverticulosis Dysphasia Enrolled in chronic care management Essential hypertension Fatigue GERD (gastroesophageal reflux disease) Hearing loss History of nonmelanoma skin cancer Lower extremity edema Lumbar compression fracture Lumbar pain Lumbar stenosis with neurogenic claudication Nasal turbinate hypertrophy Opioid contract exists Oral thrush Osteoporosis Pacemaker Perforated left tympanic membrane on examination Spinal stenosis of lumbar region with radiculopathy Tobacco use disorder Surgical History H/O bilateral salpingo-oophorectomy H/O kyphoplasty H/O rotator cuff surgery LEFT AND RIGHT Hx of mastoidectomy Family History Mother CAD (coronary artery disease) Father CAD (coronary artery disease) Brother Cancer Sister Cancer Denies family history of Family history of exposure to [place] Social History Smoking and tobacco status: former smoker Alcohol intake: never Lives independently: Yes Household members: none Marital status: / Current occupational status: retired History of recent travel: No Vitals/I&O/Wt Last Vital Signs Temp 98.5 F 09/18/22 03:59 Pulse 108 H 09/18/22 05:16 Resp 19 H 09/18/22 03:59 BP 131/97 09/18/22 05:00 Pulse Ox 95 09/18/22 03:59 O2 Del Method 09/18/22 03:59 09/17/22 09/18/22 09/18/22 22:59 06:59 14:59 Intake Total 1254.25 / 2494.25 492.667 / 2986.917 82.25 / 82.25 Output Total 1050 / 1450 1700 / 3150 Balance 204.25 / 1044.25 -1207.333 / -163.083 82.25 / 82.25 Physical Exam Narrative: GENERAL: In general she is awake alert and in no distress HEENT: Exam within normal limits. NECK: Supple without jugular vein distention. The carotid upstroke is normal without bruits. BACK: Exam normal. LUNGS: Clear. HEART: Irregular rate and rhythm and tachycardic ABDOMEN: Benign without organomegaly or tenderness. EXTREMITIES: No edema. NEUROLOGIC: Exam normal. SKIN: Unremarkable. Data 09/16/22 12:55 09/18/22 09:40 A&P Assessment and plan (1) COVID-19: (2) Atrial fibrillation with RVR: (3) Hyponatremia: (4) Pacemaker: (5) CHF (congestive heart failure), NYHA class III: (6) COPD (chronic obstructive pulmonary disease): (7) Essential hypertension: (8) Cigarette nicotine dependence: Qualifiers: Substance use status: uncomplicated Qualified Code(s): F17.210 - Nicotine dependence, cigarettes, uncomplicated Plan She is back in atrial fibrillation once again despite fairly high doses of s otalol. This was likely brought on by the COVID. Given that there are a few options for treatment going forward. 1 would be to leave the sotalol dose at 120 mg twice a day and use the Cardizem for rate control now. 1 could consider a cardioversion early next week once the COVID has resolved completely. I doubt seriously that that we will keep her in sinus rhythm for the long run. The other option would be to stop the sotalol and pattern changer to amiodarone. Course there are the associated long-term side effects of amiodarone which needs to be considered. Third option would be to send her for an ablation. In the meantime of course she needs the anticoagulant. I will speak to Dr. Edwards on Tuesday morning and see if she can talk to the patient and figure out what to do in the short-term. In the meantime I would simply continue the sotalol and Cardizem at the current dose. Consult Attestations Medical Necessity Statement: Hospitalization for atrial fibrillation and COVID. Coding Level of Care Code New Pt Acute Pit Furnace Operator for Chg Fwd Patient Type New History Comprehensive Exam Comprehensive Medical Decision Making Moderate Complexity Diagnoses COVID-19 U07.1 Atrial fibrillation with RVR I48.91 Hyponatremia E87.1 Pacemaker Z95.0 CHF (congestive heart failure), NYHA class III I50.9 COPD (chronic obstructive pulmonary disease) J44.9 Essential hypertension I10 Cigarette nicotine dependence F17.210 Substance use status: uncomplicated
[2022-09-18] MEDS: dilTIAZem 100 MG in sodium chloride 0.9% (add-van) 100 ML 10 MG IV (13:49)
[2022-09-18] MEDS: rivaroxaban 10 mg Tablet 20 MG PO (20:03)
[2022-09-18] MEDS: ALPRAZolam 0.5 mg Tablet 0.25 MG PO (20:04)
--- NOTE | 2022-09-18 21:01 | PM.PN ---
Subjective Subjective: Still feels tired, but slightly better. Vitals/I&O/Wt Last Vital Signs Temp 99.8 F H 09/18/22 20:52 Pulse 119 H 09/18/22 20:00 Resp 17 09/18/22 20:00 BP 136/96 09/18/22 20:00 Pulse Ox 94 09/18/22 20:00 O2 Del Method 09/18/22 20:00 09/18/22 09/18/22 09/18/22 06:59 14:59 22:59 Intake Total 492.667 / 2986.917 842.917 / 842.917 360 / 1202.917 Output Total 1700 / 3150 300 / 300 Balance -1207.333 / -163.083 842.917 / 842.917 60 / 902.917 Physical Exam Const: COMMON NORMALS: patient oriented x3 and alert GENERAL APPEARANCE: cooperative ORIENTATION/CONSCIOUSNESS: Yes awake HENMT: COMMON NORMALS: oropharynx normal Neck/C-Spine: COMMON NORMALS: no JVD Resp: COMMON NORMALS: normal respiratory effort and clear to auscultation bilaterally AUSCULTATION: clear to auscultation bilaterally Cardio: COMMON NORMALS: no JVD, S1 normal heart sound present, S2 normal heart sound present and No murmurs present (Cardio) RATE: tachycardic RHYTHM: abnormal rhythm irregularly irregular HEART SOUNDS: S1 normal heart sound present and S2 normal heart sound present GI: COMMON NORMALS: Normal to inspection, nondistended, normoactive bowel sounds present, Soft to palpation and non-tender PALPATION: Yes Soft to palpation Extremity: COMMON NORMALS: no joint enlargement and no pedal edema Neuro: COMMON NORMALS: patient oriented x3 and moves all extremities SENSORIUM/ORIENTATION: Yes alert Skin: COMMON NORMALS: no rashes or lesions noted GENERAL SKIN EXAM: no rashes or lesions noted Data 09/16/22 12:55 09/18/22 09:40 A&P Assessment and plan (1) Atrial fibrillation with RVR: Cardiology assessment and recommendations appreciated. Currently continue Xarelto, Cardizem, pending additional discussion with her manufacturing engineer paint of a more definitive therapy on return on Tuesday. Additional replacement of potassium and magnesium. Continue cardiac monitoring. (2) Hyponatremia: Started on sodium chloride tablets. Now improving, sodium up to 129. Hold serum chloride tablet for now. Reassess sodium. Did not improve with IV hydration which was discontinued. Urine sodium 62. Osmolality pending. 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 Acute improvement as she is improving from COVID. We will add sodium chloride tablets. (3) COVID-19: Moderate symptoms with fatigue, nausea. Possible SIADH. No progression to severe COVID so far. Saturating well on room air. Low-grade temp 99.8 tonight. Continue supportive care. Antiemetics as needed. Monitor oxygenation and for progression to severe illness. (4) Atrial fibrillation: (5) Pacemaker: (6) GERD (gastroesophageal reflux disease): Qualifiers: Esophagitis presence: esophagitis presence not specified Qualified Code(s): K21.9 - Gastro-esophageal reflux disease without esophagitis (7) COPD (chronic obstructive pulmonary disease): (8) Essential hypertension: (9) Smokers' cough: (10) Depression: Plan #Generalized weakness #Chronic anticoagulation with Xarelto #Chronic systolic congestive heart failure Full code DVT prophylaxis: Xarelto should suffice Attestations Medical Necessity Statement*: Continue admission for optimization of control of A. fib with RVR, hyponatremia, COVID-19 Coding Level of Care Code Acute Harness Tier for g Fwd Diagnoses Atrial fibrillation with RVR I48.91 Hyponatremia E87.1 COVID-19 U07.1 Atrial fibrillation I48.91 Pacemaker Z95.0 GERD (gastroesophageal reflux disease) K21.9 Esophagitis presence: esophagitis presence not specified COPD (chronic obstructive pulmonary disease) J44.9 Essential hypertension I10 Smokers' cough J41.0 Depression F32.9
[2022-09-19] VITALS (11 sets, daily range): BP systolic 99–138; BP diastolic 52–99; PULSE 84–122; RESP 14–17; TEMP 36.2–36.8; O2SAT 92–95
[2022-09-19] MEDS: acetaminophen 325 mg Tablet 650 MG PO (03:24)
[2022-09-19 04:21] LABS: Blood Urea Nitrogen 10 mg/dL (8-23); Calcium 8.7 mg/dL (8.5-10.5); Carbon Dioxide 25 mmol/L (22-29); Chloride 90 mmol/L (98-107); Glucose 108 mg/dL (65-115); Osmolality Calculated 252 mOsm/kg (285-295); Sodium 121 mmol/L (136-145)
[2022-09-19 04:28] LABS: Anion Gap 10.2 (5-19); Potassium 4.2 mmol/L (3.5-5.1)
[2022-09-19] MEDS: magnesium lactate 84 mg Tablet PO ×2 (08:12→18:45)
[2022-09-19] MEDS: atorvastatin 40 mg Tablet PO (08:12)
[2022-09-19] MEDS: sotalol 80 mg Tablet 120 MG PO ×2 (08:12→21:26)
[2022-09-19] MEDS: levothyroxine 25 mcg Tablet PO (08:12)
[2022-09-19] MEDS: cholecalciferol (vitamin D3) 1,000 unit Tablet 1000 UNIT PO (08:12)
[2022-09-19] MEDS: sodium chloride 1 gm Tablet PO (09:50)
[2022-09-19 10:13] LABS: Add Urine Microscopic? YES; Bacteria Urine TRACE /hpf; Bilirubin Urine Neg (Negative); Blood Urine 2+ (Negative); Glucose Urine UA Norm (Normal); Ketones Urine Negative (Negative); Leukocyte Esterase Urine 1+ (Negative); Nitrate Urine Negative (Negative); Protein Urine Neg (Negative); RBC Urine 0-4 /hpf (0-2); Squamous Epithelial Cell Urine 25-40 /hpf (0-5); Urine Appearance Cloudy (CLEAR); Urine Color Yellow (Yellow); Urobilinogen Urine Norm (Negative); pH Urine 7 (5-7)
--- NOTE | 2022-09-19 10:56 | P.PN_ITS ---
Subjective Subjective: Dona is still in atrial fibrillation. Her heart rate is in the low 100s. She is on sotalol 120 mg twice a day and still on intravenous Cardizem. The Cardizem has infiltrated in her right arm and is causing some discomfort. She does not feel very good today. She thinks it might be some re sidual symptoms from the COVID. She is not short of breath. Vitals/I&O/Wt Last Vital Signs Temp 97.1 F L 09/19/22 04:43 Pulse 101 H 09/19/22 02:37 Resp 14 09/18/22 23:42 BP 112/82 09/18/22 23:42 Pulse Ox 94 09/18/22 20:00 O2 Del Method 09/18/22 23:42 09/18/22 09/19/22 09/19/22 22:59 06:59 14:59 Intake Total 460 / 1302.917 250 / 1552.917 Output Total 300 / 300 800 / 1100 250 / 250 Balance 160 / 1002.917 -550 / 452.917 -250 / -250 Physical Exam Narrative: GENERAL: In general she is comfortable at rest HEENT: Exam within normal limits. NECK: Supple without jugular vein distention. The carotid upstroke is normal without bruits. BACK: Exam normal. LUNGS: Clear. HEART: Irregular rate and rhythm ABDOMEN: Benign without organomegaly or tenderness. EXTREMITIES: No edema. NEUROLOGIC: Exam normal. SKIN: Unremarkable. Data 09/16/22 12:55 09/19/22 02:39 A&P Assessment and plan (1) Atrial fibrillation with RVR: (2) COVID-19: (3) Pacemaker: (4) CHF (congestive heart failure), NYHA class III: (5) COPD (chronic obstructive pulmonary disease): (6) Essential hypertension: (7) Cigarette nicotine dependence: Qualifiers: Substance use status: uncomplicated Qualified Code(s): F17.210 - Nicotine dependence, cigarettes, uncomplicated Plan I am going to have to discontinue the intravenous Cardizem because of the infiltration of the IV. I will switch her over to verapamil by mouth. Tomorrow we will need to make a decision as to repeat cardioversion on the sotalol versus changing over to amiodarone versus sending her for an ablation. The patient has read some things about amiodarone and is a little fearful of the side effects. She is not in favor of going to amiodarone. Attestations Medical Necessity Statement*: Hospitalization for treatment of atrial fibr illation. Coding Level of Care Code Established Pt Acute Referral Specialist for Ismael Schulte Patient Type Established History Detailed Exam Detailed Medical Decision Making Moderate Complexity Diagnoses Atrial fibrillation with RVR I48.91 COVID-19 U07.1 Pacemaker Z95.0 CHF (congestive heart failure), NYHA class III I50.9 COPD (chronic obstructive pulmonary disease) J44.9 Essential hypertension I10 Cigarette nicotine dependence F17.210 Substance use status: uncomplicated
--- NOTE | 2022-09-19 10:56 | PC.SOCIAL ---
IMM update IMM updated with patient. Verbalized an understanding. Copy Pg 2 provided. Initialled, dated, timed, and placed in chart.
[2022-09-19 15:59] LABS: Sodium 122 mmol/L (136-145)
[2022-09-19] MEDS: ondansetron 2 mg/ML SDV 2 mL 4 MG IVP (18:43)
[2022-09-19] MEDS: metoclopramide 5 mg/mL SDV 2 mL IVP (20:49)
[2022-09-19] MEDS: rivaroxaban 10 mg Tablet 20 MG PO (21:26)
[2022-09-19 21:28] LABS: Blood Urea Nitrogen 16 mg/dL (8-23); Calcium 9.1 mg/dL (8.5-10.5); Carbon Dioxide 22 mmol/L (22-29); Chloride 93 mmol/L (98-107); Glucose 112 mg/dL (65-115); Osmolality Calculated 262 mOsm/kg (285-295); Sodium 125 mmol/L (136-145)
[2022-09-19 21:33] LABS: Anion Gap 14.5 (5-19); Potassium 4.5 mmol/L (3.5-5.1)
--- NOTE | 2022-09-19 21:41 | PM.PN ---
Subjective Subjective: She is feeling somewhat more rundown today. She is just working with a adjunct professor. Anticipates to speak with Dr. Edwards tomorrow regarding additional plans for control of atrial fibrillation. Discussing with her regarding decreasing sodium this morning. She drinks quite a bit of water as she otherwise becomes tired, may be at risk of collapse. 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 Will resume sodium chloride tablets as well. Vitals/I&O/Wt Last Vital Signs Temp 98 F 09/19/22 19:34 Pulse 122 H 09/19/22 21:28 Resp 17 09/19/22 19:34 BP 120/95 09/19/22 21:28 Pulse Ox 93 09/19/22 19:34 O2 Del Method 09/19/22 08:00 09/19/22 09/19/22 09/19/22 06:59 14:59 22:59 Intake Total 250 / 1552.917 500 / 500 360 / 860 Output Total 800 / 1100 700 / 700 Balance -550 / 452.917 -200 / -200 360 / 160 Physical Exam Const: COMMON NORMALS: patient oriented x3 and alert GENERAL APPEARANCE: cooperative ORIENTATION/CONSCIOUSNESS: Yes awake HENMT: COMMON NORMALS: oropharynx normal Neck/C-Spine: COMMON NORMALS: no JVD Resp: COMMON NORMALS: normal respiratory effort and clear to auscultation bilaterally AUSCULTATION: clear to auscultation bilaterally Cardio: COMMON NORMALS: no JVD, S1 normal heart sound present, S2 normal heart sound present and No murmurs present (Cardio) RATE: tachycardic RHYTHM: abnormal rhythm irregularly irregular HEART SOUNDS: S1 normal heart sound present and S2 normal heart sound present GI: COMMON NORMALS: Normal to inspection, nondistended, normoactive bowel sounds present, Soft to palpation and non-tender PALPATION: Yes Soft to palpation Extremity: COMMON NORMALS: no joint enlargement and no pedal edema Neuro: COMMON NORMALS: patient oriented x3 and moves all extremities SENSORIUM/ORIENTATION: Yes alert Skin: COMMON NORMALS: no rashes or lesions noted GENERAL SKIN EXAM: no rashes or lesions noted Data 09/16/22 12:55 09/19/22 21:00 A&P Assessment and plan (1) Hyponatremia: Discussed with her to decrease water intake. She states she does not do well without drinking water and normally drinks quite a bit. This makes management of the hyponatremia challenging with SIADH. Severe reduction intake likely may make her feel unwell. Discussed with her to cut down on water intake given worsening sodium. Restarted sodium chloride tablet. Sodium appears to be gradually improving. Did not improve with IV hydration which was discontinued. Urine sodium 62. Osmolality pending. 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 Acute improvement as she is improving from COVID. We will add sodium chloride tablets. (2) Atrial fibrillation with RVR: Appreciate cardiology reassessment. Cardizem discontinued. Switched over to verapamil by mouth. Pending further decision regarding further therapy with consideration of cardioversion or ablation. She states will not take amiodarone due to concern for multiple associated adverse effects. Cardiology assessment and recommendations appreciated. Currently continue Xarelto, Cardizem, pending additional discussion with her adjunct professor of a more definitive therapy on return on Tuesday. States Eliquis made her right leg swell up which discontinued this when she stopped the medication. Continue cardiac monitoring. (3) COVID-19: Moderate symptoms with fatigue, nausea. Maintaining oxygenation. No progression to severe COVID so far. Saturating well on room air. Low-grade temp 99.8 tonight. Continue supportive care. Antiemetics as needed. Monitor oxygenation and for progression to severe illness. (4) Atrial fibrillation: (5) Pacemaker: (6) GERD (gastroesophageal reflux disease): Qualifiers: Esophagitis presence: esophagitis presence not specified Qualified Code(s): K21.9 - Gastro-esophageal reflux disease without esophagitis (7) COPD (chronic obstructive pulmonary disease): (8) Essential hypertension: (9) Smokers' cough: (10) Depression: Plan #Generalized weakness #Chronic anticoagulation with Xarelto #Chronic systolic congestive heart failure Full code DVT prophylaxis: Xarelto should suffice Attestations Medical Necessity Statement*: Continue admission for assessment management of hyponatremia with COVID-19, optimization of therapy for A. fib with RVR. Coding Level of Care Code Acute Fingerprinter for [facility] Fwd Diagnoses Hyponatremia E87.1 Atrial fibrillation with RVR I48.91 COVID-19 U07.1 Atrial fibrillation I48.91 Pacemaker Z95.0 GERD (gastroesophageal reflux disease) K21.9 Esophagitis presence: esophagitis presence not specified COPD (chronic obstructive pulmonary disease) J44.9 Essential hypertension I10 Smokers' cough J41.0 Depression F32.9
[2022-09-20] VITALS (19 sets, daily range): BP systolic 88–150; BP diastolic 62–100; PULSE 74–124; RESP 14–20; TEMP 36.5–36.6; O2SAT 93–96
[2022-09-20 06:39] LABS: Anion Gap 12.2 (5-19); Blood Urea Nitrogen 14 mg/dL (8-23); Calcium 9.1 mg/dL (8.5-10.5); Carbon Dioxide 25 mmol/L (22-29); Chloride 92 mmol/L (98-107); Glucose 107 mg/dL (65-115); Osmolality Calculated 261 mOsm/kg (285-295); Potassium 4.2 mmol/L (3.5-5.1); Sodium 125 mmol/L (136-145)
[2022-09-20] MEDS: magnesium lactate 84 mg Tablet PO ×2 (08:11→17:33)
[2022-09-20] MEDS: sotalol 80 mg Tablet 120 MG PO (08:13)
[2022-09-20] MEDS: atorvastatin 40 mg Tablet PO (08:15)
[2022-09-20] MEDS: cholecalciferol (vitamin D3) 1,000 unit Tablet 1000 UNIT PO (08:15)
[2022-09-20] MEDS: levothyroxine 25 mcg Tablet PO (08:15)
[2022-09-20] MEDS: FUROsemide 10 mg/mL SDV 2mL 20 MG IVP (09:24)
[2022-09-20 10:30] LABS: Basophils % 0.1 %; Eosinophils % 0.3 %; Hematocrit 37.5 % (37.0-47.0); Hemoglobin 12.7 g/dL (11.5-15.3); Lymphocytes # 1.3 10^3/uL (0.8-4.8); Lymphocytes % 17.6 %; Mean Corpuscular HGB Conc 33.9 g/dL (30.0-36.0); Mean Corpuscular Hemoglobin 31.4 pg (28.0-34.0); Mean Corpuscular Volume 92.8 fl (81-99); Mean Platelet Volume 8.8 fL (7.4-10.4); Monocytes # 0.4 10^3/uL (0.2-0.9); Monocytes % 4.8 %; Neutrophils # 5.57 10^3/uL (1.8-7.7); Neutrophils % 76.8 %; Nucleated Red Blood Cells % 0 %; Platelet Count 316 10^3/cmm (130-400); Red Blood Count 4.04 10^6/uL (4.1-5.3); Red Cell Distribution Width 14.2 % (12.1-15.1); White Blood Count 7.3 10^3/uL (4.0-10.0)
[2022-09-20 11:05] LABS: Chol HDL Ratio 3.05 mg/dL (0.0-4.40); Cholesterol 122 mg/dL (0-200); HDL Cholesterol 40 mg/dL (60-100); Iron 52 ug/dL (37-145); LDL Cholesterol Calculated 69 mg/dL (50-129); NT Pro B Type Natriuretic Pept 1524 pg/mL (0-450); Percent Saturation 18.7 % (20-50); Total Iron Binding Capacity 277 mcg/dl; Triglycerides 65 mg/dL (0-150); Unsaturated Iron Binding 225 ug/dL (112-347); VLDL Cholestrol Calculation 13 mg/dL (0-30)
[2022-09-20 12:07] LABS: Estmated Average Glucose 146; Hemoglobin A1C 6.7 % (4.0-6.0)
--- NOTE | 2022-09-20 13:03 | PM.PN ---
Subjective Subjective: 77-year-old female with past medical history of paroxysmal atrial fibrillation on sotalol and Xarelto, history of cardioversions, history of tachycardia induced cardiomyopathy, heart failure with improved ejection fraction, s/p permanent pacemaker implantation who is well-known to me as an outpatient. She was hospitalized with low-grade fever and palpitations. She was found to be COVID-19 positive and EKG showed atrial fibrillation with rapid ventricular response. Dose of sotalol was increased from 120 mg in the morning and 80 mg in the evening to 120 mg twice a day. She was also started on verapamil and was taken off Cardizem drip for rate control. She has remained in atrial fibrillation with rapid ventricular response. She complains of chest pain on and off for last few days since being in atrial fibrillation. Denies any significant shortness of breath but complains of intermittent palpitations. Medications: Reviewed: Yes Vitals/I&O/Wt Last Vital Signs Temp 97.7 F 09/20/22 07:33 Pulse 109 H 09/20/22 11:34 Resp 20 H 09/20/22 11:34 BP 137/99 09/20/22 11:34 Pulse Ox 96 09/20/22 11:34 O2 Del Method 09/19/22 08:00 09/19/22 09/20/22 09/20/22 22:59 06:59 14:59 Intake Total 360 / 860 350 / 1210 360 / 360 Output Total 900 / 1600 Balance 360 / 160 -550 / -390 360 / 360 Physical Exam Narrative: GENERAL: Averagely built and averagely nourished in no acute distress HEENT: Extraocular movement intact. No pallor or icterus. NECK: central trachea, mild JVD, No carotid bruit. CARDIOVASCULAR SYSTEM: S1-S2 irregular. No murmur appreciated RESPIRATORY SYSTEM: Chest clear to auscultation except at bases. No wheezes rhonchi or rubs heard. No use of accessory muscles. ABDOMEN: Soft, nontender and nondistended. Normal bowel sounds present. EXTREMITIES: No cyanosis or edema. No signs of chronic venous insufficiency. POLICEWOMAN: Patient is alert oriented ?3. No focal neurological deficits. SKIN: Normal turgor and temperature. PSYCH: Normal insight and judgment. Data 09/20/22 10:08 09/20/22 05:47 A&P Assessment and plan (1) Atrial fibrillation: A. fib with rapid ventricular response -Continue sotalol 120 mg am and increase evening dose to 160 mg and verapamil at present dose for now. -I had a long discussion with patient and his son Rodney about different options at this time. -Our options are continuing sotalol and attempting cardioversion versus changing from sotalol to amiodarone +/- CV. -Atrial fibrillation ablation is definitely a consideration. -Patient is concerned about side effects of amiodarone and states it is the last resort even after ablation does not work. -After going over risks and benefits of atrial fibrillation ablation as well as cardioversion procedure (including small risk of stroke), decision was made to proceed with cardioversion tomorrow if she remains in atrial fibrillation overnight and refer her outpatient to Dr. Ann at [facility] in [place] for A. fib ablation. (2) CHF (congestive heart failure), NYHA class III: Agree with Lasix today. (3) Hyponatremia: Patient is receiving salt tablet and is on fluid restriction (4) Essential hypertension: (5) COPD (chronic obstructive pulmonary disease): (6) GERD (gastroesophageal reflux disease): Qualifiers: Esophagitis presence: esophagitis presence not specified Qualified Code(s): K21.9 - Gastro-esophageal reflux disease without esophagitis Plan COVID-19 positive since 16 September: Management as per primary team Attestations Medical Necessity Statement*: Needs hospital stay for management of atrial fibrillation with rapid response Time Spent in Patient Care: Greater than 35 minutes Coding Level of Care Code Acute Face And Fill Packer for [facility] Fwd Diagnoses Atrial fibrillation I48.91 CHF (congestive heart failure), NYHA class III I50.9 Hyponatremia E87.1 Essential hypertension I10 COPD (chronic obstructive pulmonary disease) J44.9 GERD (gastroesophageal reflux disease) K21.9 Esophagitis presence: esophagitis presence not specified
[2022-09-20] MEDS: sodium chloride 1 gm Tablet PO (15:27)
[2022-09-20 16:14] LABS: Osmolality Urine 238 mOsm/kg (50-1200)
[2022-09-20 16:24] LABS: Osmolality Serum 265 mOsm/kg (278-305)
--- NOTE | 2022-09-20 16:32 | P.PN_ITS ---
Subjective Subjective: Hospital course, labs appreciated. Examination patient sitting comfortably in bed. Heart rate seems to be running from high 90s to 110s. States breathing is better. Continues to remain on room air. Complaining of heartburn especially while taking her oral meds. Otherwise hemodynamically stable. Vitals/I&O/Wt Last Vital Signs Temp 97.7 F 09/20/22 07:33 Pulse 120 H 09/20/22 16:13 Resp 18 09/20/22 16:13 BP 129/100 09/20/22 16:13 Pulse Ox 95 09/20/22 16:13 O2 Del Method 09/19/22 08:00 09/20/22 09/20/22 09/20/22 06:59 14:59 22:59 Intake Total 350 / 1210 360 / 360 Output Total 900 / 1600 Balance -550 / -390 360 / 360 Physical Exam Narrative: General: Alert oriented x3, patient seen laying in bed appearing comfortable at this time. No acute distress. Appears well. Is not appearing lethargic or fatigued. HEENT: Normocephalic, atraumatic, EOMI, breathing normally on room air Cardio: Irregularly irregular, tachycardic, normal S1-S2, no gross murmurs Respiratory: Clear to auscultation bilaterally, no wheezes no rhonchi appreciated GI: Abdomen soft, nontender, nondistended, bowel sounds + Behavior: Appropriate and cooperative Extremities:no edema, no cyanosis Data 09/20/22 10:08 09/20/22 05:47 A&P Assessment and plan (1) Hyponatremia: Suspected SIADH given acute viral infection. Fluid restriction up to 15 cc. Increase salt tablet to 1 g 3 times daily. Counseled patient to take medications regularly. IV Lasix 20 mg one-time. Repeat BMP in evening. (2) Atrial fibrillation with RVR: Appreciate cardiology reassessment. Cardizem discontinued. Switched over to verapamil by mouth. Pending further decision regarding further therapy with consideration of cardioversion or ablation. She states will not take amiodarone due to concern for multiple associated adverse effects. Continue sotalol 120 mg twice daily. Continue Xarelto. (3) COVID-19: Moderate symptoms with fatigue, nausea. Maintaining oxygenation. Keep oxygen supplementation over 90%. Start on dexamethasone 6 mg IV daily for next 10 days. (4) Atrial fibrillation: (5) Pacemaker: (6) GERD (gastroesophageal reflux disease): Qualifiers: Esophagitis presence: esophagitis presence not specified Qualified Code(s): K21.9 - Gastro-esophageal reflux disease without esophagitis (7) COPD (chronic obstructive pulmonary disease): (8) Essential hypertension: (9) Smokers' cough: (10) Depression: Plan Full code. Carbohydrate consistent diet. Fluids restriction 1500 cc. Xarelto will suffice for DVT prophylaxis Protonix for PUD prophylaxis Attestations Medical Necessity Statement*: Requires further hospitalization for management of atrial fibrillation with rapid ventricular response, hyponatremia, in setting of mild COVID-19 Time Spent in Patient Care: Greater than 35 minutes Coding Level of Care Code Acute Fan Installer for [facility] Fwd Diagnoses Hyponatremia E87.1 Atrial fibrillation with RVR I48.91 COVID-19 U07.1 Atrial fibrillation I48.91 Pacemaker Z95.0 GERD (gastroesophageal reflux disease) K21.9 Esophagitis presence: esophagitis presence not specified COPD (chronic obstructive pulmonary disease) J44.9 Essential hypertension I10 Smokers' cough J41.0 Depression F32.9
--- NOTE | 2022-09-20 16:57 | ECG_ITS ---
[facility] Test Date: 2022-09-20 Pat Name: Dona Jimenez Department: Room: 104 Gender: Female Aerosol Supervisor: : 1945 Requested By: Lexi Edwards Order Number: [id number] Dyana MD: Fanny Nash M.D. Measurements Intervals [place] Rate: 120 P: 0 HI: 0 QRS: 36 QRSD: 84 T: 120 QT: 290 QTc: 410 Interpretive Statements ATRIAL FIBRILLATION WITH RAPID VENTRICULAR RESPONSE NONSPECIFIC ST & T-WAVE ABNORMALITY Compared to ECG 09/17/2022 22:40:49 No significant changes Electronically Signed On 09-22-2022 0:09:07 AUTO TECHNICIAN MECHANIC by Fanny Nash M.D. [id number]
[2022-09-20] MEDS: dexamethasone 10 mg/mL INJ 6 MG IVP (17:33)
[2022-09-20] MEDS: pantoprazole DR 40 mg Tablet PO (17:33)
[2022-09-20 20:29] LABS: Blood Urea Nitrogen 13 mg/dL (8-23); Calcium 9.1 mg/dL (8.5-10.5); Carbon Dioxide 24 mmol/L (22-29); Chloride 91 mmol/L (98-107); Glucose 123 mg/dL (65-115); Osmolality Calculated 259 mOsm/kg (285-295); Sodium 124 mmol/L (136-145)
[2022-09-20] MEDS: sotalol 80 mg Tablet 160 MG PO (20:55)
[2022-09-20] MEDS: rivaroxaban 10 mg Tablet 20 MG PO (20:56)
--- NOTE | 2022-09-20 23:00 | ECG_ITS ---
[facility] Test Date: 2022-09-21 Pat Name: Dona Jimenez Department: Room: 104 Gender: Female Warp Placer: : 1945 Requested By: Lexi Edwards Order Number: [id number] Dyana MD: Lexi Edwards M.D. Measurements Intervals [place] Rate: 104 P: 0 TN: 0 QRS: 38 QRSD: 86 T: 0 QT: 362 QTc: 477 Interpretive Statements ATRIAL FIBRILLATION WITH RAPID VENTRICULAR RESPONSE NONSPECIFIC ST & T-WAVE ABNORMALITY ABNORMAL RHYTHM ECG Compared to ECG 09/20/2022 17:20:34 No significant changes Electronically Signed On 09-21-2022 14:00:19 HOST/HOSTESS HEAD by Lexi Edwards M.D. [id number]
[2022-09-21] VITALS (11 sets, daily range): BP systolic 110–188; BP diastolic 65–105; PULSE 60–113; RESP 14–18; TEMP 36.5–36.8; O2SAT 93–97
[2022-09-21 05:39] LABS: Basophils % 0.2 %; Eosinophils % 0.2 %; Hematocrit 33.6 % (37.0-47.0); Hemoglobin 11.5 g/dL (11.5-15.3); Lymphocytes # 0.8 10^3/uL (0.8-4.8); Lymphocytes % 13.5 %; Mean Corpuscular HGB Conc 34.2 g/dL (30.0-36.0); Mean Corpuscular Hemoglobin 31.9 pg (28.0-34.0); Mean Corpuscular Volume 93.1 fl (81-99); Monocytes # 0.2 10^3/uL (0.2-0.9); Monocytes % 2.5 %; Neutrophils # 5.03 10^3/uL (1.8-7.7); Neutrophils % 82.6 %; Nucleated Red Blood Cells % 0 %; Platelet Count 262 10^3/cmm (130-400); Red Blood Count 3.61 10^6/uL (4.1-5.3); Red Cell Distribution Width 14.1 % (12.1-15.1); White Blood Count 6.1 10^3/uL (4.0-10.0)
[2022-09-21 06:00] LABS: Alanine Aminotransferase 34 U/L (0-33); Albumin Level 3.5 g/dL (3.5-5.2); Alkaline Phosphatase 22 U/L (35-105); Anion Gap 13.5 (5-19); Aspartate Amino Transferase 20 U/L (0-32); Blood Urea Nitrogen 11 mg/dL (8-23); Calcium 8.9 mg/dL (8.5-10.5); Carbon Dioxide 26 mmol/L (22-29); Chloride 99 mmol/L (98-107); Globulin 2.3 g/dL (1.3-4.6); Glucose 134 mg/dL (65-115); Osmolality Calculated 279 mOsm/kg (285-295); Potassium 4.5 mmol/L (3.5-5.1); Sodium 134 mmol/L (136-145); Total Bilirubin 0.2 mg/dL (0.15-1.2); Total Protein 5.8 g/dL (6.6-8.7)
[2022-09-21] MEDS: sotalol 80 mg Tablet 120 MG PO ×2 (09:05→20:25)
[2022-09-21] MEDS: cholecalciferol (vitamin D3) 1,000 unit Tablet 1000 UNIT PO (09:06)
[2022-09-21] MEDS: pantoprazole DR 40 mg Tablet PO (09:07)
[2022-09-21] MEDS: atorvastatin 40 mg Tablet PO (09:07)
[2022-09-21] MEDS: magnesium lactate 84 mg Tablet PO ×2 (09:07→18:21)
[2022-09-21] MEDS: levothyroxine 25 mcg Tablet PO (10:24)
--- NOTE | 2022-09-21 10:34 | PC.SOCIAL ---
IMM Updated Updated pt on IMM. No questions voiced. Provided pt a copy. Initialed, dated, & timed copy in chart.
--- NOTE | 2022-09-21 12:22 | ANES.PREANE2 ---
Pre-Anesthetic Assessment Height/Weight: Height 1.68 m Weight 64.41 kg Temp Pulse Resp BP Pulse Ox O2 Del Method 98.2 F 105 H 18 128/105 96 09/21/22 11:36 09/21/22 11:36 09/21/22 11:36 09/21/22 11:36 09/21/22 11:36 09/19/22 08:00 Preop Diagnosis: Symptomatic bradycardia/atrial fibrillation cardioversion Familial anesthetic complications: None Was Beta Juaquin taken within 24 hours: N/A Was Clonidine taken within 24 hours: N/A Last intake: Solid: 09/20/22 1800 Liquid: 09/21/22 0800 Social Tobacco (quit december 2021; previously smoked 1 ppd x60 years ) Exam alert, oriented x 3, clear to auscultation bilaterally and regular rate & rhythm Airway Submandibular: within normal limits Cervical ROM: within normal limits Mallampati: Class II Dentition: false and partials History/ROS No significant history except as noted Pulmonary Chronic Obstructive Pulmonary Disease CV/HEM Atrial Fibrillation, Congestive Heart Failure (class III) and Hypertension pacemaker 2021 None reported Hepatic None reported GI Gastroesophageal Reflux Disease (well controlled ) dysphagia Metabolic Thyroid Disease Musc/skel Lower Back Pain Neuropsych Depression Anesthetic Plan ASA status: 4 Anesthesia: Anesthesia Evaluation and MAC Risk of > 500 ml blood loss (7ml/kg in children): No Medications/Allergies Home Medications Medication Instructions Recorded Confirmed Last Taken Type rivaroxaban 20 mg tablet (Xarelto) 20 mg PO BEDTIME 01/21/22 09/16/22 09/15/22 History 20 rosuvastatin 10 mg tablet 10 mg PO BEDTIME 01/21/22 09/17/22 01/20/22 History alprazolam 0.25 mg tablet 0.25 mg PO BID PRN Anxiety 09/06/22 09/17/22 Unknown History cholecalciferol (vitamin D3) 25 25 mcg PO BEDTIME 09/06/22 09/17/22 Unknown History mcg (1,000 unit) capsule magnesium oxide 250 mg PO BEDTIME 09/06/22 09/17/22 Unknown History hydrochlorothiazide 25 mg tablet 50 mg PO QAM 09/16/22 09/17/22 Unknown History valsartan 160 mg tablet 160 mg PO BID 09/16/22 09/17/22 Unknown History acetaminophen 500 mg tablet 1,000 mg PO Q6H PRN Back Pain 09/17/22 09/17/22 Unknown History levothyroxine 25 mcg tablet 25 mcg PO DAILY@06 09/17/22 09/17/22 Unknown History pantoprazole 40 mg tablet,delayed 40 mg PO DAILY PRN unknown 09/17/22 09/17/22 Unknown History release (Protonix) potassium gluconate 595 mg (99 mg) 595 mg PO BEDTIME 09/17/22 09/17/22 Unknown History tablet sotalol 80 mg tablet See Rx Instructions .Route .COMPLEX 09/17/22 09/17/22 Unknown History Allergies Allergy/AdvReac Type Severity Reaction Status Date / Time codeine Allergy Severe ALGY-Difficulty Verified 09/17/22 10:17 Breathing metronidazole [From Flagyl] Allergy Intermediate ALGY-Rash Verified 09/17/22 10:17 clonidine AdvReac Mild ADR-Confusi Verified 09/17/22 10:17 on lactose AdvReac Mild ADR-Gastrointestinal Verified 09/17/22 10:17 Upset lisinopril AdvReac Mild ADR-Cough Verified 09/17/22 10:17 Current Medications Generic Name Dose Route Start Last Admin Trade Name Freq PRN Reason Stop Dose Admin Acetaminophen 650 mg 09/16/22 19:58 09/19/22 03:24 Acetaminophen 325 Mg Tablet PO 650 mg Q6H PRN Administration Mild/Mod Pain Or Temp >/= 101 Alprazolam 0.25 mg 09/16/22 21:06 09/18/22 20:04 Alprazolam 0.5 Mg Tablet PO 0.25 mg BID PRN Administration ANXIETY Atorvastatin Calcium 40 mg 09/17/22 09:00 09/21/22 09:07 Atorvastatin 40 Mg Tablet PO 40 mg DAILY FRANCIS Administration Dexamethasone 6 mg 09/20/22 17:00 09/20/22 17:33 Dexamethasone 10 Mg/Ml Inj IVP 6 mg Q24H FRANCIS Administration Levothyroxine Sodium 25 mcg 09/17/22 09:00 09/21/22 10:24 Levothyroxine 25 Mcg Tablet PO 25 mcg DAILY FRANCIS Administration Magnesium Lactate 84 mg 09/17/22 09:00 09/21/22 09:07 Magnesium Lactate 84 Mg Tablet PO 84 mg BID FRANCIS Administration Non-Formulary Medication 250 mg 09/17/22 09:00 09/21/22 09:14 Magnesium Oxide PO Not Given DAILY FRANCIS Ondansetron HCl 4 mg 09/16/22 19:58 09/19/22 18:43 Ondansetron 2 Mg/Ml Sdv 2 Ml IVP 4 mg Q8H PRN Administration vomiting, or N/V if npo Pantoprazole Sodium 40 mg 09/20/22 16:45 09/21/22 09:[address] 40 Mg Tablet PO 40 mg DAILY FRANCIS Administration Rivaroxaban 20 mg 09/17/22 21:00 09/20/22 20:56 Rivaroxaban 10 Mg Tablet PO 20 mg BEDTIME FRANCIS Administration Sotalol HCl 120 mg 09/17/22 09:00 09/21/22 09:05 Sotalol 80 Mg Tablet PO 120 mg 0900 FRANCIS Administration Sotalol HCl 160 mg 09/20/22 21:00 09/20/22 20:55 Sotalol 80 Mg Tablet PO 160 mg 2100 FRANCIS Administration Verapamil HCl 80 mg 09/19/22 11:32 09/21/22 09:13 Verapamil 80 Mg Tablet PO 80 mg TID FRANCIS Administration Vitamin D 1,000 unit 09/17/22 09:00 09/21/22 09:06 Cholecalciferol (Vitamin D3) 1,000 Unit Tablet PO 1,000 unit DAILY FRANCIS Administration PFSH Anesthesia Medical History Atrial fibrillation Cataract BOTH EYES CHF (congestive heart failure), NYHA class III CHF exacerbation Cholesteatoma Chronic eustachian tube dysfunction Cigarette nicotine dependence COPD (chronic obstructive pulmonary disease) COPD (chronic obstructive pulmonary disease) with chronic bronchitis Depression Deviated septum Diverticulosis Dysphasia Enrolled in chronic care management Essential hypertension Fatigue GERD (gastroesophageal reflux disease) Hearing loss History of nonmelanoma skin cancer Lower extremity edema Lumbar compression fracture Lumbar pain Lumbar stenosis with neurogenic claudication Nasal turbinate hypertrophy Opioid contract exists Oral thrush Osteoporosis Pacemaker Perforated left tympanic membrane on examination Spinal stenosis of lumbar region with radiculopathy Tobacco use disorder Surgical History H/O bilateral salpingo-oophorectomy H/O kyphoplasty H/O rotator cuff surgery LEFT AND RIGHT Hx of mastoidectomy Family History Mother CAD (coronary artery disease) Father CAD (coronary artery disease) Brother Cancer Sister Cancer Denies family history of Family history of exposure to Agent [place] Social History Smoking and tobacco status: former smoker Alcohol intake: never Lives independently: Yes Household members: none Marital status: / Current occupational status: retired History of recent travel: No Data Anesthesia 09/21/22 04:50 09/21/22 04:50 Short CBC 09/20/22 09/21/22 Range/Units 10:08 04:50 WBC 7.3 6.1 (4.0-10.0) 10^3/uL Hgb 12.7 11.5 (11.5-15.3) g/dL Hct 37.5 33.6 L (37.0-47.0) % MCV 92.8 93.1 (81-99) fl Plt Count 316 262 (130-400) 10^3/cmm Neut % (Auto) 76.8 82.6 % Neut # (Auto) 5.57 5.03 (1.8-7.7) 10^3/uL BMP 09/19/22 09/19/22 09/20/22 15:31 21:00 05:47 Sodium 122 L 125 L 125 L Potassium 4.5 4.2 Chloride 93 L 92 L Carbon Dioxide 22 25 BUN 16 14 Creatinine 0.6 0.6 Glucose 112 107 Calcium 9.1 9.1 09/20/22 09/21/22 19:39 04:50 Sodium 124 L 134 L Potassium 4.0 4.5 Chloride 91 L 99 Carbon Dioxide 24 26 BUN 13 11 Creatinine 0.5 0.5 Glucose 123 H 134 H Calcium 9.1 8.9 Cardiac Enzymes 09/20/22 Range/Units 10:08 NT-Pro-B Natriuret Pep 1524 H (0-450) pg/mL Liver Function 09/21/22 Range/Units 04:50 Total Bilirubin 0.2 (0.15-1.2) mg/dL AST 20 (0-32) U/L ALT 34 H (0-33) U/L Alkaline Phosphatase 22 L (35-105) U/L Albumin 3.5 (3.5-5.2) g/dL Cardiac Studies: Echocardiogram 01/22/22 Echocardiogram Ultrasound 04/09/21 Transesophageal Echocardiogram 01/08/22 Sestamibi Stress Test (Cardiology) 01/24/22 Cardiac Event Monitor 12/30/21
--- NOTE | 2022-09-21 13:02 | PC.NURSE ---
Cardioversion performed by Dr. Edwards. Patient shocked at 1258 back into SR with occasional PVCs. Zoll charged to 150 joules. Patient stable afterward. Pulse at 61, O2 at 98, RR 20, [place] [address]. Patient sleeping. .
--- NOTE | 2022-09-21 13:23 | ECG_ITS ---
[facility] Test Date: 2022-09-21 Pat Name: Dona Jimenez Department: Room: 104 Gender: Female Invoicing Specialist: : 1945 Requested By: Lexi Edwards Order Number: [id number] Dyana MD: Lexi Edwards M.D. Measurements Intervals [place] Rate: 61 P: 103 [place]: 161 QRS: 15 QRSD: 84 T: 52 QT: 426 QTc: 432 Interpretive Statements ELECTRONIC ATRIAL PACEMAKER NONSPECIFIC ST & T-WAVE ABNORMALITY ABNORMAL RHYTHM ECG Compared to ECG 09/21/2022 06:36:32 Atrial fibrillation no longer present T-wave abnormality still present Electronically Signed On 09-21-2022 13:59:46 PILLING MACHINE OPERATOR by Lexi Edwards M.D. [id number]
--- NOTE | 2022-09-21 13:56 | PM.PN ---
Subjective Subjective: Patient underwent CV today Medications: Reviewed: Yes Vitals/I&O/Wt Last Vital Signs Temp 98.2 F 09/21/22 11:36 Pulse 105 H 09/21/22 11:36 Resp 18 09/21/22 11:36 BP 128/105 09/21/22 11:36 Pulse Ox 96 09/21/22 11:36 O2 Del Method 09/19/22 08:00 09/20/22 09/21/22 09/21/22 22:59 06:59 14:59 Intake Total 400 / 760 Output Total 900 / 900 200 / 1100 200 / 200 Balance -500 / -140 -200 / -340 -200 / -200 Physical Exam Narrative: GENERAL: Averagely built and averagely nourished in no acute distress HEENT: Extraocular movement intact. No pallor or icterus. NECK: central trachea, mild JVD, No carotid bruit. CARDIOVASCULAR SYSTEM: S1-S2 irregular. No murmur appreciated RESPIRATORY SYSTEM: Chest clear to auscultation except at bases. No wheezes rhonchi or rubs heard. No use of accessory muscles. ABDOMEN: Soft, nontender and nondistended. Normal bowel sounds present. EXTREMITIES: No cyanosis or edema. No signs of chronic venous insufficiency. PROTOTYPE MACHINE OPERATOR: Patient is alert oriented ?3. No focal neurological deficits. SKIN: Normal turgor and temperature. PSYCH: Normal insight and judgment. Data 09/21/22 04:50 09/21/22 04:50 A&P Assessment and plan (1) Atrial fibrillation: A. fib with rapid ventricular response -Continue sotalol 120 mg am and 120 mg pm and d/c verapamil -I had a long discussion with patient and his son Rodney about different options at this time. -Our options are continuing sotalol and attempting cardioversion versus changing from sotalol to amiodarone +/- CV. -Atrial fibrillation ablation is definitely a consideration. -Patient is concerned about side effects of amiodarone and states it is the last resort even after ablation does not work. -After going over risks and benefits of atrial fibrillation ablation as well as cardioversion procedure (including small risk of stroke), decision was made to proceed with cardioversion tomorrow if she remains in atrial fibrillation overnight and refer her outpatient to Dr. Ann at [facility] for A. fib ablation. -s/p CV with episcopalian of SR (2) CHF (congestive heart failure), NYHA class III: (3) Hyponatremia: Hyponatremia likely result of CHF decompensation given h/o tachycardia induced cardiomyopathy -sodium increased after lasix dose yesterday -will restart HCTZ -f/u BMP in am (4) Essential hypertension: (5) COPD (chronic obstructive pulmonary disease): (6) GERD (gastroesophageal reflux disease): Qualifiers: Esophagitis presence: esophagitis presence not specified Qualified Code(s): K21.9 - Gastro-esophageal reflux disease without esophagitis Plan COVID-19 positive since 16 September: Management as per primary team H/o tachybrady syndrome s/p dual chamber PPM Attestations Medical Necessity Statement*: needs hospital stay for med adjustment post CV Time Spent in Patient Care: Greater than 35 minutes Procedures Time out/Consent Time Out Performed: Yes Consent for Procedure: Consent obtained from patient, Risks & Benefits reviewed and Agrees to proceed with procedure Procedure Narrative Cardioversion procedure note. Indication: Symptomatic atrial fibrillation Anticoagulation: Xarelto Sedation: Propofol by anesthesia Procedure was explained to the patient in detail. Risks and benefits of the procedures were discussed. Informed consent was obtained. After time out was called patient received sedation. Pads were placed anteroposteriorly. She received 150 J of synchronized biphasic shock ?1 with episcopalian of normal sinus rhythm with PAC's. Patient tolerated the procedure well. Recovery: in unit Coding Level of Care Code Acute Software Development Advisor for [facility] Diagnoses Atrial fibrillation I48.91 CHF (congestive heart failure), NYHA class III I50.9 Hyponatremia E87.1 Essential hypertension I10 COPD (chronic obstructive pulmonary disease) J44.9 GERD (gastroesophageal reflux disease) K21.9 Esophagitis presence: esophagitis presence not specified
--- NOTE | 2022-09-21 15:12 | P.PN_ITS ---
Subjective Subjective: No acute events overnight. Patient states That she is feeling a lot better. She tells me that she took her salt tablets and has been compliant with fluid restriction though she does not like the fluid restriction and wants it to be relieved or removed. During examination and talking about fluid restriction patient does get pretty upset. We discussed the need for fluid restriction given concern for SIADH and improvement of hyponatremia with compliance. Patient for now is agreeable and changing fluid restriction to 2 L. Seen post cardioversion and heart rate has come back to normal sinus rhythm with running around 60s to 70s and occasional VPCs. Medications: Reviewed: Yes Vitals/I&O/Wt Last Vital Signs Temp 98.2 F 09/21/22 11:36 Pulse 61 09/21/22 14:11 Resp 18 09/21/22 11:36 BP 128/105 09/21/22 11:36 Pulse Ox 96 09/21/22 11:36 O2 Del Method 09/19/22 08:00 09/21/22 09/21/22 09/21/22 06:59 14:59 22:59 Intake Total 400 / 400 Output Total 200 / 1100 200 / 200 Balance -200 / -340 200 / 200 Physical Exam Narrative: General: Alert oriented x3, patient seen laying in bed appearing comfortable at this time. No acute distress. Appears well. Is not appearing lethargic or fatigued. 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 Fluid restriction up to 2 L. Hyponatremia resolving. Hold off on any further salt tablets for now. Monitor BMP every 12 hours for now with repeat at around 6 PM. (2) Atrial fibrillation with RVR: Post cardioversion. Medication changes per cardiology. Appreciate recommendations. Continue with sotalol 120 mg twice daily. Verapamil discontinued by cardiology. Continue with home dose of Xarelto. (3) COVID-19: Moderate symptoms with fatigue, nausea. Maintaining oxygenation. Patient refused remdesivir on admission. Keep oxygen supplementation over 90%. Start on dexamethasone 6 mg IV daily for next 10 days. Patient is agreeable to same. (4) Atrial fibrillation: (5) Pacemaker: (6) GERD (gastroesophageal reflux disease): Qualifiers: Esophagitis presence: esophagitis presence not specified Qualified Code(s): K21.9 - Gastro-esophageal reflux disease without esophagitis (7) COPD (chronic obstructive pulmonary disease): (8) Essential hypertension: (9) Smokers' cough: (10) Depression: Plan Full code. Carbohydrate consistent diet. Fluids restriction 2000 cc. 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
[2022-09-21] MEDS: dexamethasone 10 mg/mL INJ 6 MG IVP (18:20)
[2022-09-21] MEDS: hydroCHLOROthiazide 25 mg Tablet PO (18:21)
[2022-09-21] MEDS: rivaroxaban 10 mg Tablet 20 MG PO (20:25)
[2022-09-22] VITALS (8 sets, daily range): BP systolic 152–190; BP diastolic 88–112; PULSE 60–72; RESP 14–18; TEMP 36.3–36.7; O2SAT 92–95
--- NOTE | 2022-09-22 01:41 | PC.NURSE ---
Pt refuses to be compliant with 2000ml fluid restriction. Pt states I will not have my fluids restricted. If you all don't get me more water I will drink it from the sink. Pt education was given to pt on the reason for the fluid restriction. Pt continues to refuse and be noncompliant with fluid restriction. notified.
[2022-09-22] MEDS: sotalol 80 mg Tablet 120 MG PO ×2 (09:20→21:10)
[2022-09-22] MEDS: atorvastatin 40 mg Tablet PO (09:21)
[2022-09-22] MEDS: levothyroxine 25 mcg Tablet PO (09:21)
[2022-09-22] MEDS: pantoprazole DR 40 mg Tablet PO (09:21)
[2022-09-22] MEDS: cholecalciferol (vitamin D3) 1,000 unit Tablet 1000 UNIT PO (09:21)
[2022-09-22] MEDS: magnesium lactate 84 mg Tablet PO (09:21)
[2022-09-22] MEDS: hydroCHLOROthiazide 25 mg Tablet PO (09:21)
[2022-09-22] MEDS: losartan 50 mg Tablet PO (09:22)
[2022-09-22 09:50] LABS: Basophils % 0.1 %; Eosinophils % 0.3 %; Hematocrit 36.8 % (37.0-47.0); Hemoglobin 12.7 g/dL (11.5-15.3); Lymphocytes # 1.1 10^3/uL (0.8-4.8); Lymphocytes % 10.5 %; Mean Corpuscular HGB Conc 34.5 g/dL (30.0-36.0); Mean Corpuscular Hemoglobin 31.6 pg (28.0-34.0); Mean Corpuscular Volume 91.5 fl (81-99); Mean Platelet Volume 8.8 fL (7.4-10.4); Monocytes # 0.5 10^3/uL (0.2-0.9); Monocytes % 4.4 %; Neutrophils # 8.67 10^3/uL (1.8-7.7); Neutrophils % 83.4 %; Nucleated Red Blood Cells % 0 %; Platelet Count 338 10^3/cmm (130-400); Red Blood Count 4.02 10^6/uL (4.1-5.3); Red Cell Distribution Width 14.1 % (12.1-15.1); White Blood Count 10.4 10^3/uL (4.0-10.0)
[2022-09-22 10:06] LABS: Alanine Aminotransferase 37 U/L (0-33); Albumin Level 3.7 g/dL (3.5-5.2); Alkaline Phosphatase 26 U/L (35-105); Anion Gap 13.3 (5-19); Aspartate Amino Transferase 19 U/L (0-32); Blood Urea Nitrogen 12 mg/dL (8-23); Calcium 9.3 mg/dL (8.5-10.5); Carbon Dioxide 27 mmol/L (22-29); Chloride 89 mmol/L (98-107); Globulin 2.9 g/dL (1.3-4.6); Glucose 152 mg/dL (65-115); Osmolality Calculated 265 mOsm/kg (285-295); Potassium 3.3 mmol/L (3.5-5.1); Sodium 126 mmol/L (136-145); Total Bilirubin 0.3 mg/dL (0.15-1.2); Total Protein 6.6 g/dL (6.6-8.7)
[2022-09-22] MEDS: FUROsemide 20 mg Tablet PO (11:42)
[2022-09-22] MEDS: potassium chloride ER 20 mEq Tablet 40 MEQ PO (11:42)
--- NOTE | 2022-09-22 13:18 | P.PN_ITS ---
Subjective Subjective: Has remained in SR/A paced rhythm overnight; few PVC' and PVC couplets noted. She feels better Medications: Reviewed: Yes Vitals/I&O/Wt Last Vital Signs Temp 98.0 F 09/22/22 04:08 Pulse 65 09/22/22 11:11 Resp 18 09/22/22 11:11 BP 174/95 09/22/22 09:22 Pulse Ox 95 09/22/22 11:11 O2 Del Method 09/19/22 08:00 09/21/22 09/22/22 09/22/22 22:59 06:59 14:59 Intake Total 1440 / 1840 240 / 240 Output Total 75 / 275 Balance 1440 / 1640 -75 / 1565 240 / 240 Physical Exam Narrative: GENERAL: Averagely built and averagely nourished in no acute distress HEENT: Extraocular movement intact. No pallor or icterus. NECK: central trachea, mild JVD, No carotid bruit. CARDIOVASCULAR SYSTEM: S1-S2 regular. No murmur appreciated RESPIRATORY SYSTEM: Chest clear to auscultation except at bases. No wheezes rhonchi or rubs heard. No use of accessory muscles. ABDOMEN: Soft, nontender and nondistended. Normal bowel sounds present. EXTREMITIES: No cyanosis or edema. No signs of chronic venous insufficiency. LEATHER GRADER: Patient is alert oriented ?3. No focal neurological deficits. SKIN: Normal turgor and temperature. PSYCH: Normal insight and judgment. Data 09/22/22 09:34 09/22/22 09:34 A&P Assessment and plan (1) Atrial fibrillation: A. fib with rapid ventricular response -Continue sotalol 120 mg am and 120 mg pm and xarelto -I had a long discussion with patient and his son Rodney about different options at this time. -Our options are continuing sotalol and attempting cardioversion versus changing from sotalol to amiodarone +/- CV. -Atrial fibrillation ablation is definitely a consideration. -Patient is concerned about side effects of amiodarone and states it is the last resort even after ablation does not work. - Refer her outpatient to Dr. Ann at [facility] in [place] for A. fib ablation. -s/p CV with protestant of SR Follow up with Paula in 1-2 weeks for EKG -BMP, Mg, BNP in 1 week (2) CHF (congestive heart failure), NYHA class III: (3) Hyponatremia: Hyponatremia likely result of CHF decompensation given h/o tachycardia induced cardiomyopathy -got lasix dose (4) Essential hypertension: (5) COPD (chronic obstructive pulmonary disease): (6) GERD (gastroesophageal reflux disease): Qualifiers: Esophagitis presence: esophagitis presence not specified Qualified Co de(s): K21.9 - Gastro-esophageal reflux disease without esophagitis Plan COVID-19 positive since 16 September: Management as per primary team H/o tachybrady syndrome s/p dual chamber PPM Attestations Medical Necessity Statement*: As per primary team Coding Level of Care Code Acute Supervisor [employer] for [facility] Fwd Diagnoses Atrial fibrillation I48.91 CHF (congestive heart failure), NYHA class III I50.9 Hyponatremia E87.1 Essential hypertension I10 COPD (chronic obstructive pulmonary disease) J44.9 GERD (gastroesophageal reflux disease) K21.9 Esophagitis presence: esophagitis presence not specified
--- NOTE | 2022-09-22 16:04 | XRR_ITS ---
PROCEDURE INFORMATION: Exam: XR Abdomen Exam date and time: 09/22/2022 4:21 PM Age: 77 years old Clinical indication: Abdominal pain; Generalized; Additional info: Abd pain TECHNIQUE: Imaging protocol: Radiologic exam of the abdomen. Views: Frontal supine view of the abdomen. 1 View. COMPARISON: CR XR chest 1V portable [id number] 09/16/2022 4:32 PM FINDINGS: Gastrointestinal tract: Moderate constipation without bowel dilation to indicate obstruction. Vasculature: Scattered vascular calcifications. Bones/joints: Vertebroplasty changes. XR/XR abdomen 1V* [id number] IMPRESSION: 1. Moderate constipation without bowel dilation to indicate obstruction. 2. Scattered vascular calcifications. 3. Vertebroplasty changes.
--- NOTE | 2022-09-22 16:05 | PC.NURSE ---
Patient reports GI upset, physician orders Maalox and abd xray
--- NOTE | 2022-09-22 17:03 | PM.PN ---
Subjective Subjective: No acute events overnight. Today morning seen with son on the phone. Patient is fairly frustrated because of medical management being done in the hospital. She wants multiple medication changes to be done. She does not want to get salt tablets anymore as states tablets are very big in size and causes stomach upset. She does not want to be on fluid restrictions as she believes her weakness is from poor oral intake of water. She is okay with home dose of hydrochlorothiazide. She is okay with Protonix. She does not want Lasix as it makes her urinate frequently. We discussed again in detail the need for patient to be on fluid restriction and multiple etiologies for hyponatremia especially in her case. We also discussed salt tablets are already discontinued yesterday. Had a long conversation with patient and patient's son. At the end patient is agreeable for fluid restriction, no salt tablets and continuing Protonix. We also discussed if sodium levels are dropping we will have to stop hydrochlorothiazide. Medications: Reviewed: Yes Vitals/I&O/Wt Last Vital Signs Temp 98.1 F 09/22/22 15:05 Pulse 68 09/22/22 15:05 Resp 18 09/22/22 15:05 BP 152/88 09/22/22 15:05 Pulse Ox 95 09/22/22 15:05 O2 Del Method 09/19/22 08:00 09/22/22 09/22/22 09/22/22 06:59 14:59 22:59 Intake Total 240 / 240 Output Total 75 / 275 Balance -75 / 1565 240 / 240 Physical Exam Narrative: General: Alert oriented x3, patient seen laying in bed appearing comfortable at this time. No acute distress. Appears well. Is not appearing lethargic or fatigued. HEENT: Normocephalic, atraumatic, EOMI, breathing normally on room air Cardio: Irregularly irregular, tachycardic, normal S1-S2, no gross murmurs Respiratory: Clear to auscultation bilaterally, no wheezes no rhonchi appreciated GI: Abdomen soft, nontender, nondistended, bowel sounds + Behavior: Appropriate and cooperative Extremities:no edema, no cyanosis Data 09/22/22 09:34 09/22/22 09:34 A&P Assessment and plan (1) Hyponatremia: Suspected SIADH given acute viral infection. Fluid restriction up to 2 L. Hyponatremia resolving. Hold off on any further salt tablets for now. Monitor BMP every 12 hours for now with repeat at around 6 PM. (2) Atrial fibrillation with RVR: Post cardioversion. Medication changes per cardiology. Appreciate recommendations. Continue with sotalol 120 mg twice daily. Verapamil discontinued by cardiology. Continue with home dose of Xarelto. (3) COVID-19: Moderate symptoms with fatigue, nausea. Maintaining oxygenation. Patient refused remdesivir on admission. Keep oxygen supplementation over 90%. Start on dexamethasone 6 mg IV daily for next 10 days. Patient is agreeable to same. (4) Atrial fibrillation: (5) Pacemaker: (6) GERD (gastroesophageal reflux disease): Qualifiers: Esophagitis presence: esophagitis presence not specified Qualified Code(s): K21.9 - Gastro-esophageal reflux disease without esophagitis (7) COPD (chronic obstructive pulmonary disease): (8) Essential hypertension: (9) Smokers' cough: (10) Depression: Plan Full code. Carbohydrate consistent diet. Fluids restriction 2000 cc. Xarelto will suffice for DVT prophylaxis Protonix for PUD prophylaxis Plan for the day: Appreciate cardiology recommendations. Continue with sotalol 120 mg twice daily. Verapamil stopped by cardiology. Started on home dose of losartan. Hydrochlorothiazide started by cardiology. We will stop for now given hyponatremia again. Continuous fluid restriction up to 2 L. 20 mg oral Lasix one-time. Repeat sodium at 6 PM. Continue with Protonix. Abdominal x-ray. MaaloX as needed. Attestations Medical Necessity Statement*: Requires further hospitalization for hyponatremia, atrial fibrillation now in controlled rate, Covid 19 Time Spent in Patient Care: Greater than 35 minutes Long time spent over conversation/counseling and discussion about multiple medicines and medical changes with patient and patient's son over the phone. 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
[2022-09-22] MEDS: alum-mag-hydroxide-sime 30 mL UDC PO (17:50)
[2022-09-22] MEDS: sennosides-docusate Tablet 1 TAB PO (18:02)
[2022-09-22] MEDS: magnesium hydroxide 30 mL UDC PO (18:02)
[2022-09-22 18:15] LABS: Anion Gap 15.5 (5-19); Blood Urea Nitrogen 14 mg/dL (8-23); Calcium 9.6 mg/dL (8.5-10.5); Carbon Dioxide 28 mmol/L (22-29); Chloride 89 mmol/L (98-107); Glucose 133 mg/dL (65-115); Osmolality Calculated 270 mOsm/kg (285-295); Potassium 3.5 mmol/L (3.5-5.1); Sodium 129 mmol/L (136-145)
[2022-09-22] MEDS: rivaroxaban 10 mg Tablet 20 MG PO (21:10)
[2022-09-22] MEDS: acetaminophen 325 mg Tablet 650 MG PO (21:17)
[2022-09-23] VITALS (7 sets, daily range): BP systolic 157–178; BP diastolic 93–112; PULSE 60–64; RESP 12–23; TEMP 36.4–36.6; O2SAT 92–96
[2022-09-23 02:04] LABS: Basophils % 0.1 %; Eosinophils % 0.2 %; Hematocrit 36.7 % (37.0-47.0); Hemoglobin 12.6 g/dL (11.5-15.3); Lymphocytes # 2.2 10^3/uL (0.8-4.8); Lymphocytes % 21.5 %; Mean Corpuscular HGB Conc 34.3 g/dL (30.0-36.0); Mean Corpuscular Hemoglobin 31.2 pg (28.0-34.0); Mean Corpuscular Volume 90.8 fl (81-99); Mean Platelet Volume 8.7 fL (7.4-10.4); Monocytes # 0.7 10^3/uL (0.2-0.9); Monocytes % 7.1 %; Neutrophils # 7.21 10^3/uL (1.8-7.7); Neutrophils % 70.5 %; Nucleated Red Blood Cells % 0 %; Platelet Count 314 10^3/cmm (130-400); Red Blood Count 4.04 10^6/uL (4.1-5.3); Red Cell Distribution Width 13.8 % (12.1-15.1); White Blood Count 10.2 10^3/uL (4.0-10.0)
[2022-09-23 02:24] LABS: Alanine Aminotransferase 44 U/L (0-33); Albumin Level 3.6 g/dL (3.5-5.2); Alkaline Phosphatase 23 U/L (35-105); Anion Gap 14.8 (5-19); Aspartate Amino Transferase 26 U/L (0-32); Blood Urea Nitrogen 17 mg/dL (8-23); Calcium 8.8 mg/dL (8.5-10.5); Carbon Dioxide 30 mmol/L (22-29); Chloride 89 mmol/L (98-107); Globulin 2.3 g/dL (1.3-4.6); Glucose 106 mg/dL (65-115); Osmolality Calculated 272 mOsm/kg (285-295); Potassium 3.8 mmol/L (3.5-5.1); Sodium 130 mmol/L (136-145); Total Bilirubin 0.3 mg/dL (0.15-1.2); Total Protein 5.9 g/dL (6.6-8.7)
[2022-09-23] MEDS: levothyroxine 25 mcg Tablet PO (05:03)
[2022-09-23] MEDS: losartan 50 mg Tablet PO (08:24)
[2022-09-23] MEDS: cholecalciferol (vitamin D3) 1,000 unit Tablet 1000 UNIT PO (08:25)
[2022-09-23] MEDS: sennosides-docusate Tablet 1 TAB PO (08:25)
[2022-09-23] MEDS: atorvastatin 40 mg Tablet PO (08:25)
[2022-09-23] MEDS: sotalol 80 mg Tablet 120 MG PO (08:26)
[2022-09-23] MEDS: pantoprazole DR 40 mg Tablet PO (08:27)
--- NOTE | 2022-09-23 10:28 | PC.SOCIAL ---
Imm update Imm updated with patient at bedside. Copy of page 2 provided. Patient verbalized understanding. Copy in chart initialed,dated and timed.
--- NOTE | 2022-09-23 12:31 | P.DS_ITS ---
Discharge Providers Date of Admission: 09/16/22 19:22 Date of Discharge: September 23, 2022 Attending Provider at Admission: Tania Downey MD Attending Provider at Discharge: Sudheer Buckley MD Consults: Cardiology: Dr. Edwards Primary Care Provider: LEILA Carrera Diagnoses at Discharge Discharge Diagnosis (1) Hyponatremia: Status: Acute (2) Atrial fibrillation with RVR: Status: Acute (3) COVID-19: Status: Acute (4) Atrial fibrillation: Status: Acute (5) Pacemaker: Status: Acute (6) GERD (gastroesophageal reflux disease): Status: Acute Qualifiers: Esophagitis presence: esophagitis presence not specified Qualified Code(s): K21.9 - Gastro-esophageal reflux disease without esophagitis (7) COPD (chronic obstructive pulmonary disease): Status: Acute (8) Essential hypertension: Status: Acute (9) Smokers' cough: Status: Acute (10) Depression: Status: Chronic Reason for Visit Reason for Visit: weakness Brief History: History as per HPI: Dona Jimenez is a 77 year old female with past medical history of atrial fibrillation, class III CHF, COPD, depression, hypertension, GERD, lumbar stenosis, osteoporosis, pacemaker, nicotine dependence presented to the hospital from the [facility] clinic.? Patient stated that she had a fever and is dehydrated.? She says last week on Fridays pretty much when her symptoms started.? She had a temp recorded at 100.3 on Tuesday which resolved later on.? She also had diarrhea which has also resolved at this time.? She says she has been drinking a lot of fluids to keep herself hydrated.? She also complains of some nasal congestion and mild headache.? Denies any shortness of breath at this time.? Also states that she has been labeled having a history of COPD however she does not carry that diagnosis.? She has never been formally tested for it.? She stopped smoking in December.? Does not have a chronic cough.? Does not use inhalers.? 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 At this time she says her main issue is palpitations and otherwise is asymptomatic at this time. She denies being nauseous.? Denies chest pain, abdominal pain, dysuria, cough, shortness of breath, urinary urgency.? She takes Xarelto and sotalol for her atrial fibrillation.? She took her medications today.? She prefers that we do not change any of her medications without consulting cardiology.? She would like to see Dr. Edwards during hospital stay if possible. ER course: On arrival heart rate 105, blood pressure 137/77, respiratory 17, temp 97.6, saturating 98%.? Heart rate 70-80 initially while in triage however when EKG was done heart rate was higher in the 140s that lasted for about 5 minutes and then decreased back down to 70s and 80s.? Initially Cardizem was ordered but canceled since her rate came down on its own.? She was given her sotalol dose early (80 mg ) as well as hydralazine 10 IV push.? Eventually patient was given diltiazem 20x1 and placed on a diltiazem drip.? Flu swab, COVID swab ordered.? Results are pending at this time.? ER requested hospital admission Hospital Course Hospital Course Patient was admitted to the she was found to be in A. fib with RVR on admission,, hyponatremia along with difficulty in breathing and generalized weakness which at first was thought to be from COPD exacerbation. Later patient was found to be positive for COVID-19. Patient symptoms from COVID-19 remain mild. Treatment plan was discussed in detail with the patient regarding COVID-19 and she declined remdesivir. Her symptoms during hospitalization remained mild. She was started on dexamethasone intermittently which was stopped later with concerns from patient regarding agitation. For atrial fibrillation with RVR with history of difficulty to control in the past cardiology was consulted and she was on Cardizem drip. Cardizem was slowly weaned down but heart rate was difficult to contain. Multiple treatment options were discussed with the patient including cardioversion, ablation or starting on amiodarone drip. Patient declined amiodarone and ablation but later was okay with cardioversion. Patient's heart rhythm finally came back to normal sinus rhythm after cardioversion which she underwent on 09/21. 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 Treatment for hyponatremia was challenging as patient was reluctant to take salt tablets and fluid restriction and multiple counseling's were done between the patient, patient's son and physician team. Finally patient agreed to do mild fluid restriction along with occasional Lasix and on and off salt tablets. Her sodium finally remained stable at around 1 29-30 with resolution of symptoms. She has been discharging her medically stable condition with advised to withhold hydrochlorothiazide for now for next 1 week till repeat BMP is done and if sodium is stable she can go back to the hydrochlorothiazide at that point with advised to repeat her BMP after 1 week of initiation of hydrochlorothiazide. Dose of sotalol has been changed to 120 mg twice daily. She is to follow-up with cardiology team as an outpatient we will also refer her for ablation as an outpatient. Physical Exam Narrative: General: Alert oriented x3, patient seen laying in bed appearing comfortable at this time. No acute distress. Appears well. Is not appearing lethargic or fatigued. HEENT: Normocephalic, atraumatic, EOMI, breathing normally on room air Cardio: Irregularly irregular, tachycardic, normal S1-S2, no gross murmurs Respiratory: Clear to auscultation bilaterally, no wheezes no rhonchi appreciated GI: Abdomen soft, nontender, nondistended, bowel sounds + Behavior: Appropriate and cooperative Extremities:no edema, no cyanosis Discharge Data Studies Completed and Pending Completed Studies During Hospitalization Category Date Time Status XR abdomen 1V* [id number] Routine Exams 09/22/22 16:04 Completed XR chest 1V portable [id number] Urgent Exams 09/16/22 14:13 Completed Radiology Impressions Chest X-Ray 09/16/22 14:13 IMPRESSION: DIFFUSE PULMONARY CHANGES OF COPD. NO ACUTE PULMONARY CHANGE. Abdomen X-Ray 09/22/22 16:04 IMPRESSION: 1. Moderate constipation without bowel dilation to indicate obstruction. 2. Scattered vascular calcifications. 3. Vertebroplasty changes. Laboratory Results WBC 10.2 10^3/uL (4.0-10.0) H 09/23/22 01:33 RBC 4.04 10^6/uL (4.1-5.3) L 09/23/22 01:33 Hgb 12.6 g/dL (11.5-15.3) 09/23/22 01:33 Hct 36.7 % (37.0-47.0) L 09/23/22 01:33 MCV 90.8 fl (81-99) 09/23/22 01:33 MCH 31.2 pg (28.0-34.0) 09/23/22 01:33 MCHC 34.3 g/dL (30.0-36.0) 09/23/22 01:33 RDW 13.8 % (12.1-15.1) 09/23/22 01:33 Plt Count 314 10^3/cmm (130-400) 09/23/22 01:33 MPV 8.7 fL (7.4-10.4) 09/23/22 01:33 Neut % (Auto) 70.5 % 09/23/22 01:33 Lymph % (Auto) 21.5 % 09/23/22 01:33 [place] % (Auto) 7.1 % 09/23/22 01:33 Eos % (Auto) 0.2 % 09/23/22 01:33 Baso % (Auto) 0.1 % 09/23/22 01:33 Neut # (Auto) 7.21 10^3/uL (1.8-7.7) 09/23/22 01:33 Lymph # (Auto) 2.2 10^3/uL (0.8-4.8) 09/23/22 01:33 [place] # (Auto) 0.7 10^3/uL (0.2-0.9) 09/23/22 01:33 Eos # (Auto) 0.0 10^3/uL (0.0-0.8) 09/23/22 01:33 Baso # (Auto) 0.0 10^3/uL (0.0-0.1) 09/23/22 01:33 Nucleated RBC % (auto) 0 % 09/23/22 01:33 Nucleated RBCs # 0.0 /100WBC 09/23/22 01:33 Sodium 130 mmol/L (136-145) L 09/23/22 01:33 Potassium 3.8 mmol/L (3.5-5.1) 09/23/22 01:33 Chloride 89 mmol/L (98-107) L 09/23/22 01:33 Carbon Dioxide 30 mmol/L (22-29) H 09/23/22 01:33 Anion Gap 14.8 (5-19) 09/23/22 01:33 BUN 17 mg/dL (8-23) 09/23/22 01:33 Creatinine 0.9 mg/dL (0.5-0.9) 09/23/22 01:33 GFR Calculation Not Reportable 09/23/22 01:33 Glucose 106 mg/dL (65-115) 09/23/22 01:33 Estimat Average Glucose 146 09/20/22 10:08 Hemoglobin A1c 6.7 % (4.0-6.0) H 09/20/22 10:08 Serum Osmolality 265 mOsm/kg (278-305) L 09/17/22 00:57 Calculated Osmolality 272 mOsm/kg (285-295) L 09/23/22 01:33 Lactic Acid 1.4 mmol/L (0.5-2.2) 09/16/22 20:16 Calcium 8.8 mg/dL (8.5-10.5) 09/23/22 01:33 Phosphorus 2.8 mg/dL (2.5-4.5) 09/18/22 05:09 Magnesium 2.0 mg/dL (1.7-2.3) 09/19/22 02:39 Iron 52 ug/dL (37-145) 09/20/22 10:08 TIBC 277 mcg/dl 09/20/22 10:08 % Saturation 18.7 % (20-50) L 09/20/22 10:08 Unsat Iron Binding 225 ug/dL (112-347) 09/20/22 10:08 Total Bilirubin 0.3 mg/dL (0.15-1.2) 09/23/22 01:33 AST 26 U/L (0-32) 09/23/22 01:33 ALT 44 U/L (0-33) H 09/23/22 01:33 Alkaline Phosphatase 23 U/L (35-105) L 09/23/22 01:33 NT-Pro-B Natriuret Pep 1524 pg/mL (0-450) H 09/20/22 10:08 Total Protein 5.9 g/dL (6.6-8.7) L 09/23/22 01:33 Albumin 3.6 g/dL (3.5-5.2) 09/23/22 01:33 Globulin 2.3 g/dL (1.3-4.6) 09/23/22 01:33 Triglycerides 65 mg/dL (0-150) 09/20/22 10:08 Cholesterol 122 mg/dL (0-200) 09/20/22 10:08 LDL Cholesterol, Calc 69 mg/dL (50-129) 09/20/22 10:08 Total VLDL Cholesterol 13 mg/dL (0-30) 09/20/22 10:08 HDL Cholesterol 40 mg/dL (60-100) L 09/20/22 10:08 Cholesterol/HDL Ratio 3.05 mg/dL (0.0-4.40) 09/20/22 10:08 Vitamin B12 509 pg/mL (232-1245) 09/17/22 00:57 Procalcitonin 0.07 ng/mL (0-0.5) 09/16/22 20:16 TSH 1.03 uIU/mL (0.27-4.20) 09/16/22 20:16 Urine Color Yellow (Yellow) 09/19/22 09:30 Urine Appearance Cloudy (CLEAR) A 09/19/22 09:30 Urine pH 7 (5-7) 09/19/22 09:30 Ur Specific [place] 1.010 (1.005-1.030) 09/19/22 09:30 Urine Protein Neg (Negative) 09/19/22 09:30 Urine Glucose (UA) Norm (Normal) 09/19/22 09:30 Urine Ketones Negative (Negative) 09/19/22 09:30 Urine Blood 2+ (Negative) H 09/19/22 09:30 Urine Nitrate Negative (Negative) 09/19/22 09:30 Urine Bilirubin Neg (Negative) 09/19/22 09:30 Urine Urobilinogen Norm mg/dL (Negative) 09/19/22 09:30 Ur Leukocyte Esterase 1+ (Negative) H 09/19/22 09:30 Urine RBC 0-4 /hpf (0-2) H 09/19/22 09:30 Urine WBC 5-10 /hpf (0-5) H 09/19/22 09:30 Ur Squamous Epith Cells 25-40 /hpf (0-5) H 09/19/22 09:30 Amorphous Sediment Not Reportable 09/19/22 09:30 Urine Bacteria Trace /hpf (NONE) 09/19/22 09:30 Urine Osmolality 238 mOsm/kg (50-1200) 09/17/22 04:46 Ur Random Sodium 62 mmol/L 09/17/22 04:46 Nasal Influ A H1 2009 PCR Not detected (NOT DETECT) 09/16/22 17:50 Coronavirus 229E (PCR) Not detected (NOT DETECT) 09/16/22 17:50 Influenza A (H1) PCR Not detected (NOT DETECT) 09/16/22 17:50 Influenza A (H3) PCR Not detected (NOT DETECT) 09/16/22 17:50 Influenza Type A (PCR) Not detected (NOT DETECT) 09/16/22 17:50 Influenza Type B (PCR) Not detected (NOT DETECT) 09/16/22 17:50 SARS-CoV-2 (PCR) Detected (NOT DETECT) A 09/16/22 17:50 Procedures Performed Electrocardioversion on 09/21 Vitals Last Vital Signs Temp 97.5 F L 09/23/22 07:22 Pulse 60 09/23/22 07:47 Resp 15 09/23/22 07:47 BP 166/102 09/23/22 08:24 Pulse Ox 93 09/23/22 07:47 O2 Del Method 09/23/22 00:30 Discharge Plan Discharge Patient Disposition: Home Condition: Stable Prescriptions: New sennosides-docusate sodium [Stool Softener-Laxative] 8.6-50 mg Tablet 1 tab PO BID PRN (Reason: constipation) 14 Days Qty: 28 0RF sotalol 80 mg Tablet 120 mg PO Q12H 30 Days Qty: 90 0RF furosemide [Lasix] 20 mg tablet 20 mg PO DAILY Qty: 14 0RF Continued magnesium oxide 200 mg magnesium tablet 250 mg PO BEDTIME cholecalciferol (vitamin D3) 25 mcg (1,000 unit) capsule 25 mcg PO BEDTIME alprazolam 0.25 mg tablet 0.25 mg PO BID PRN (Reason: Anxiety) rosuvastatin 10 mg tablet 10 mg PO BEDTIME Xarelto 20 mg tablet 20 mg PO BEDTIME Rx Instructions: must administer with evening meal valsartan 160 mg tablet 160 mg PO BID Tylenol Ex Str Rapid Release 500 mg Tablet 1,000 mg PO Q6H PRN (Reason: Back Pain) levothyroxine 25 mcg Tablet 25 mcg PO DAILY@06 potassium gluconate 595 mg (99 mg) Tablet 595 mg PO BEDTIME Changed Protonix 40 mg Tablet,Delayed Release (Dr/Ec) 40 mg PO DAILY Qty: 14 0RF Discontinued hydrochlorothiazide 25 mg tablet 50 mg PO QAM sotalol 80 mg tablet See Rx Instructions .ROUTE .COMPLEX Rx Instructions: 120mg po qam @09:00 and 80mg po bedtime@21:00 Discharge Orders: Discharge Order (Routine); Ordered 09/23/22 Ordered By: Sudheer Buckley Referrals: Paula Hill FNP [Nurse Practitioner] - 7-10 days Cecille Crump FNP [Primary Care Provider] - 1 week Discharge Diet: Cardiac Discharge Activity: Resume usual activity and Increase activity as tolerated Patient Instructions: Opioid Safety Activity Restrictions/Additional Instructions: Fluid restriction up to 2 L daily. Do not repeat BMP in 1 week and if sodium is stable he can restart hydrochlorothiazide at that point. After initiation of hydrochlorothiazide we should repeat BMP in 1 week. Dose of sotalol has been increased to 120 mg twice daily. Take Lasix 20 mg oral daily along with the potassium tablets. Please check your blood pressure daily at home and maintain a blood pressure diary and follow-up with a primary care provider or with cardiology for further adjustment of antihypertensives as needed. Please follow-up with cardiology within next 1 week Discharge Attestations Time Spent in Discharge Care*: greater than 30 min Specific Discharge Activities: educating patient, educating and/or supporting family/caregiver, discussing with pcp/other providers, discussing with watch case polisher/social workers/dc planners, documenting/other paperwork and evaluating patient/reviewing data Status at Discharge: Cognitive status at discharge: cognitively intact , Behavioral status at discharge: cooperative and independent in ADL's , Functional status at discharge: independent ambulation , Overall status at discharge: patient is back to baseline Quality Metrics Clinical Quality Measures [ No reported AMI, CVA or VTE this stay] Coding Level of Care Code Acute g FW DC note Diagnoses Hyponatremia E87.1 Atrial fibrillation with RVR I48.91 COVID-19 U07.1 Atrial fibrillation I48.91 Pacemaker Z95.0 GERD (gastroesophageal reflux disease) K21.9 Esophagitis presence: esophagitis presence not specified COPD (chronic obstructive pulmonary disease) J44.9 Essential hypertension I10 Smokers' cough J41.0 Depression F32.9
== END 2022-09-23 14:43 | disposition home or self-care (01) | DRG 308 ==
LOC: ER 19:25 → CSU 19:42
PROVIDERS: Family Medicine; Internal Medicine; Physician Assistant; Admitting Provider Internal Medicine; Emergency Provider Emergency Medicine; PCP Nurse Practitioner; Visit Provider Student in an Organized Health Care Education/Training Program
DX: I48.91 Unspecified atrial fibrillation (principal); I50.23 Acute on chronic systolic (congestive) heart failure; U07.1 COVID-19; E22.2 Syndrome of inappropriate secretion of antidiuretic hormone; Z95.0 Presence of cardiac pacemaker; K21.9 Gastro-esophageal reflux disease without esophagitis; I11.0 Hypertensive heart disease with heart failure; J41.0 Simple chronic bronchitis; F32.A Depression, unspecified; M48.062 Spinal stenosis, lumbar region with neurogenic claudication; M81.0 Age-related osteoporosis without current pathological fracture; Z87.891 Personal history of nicotine dependence; K59.00 Constipation, unspecified; Z79.01 Long term (current) use of anticoagulants; E86.0 Dehydration; Z85.828 Personal history of other malignant neoplasm of skin; I42.9 Cardiomyopathy, unspecified; G89.29 Other chronic pain
CPT/HCPCS: 36415; 71045; 74018; 80048; 80053; 80061; 81001; 82607; 83036; 83540; 83550; 83605; 83735; 83880; 83930; 83935; 84100; 84145; 84295; 84300; 84443; 85025; 87631; 87635; 93005; 96374; 96375; 96376; 99285; J0360; J1100; J1940; J2405; J2704; J2765; J3475; J3490; J7030; J7040

== ENCOUNTER → 2022-10-19 10:21 | Outpatient (BNVA) | payer OTHER, SELFPAY | PROVIDERS: PCP Nurse Practitioner; Visit Provider Internal Medicine Cardiovascular Disease | DX: I48.91 Unspecified atrial fibrillation (principal); Z79.01 Long term (current) use of anticoagulants; E87.1 Hypo-osmolality and hyponatremia; I11.0 Hypertensive heart disease with heart failure; I50.9 Heart failure, unspecified; J44.9 Chronic obstructive pulmonary disease, unspecified; R60.0 Localized edema; Z95.0 Presence of cardiac pacemaker; Z87.891 Personal history of nicotine dependence | CPT/HCPCS: 99215 ==

== ENCOUNTER 2022-11-22 12:55 | Outpatient (CLI) | payer OTHER, SELFPAY ==
--- NOTE | 2022-11-22 13:12 | US_ITS ---
WS: [id number] RIGHT UPPER QUADRANT ULTRASOUND HISTORY: ELEVATED LIVER ENZYMES RUQ PAIN COMPARISON: None available. Liver: 14.5 cm in length. Normal size liver. Surface of the liver is very mildly nodular suggesting c irrhosis. No mass or bile duct dilatation. Portal Vein: Normal hepatopetal flow with monophasic waveform. Gallbladder: Normally distended gallbladder with no stones or wall thickening. CBD: 0.6 cm Pancreas: Normal size and echogenicity. Right kidney: 8.6 cm in length. Low normal size. No obstruction or mass. Aorta and IVC: Unremarkable abdominal aorta and IVC. No ascites. US/US abdomen limited [id number] IMPRESSION: 1. Normal gallbladder. 2. Hepatic surface nodularity suggesting early changes of cirrhosis.
== END 2022-11-22 12:56 | disposition home or self-care (01) ==
LOC: RAD 13:01
PROVIDERS: PCP Nurse Practitioner; Visit Provider Nurse Practitioner
DX: R74.8 Abnormal levels of other serum enzymes (principal); R10.11 Right upper quadrant pain
CPT/HCPCS: 76705

== ENCOUNTER → 2022-12-28 10:58 | Outpatient (BNVA) | payer OTHER, SELFPAY | PROVIDERS: PCP Nurse Practitioner; Visit Provider Internal Medicine Cardiovascular Disease | DX: Z45.010 Encounter for checking and testing of cardiac pacemaker pulse generator [battery] (principal) | CPT/HCPCS: 93296 ==

== ENCOUNTER → 2023-02-28 13:59 | Outpatient (BNVA) | payer OTHER, SELFPAY | PROVIDERS: PCP Nurse Practitioner; Visit Provider Internal Medicine Cardiovascular Disease | DX: I48.91 Unspecified atrial fibrillation (principal); I25.10 Atherosclerotic heart disease of native coronary artery without angina pectoris; I10 Essential (primary) hypertension; E11.9 Type 2 diabetes mellitus without complications; E78.2 Mixed hyperlipidemia; I77.810 Thoracic aortic ectasia; J43.9 Emphysema, unspecified; I73.9 Peripheral vascular disease, unspecified | CPT/HCPCS: 93005; 99214 ==

== ENCOUNTER 2023-03-01 09:29 | Outpatient (CLI) | payer OTHER, SELFPAY ==
--- NOTE | 2023-03-01 09:44 | MM_ITS ---
WS: [id number] BILATERAL SCREENING DIGITAL TOMOSYNTHESIS MAMMOGRAM WITH CAD HISTORY: SCREENING COMPARISON: 09/11/2020 and 12/26/2018 Bilateral CC and MLO views with tomosynthesis and synthetic mammography submitted. Computer aided det ection analyzed. Breast composition: There are scattered areas of fibroglandular density. No suspicious masses, microc alcifications or architectural distortion. MM/[place] [id number] IMPRESSION: BI-RADS: 1-Negative FOLLOW UP: 1 Year Follow-up
== END 2023-03-01 09:30 | disposition home or self-care (01) ==
LOC: RAD 09:33
PROVIDERS: PCP Nurse Practitioner; Visit Provider Nurse Practitioner
DX: Z12.31 Encounter for screening mammogram for malignant neoplasm of breast (principal)
CPT/HCPCS: 77063; 77067

== ENCOUNTER → 2023-04-05 15:12 | Outpatient (BNVA) | payer OTHER, SELFPAY | PROVIDERS: PCP Nurse Practitioner; Referring Provider Nurse Practitioner; Visit Provider Orthopaedic Surgery | DX: M48.062 Spinal stenosis, lumbar region with neurogenic claudication (principal); M54.9 Dorsalgia, unspecified | CPT/HCPCS: 72110; 99204 ==

== ENCOUNTER 2023-04-19 20:00 | Outpatient (CLI) | payer OTHER, SELFPAY | END 2023-04-19 20:01 | disposition home or self-care (01) | LOC: SLEEP 04-20 04:55 | PROVIDERS: PCP Nurse Practitioner; Visit Provider Nurse Practitioner | DX: G47.33 Obstructive sleep apnea (adult) (pediatric) (principal) | CPT/HCPCS: 95810 ==

== ENCOUNTER → 2023-04-22 16:51 | Outpatient (BNVA) | payer OTHER, SELFPAY | PROVIDERS: PCP Nurse Practitioner; Visit Provider Internal Medicine Cardiovascular Disease | DX: Z45.010 Encounter for checking and testing of cardiac pacemaker pulse generator [battery] (principal) | CPT/HCPCS: 93296 ==

== ENCOUNTER → 2023-05-02 09:18 | Outpatient (BNVA) | payer OTHER, SELFPAY | PROVIDERS: PCP Nurse Practitioner; Visit Provider Podiatrist Foot & Ankle Surgery | DX: M10.9 Gout, unspecified (principal); M79.671 Pain in right foot | CPT/HCPCS: 99203 ==

== ENCOUNTER → 2023-05-24 10:19 | Outpatient (BNVA) | payer OTHER, SELFPAY | PROVIDERS: PCP Nurse Practitioner; Visit Provider Anesthesiology Pain Medicine | DX: M16.0 Bilateral primary osteoarthritis of hip (principal); M47.816 Spondylosis without myelopathy or radiculopathy, lumbar region; M48.062 Spinal stenosis, lumbar region with neurogenic claudication | CPT/HCPCS: 73521; 99214 ==

== ENCOUNTER → 2023-06-14 13:30 | Outpatient (BNVA) | payer OTHER, SELFPAY | PROVIDERS: PCP Nurse Practitioner; Visit Provider Dermatology | DX: L57.0 Actinic keratosis (principal); L56.5 Disseminated superficial actinic porokeratosis (DSAP); L28.0 Lichen simplex chronicus; L82.1 Other seborrheic keratosis; L57.8 Other skin changes due to chronic exposure to nonionizing radiation; Z85.828 Personal history of other malignant neoplasm of skin | CPT/HCPCS: 17000; 17003; 99213 ==

== ENCOUNTER → 2023-06-21 13:06 | Outpatient (BNVA) | payer OTHER, SELFPAY | PROVIDERS: PCP Nurse Practitioner; Visit Provider Anesthesiology Pain Medicine | DX: M47.816 Spondylosis without myelopathy or radiculopathy, lumbar region (principal); M48.062 Spinal stenosis, lumbar region with neurogenic claudication | CPT/HCPCS: 64493; 64494; 64495; J1030; J3490 ==

== ENCOUNTER → 2023-07-07 09:10 | Outpatient (BNVA) | payer OTHER, SELFPAY | PROVIDERS: PCP Nurse Practitioner; Visit Provider Anesthesiology Pain Medicine | DX: M48.062 Spinal stenosis, lumbar region with neurogenic claudication (principal); M47.816 Spondylosis without myelopathy or radiculopathy, lumbar region | CPT/HCPCS: 99214 ==

== ENCOUNTER → 2023-08-03 12:55 | Outpatient (BNVA) | payer OTHER, SELFPAY | PROVIDERS: PCP Nurse Practitioner; Visit Provider Anesthesiology Pain Medicine | DX: M47.816 Spondylosis without myelopathy or radiculopathy, lumbar region (principal); M48.061 Spinal stenosis, lumbar region without neurogenic claudication; M54.16 Radiculopathy, lumbar region; M48.062 Spinal stenosis, lumbar region with neurogenic claudication; M54.2 Cervicalgia; M79.604 Pain in right leg | CPT/HCPCS: 64483; 64484; J1040; J3490; Q9967 ==

== ENCOUNTER → 2023-08-18 09:00 | Outpatient (BNVA) | payer OTHER, SELFPAY | PROVIDERS: PCP Nurse Practitioner; Visit Provider Anesthesiology Pain Medicine | DX: M48.062 Spinal stenosis, lumbar region with neurogenic claudication (principal); M47.816 Spondylosis without myelopathy or radiculopathy, lumbar region | CPT/HCPCS: 99214 ==

== ENCOUNTER → 2023-08-26 09:21 | Outpatient (BNVA) | payer OTHER, SELFPAY | PROVIDERS: PCP Nurse Practitioner; Visit Provider Internal Medicine Cardiovascular Disease | DX: I48.91 Unspecified atrial fibrillation (principal); I11.0 Hypertensive heart disease with heart failure; I50.20 Unspecified systolic (congestive) heart failure; Z95.0 Presence of cardiac pacemaker; F17.210 Nicotine dependence, cigarettes, uncomplicated; Z79.01 Long term (current) use of anticoagulants | CPT/HCPCS: 99214 ==

== ENCOUNTER 2023-10-27 10:19 | Emergency (ER) | payer OTHER, SELFPAY ==
[2023-10-27 10:22] VITALS: BP 176/116; PULSE 123; RESP 18; TEMP 36.7; O2SAT 97; BMI 25.7
[2023-10-27 10:51] VITALS: BP 186/124; PULSE 81; RESP 22; O2SAT 97
--- NOTE | 2023-10-27 10:54 | XR_ITS ---
WS: [id number] Exam: XR chest 1V portable [id number] Date/Time of Exam: 10/27/2023 10:54 AM Reason For Exam: afib Comparison 09/16/2022. Lungs are hyperinflated and clear. Heart size top limits normal. The mediastinum is normal in contour . No pleural effusions or pneumothorax. Cardiac pacer superimposes the LEFT chest. Bony structures ar e unremarkable. IMPRESSION: 1. Pulmonary hyperinflation which may indicate COPD. No acute process.
--- NOTE | 2023-10-27 10:55 | ED_ITS ---
HPI - Arrhythmia/Palpitations 2 General: Chief Complaint: Arrhythmia/Palpitations Stated Complaint: elevated pulse, nausea Time Seen by Provider: 10/27/23 10:38 Source: patient and family Mode of arrival: ambulatory Limitations: no limitations History of Present Illness: This patient with a known history of recurrent atrial fibrillation status post ablation presents to the emergency department because of a rapid heart rate. She states she has noted over the past 2 to 3 days when she is taken her blood pressure that her heart rate is in the 120s. She states she feels fatigued and exhausted but no chest pain or breathlessness associated with the symptoms. She has been taking her medications faithfully including her direct acting anticoagulant. She denies any fevers or chills or other contributing symptoms at this time. MD complaint: rapid heart beat and atrial fibrillation Arrhythmia history: atrial fibrillation Associated symptoms: Deny anxiety, nausea or vomiting Review of Systems 2 Const: Denies: fever(s) or chills Eyes: Denies: change in vision ENMT: Denies: odynophagia, nasal discharge or nasal congestion Card: Reports: palpitations and irregular heart rhythm; Denies: chest pain Resp: Denies: dyspnea, productive cough or non-productive cough GI: Denies: abdominal pain, nausea or vomiting : Denies: flank pain, difficulty voiding or dysuria Musc: Denies: neck pain, back pain, extremity pain or extremity swelling Skin/Breast: Denies: rash Neuro: Denies: headache(s), numbness in extremities or weakness in extremities Psych: Denies: anxiety, depression or mood swings Andres/Lymph: Reports: easy bruising; Denies: easy bleeding PFSH ED 2 PFSH: Medical History Former smoker History of nonmelanoma skin cancer Pacemaker CHF (congestive heart failure), NYHA class III COPD (chronic obstructive pulmonary disease) CHF exacerbation Enrolled in chronic care management Lumbar pain Opioid contract exists Diverticulosis Oral thrush Atrial fibrillation Fatigue Lower extremity edema Cataract BOTH EYES History of nonmelanoma skin cancer Osteoporosis Lumbar compression fracture Spinal stenosis of lumbar region with radiculopathy Lumbar stenosis with neurogenic claudication Essential hypertension Smokers' cough Perforated left tympanic membrane on examination GERD (gastroesophageal reflux disease) Dysphasia Nasal turbinate hypertrophy Deviated septum Hearing loss Cholesteatoma Depression Chronic eustachian tube dysfunction COPD (chronic obstructive pulmonary disease) with chronic bronchitis Surgical History H/O rotator cuff surgery LEFT AND RIGHT H/O bilateral salpingo-oophorectomy H/O kyphoplasty Hx of mastoidectomy Family History Mother CAD (coronary artery disease) Father CAD (coronary artery disease) Brother Cancer Sister Cancer Denies family history of Family history of exposure to Agent [place] Social History Smoking and tobacco/nicotine status: former use of tobacco/nicotine Alcohol intake: never Substance/Drug Use: never Lives independently: Yes Household members: none Marital status: / Current occupational status: retired Do you think of yourself as: Straight/Heterosexual Physical Exam 2 Narrative: EXAM NARRATIVE: Patient is alert no acute distress answers questions in a goal-directed fashion. Const: COMMON NORMALS: no acute distress, average body habitus and patient oriented x3 GENERAL APPEARANCE: cooperative and comfortable HENMT: COMMON NORMALS: normocephalic, Normal nasal mucous membranes and turbinates present and moist oral mucous membranes HEAD & SCALP: n ormocephalic NOSE: Normal nasal mucous membranes and turbinates present Eye: COMMON NORMALS: Equal, round and reactive pupils present, EOMs intact bilaterally and conjunctivae normal CONJUNCTIVA: Yes conjunctivae normal P UPIL: Yes Equal, round and reactive pupils present Neck/C-Spine: COMMON NORMALS: full ROM, no lymphadenopathy, no JVD and No carotid bruits Chest: COMMONS NORMALS: normal inspection of the chest Resp: COMMON NORMALS: normal respiratory effort, No retractions, No use of accessory muscles and clear to auscultation bilaterally AUSCULTATION: clear to auscultation bilaterally Cardio: COMMON NORMALS: no JVD, regular rate, regular rhythm, No murmurs present (Cardio) and Peripheral pulses 2+ throughout RATE: regular rate R HYTHM: regular rhythm PERIPHERAL PULSES: Peripheral pulses 2+ throughout GI: COMMON NORMALS: Normal to inspection, nondistended, normoactive bowel sounds present, Soft to palpation and non-tender PALPATION: Yes Soft to palpation : COMMON NORMALS: Yes no CVA tenderness BLADDER/KIDNEY EXAM: Yes no CVA tenderness Back/Pelvis: COMMON NORMALS: no CVA tenderness, thoracic and lumbar spine normal to inspection, no thoracic nor lumbar tenderness, thoraco-lumbar ROM normal and straight leg raise negative bilaterally Extremity: COMMON NORMALS: normal to inspection, full ROM, capillary refill normal, no calf tenderness and no pedal edema Neuro: COMMON NORMALS: patient oriented x3, moves all extremities and no sensory deficits noted CRANIAL NERVES: Yes CN normal except as noted Psych: COMMON NORMALS: mental status grossly normal Skin: COMMON NORMALS: no rashes or lesions noted, no wounds and turgor normal GENERAL SKIN EXAM: no rashes or lesions noted and turgor normal Course 2 Reevaluation(s): Reevaluation #1: During the process of interviewing the patient the patient's heart rate converted from a rapid ventricular response in the 140s to 80 bpm. Time: 10:58 Reevaluation #2: The patient has remained in controlled ventricular response between 70 and 80 throughout her emergency department stay. She had good response from her 20 mg of Lasix. I have advised her that we need to discharge her on Lasix once daily for the next [address] a consult in for cardiology to follow her up and she will likely need to be reevaluated by electrophysiology for an ablation. No evidence at this time to suggest unstable medical condition and she is suitable for discharge and that is her preference at this time. Time: 13:57 Vital Signs: Vital signs: Vital Signs Temperature 98.1 F 10/27/23 10:22 Pulse Rate 74 10/27/23 12:16 Respiratory Rate 12 10/27/23 11:19 Blood Pressure 138/86 10/27/23 12:16 Pulse Oximetry 94 10/27/23 12:10 Oxygen Delivery Me thod Nasal Cannula 10/27/23 12:10 MDM - Arrhythmia/Palpitations Medical Decision Making Patient with a known history of chronic atrial fibrillation who has had ablation within the last 6 months presents to the emergency department because she is having recurrent episodes over the past 2 to 3 days of rapid heart rate and associated lack of energy. No associated chest pain fevers chills etc. She had not had any change in her medications. On initial examination her ventricular response was noted to be 144 bpm which during the intake evaluation actually converted down to 70 bpm. Her clinical exam otherwise was unrevealing for any stigmata of worrisome disease. Evaluation revealed normal electrolytes thyroid-stimulating hormone and reassuring chest x-ray. Her BNP was elevated over prior BNP's. Given this finding she was given 20 mg of Lasix while in the emergency department which she had a very appropriate response to. She remained in a controlled ventricular response throughout her emergency department stay we discussed of care. We will have her restart magnesium 4 mg daily as well as take 20 mg Lasix (apparently that is her threshold) once daily for the next [address] a consultation for cardiology follow-up as she will likely need to be reevaluated by electrophysiology. We also discussed return precautions. Medical Records I reviewed the patient's medical records. Lab Data I reviewed the patient's lab results. 10/27/23 10:45 10/27/23 10:45 Laboratory Results WBC 6.02 10^3/uL (3.29-11.43) 10/27/23 10:45 RBC 4.06 10^6/uL (3.85-5.65) 10/27/23 10:45 Hgb 12.40 g/dL (11.27-16.99) 10/27/23 10:45 Hct 36.9 % (36-47) 10/27/23 10:45 MCV 90.9 fl (85-98) 10/27/23 10:45 MCH 30.5 pg (27-33) 10/27/23 10:45 MCHC 33.6 g/dL (30-55) 10/27/23 10:45 RDW 14.1 % (12.1-15.1) 10/27/23 10:45 Plt Count 299 10^3/cmm (157-399) 10/27/23 10:45 MPV 9.3 fL (7.4-10.4) 10/27/23 10:45 Neut % (Auto) 70.0 % 10/27/23 10:45 Lymph % (Auto) 23.1 % 10/27/23 10:45 Arroyo % (Auto) 6.1 % 10/27/23 10:45 Eos % (Auto) 0.3 % 10/27/23 10:45 Baso % (Auto) 0.3 % 10/27/23 10:45 Neut # (Auto) 4.21 10^3/uL (1.8-7.7) 10/27/23 10:45 Lymph # (Auto) 1.4 10^3/uL (0.8-4.8) 10/27/23 10:45 Arroyo # (Auto) 0.4 10^3/uL (0.2-0.9) 10/27/23 10:45 Eos # (Auto) 0.0 10^3/uL (0.0-0.8) 10/27/23 10:45 Baso # (Auto) 0.0 10^3/uL (0.0-0.1) 10/27/23 10:45 Nucleated RBC % (auto) 0 % 10/27/23 10:45 Nucleated RBCs # 0.0 /100WBC 10/27/23 10:45 Sodium 130 mmol/L (136-145) L 10/27/23 10:45 Potassium 3.9 mmol/L (3.5-5.1) 10/27/23 10:45 Chloride 90 mmol/L (98-107) L 10/27/23 10:45 Carbon Dioxide 28 mmol/L (22-29) 10/27/23 10:45 Anion Gap 15.9 (5-19) 10/27/23 10:45 BUN 14 mg/dL (8-23) 10/27/23 10:45 Creatinine 0.6 mg/dL (0.5-0.9) 10/27/23 10:45 GFR Calculation Not Reportable 10/27/23 10:45 Glucose 132 mg/dL (65-115) H 10/27/23 10:45 Calculated Osmolality 272 mOsm/kg (285-295) L 10/27/23 10:45 Calcium 10.1 mg/dL (8.5-10.5) 10/27/23 10:45 Magnesium 1.7 mg/dL (1.7-2.3) 10/27/23 10:45 Total Bilirubin 0.4 mg/dL (0.15-1.2) 10/27/23 10:45 AST 24 U/L (0-32) 10/27/23 10:45 ALT 16 U/L (0-33) 10/27/23 10:45 Alkaline Phosphatase 28 U/L (35-105) L 10/27/23 10:45 NT-Pro-B Natriuret Pep 3594 pg/mL (0-450) H 10/27/23 10:45 Total Protein 7.2 g/dL (6.6-8.7) 10/27/23 10:45 Albumin 4.4 g/dL (3.5-5.2) 10/27/23 10:45 Globulin 2.8 g/dL (1.3-4.6) 10/27/23 10:45 All radiology interpretation(s) finalized by discharge EKG Data EKG 1: I personally reviewed and interpreted this EKG as follows: Interpretation: Contemporaneous review of initial EKG revealed ventricular rate of 144 bpm. QRS duration 78 ms and normal corrected QT interval is normal. Linn is narrow and normal. Consistent with rapid ventricular response underlying atrial fibrillation. There are rate related nonspecific ST-T wave changes noted. Discharge Plan Discharge Patient Disposition: Home Clinical Impression: Atrial fibrillation, chronic Chronic CHF (congestive heart failure) Qualifiers: Heart failure type: unspecified Qualified Code(s): I50.9 - Heart failure, unspecified Condition: Stable Prescriptions: New Lasix 20 mg tablet 20 mg PO DAILY Qty: 5 0RF No Action cholecalciferol (vitamin D3) 25 mcg (1,000 unit) capsule 25 mcg PO BEDTIME alprazolam 0.25 mg tablet 0.25 mg PO BID PRN (Reason: Anxiety) gabapentin 100 mg capsule 100 mg PO QAM acetaminophen 500 mg tablet 1,000 mg PO BID PRN (Reason: Pain) Xarelto 20 mg tablet 20 mg PO BEDTIME Qty: 100 3RF rosuvastatin 10 mg tablet 10 mg PO BEDTIME Qty: 90 3RF valsartan 160 mg tablet 160 mg PO BID Qty: 180 3RF levothyroxine 25 mcg Tablet 25 mcg PO DAILY@06 potassium gluconate 595 mg (99 mg) Tablet 595 mg PO BEDTIME hydrochlorothiazide 50 mg tablet 50 mg PO QAM Protonix 40 mg tablet,delayed release (DR/EC) 40 mg PO QAM Discharge Orders: Discharge ED (Routine); Ordered 10/27/23 Ordered By: Gonzalo Fuentes Referrals: Cecille Crump, PRENATAL TEACHER [Primary Care Provider] - Discharge Diet: Usual diet and Low Salt Discharge Activity: Increase activity as tolerated Patient Instructions: Opioid Safety, Pain Management Activity Restrictions/Additional Instructions: As we discussed you have extra fluid buildup that we have given you Lasix to take 1 daily for the next 5 days to help reduce that fluid buildup. After 5 days you will discontinue the Lasix and continue all your other usual medications. We will put a consultation in for you to see cardiology in the next 2 to 3 weeks for evaluation and referral back to electrophysiology. If you develop recurrent rapid heart rate, chest pain, shortness of breath or any other symptoms of concern to return to this or the nearest emergency department. You should also take oahd-pab-yhwttug strength magnesium 400 mg daily. Coding Level of Care Code ED Nanotechnologist for Ismael Schulte
--- NOTE | 2023-10-27 10:55 | ECG_ITS ---
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 Measurements Intervals [place] Rate: 144 P: 0 PA: 0 QRS: 25 QRSD: 78 T: 238 QT: 276 QTc: 428 Interpretive Statements ATRIAL FIBRILLATION WITH RAPID VENTRICULAR RESPONSE NONSPECIFIC ST & T-WAVE ABNORMALITY Compared to ECG 02/28/2023 14:03:05 Atrial-paced complex(es) or rhythm no longer present T-wave abnormality still present Electronically Signed On 10-27-2023 17:49:58 [employer] SPRING MACHINE OPERATOR by Ralph Alford M.D. [email or web address]
[2023-10-27 11:00] LABS: Basophils % 0.3 %; Eosinophils % 0.3 %; Hematocrit 36.9 % (36-47); Lymphocytes # 1.4 10^3/uL (0.8-4.8); Lymphocytes % 23.1 %; Mean Corpuscular HGB Conc 33.6 g/dL (30-55); Mean Corpuscular Hemoglobin 30.5 pg (27-33); Mean Corpuscular Volume 90.9 fl (85-98); Mean Platelet Volume 9.3 fL (7.4-10.4); Monocytes # 0.4 10^3/uL (0.2-0.9); Monocytes % 6.1 %; Neutrophils # 4.21 10^3/uL (1.8-7.7); Nucleated Red Blood Cells % 0 %; Platelet Count 299 10^3/cmm (157-399); Red Blood Count 4.06 10^6/uL (3.85-5.65); Red Cell Distribution Width 14.1 % (12.1-15.1); White Blood Count 6.02 10^3/uL (3.29-11.43)
[2023-10-27 11:19] VITALS: BP 165/84; PULSE 79; RESP 12; O2SAT 94
--- NOTE | 2023-10-27 11:23 | PC.PHAR ---
10/27/23- PT IS [facility] BUT KNOWS HER MEDICATIONS WELL.
[2023-10-27 11:29] LABS: Alanine Aminotransferase 16 U/L (0-33); Albumin Level 4.4 g/dL (3.5-5.2); Alkaline Phosphatase 28 U/L (35-105); Anion Gap 15.9 (5-19); Aspartate Amino Transferase 24 U/L (0-32); Blood Urea Nitrogen 14 mg/dL (8-23); Calcium 10.1 mg/dL (8.5-10.5); Carbon Dioxide 28 mmol/L (22-29); Chloride 90 mmol/L (98-107); Globulin 2.8 g/dL (1.3-4.6); Glucose 132 mg/dL (65-115); Magnesium 1.7 mg/dL (1.7-2.3); NT Pro B Type Natriuretic Pept 3594 pg/mL (0-450); Osmolality Calculated 272 mOsm/kg (285-295); Potassium 3.9 mmol/L (3.5-5.1); Sodium 130 mmol/L (136-145); Total Bilirubin 0.4 mg/dL (0.15-1.2); Total Protein 7.2 g/dL (6.6-8.7)
[2023-10-27 12:10] VITALS: BP 139/73; PULSE 75; O2SAT 94
[2023-10-27 12:16] VITALS: BP 138/86; PULSE 74
[2023-10-27] MEDS: FUROsemide 10 mg/mL SDV 2mL 20 MG IVP (12:16)
[2023-10-27 14:05] VITALS: BP 138/86; PULSE 74
--- NOTE | 2023-10-27 15:11 | DCPLANNER ---
Message was sent to Dr. Nash office on 10/27/23 at [phone]. [facility] to contact patient
== END 2023-10-27 14:07 | disposition home or self-care (01) ==
PROVIDERS: Emergency Provider Emergency Medicine; PCP Nurse Practitioner
DX: I48.20 Chronic atrial fibrillation, unspecified (principal); I50.9 Heart failure, unspecified
CPT/HCPCS: 71045; 80053; 83735; 83880; 85025; 93005; 96374; 99285; J1940

== ENCOUNTER → 2023-11-24 09:24 | Outpatient (BNVA) | payer OTHER, SELFPAY | PROVIDERS: PCP Nurse Practitioner; Visit Provider Anesthesiology Pain Medicine | DX: M48.062 Spinal stenosis, lumbar region with neurogenic claudication (principal); M47.816 Spondylosis without myelopathy or radiculopathy, lumbar region | CPT/HCPCS: 99214 ==

== ENCOUNTER → 2023-12-23 09:47 | Outpatient (BNVA) | payer OTHER, SELFPAY | PROVIDERS: PCP Nurse Practitioner; Visit Provider Internal Medicine Cardiovascular Disease | DX: I11.0 Hypertensive heart disease with heart failure (principal); I50.9 Heart failure, unspecified; Z95.0 Presence of cardiac pacemaker; I48.91 Unspecified atrial fibrillation; Z79.01 Long term (current) use of anticoagulants; Z87.891 Personal history of nicotine dependence | CPT/HCPCS: 99214 ==

== ENCOUNTER → 2023-12-28 14:50 | Outpatient (BNVA) | payer OTHER, SELFPAY | PROVIDERS: PCP Nurse Practitioner; Visit Provider Nurse Practitioner Family | DX: L29.8 Other pruritus (principal); L57.0 Actinic keratosis; L56.5 Disseminated superficial actinic porokeratosis (DSAP); L57.8 Other skin changes due to chronic exposure to nonionizing radiation; D18.01 Hemangioma of skin and subcutaneous tissue | CPT/HCPCS: 17000; 99214 ==

== ENCOUNTER → 2024-02-22 08:43 | Outpatient (BNVA) | payer OTHER, SELFPAY | PROVIDERS: PCP Nurse Practitioner; Visit Provider Anesthesiology Pain Medicine | DX: M54.2 Cervicalgia (principal); M48.062 Spinal stenosis, lumbar region with neurogenic claudication; M47.816 Spondylosis without myelopathy or radiculopathy, lumbar region; M16.0 Bilateral primary osteoarthritis of hip | CPT/HCPCS: 99214 ==

== ENCOUNTER → 2024-02-29 13:21 | Outpatient (BNVA) | payer OTHER, SELFPAY | PROVIDERS: PCP Nurse Practitioner; Visit Provider Anesthesiology Pain Medicine | DX: M16.11 Unilateral primary osteoarthritis, right hip (principal) | CPT/HCPCS: 20610; 77002; J1010; J3490 ==

== ENCOUNTER 2024-03-19 14:02 | Outpatient (CLI) | payer OTHER, SELFPAY ==
--- NOTE | 2024-03-19 14:10 | MM_ITS ---
WS: [id number] BILATERAL 3D TOMOSYNTHESIS DIGITAL SCREENING MAMMOGRAPHY WITH CAD CLINICAL INFORMATION: SCREENING HISTORY: Screening mammogram. No current complaints. COMPARISON: 2022 TECHNIQUE: Bilateral CC and MLO views. FINDINGS: The breasts are composed of heterogeneous fibroglandular density tissue, which can limit the detectio n of small underlying mass lesions. No suspicious mass, asymmetry, calcifications, or architectural d istortion. No evidence of malignancy. Lucent centered calcification RIGHT breast. MM/[place] [id number] IMPRESSION: BI-RADS: 2-Benign FOLLOW UP: 1 Year Follow-up Recommend return to annual screening mammography.
== END 2024-03-19 14:03 | disposition home or self-care (01) ==
LOC: RAD 14:03
PROVIDERS: PCP Nurse Practitioner; Visit Provider Nurse Practitioner
DX: Z12.31 Encounter for screening mammogram for malignant neoplasm of breast (principal); R92.333 Mammographic heterogeneous density, bilateral breasts; R92.1 Mammographic calcification found on diagnostic imaging of breast
CPT/HCPCS: 77063; 77067

== ENCOUNTER → 2024-03-22 13:16 | Outpatient (BNVA) | payer OTHER, SELFPAY | PROVIDERS: PCP Nurse Practitioner; Visit Provider Anesthesiology Pain Medicine | DX: M25.551 Pain in right hip (principal); M54.2 Cervicalgia; M48.062 Spinal stenosis, lumbar region with neurogenic claudication; M47.816 Spondylosis without myelopathy or radiculopathy, lumbar region; M25.552 Pain in left hip | CPT/HCPCS: 99214 ==

== ENCOUNTER → 2024-07-05 14:20 | Outpatient (BNVA) | payer OTHER, SELFPAY | PROVIDERS: PCP Nurse Practitioner; Visit Provider Dermatology | DX: L56.5 Disseminated superficial actinic porokeratosis (DSAP) (principal); L40.8 Other psoriasis; L57.0 Actinic keratosis; D18.01 Hemangioma of skin and subcutaneous tissue; L81.4 Other melanin hyperpigmentation; L57.8 Other skin changes due to chronic exposure to nonionizing radiation; L50.8 Other urticaria | CPT/HCPCS: 17000; 99214 ==

== ENCOUNTER 2024-07-20 15:19 | Emergency (ER) | payer OTHER, SELFPAY ==
[2024-07-20 15:40] VITALS: BP 211/61; PULSE 77; RESP 16; TEMP 36.9; O2SAT 96; BMI 25.2
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
== END 2024-07-20 19:40 | disposition home or self-care (01) ==
PROVIDERS: Emergency Provider Physician Assistant; PCP Nurse Practitioner
DX: S16.1XXA Strain of muscle, fascia and tendon at neck level, initial encounter (principal); Z79.01 Long term (current) use of anticoagulants; Z87.891 Personal history of nicotine dependence; Z95.0 Presence of cardiac pacemaker; I11.0 Hypertensive heart disease with heart failure; I50.9 Heart failure, unspecified; J44.9 Chronic obstructive pulmonary disease, unspecified; V89.2XXA Person injured in unspecified motor-vehicle accident, traffic, initial encounter
CPT/HCPCS: 70450; 72125; 99284

== ENCOUNTER 2024-07-23 06:55 | Outpatient (CLI) | payer OTHER, SELFPAY ==
--- NOTE | 2024-07-23 07:00 | USCV_ITS ---
Dona Jimenez Age: 78 Gender: F : 1945 Exam Date: 07/23/2024 07:06 Ordering Phys: Cecille Crump Technologist: PEGGY Exam Location: [facility] – [place] Indication: Possible AAA on xray HISTORY: Diameter (cm) AP x Transverse x Length Velocity (cm/s) Waveform Prox Aorta: 1.90 x 2.80 x 95.90 Triphasic Mid Aorta: 2.00 x 2.10 x 43.60 Triphasic Distal Aorta: 1.60 x 2.00 x 43.60 Triphasic Right Iliac Prox: 1.33 x 1.13 x 130.90 Triphasic Left Iliac Prox: 1.17 x 1.58 x 35.70 Triphasic Stent Prox Landing x x Aneurysmal Sac Max x x Lt Lat Sac Dim Rt Lat Sac Dim Stent Dist Landing x x Right Iliac Stent x x Left Iliac Stent x x Right Renal Art Left Renal Art FINDINGS: Comparison:. 07/20/19. Ectatic abdominal aorta with evidence of atherosclerotic plaque noted. No evidence of abdominal aortic or bilateral iliac aneurysm. CONCLUSIONS No evidence of abdominal aortic aneurysm. Dr. Yanni Fox DO (Electronically Signed) Final Date: 23 July 2024 08:51 S
== END 2024-07-23 06:56 | disposition home or self-care (01) ==
LOC: RAD 06:55
PROVIDERS: PCP Nurse Practitioner; Visit Provider Nurse Practitioner
DX: I77.811 Abdominal aortic ectasia (principal); I70.0 Atherosclerosis of aorta
CPT/HCPCS: 76706

== ENCOUNTER 2024-08-14 09:30 | Outpatient (CLI) | payer OTHER, SELFPAY ==
--- NOTE | 2024-08-14 09:33 | USCV_ITS ---
Dona Jimenez Age: 78 Gender: F : 1945 Exam Date: 08/14/2024 10:41 Ordering Phys: Cecille Crump Technologist: Exam Location: [facility] – [place] Indication: LE PAIN RIGHT LEFT Brachial 163.00 mmHg Brachial 179.00 mmHg Pressure (mmHg) Waveform Pressure (mmHg) Waveform 185.00 RADIO RIGGER 179.00 165.00 DPA 166.00 1.03 Ankle/Brachial Index 1.00 137.00 Pre-Exercise Toe Pressure 136.00 0.77 Pre-Exercise Toe/Brachial Index 0.76 FINDINGS Resting LILLIAN of 1.03 on the right and 1.0 on the left Resting TBI of 0.77 on the right and 0.76 on the right CONCLUSIONS Normal resting ABIs and TBI s bilaterally suggesting no significant arterial obstruction Dr Fanny Nash MD FAC (Electronically Signed) Final Date: 18 August 2024 13:38 S
== END 2024-08-14 09:31 | disposition home or self-care (01) ==
LOC: RAD 09:30
PROVIDERS: PCP Nurse Practitioner; Visit Provider Nurse Practitioner
DX: R60.9 Edema, unspecified (principal)
CPT/HCPCS: 93922

== ENCOUNTER → 2024-08-23 09:47 | Outpatient (BNVA) | payer OTHER, SELFPAY | PROVIDERS: PCP Nurse Practitioner; Visit Provider Internal Medicine Cardiovascular Disease | DX: Z45.010 Encounter for checking and testing of cardiac pacemaker pulse generator [battery] (principal) | CPT/HCPCS: 93296 ==

== ENCOUNTER → 2024-08-24 09:14 | Outpatient (BNVA) | payer OTHER, SELFPAY | PROVIDERS: PCP Nurse Practitioner; Visit Provider Nurse Practitioner Family | DX: R06.00 Dyspnea, unspecified (principal); Z87.891 Personal history of nicotine dependence; R20.8 Other disturbances of skin sensation; I11.0 Hypertensive heart disease with heart failure; I50.22 Chronic systolic (congestive) heart failure; Z95.0 Presence of cardiac pacemaker; I48.91 Unspecified atrial fibrillation | CPT/HCPCS: 99214 ==

== ENCOUNTER 2024-09-11 09:52 | Outpatient (CLI) | payer OTHER, SELFPAY | END 2024-09-11 09:53 | disposition home or self-care (01) | PROVIDERS: PCP Nurse Practitioner; Visit Provider Nurse Practitioner Family | DX: Z87.891 Personal history of nicotine dependence (principal); R94.2 Abnormal results of pulmonary function studies | CPT/HCPCS: 94060; 94726; 94729 ==

== ENCOUNTER 2024-09-18 15:03 | Outpatient (CLI) | payer OTHER, SELFPAY ==
--- NOTE | 2024-09-18 10:27 | CT_ITS ---
WS: [id number] CT ANGIOGRAPHY OF THE ABDOMINAL AORTA WITH RUNOFF TO THE ANKLES HISTORY: change in sensation and color of legs/feet TECHNIQUE: Arterial injection is performed during imaging to evaluate the aorta and runoff vessels to the ankles. MIP and volume rendering imaging has also been performed. All images are reviewed. All C T scans at [facility] use at least one of these dose optimization techniques: automated exposu re control; mA and/or kV adjustment per patient size (includes targeted exams where dose is matched t o clinical indication); or iterative reconstruction. Contrast: Omnipaque 350; 100 mL IV. DLP: Not submitted. COMPARISON: None available. Lung bases are clear. Normal size heart. Small hiatal hernia. Tricuspid regurgitation into the hepati c veins. Abdominal aorta: Ectatic extensive atherosclerotic plaque throughout the abdominal aorta. Ectasia but nonaneurysmal. Heavy calcification continues to the aortic bifurcation. 50 to 60% stenosis origin of the celiac axis. No stenosis origin of the SMA within the mid to distal SMA there is heavy calcified plaque. Small caliber and patent ZACH. Small amount of calcified plaque at the origin of the renal ar teries. Single renal arteries are identified. RIGHT lower extremity arterial system: Extensive calcified plaque with 50% stenosis proximally in the common iliac artery by heavy plaque. Internal and external iliac arteries are patent with continued scattered plaque. 50% stenosis distal RIGHT external iliac artery. Continued plaque with moderate pat nosis into the femoral artery and the bifurcation. Deep profundus and SFA proximally are intact. Cont inued plaque into the proximal SFA. 60% stenosis proximal RIGHT SFA. Small caliber popliteal artery b ut it is patent. Tibioperoneal trunk patent. Small caliber arteries below the knee. Arteries do appea r to be intact to the ankle and foot. More significant disease within the peroneal artery. LEFT lower extremity arterial system: Dense calcified plaque at the bifurcation. 50% stenosis mid com mon iliac artery. Heavy calcified plaque continues into the internal and external iliac arteries. No stenosis greater than 50%. SFA and deep profundus are intact proximally. Scattered calcified plaques of the SFA. 50% stenosis proximal SFA. Calcified plaque through the popliteal artery. Good three-vess el runoff below the knee. Very small caliber and limited opacification of the peroneal artery. Anteri or tibial and the posterior tibial arteries are better opacified. Liver spleen and gallbladder are negative. Unremarkable pancreas and adrenal glands. Small caliber ki dneys. Normal enhancement. No GI tract obstruction. No adenopathy or ascites. Normal appendix. Modera te distal colon diverticular disease. Prior vertebroplasty at L2. Mild anterior wedging of L3. CT/CT angio abd aorta runof [id number] IMPRESSION: 1. Moderate ectasia and atherosclerosis abdominal aorta with no aneurysm. 2. Bilateral common iliac artery dense calcified plaque extending into the lum en. Stenosis estimated at 50%. 3. Diffuse scattered plaques of the SMA but no occlusion. 4. 50-60. Stenosis origin of the celiac axis. 5. Proximal RIGHT SFA stenosis 60%. 6. Proximal LEFT SFA stenosis 50%. 7. Good three-vessel runoff to the ankles. Peroneal arteries are smaller calib er than the anterior and posterior tibial arteries.
[2024-09-18] MEDS: iohexol 350 mg/mL 500 mL Btl (per mL) IV (15:43)
== END 2024-09-18 15:04 | disposition home or self-care (01) ==
LOC: RAD 15:04
PROVIDERS: PCP Nurse Practitioner; Visit Provider Nurse Practitioner Family
DX: R20.9 Unspecified disturbances of skin sensation (principal); R23.8 Other skin changes; I70.0 Atherosclerosis of aorta; I77.811 Abdominal aortic ectasia; I70.8 Atherosclerosis of other arteries; I77.4 Celiac artery compression syndrome; K44.9 Diaphragmatic hernia without obstruction or gangrene; I07.1 Rheumatic tricuspid insufficiency; I70.1 Atherosclerosis of renal artery; R93.5 Abnormal findings on diagnostic imaging of other abdominal regions, including retroperitoneum; R93.6 Abnormal findings on diagnostic imaging of limbs; K57.30 Diverticulosis of large intestine without perforation or abscess without bleeding; Z98.890 Other specified postprocedural states; I70.203 Unspecified atherosclerosis of native arteries of extremities, bilateral legs
CPT/HCPCS: 75635

== ENCOUNTER → 2024-10-30 09:49 | Outpatient (BNVA) | payer OTHER, SELFPAY | PROVIDERS: PCP Nurse Practitioner; Visit Provider Anesthesiology Pain Medicine | DX: M48.062 Spinal stenosis, lumbar region with neurogenic claudication (principal); M47.816 Spondylosis without myelopathy or radiculopathy, lumbar region; M54.2 Cervicalgia; M17.11 Unilateral primary osteoarthritis, right knee; M25.551 Pain in right hip | CPT/HCPCS: 99214 ==

== ENCOUNTER 2024-11-01 08:56 | Outpatient (CLI) | payer OTHER, SELFPAY ==
--- NOTE | 2024-11-01 08:58 | XR_ITS ---
WS: [id number] Right knee, 3 views, 11/01/2024 Clinical Data: M17.11 - Unilateral primary osteoarthritis, right knee Comparison: None. Findings: No fractures or dislocations are seen. The joint spaces are normal. The patella is intact. The soft t issues are unremarkable. Minimal vascular calcification is present. XR/XR knee RT 3V* [id number] Impression: Negative right knee.
== END 2024-11-01 08:57 | disposition home or self-care (01) ==
LOC: RAD 08:57
PROVIDERS: PCP Nurse Practitioner; Visit Provider Anesthesiology Pain Medicine
DX: M17.11 Unilateral primary osteoarthritis, right knee (principal)
CPT/HCPCS: 73562

== ENCOUNTER → 2024-11-13 12:52 | Outpatient (BNVA) | payer OTHER, SELFPAY | PROVIDERS: PCP Nurse Practitioner; Visit Provider Anesthesiology Pain Medicine | DX: M16.11 Unilateral primary osteoarthritis, right hip (principal) | CPT/HCPCS: 20610; 77002; J1010; J3490 ==

== ENCOUNTER → 2024-12-10 09:13 | Outpatient (BNVA) | payer OTHER, SELFPAY | PROVIDERS: PCP Nurse Practitioner; Visit Provider Anesthesiology Pain Medicine | DX: M25.551 Pain in right hip (principal); M54.2 Cervicalgia; M48.062 Spinal stenosis, lumbar region with neurogenic claudication; M47.816 Spondylosis without myelopathy or radiculopathy, lumbar region; M17.11 Unilateral primary osteoarthritis, right knee | CPT/HCPCS: 99214 ==

== ENCOUNTER → 2024-12-25 14:44 | Outpatient (BNVA) | payer OTHER, SELFPAY | PROVIDERS: PCP Nurse Practitioner; Visit Provider Dermatology | DX: L30.9 Dermatitis, unspecified (principal) | CPT/HCPCS: 11104; 11105; 99214 ==

== ENCOUNTER 2025-01-05 09:02 | Emergency (ER) | payer OTHER, MEDICARE, SELFPAY ==
[2025-01-05 09:09] VITALS: BP 133/73; PULSE 77; RESP 14; TEMP 36.9; O2SAT 97; BMI 24.5
[2025-01-05 09:27] VITALS: BP 133/73; PULSE 77; RESP 14; TEMP 36.9; O2SAT 97
[2025-01-05] MEDS: ondansetron 2 mg/ML SDV 2 mL 8 MG IVP (09:40)
[2025-01-05] MEDS: sodium chloride 0.9% 1,000 ML 999 ML IV (09:40)
[2025-01-05 09:42] LABS: Basophils % 0.2 %; Hematocrit 35.9 % (36-47); Lymphocytes # 0.2 10^3/uL (0.8-4.8); Lymphocytes % 3.3 %; Mean Corpuscular HGB Conc 32.6 g/dL (30-55); Mean Corpuscular Hemoglobin 30.4 pg (27-33); Mean Corpuscular Volume 93.2 fl (85-98); Mean Platelet Volume 9.4 fL (7.4-10.4); Monocytes # 0.3 10^3/uL (0.2-0.9); Monocytes % 4.1 %; Neutrophils # 5.84 10^3/uL (1.8-7.7); Neutrophils % 92.1 %; Nucleated Red Blood Cells % 0 %; Platelet Count 275 10^3/cmm (157-399); Red Blood Count 3.85 10^6/uL (3.85-5.65); Red Cell Distribution Width 15.2 % (12.1-15.1); White Blood Count 6.34 10^3/uL (3.29-11.43)
--- NOTE | 2025-01-05 09:49 | ED_ITS ---
HPI - Nausea/Vomiting/Diarrhea 2 General: Chief complaint: Nausea/Vomiting/Diarrhea Stated complaint: n/v/d Time Seen by Provider: 01/05/25 09:09 History of Present Illness: 79-year-old female with a history of anx iety, hypertension and hypothyroidism who presents to the emergency room after having an episode of nausea and vomiting last night. She said she had some diarrhea and she had a episode of severe projectile vomiting . She had some lower abdominal pain. Symptoms have now resolved. She had a glass of tea before coming to the emergency room and tolerated it. She is concerned she might be dehydrated. Vitals are normal Related Data Home Medications ?Medication ?Instructions ?Recorded ?Confirmed alprazolam 0.25 mg tablet 0.25 mg PO BID PRN Anxiety 1 11/06/21 01/05/25 cholecalciferol (vitamin D3) 25 25 mcg PO BEDTIME 08/1101/05/25 mcg (1,000 unit) capsule levothyroxine 25 mcg tablet 25 mcg PO DAILY@06 2 01/05/25 acetaminophen 500 mg tablet 1,000 mg PO BID PRN Pain 1 10/26/22 01/05/25 hydrochlorothiazide 50 mg tablet 50 mg PO QAM 10/27/23 01/05/25 potassium chloride 20 mEq 20 meq PO BEDTIME 01/05/25 0 01/05/25 tablet,extended release Previous Rx's ?Medication ?Instructions ?Recorded rivaroxaban 20 mg tablet (Xarelto) 20 mg PO BEDTIME #1 00 tabs 10/27/22 rosuvastatin 10 mg tablet 10 mg PO BEDTIME #90 tabs valsartan 160 mg tablet 160 mg PO BID #180 tabs 11/10 cefdinir 300 mg capsule 300 mg PO BID 7 days #14 cap s 01/05/25 ondansetron 8 mg disintegrating 8 mg PO Q6H #14 tabs 0 01/05/25 tablet Allergies Allergy/AdvReac Type Severity Reaction Status Date / Time codeine Allergy Severe ALGY-Difficulty Verified 01/05/25 09:09 Breathing metronidazole (From Flagyl) Allergy Severe ADR/ALGY-Pa Verified 01/05/25 09:09 lpitations dexamethasone AdvReac Intermediate ADR-Anxiety Verified 01/05/25 09:09 clonidine AdvReac Mild Unconscious Verified 01/05/25 09:09 lisinopril AdvReac Mild ADR-Cough Verified 01/05/25 09:09 Review of Systems 2 Narrative: Constitutional symptoms: Negative except as documented in HPI. Skin symptoms: Negative except as documented in HPI. Eye symptoms: Negative except as documented in HPI. ENMT symptoms: Negative except as documented in HPI. Respiratory symptoms: Negative except as documented in HPI. Cardiovascular symptoms: Negative except as documented in HPI. Gastrointestinal symptoms: Negative except as documented in HPI. Genitourinary symptoms: Negative except as documented in HPI. Musculoskeletal symptoms: Negative except as documented in HPI. Neurologic symptoms: Negative except as documented in HPI. Psychiatric symptoms: Negative except as documented in HPI. Endocrine symptoms: Negative except as documented in HPI. PFSH ED 2 PFSH: Medical History Anticoagulation adequate with anticoagulant therapy Former smoker History of nonmelanoma skin cancer Pacemaker CHF (congestive heart failure), NYHA class III COPD (chronic obstructive pulmonary disease) CHF exacerbation Enrolled in chronic care management Lumbar pain Opioid contract exists Diverticulosis Oral thrush Atrial fibrillation Fatigue Lower extremity edema Cataract BOTH EYES History of nonmelanoma skin cancer Osteoporosis Lumbar compression fracture Spinal stenosis of lumbar region with radiculopathy Lumbar stenosis with neurogenic claudication Essential hypertension Smokers' cough Perforated left tympanic membrane on examination GERD (gastroesophageal reflux disease) Dysphasia Nasal turbinate hypertrophy Deviated septum Hearing loss Cholesteatoma Depression Chronic eustachian tube dysfunction COPD (chronic obstructive pulmonary disease) with chronic bronchitis Surgical History H/O rotator cuff surgery LEFT AND RIGHT H/O bilateral salpingo-oophorectomy H/O kyphoplasty Hx of mastoidectomy Family History Mother CAD (coronary artery disease) Father CAD (coronary artery disease) Brother Cancer Sister Cancer Denies family history of Family history of exposure to [place] Social History Smoking and tobacco/nicotine status: never used tobacco/nicotine Alcohol intake: never Substance/Drug Use: never Lives independently: Yes Household members: none Marital status: / Current occupational status: retired Do you think of yourself as: Straight/Heterosexual Physical Exam 2 Narrative: EXAM NARRATIVE: General: Alert, no acute distress. Skin: Warm, dry. Head: Normocephalic, atraumatic. Neck: Supple, trachea midline. Eye: Extraocular movements are intact. Ears, nose, mouth and throat: Tacky oral mucosa Cardiovascular: Regular, Normal peripheral perfusion. Respiratory: Lungs are clear to auscultation, respirations are non-labored, breath sounds are equal, Symmetrical chest wall expansion. Gastrointestinal: Soft, Nontender, Non distended Musculoskeletal: Normal ROM, no deformity. Neurological: Alert and oriented, No focal neurological deficit observed. Psychiatric: Cooperative, appropriate mood & affect. Course 2 Vital Signs: Vital signs: Vital Signs Temperature 98.5 F 01/05/25 09:27 Pulse Rate 77 01/05/25 09:27 Respiratory Rate 14 01/05/25 09:27 Blood Pressure 133/73 01/05/25 09:27 Pulse Oximetry 97 01/05/25 09:27 Oxygen Delivery Me thod Room Air 01/05/25 09:27 MDM - Nausea/Vomiting/Diarrhea Medical Decision Making Medical decision making: Differential diagnosis for this patient with nausea and vomiting including but not limited to and based on the above HPI, review of systems and physical exam: Urinary tract infection. Appendicitis. Cholecystitis. Colitis. small bowel obstruction. crohn's flare. pancreatitis. gastritis. peptic ulcer. cyclic vomiting. Viral illness. Influenza. COVID. Orders placed to evaluate differential diagnosis based on the above differential, HPI and physical exam Lab Review: Laboratory results were reviewed and interpreted by myself the emergency room physician. No leukocytosis no anemia. No renal failure. UTI is present. I reviewed the patient's medical record. Reexamination: Patient says she feels much improved. Patient remained stable. No increased work of breathing. No altered mental status. No focal motor deficits. She says she was just treated for a UTI with Macrobid. She apparently now has a another urinary tract infection. Assessment and plan: Urinary tract infection Gastroenteritis Dehydration ? IV fluids, IV Zofran and IV Rocephin in the emergency room. Home on Omnicef. - Discharged home - Discussed plan with patient. Answered any questions. - Evaluation and treatment of this problem were appropriate in the emergency setting. Lab Data 01/05/25 09:30 01/05/25 09:30 Laboratory Results WBC 6.34 10^3/uL (3.29-11.43) 01/05/25 09:30 RBC 3.85 10^6/uL (3.85-5.65) 01/05/25 09:30 Hgb 11.70 g/dL (11.27-16.99) 01/05/25 09:30 Hct 35.9 % (36-47) L 01/05/25 09:30 MCV 93.2 fl (85-98) 01/05/25 09:30 MCH 30.4 pg (27-33) 01/05/25 09: MCHC 32.6 g/dL (30-55) 01/05/25 09:30 RDW 15.2 % (12.1-15.1) H 01/05/25 09:30 Plt Count 275 10^3/cmm (157-399) 01/05/25 09:30 MPV 9.4 fL (7.4-10.4) 01/05/25 09: Neut % (Auto) 92.1 % 01/05/25 09:30 Lymph % (Auto) 3.3 % 01/05/25 09:30 Ocean % (Auto) 4.1 % 01/05/25 09:30 Eos % (Auto) 0.0 % 01/05/25 09: Baso % (Auto) 0.2 % 01/05/25 09:30 Neut # (Auto) 5.84 10^3/uL (1.8-7.7) 01/05/25 09: Lymph # (Auto) 0.2 10^3/uL (0.8-4.8) L 01/05/25 09:30 Ocean # (Auto) 0.3 10^3/uL (0.2-0.9) 01/05/25 09:30 Eos # (Auto) 0.0 10^3/uL (0.0-0.8) 01/05/25 09:30 Baso # (Auto) 0.0 10^3/uL (0.0-0.1) 01/05/25 09:30 Nucleated RBC % (auto) 0 % 01/05/25 09: Nucleated RBCs # 0.0 /100WBC 01/05/25 09:30 Sodium 133 mmol/L (136-145) L 01/05/25 09:30 Potassium 3.7 mmol/L (3.5-5.1) 01/05/25 09:30 Chloride 96 mmol/L (98-107) L 01/05/25 09:30 Carbon Dioxide 26 mmol/L (22-29) 01/05/25 09:30 Anion Gap 14.7 (5-19) 01/05/25 09:30 BUN 19 mg/dL (8-23) 01/05/25 09:30 Creatinine 0.7 mg/dL (0.5-0.9) 01/05/25 09:30 GFR Calculation Not Reportable 01/05/25 09: Glucose 113 mg/dL (65-115) 01/05/25 09:30 Calculated Osmolality 279 mOsm/kg (285-295) L 01/05/25 09:30 Lactic Acid 1.2 mmol/L (0.5-2.2) 01/05/25 09:30 Calcium 8.7 mg/dL (8.5-10.5) 01/05/25 09:30 Total Bilirubin 0.5 mg/dL (0.15-1.2) 01/05/25 09:30 AST 17 U/L (0-32) 01/05/25 09:30 ALT 15 U/L (0-33) 01/05/25 09:30 Alkaline Phosphatase 21 U/L (35-105) L 01/05/25 09:30 Total Protein 6.5 g/dL (6.6-8.7) L 01/05/25 09:30 Albumin 3.9 g/dL (3.5-5.2) 01/05/25 09:30 Globulin 2.6 g/dL (1.3-4.6) 01/05/25 09:30 Lipase 12 U/L (13-60) L 01/05/25 09:30 Urine Color Yellow (Yellow) 01/05/25 10:10 Urine Appearance Clear (CLEAR) 01/05/25 10:10 Urine pH 5 (5-7) 01/05/25 10:10 Ur Specific [place] 1.005 (1.005-1.030) 01/05/25 10:10 Urine Protein Neg (Negative) 01/05/25 10:10 Urine Glucose (UA) Norm (Normal) 01/05/25 10:10 Urine Ketones 1+ (Negative) H 01/05/25 10:10 Urine Blood 2+ (Negative) H 01/05/25 10:10 Urine Nitrate Negative (Negative) 01/05/25 10:10 Urine Bilirubin 1+ (Negative) H 01/05/25 10:10 Urine Urobilinogen Norm mg/dL (Negative) 01/05/25 10:10 Ur Leukocyte Esterase 2+ (Negative) H 01/05/25 10:10 Urine RBC 6-10 /hpf (0-2) 01/05/25 10:10 Urine WBC 21-50 /hpf (0-5) H 01/05/25 10:10 Ur Squamous Epith Cells 6-10 /hpf (0-5) 01/05/25 10:10 Amorphous Sediment Not Reportable 01/05/25 10:10 Urine Bacteria 1+ /hpf (NONE) H 01/05/25 10:10 Hyaline Casts 11.16 /lpf 01/05/25 10:10 No radiology studies performed this visit Discharge Plan Discharge Patient Disposition: Home Clinical Impression: Urinary tract infection, Dehydration, Vomiting, Gastroenteritis Condition: Stable Prescriptions: New ondansetron 8 mg tablet,disintegrating 8 mg PO Q6H Qty: 14 0RF Rx Instructions: Take 1/2-1 tab every 6 hours as needed for nausea and vomiting cefdinir 300 mg capsule 300 mg PO BID 7 Days Qty: 14 0RF No Action cholecalciferol (vitamin D3) 25 mcg (1,000 unit) capsule 25 mcg PO BEDTIME alprazolam 0.25 mg tablet 0.25 mg PO BID PRN (Reason: Anxiety) acetaminophen 500 mg tablet 1,000 mg PO BID PRN (Reason: Pain) Xarelto 20 mg tablet 20 mg PO BEDTIME Qty: 100 3RF rosuvastatin 10 mg tablet 10 mg PO BEDTIME Qty: 90 3RF valsartan 160 mg tablet 160 mg PO BID Qty: 180 3RF levothyroxine 25 mcg Tablet 25 mcg PO DAILY@06 hydrochlorothiazide 50 mg tablet 50 mg PO QAM potassium chloride 20 mEq Tablet Extended Release 20 meq PO BEDTIME Discharge Orders: Discharge ED (Routine); Ordered 01/05/25 Ordered By: Anai Turcios Referrals: Cecille Crump FNP [Primary Care Provider] - Discharge Diet: Advance as tolerated Discharge Activity: Increase activity as tolerated Patient Instructions: Urinary Tract Infection in Older Adults (ED), Opioid Safety, Pain Management Activity Restrictions/Additional Instructions: Thank you for choosing [facility] for your healthcare needs today. Please realize this is an emergency room and that we are providing you with a medical screening exam and this may not be complete and all inclusive of all the testing and or work up that you may need to determine your ailment or severity of your illness. You have been screened and evaluated and felt safe for discharge. Health conditions do change or evolve sometimes and as such it is important that you follow up with your Primary Doctor to be re checked, 3-5 days is a general good time frame for follow up. You are always welcome to return to the ED for re assessment if your symptoms are worsening or you have new concerns Print Language: Gabonese Coding Level of Care Code ED Paper Carrier for Ismael Schulte
[2025-01-05 10:04] LABS: Lactic Sepsis W/Reflex 1.2 mmol/L (0.5-2.2)
[2025-01-05 10:05] LABS: Alanine Aminotransferase 15 U/L (0-33); Albumin Level 3.9 g/dL (3.5-5.2); Alkaline Phosphatase 21 U/L (35-105); Anion Gap 14.7 (5-19); Aspartate Amino Transferase 17 U/L (0-32); Blood Urea Nitrogen 19 mg/dL (8-23); Calcium 8.7 mg/dL (8.5-10.5); Carbon Dioxide 26 mmol/L (22-29); Chloride 96 mmol/L (98-107); Globulin 2.6 g/dL (1.3-4.6); Glucose 113 mg/dL (65-115); Lipase 12 U/L (13-60); Osmolality Calculated 279 mOsm/kg (285-295); Potassium 3.7 mmol/L (3.5-5.1); Sodium 133 mmol/L (136-145); Total Bilirubin 0.5 mg/dL (0.15-1.2); Total Protein 6.5 g/dL (6.6-8.7)
[2025-01-05 10:18] LABS: Bacteria Urine 1+ /hpf; Hyaline Casts Urine 11.16 /lpf; WBC Urine 21-50 /hpf (0-5)
[2025-01-05 10:22] LABS: Blood Urine 2+ (Negative); Glucose Urine UA Norm (Normal); Ketones Urine 1+ (Negative); Nitrate Urine Negative (Negative); Protein Urine Neg (Negative); Specific Gravity, Urine 1.005 (1.005-1.030); Urine Appearance Clear (CLEAR); Urine Color Yellow (Yellow); pH Urine 5 (5-7)
[2025-01-05 10:23] LABS: Bilirubin Urine 1+ (Negative); Leukocyte Esterase Urine 2+ (Negative); Urobilinogen Urine Norm (Negative)
[2025-01-05 10:27] LABS: UA Slide Review UA Slide Review Perf
[2025-01-05 10:28] LABS: Add Urine Culture? Yes
--- NOTE | 2025-01-05 10:35 | PC.PHAR ---
Pt is [facility] but carries a current list. Last taken yesterday.
[2025-01-05] MEDS: cefTRIAXone 1,000 mg SDV 1000 MG IVP (10:45)
[2025-01-05 10:56] VITALS: BP 135/68; PULSE 69; O2SAT 97
== END 2025-01-05 10:59 | disposition home or self-care (01) ==
PROVIDERS: Emergency Provider Emergency Medicine; PCP Nurse Practitioner
DX: N39.0 Urinary tract infection, site not specified (principal); E86.0 Dehydration; R11.10 Vomiting, unspecified; K52.9 Noninfective gastroenteritis and colitis, unspecified; J44.9 Chronic obstructive pulmonary disease, unspecified; I11.0 Hypertensive heart disease with heart failure; I50.9 Heart failure, unspecified; Z95.0 Presence of cardiac pacemaker; Z85.828 Personal history of other malignant neoplasm of skin
CPT/HCPCS: 36415; 80053; 81001; 83605; 83690; 85025; 87040; 87086; 96361; 96374; 96375; 99284; J0696; J2405; J7030

== ENCOUNTER → 2025-01-08 11:30 | Outpatient (BNVA) | payer OTHER, MEDICARE, SELFPAY | PROVIDERS: PCP Nurse Practitioner; Visit Provider Dermatology | DX: L50.1 Idiopathic urticaria (principal); L82.1 Other seborrheic keratosis | CPT/HCPCS: 99214 ==

== ENCOUNTER → 2025-01-28 11:49 | Outpatient (BNVA) | payer OTHER, SELFPAY | PROVIDERS: PCP Nurse Practitioner; Visit Provider Internal Medicine Rheumatology | DX: M25.50 Pain in unspecified joint (principal); Z79.899 Other long term (current) drug therapy | CPT/HCPCS: 36415; 73130; 83520; 86160; 86162; 86200; 86235; 86255; 86376; 86431; 99204 ==

== ENCOUNTER → 2025-02-21 14:00 | Outpatient (BNVA) | payer OTHER, SELFPAY | PROVIDERS: PCP Nurse Practitioner; Visit Provider Internal Medicine | DX: I11.0 Hypertensive heart disease with heart failure (principal); I50.22 Chronic systolic (congestive) heart failure; Z95.0 Presence of cardiac pacemaker; I48.91 Unspecified atrial fibrillation; Z79.01 Long term (current) use of anticoagulants | CPT/HCPCS: 99214 ==

== ENCOUNTER → 2025-03-05 09:48 | Outpatient (BNVA) | payer OTHER, SELFPAY | PROVIDERS: PCP Nurse Practitioner; Referring Provider Nurse Practitioner; Visit Provider Specialist | DX: G20.C Parkinsonism, unspecified (principal); M48.062 Spinal stenosis, lumbar region with neurogenic claudication; I48.91 Unspecified atrial fibrillation; Z79.01 Long term (current) use of anticoagulants; Z87.891 Personal history of nicotine dependence | CPT/HCPCS: 99204 ==

== ENCOUNTER → 2025-03-12 09:53 | Outpatient (BNVA) | payer OTHER, SELFPAY | PROVIDERS: PCP Nurse Practitioner; Visit Provider Anesthesiology Pain Medicine | DX: M25.551 Pain in right hip (principal); M17.11 Unilateral primary osteoarthritis, right knee; M48.062 Spinal stenosis, lumbar region with neurogenic claudication; M54.2 Cervicalgia; M47.816 Spondylosis without myelopathy or radiculopathy, lumbar region | CPT/HCPCS: 99214 ==

== ENCOUNTER → 2025-03-26 15:01 | Outpatient (BNVA) | payer OTHER, SELFPAY | PROVIDERS: PCP Nurse Practitioner; Visit Provider Anesthesiology Pain Medicine | DX: M47.816 Spondylosis without myelopathy or radiculopathy, lumbar region (principal); M54.16 Radiculopathy, lumbar region; M48.062 Spinal stenosis, lumbar region with neurogenic claudication; M54.9 Dorsalgia, unspecified | CPT/HCPCS: 64483; 64484; J1100; J3490; J9999 ==

== ENCOUNTER 2025-04-04 10:50 | Outpatient (CLI) | payer OTHER, SELFPAY ==
--- NOTE | 2025-04-04 10:52 | MM_ITS ---
WS: [id number] BILATERAL SCREENING DIGITAL TOMOSYNTHESIS MAMMOGRAM WITH CAD HISTORY: SCREENING COMPARISON: 03/19/2024, 03/01/2023 Bilateral CC and MLO views with tomosynthesis and synthetic mammography submitted. Computer aided detection analyzed. Breast composition: There are scattered areas of fibroglandular density. No suspicious masses, microcalcifications or architectural distortion. Cardiac pacer LEFT chest wall. MM/MM scr BI tomosynthesis [id number] IMPRESSION: BI-RADS: 2 - Benign. FOLLOW UP: 1 Year Follow-up
== END 2025-04-04 10:51 | disposition home or self-care (01) ==
LOC: RAD 10:51
PROVIDERS: PCP Nurse Practitioner; Visit Provider Nurse Practitioner
DX: Z12.31 Encounter for screening mammogram for malignant neoplasm of breast (principal); R92.323 Mammographic fibroglandular density, bilateral breasts; Z96.89 Presence of other specified functional implants
CPT/HCPCS: 77063; 77067

== ENCOUNTER → 2025-04-05 09:43 | Outpatient (BNVA) | payer OTHER, SELFPAY | PROVIDERS: PCP Nurse Practitioner; Visit Provider Nurse Practitioner Family | DX: I11.0 Hypertensive heart disease with heart failure (principal); I50.9 Heart failure, unspecified; I71.40 Abdominal aortic aneurysm, without rupture, unspecified; I48.91 Unspecified atrial fibrillation | CPT/HCPCS: 99214 ==

== ENCOUNTER → 2025-04-08 09:19 | Outpatient (BNVA) | payer OTHER, SELFPAY | PROVIDERS: PCP Nurse Practitioner; Visit Provider Anesthesiology Pain Medicine | DX: M25.551 Pain in right hip (principal); M48.062 Spinal stenosis, lumbar region with neurogenic claudication; M54.2 Cervicalgia; M47.816 Spondylosis without myelopathy or radiculopathy, lumbar region; M17.11 Unilateral primary osteoarthritis, right knee | CPT/HCPCS: 99214 ==

== ENCOUNTER 2025-04-24 07:58 | Outpatient (CLI) | payer OTHER, SELFPAY ==
--- NOTE | 2025-04-24 08:03 | XR_ITS ---
WS: [id number] XR hip RT 2-3V wo/w pel* [id number] REASON FOR EXAM: M25.559 - Pain in unspecified hip FINDINGS: No fracture or focal bone lesion. Mild narrowing of the posterior inferior joint space with moderate subchondral sclerosis and osteophytosis of the acetabulum. Minimal narrowing of the superior joint space with moderate subchondral sclerosis and osteophytosis of the acetabulum. Moderate osteophytosis of the femoral head. Calcific tendinosis related to the greater trochanter. 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
== END 2025-04-24 07:59 | disposition home or self-care (01) ==
PROVIDERS: PCP Nurse Practitioner; Visit Provider Anesthesiology Pain Medicine
DX: M25.851 Other specified joint disorders, right hip (principal); M25.751 Osteophyte, right hip; M16.11 Unilateral primary osteoarthritis, right hip
CPT/HCPCS: 73502

== ENCOUNTER 2025-04-26 14:28 | Outpatient (CLI) | payer OTHER, SELFPAY ==
--- NOTE | 2025-04-26 14:34 | XR_ITS ---
WS: [id number] DEXA (DUAL ENERGY X-RAY ABSORPTIOMETRY) Bone mineral density was performed using a [employer] It [employer] machine. HISTORY: SCREENING COMPARISON: None available. Lumbar spine BMD (L1-L4): 1.270 g/cm2 T score: 0.7 Z score: 2.5 Total hip BMD: Left: 0.631 g/cm2. T score: -3.0 Z score: -1.0 Right: 0.579 g/cm2. T score: -3.4 Z score: -1.4 10 year probability of a major osteoporotic fracture is 27.3%. Bone mineral density within the lumbar spine is falsely elevated as the kyphoplasty within L3 is included in the measurements. XR/XR DEXA axial skeleton* [id number] IMPRESSION: OSTEOPOROSIS based upon the WHO classification for females. Falsely elevated bone mineral density within the lumbar spine as the vertebral bodies with kyphoplasties included measurements. Without this measurement in L3 there is evidence for osteoporosis.
== END 2025-04-26 14:29 | disposition home or self-care (01) ==
PROVIDERS: PCP Nurse Practitioner; Visit Provider Nurse Practitioner
DX: Z13.820 Encounter for screening for osteoporosis (principal); Z78.0 Asymptomatic menopausal state; M85.88 Other specified disorders of bone density and structure, other site
CPT/HCPCS: 77080

== ENCOUNTER 2025-05-08 09:00 | Outpatient (CLI) | payer OTHER, SELFPAY ==
--- NOTE | 2025-05-08 09:15 | USCV_ITS ---
Dona Jimenez Age: 79 Gender: F : 1945 Exam Date: 05/08/2025 09:32 Ordering Phys: Paula Hill Technologist: PEGGY Exam Location: [facility] [place] Indication: HTN BP: 210 / 120 HR: 68 Rhythm: Sinus Technical Quality: Adequate MEASUREMENTS (Male / Female) Normal Values 2D ECHO LV Diastolic Diameter PLAX 4.2 cm 4.2 - 5.9 / 3.9 - 5.3 cm IVS Diastolic Thickness 1.6 cm 0.6 - 1.0 / 0.6 - 0.9 cm IVS Systolic Thickness 2.1 cm LVPW Diastolic Thickness 1.2 cm 0.6 - 1.0 / 0.6 - 0.9 cm LVPW Systolic Thickness 1.4 cm LVOT Diameter 2.1 cm LV Ejection Fraction 2D Teich 53.3 % LV Ejection Fraction MOD 4C 52.3 % LV Ejection Fraction MOD 2C 49.9 % LV Ejection Fraction 2C AL 53.6 % LA Diameter 3.7 cm RA Systolic Volume 4C AL 35.4 ml RA Systolic Volume 4C MOD 35.9 ml LA Sys Volume AL 56.5 cm cubed LA Sys Volume Index AL 31.0 cm cubed/m squared Aorta at Sinotubular Diameter 2.9 cm IVC Diameter 1.4 cm M-MODE LA Ao Ratio MM 1.4 AV Cusp Separation MM 1.7 cm DOPPLER AV Peak Velocity 130.0 cm/s LVOT Peak Velocity 100.0 cm/s AV Area Cont Eq vti 2.5 cm squared AV Area Cont Eq pk 2.6 cm squared MV Peak Velocity 82.0 cm/s MV Area PHT 3.5 cm squared Mitral E to A Ratio 0.9 TV Peak Velocity 151.5 cm/s TR Peak Velocity 202.0 cm/s TR Peak Gradient 16.3 mmHg TV Peak E Velocity 66.0 cm/s PV Peak Velocity 117.0 cm/s FINDINGS Left Ventricle Normal left ventricular size and systolic function, EF 54%. Moderate hypertrophy of the septum and mild hypertrophy of the posterior wall. Normal left ventricular diastolic function Right Ventricle The right ventricle is normal in size and function. Right Atrium The right atrium is normal in size. Left Atrium The left atrium is normal in size. Mitral Valve Mild mitral regurgitationStructurally normal mitral valve without significant stenosis or prolapse. There is no mitral regurgitation. Aortic Valve Mild aortic valve regurgitationStructurally normal aortic valve without significant sclerosis or stenosis. There is no aortic regurgitation. Tricuspid Valve Trace tricuspid valve regurgitation. Normal pulmonary pressure. Pulmonic Valve Normal structure and function of the pulmonic valve Pericardium Normal pericardium without effusion. Aorta Normal ascending aorta dimension. IVC The inferior vena cava appears normal. CONCLUSIONS 1. Normal left ventricular size and systolic function, EF 54%. 2. Moderate hypertrophy of the left ventricular septum and mild hypertrophy of the posterior wall 3. Normal left ventricular diastolic function 4. Mild aortic valve regurgitation and mild mitral valve regurgitation Darwin Mayen MD, FACC (Electronically Signed) Final Date: 11 May 2025 20:51 S
== END 2025-05-08 09:01 | disposition home or self-care (01) ==
PROVIDERS: PCP Nurse Practitioner; Visit Provider Nurse Practitioner Family
DX: I50.22 Chronic systolic (congestive) heart failure (principal); I10 Essential (primary) hypertension; I34.0 Nonrheumatic mitral (valve) insufficiency; I35.1 Nonrheumatic aortic (valve) insufficiency; I42.2 Other hypertrophic cardiomyopathy
CPT/HCPCS: 93306

== ENCOUNTER 2025-05-10 05:00 | Outpatient (RCR) | payer OTHER, SELFPAY | END 2025-06-09 23:55 | disposition home or self-care (01) | LOC: SPT 05:00 | PROVIDERS: Visit Provider Orthopaedic Surgery | DX: M54.50 Low back pain, unspecified (principal); M25.551 Pain in right hip | CPT/HCPCS: 97161 ==

== ENCOUNTER → 2025-05-20 10:18 | Outpatient (BNVA) | payer OTHER, SELFPAY | PROVIDERS: PCP Nurse Practitioner; Visit Provider Orthopaedic Surgery | DX: M16.11 Unilateral primary osteoarthritis, right hip (principal) | CPT/HCPCS: 73523; 99204 ==

== ENCOUNTER 2025-06-10 05:00 | Outpatient (RCR) | payer OTHER, SELFPAY | END 2025-07-09 23:59 | disposition home or self-care (01) | LOC: SPT 05:00 | PROVIDERS: PCP Nurse Practitioner; Visit Provider Orthopaedic Surgery | DX: M54.50 Low back pain, unspecified (principal); M25.551 Pain in right hip | CPT/HCPCS: 97110; 97112; 97530 ==

== ENCOUNTER → 2025-06-24 10:05 | Outpatient (BNVA) | payer OTHER, SELFPAY | PROVIDERS: PCP Nurse Practitioner; Visit Provider Internal Medicine Rheumatology | DX: L50.9 Urticaria, unspecified (principal); M05.79 Rheumatoid arthritis with rheumatoid factor of multiple sites without organ or systems involvement; R76.8 Other specified abnormal immunological findings in serum; I50.9 Heart failure, unspecified; Z95.0 Presence of cardiac pacemaker; Z79.899 Other long term (current) drug therapy; M81.0 Age-related osteoporosis without current pathological fracture | CPT/HCPCS: 36415; 80076; 82306; 82565; 85025; 85651; 86140; 86480; 86704; 86803; 87340; 99214 ==

== ENCOUNTER → 2025-07-08 10:02 | Outpatient (BNVA) | payer OTHER, SELFPAY | PROVIDERS: PCP Nurse Practitioner; Visit Provider Anesthesiology Pain Medicine | DX: M48.062 Spinal stenosis, lumbar region with neurogenic claudication (principal); M25.559 Pain in unspecified hip; M54.2 Cervicalgia; M47.816 Spondylosis without myelopathy or radiculopathy, lumbar region; M17.11 Unilateral primary osteoarthritis, right knee | CPT/HCPCS: 99214 ==

== ENCOUNTER → 2025-07-09 09:35 | Outpatient (BNVA) | payer OTHER, SELFPAY | PROVIDERS: PCP Nurse Practitioner; Visit Provider Orthopaedic Surgery | DX: M25.551 Pain in right hip (principal) | CPT/HCPCS: 99213 ==

== ENCOUNTER 2025-07-10 05:00 | Outpatient (RCR) | payer OTHER, SELFPAY | END 2025-08-09 23:59 | disposition home or self-care (01) | LOC: SPT 05:00 | PROVIDERS: PCP Nurse Practitioner; Visit Provider Orthopaedic Surgery | DX: M54.50 Low back pain, unspecified (principal); M25.551 Pain in right hip | CPT/HCPCS: 97110 ==

== ENCOUNTER → 2025-07-15 12:16 | Outpatient (BNVA) | payer OTHER, SELFPAY | PROVIDERS: PCP Nurse Practitioner; Visit Provider Dermatology | DX: L50.1 Idiopathic urticaria (principal); L56.5 Disseminated superficial actinic porokeratosis (DSAP); D18.01 Hemangioma of skin and subcutaneous tissue; L82.1 Other seborrheic keratosis; Z08 Encounter for follow-up examination after completed treatment for malignant neoplasm; Z85.828 Personal history of other malignant neoplasm of skin | CPT/HCPCS: 99214 ==

== ENCOUNTER 2025-08-10 05:00 | Outpatient (RCR) | payer OTHER, SELFPAY | END 2025-08-27 07:06 | disposition home or self-care (01) | LOC: SPT 05:00 | PROVIDERS: PCP Nurse Practitioner; Visit Provider Orthopaedic Surgery | DX: M54.50 Low back pain, unspecified (principal); M25.551 Pain in right hip | CPT/HCPCS: 97110; 97530 ==

== ENCOUNTER → 2025-08-22 14:24 | Outpatient (BNVA) | payer OTHER, SELFPAY | PROVIDERS: PCP Nurse Practitioner; Visit Provider Internal Medicine | DX: I48.91 Unspecified atrial fibrillation (principal); I11.0 Hypertensive heart disease with heart failure; I50.22 Chronic systolic (congestive) heart failure; Z95.0 Presence of cardiac pacemaker; Z79.01 Long term (current) use of anticoagulants; Z87.891 Personal history of nicotine dependence | CPT/HCPCS: 99214 ==

== ENCOUNTER → 2025-08-27 11:15 | Outpatient (BNVA) | payer OTHER, SELFPAY | PROVIDERS: PCP Nurse Practitioner; Referring Provider Nurse Practitioner; Visit Provider Specialist | DX: G20.C Parkinsonism, unspecified (principal); M48.062 Spinal stenosis, lumbar region with neurogenic claudication; I48.91 Unspecified atrial fibrillation | CPT/HCPCS: 99213 ==

== ENCOUNTER → 2025-09-25 10:03 | Outpatient (BNVA) | payer OTHER, SELFPAY | PROVIDERS: PCP Nurse Practitioner; Visit Provider Internal Medicine Cardiovascular Disease | DX: Z45.018 Encounter for adjustment and management of other part of cardiac pacemaker (principal) | CPT/HCPCS: 93296 ==